=== PATIENT | male | born 1970 | race Caucasian/White ===

== ENCOUNTER 2020-06-12 05:55 | Inpatient (IN) ==
[2020-06-12] MEDS ORDERED: HYDROmorphone INJ 0.5 MG/0.5 ML SYR IV STA ×2 (06:38→11:03)
[2020-06-12] MEDS ORDERED: SODIUM CHLORIDE 0.9% 1000ML 1,000 ML IV ONE (06:39)
[2020-06-12] MEDS ORDERED: ONDANSETRON INJ 2 MG/ML 2 ML VIAL IV STA (06:45)
--- NOTE | 2020-06-12 06:49 | Emergency Department Note ---
ED Visit Note I contributed to the care of this patient under the supervision of Dr. Díaz. . Resident Activity Tracking Resident Involvement: Resident Care Provided Care Provided: Adult ED
[2020-06-12 06:53] LABS: Hematocrit (blood only) 52.2 % (42-52); Hemoglobin 18.2 g/dL (14.0-18.0); Mean Corpuscular Hemoglobin 32.9 pg (25-34); Mean Corpuscular Hgb Conc 34.9 g/dL (32-36); Mean Corpuscular Volume 94.4 fL (80-100); Mean Platelet Volume 9.9 fL (7.4-10.4); Platelet Count 432 K/uL (130-400); RDW Coefficient of Variation 13.2 % (11.5-14.5); RDW Standard Deviation 45.8 fL (36.4-46.3); Red Blood Count 5.53 M/uL (4.7-6.1); White Blood Count 27.76 K/uL (4.8-10.8)
--- NOTE | 2020-06-12 07:09 | Emergency Department Note ---
History of Present Illness General Chief Complaint: Abdominal Pain Stated Complaint: ABDOMINAL PAIN Time Seen by Provider: 06/12/20 06:19 Source: patient Mode of arrival: ambulatory Limitations: no limitations History of Present Illness Provider Complaint: abdominal pain Maximum Pain Intensity: 8 This is a 49-year-old male who presents to the ED with a chief complaint of lower abdominal pain. The patient has had the pain for a couple of days. Is associated with nausea and vomiting. He reports the pain is a constant pressure-like pain. Denies urinary symptoms. He states that he had this a few times before that seemed to resolve on its own after a day or 2. He never got checked for it. Nothing seems to make it better or worse. EMS provided IV fentanyl and IV Zofran. Little improvement with this. Home Medications Medication Instructions Recorded Confirmed Type cyclobenzaprine 5 mg tablet See Rx Instructions PO BID PRN #20 12/08/19 06/12/20 Rx tab esomeprazole magnesium 40 mg 40 mg PO BID cap 12/08/19 06/12/20 History capsule,delayed release multivitamin 1 tab PO DAILY 12/08/19 06/12/20 History buspirone 5 mg tablet 10 mg PO QAM tab 01/10/20 06/12/20 History lisinopril 10 mg tablet 10 mg PO DAILY #30 tab 03/01/20 06/12/20 Rx meloxicam 7.5 mg tablet 7.5 mg PO DAILY #30 tab 05/07/20 06/12/20 Rx Allergies Allergy/AdvReac Type Severity Reaction Status Date / Time Penicillins Allergy Unknown Unknown Verified 06/12/20 06:20 Past Med/Surg History Medical History (Updated 06/12/20 @ 10:07 by Jesus Díaz DO) Knowledge deficit on leg surgery Surgical History H/O hand surgery Previous back surgery S/P cholecystectomy S/P eye surgery S/P foot surgery Family History Father Heart disease Denies family history of Ovarian cancer Prostate cancer Breast cancer Colorectal cancer Social History Smoking Status: Former smoker Tobacco Type: Cigarettes and Smokeless Tobacco (Dip or Chew) Hx Alcohol Use: No Hx Substance Use: Yes Prescribed Medications: Marijuana Preferred Language: Danish Communication Ability: Effective Visual Impairment: No Limitations Hearing Ability: Normal marital status: Current Living Situation: Spouse and Family current occupational status: employed 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 Feels Safe at Home: Yes caffeine: Yes Dental Care, Regularly: No Physical Activity Frequency: Does not Exercise Seatbelt Use: always Sunscreen Use: No Review of Systems A total of 10 systems reviewed and were otherwise negative Physical Exam Vital Signs: Vital Signs - 24 hr 06/12/20 05:59 06/12/20 06:00 06/12/20 06:15 Temperature 36.5 C Temperature Source Oral Pulse Rate 128 H 129 H 130 H Pulse Rate from Sp O2 Sensor 129 H 137 H Pulse Rhythm [Apic al] Pulse Strength [Ap ical] Respiratory Rate 16 22 14 Respiratory Effort / Characteristics Non-Labored Respiratory Depth Normal Respiratory Patter n Blood Pressure 147/101 H 147/101 H 125/91 Blood Pressure Shelbi n 116 116 102 Pulse Oximetry 96 96 98 Oxygen Delivery Me thod Room Air Sepsis Recent Feve r Within 48 Hours No Sepsis New/Unexpla ined Change in Men silver Status N/A Sepsis Action Take n by Nursing No Action Required 06/12/20 06:18 06/12/20 06:23 06/12/20 06:30 Temperature Temperature Source Pulse Rate 135 H Pulse Rate from Sp O2 Sensor 136 H Pulse Rhythm [Apic al] Regular Pulse Strength [Ap ical] Normal Respiratory Rate 16 Respiratory Effort / Characteristics Non-Labored Sponta neous Respiratory Depth Normal Respiratory Patter n Regular Blood Pressure 135/87 Blood Pressure Shelbi n 103 Pulse Oximetry 97 Oxygen Delivery Me thod Sepsis Recent Feve r Within 48 Hours Sepsis New/Unexpla ined Change in Men silver Status Sepsis Action Take n by Nursing 06/12/20 06:41 06/12/20 07:33 06/12/20 08:03 Temperature Temperature Source Pulse Rate 132 H 130 H Pulse Rate from Sp O2 Sensor 132 H 127 H Pulse Rhythm [Apic al] Pulse Strength [Ap ical] Respiratory Rate 15 Respiratory Effort / Characteristics Respiratory Depth Respiratory Patter n Blood Pressure 111/66 104/67 Blood Pressure Shelbi n 81 79 Pulse Oximetry 96 96 94 Oxygen Delivery Me thod Room Air Sepsis Recent Feve r Within 48 Hours Sepsis New/Unexpla ined Change in Men silver Status Sepsis Action Take n by Nursing 06/12/20 08:30 06/12/20 09:00 Temperature Temperature Source Pulse Rate 128 H 119 H Pulse Rate from Sp O2 Sensor 129 H 121 H Pulse Rhythm [Apic al] Pulse Strength [Ap ical] Respiratory Rate 20 Respiratory Effort / Characteristics Respiratory Depth Respiratory Patter n Blood Pressure 101/57 L 112/72 Blood Pressure Shelbi n 71 85 Pulse Oximetry 96 97 Oxygen Delivery Me thod Sepsis Recent Feve r Within 48 Hours Sepsis New/Unexpla ined Change in Men silver Status Sepsis Action Take n by Nursing Physical Exam: CONSTITUTIONAL/VITAL SIGNS: Reviewed / noted above. GENERAL: Non-toxic in appearance. INTEGUMENTARY: Warm, dry, and [place]. HEAD: Normocephalic. EYES: without scleral icterus or trauma. ENT/OROPHARYNX: clear and moist. LYMPHADENOPATHY/NECK: Is supple without lymphadenopathy or meningismus. RESPIRATORY: Lungs clear and equal. CARDIOVASCULAR: Regular rate and rhythm. GI/ABDOMEN: Soft and tender in the lower abdominal quadrants below the umbilicus. No organomegaly or pulsatile mass. No rebound or guarding. Normal bowel sounds. EXTREMITIES: Warm and well perfused. BACK: No CVA tenderness. NEUROLOGICAL: Intact without focal deficits. PSYCHIATRIC: normal affect. MUSCULOSKELETAL: Normally developed with good muscle tone. TRIAGE NURSING DOCUMENTATION REVIEWED. Course Administered Medications Discontinued Medications Hydromorphone HCl (Hydromorphone Inj 0.5 Mg/0.5 Ml Syr) 0.5 mg IV NOW STA Stop: 06/12/20 06:39 Last Admin: 06/12/20 06:40 Dose: 0.5 mg Documented by: [id number] Hydromorphone HCl (Hydromorphone Inj 1 Mg/Ml Syringe) 1 mg IV NOW STA Stop: 06/12/20 07:16 Last Admin: 06/12/20 07:35 Dose: 1 mg Documented by: [id number] Sodium Chloride (Nss 1000ml) 1,000 mls @ 999 mls/hr IV .Q1H1M ONE Stop: 06/12/20 07:39 Last Admin: 06/12/20 07:36 Dose: 999 mls/hr Documented by: [id number] Sodium Chloride (Nss 1000ml) 500 mls @ 999 mls/hr IV .Q31M ONE Stop: 06/12/20 08:33 Last Admin: 06/12/20 09:48 Dose: 999 mls/hr Documented by: [id number] Sodium Chloride (Nss 1000ml) 500 mls @ 999 mls/hr IV .Q31M ONE Stop: 06/12/20 09:05 Last Admin: 06/12/20 09:48 Dose: 999 mls/hr Documented by: [id number] Medical Decision Making Differential Diagnosis Differential considered: pancreatitis, hepatitis, acute cholecystitis, AAA, UTI, pyelonephritis, kidney stones, appendicitis, diverticulitis, shingles, bowel obstruction, mesenteric ischemia, intussusception,hernia, testicular torsion Medical Records Attestation: I reviewed the patient's medical records. Home Medications Current Medication List: was personally reviewed by me Laboratory Data Attestation: I reviewed the patient's lab results. Result diagrams: 06/12/20 06:05 06/12/20 07:14 Lab Results 06/12/20 06/12/20 06/12/20 Range/Units 06:05 06:05 06:05 WBC 27.76 H (4.8-10.8) K/uL RBC 5.53 (4.7-6.1) M/uL Hgb 18.2 H (14.0-18.0) g/dL POC Hgb (14.0-18.0) g/dl Hct 52.2 H (42-52) % POC Hct (42-52) % MCV 94.4 (80-100) fL MCH 32.9 (25-34) pg MCHC 34.9 (32-36) g/dL RDW Std Deviation 45.8 (36.4-46.3) fL RDW Coeff of Yoselin 13.2 (11.5-14.5) % Plt Count 432 H (130-400) K/uL MPV 9.9 (7.4-10.4) fL Immature Gran % (Auto) 0.8 % Neut % (Auto) 89.7 % Lymph % (Auto) 5.0 % [place] % (Auto) 4.5 % Eos % (Auto) 0.0 % Baso % (Auto) 0.0 % Neut # (Auto) 24.89 H (1.4-6.5) K/uL Lymph # (Auto) 1.38 (1.2-3.4) K/uL [place] # (Auto) 1.25 H (0.11-0.59) K/uL Eos # (Auto) 0.01 (0-0.5) K/uL Baso # (Auto) 0.01 (0-0.2) K/uL Immature Gran # (Auto) 0.22 H (0.00-0.02) K/uL POC Sodium (135-144) mmol/L Sodium Cancelled POC Potassium (3.3-5.0) mmol/L Potassium Cancelled POC Chloride (101-112) mmol/L Chloride Cancelled Carbon Dioxide Cancelled POC Total CO2 (24-31) mmol/L Anion Gap Cancelled POC Anion Gap (16-25) mmol/L POC BUN (7-18) mg/dl BUN Cancelled Creatinine Cancelled POC Creatinine (0.6-1.3) mg/dl Est Cr Clr Drug Dosing Cancelled Est GFR ( Amer) Cancelled Est GFR (Non-Af Amer) Cancelled BUN/Creatinine Ratio Cancelled Glucose Cancelled POC Glucose (other) (70-99) mg/dl Estimat Average Glucose 120 mg/dl Hemoglobin A1c 5.8 H (4.5-5.6) % Lactate (0.4-2.0) mmol/L Calcium Cancelled POC Ioniz Calcium Scottie (1.12-1.32) mmol/l Total Bilirubin Cancelled Direct Bilirubin Cancelled AST Cancelled ALT Cancelled Alkaline Phosphatase Cancelled Total Protein Cancelled Albumin Cancelled Globulin Cancelled Albumin/Globulin Ratio Cancelled Lipase Cancelled Beta-Hydroxybutyric Acd (0.2-2.81) mg/dl COVID-19 Eval Order 06/12/20 06/12/20 06/12/20 Range/Units 06:05 07:14 07:24 WBC (4.8-10.8) K/uL RBC (4.7-6.1) M/uL Hgb (14.0-18.0) g/dL POC Hgb (14.0-18.0) g/dl Hct (42-52) % POC Hct (42-52) % MCV (80-100) fL MCH (25-34) pg MCHC (32-36) g/dL RDW Std Deviation (36.4-46.3) fL RDW Coeff of Yoselin (11.5-14.5) % Plt Count (130-400) K/uL MPV (7.4-10.4) fL Immature Gran % (Auto) % Neut % (Auto) % Lymph % (Auto) % [place] % (Auto) % Eos % (Auto) % Baso % (Auto) % Neut # (Auto) (1.4-6.5) K/uL Lymph # (Auto) (1.2-3.4) K/uL [place] # (Auto) (0.11-0.59) K/uL Eos # (Auto) (0-0.5) K/uL Baso # (Auto) (0-0.2) K/uL Immature Gran # (Auto) (0.00-0.02) K/uL POC Sodium (135-144) mmol/L Sodium 137 POC Potassium (3.3-5.0) mmol/L Potassium 3.6 POC Chloride (101-112) mmol/L Chloride 99 Carbon Dioxide 16 L POC Total CO2 (24-31) mmol/L Anion Gap 22.0 H POC Anion Gap (16-25) mmol/L POC BUN (7-18) mg/dl BUN 44 H Creatinine 3.83 H POC Creatinine (0.6-1.3) mg/dl Est Cr Clr Drug Dosing 21.2 Est GFR ( Amer) 20.0 Est GFR (Non-Af Amer) 17.2 BUN/Creatinine Ratio 11.5 Glucose 301 H* POC Glucose (other) (70-99) mg/dl Estimat Average Glucose mg/dl Hemoglobin A1c (4.5-5.6) % Lactate 12.7 H* (0.4-2.0) mmol/L Calcium 10.8 H POC Ioniz Calcium Scottie (1.12-1.32) mmol/l Total Bilirubin 0.5 Direct Bilirubin < 0.1 AST 40 H ALT 45 Alkaline Phosphatase 96 Total Protein 9.9 H Albumin 4.7 Globulin 5.1 H Albumin/Globulin Ratio 0.9 Lipase 281 Beta-Hydroxybutyric Acd 2.93 H (0.2-2.81) mg/dl COVID-19 Eval Order CovFluRsv at [facility] 06/12/20 Range/Units 08:31 WBC (4.8-10.8) K/uL RBC (4.7-6.1) M/uL Hgb (14.0-18.0) g/dL POC Hgb 18.4 H (14.0-18.0) g/dl Hct (42-52) % POC Hct 54 H (42-52) % MCV (80-100) fL MCH (25-34) pg MCHC (32-36) g/dL RDW Std Deviation (36.4-46.3) fL RDW Coeff of Yoselin (11.5-14.5) % Plt Count (130-400) K/uL MPV (7.4-10.4) fL Immature Gran % (Auto) % Neut % (Auto) % Lymph % (Auto) % [place] % (Auto) % Eos % (Auto) % Baso % (Auto) % Neut # (Auto) (1.4-6.5) K/uL Lymph # (Auto) (1.2-3.4) K/uL [place] # (Auto) (0.11-0.59) K/uL Eos # (Auto) (0-0.5) K/uL Baso # (Auto) (0-0.2) K/uL Immature Gran # (Auto) (0.00-0.02) K/uL POC Sodium 141 (135-144) mmol/L Sodium POC Potassium 3.6 (3.3-5.0) mmol/L Potassium POC Chloride 104 (101-112) mmol/L Chloride Carbon Dioxide POC Total CO2 19 L (24-31) mmol/L Anion Gap POC Anion Gap 22.0 (16-25) mmol/L POC BUN 45 H (7-18) mg/dl BUN Creatinine POC Creatinine 3.6 H (0.6-1.3) mg/dl Est Cr Clr Drug Dosing Est GFR ( Amer) Est GFR (Non-Af Amer) BUN/Creatinine Ratio Glucose POC Glucose (other) 289 H (70-99) mg/dl Estimat Average Glucose mg/dl Hemoglobin A1c (4.5-5.6) % Lactate (0.4-2.0) mmol/L Calcium POC Ioniz Calcium Scottie 1.14 (1.12-1.32) mmol/l Total Bilirubin Direct Bilirubin AST ALT Alkaline Phosphatase Total Protein Albumin Globulin Albumin/Globulin Ratio Lipase Beta-Hydroxybutyric Acd (0.2-2.81) mg/dl COVID-19 Eval Order Imaging Data Radiologist's Impression: CT OF THE ABDOMEN AND PELVIS WITH ORAL CONTRAST ONLY CLINICAL HISTORY: Abdominal pain, nausea and vomiting. COMPARISON STUDY: No previous studies for comparison. TECHNIQUE: Axial images of the abdomen and pelvis were obtained without IV contrast. Water soluble oral contrast was administered. Automated exposure control was utilized for the study. A dose lowering technique was utilized adhering to the principles of ALARA. FINDINGS: Visualized portions of the lower lungs demonstrate several low suspicion pulmonary nodules, including a 4 mm left lower lobe nodule on image 43 of 511 and a 4 mm right middle lobe nodule on image 24. There are minimal tree-in-bud nodules within the right lower and right middle lobes. No pneumatosis, free air or portal venous gas is present. Evaluation of the abdomen and pelvis is suboptimal on this unenhanced examination. Stomach is markedly distended and fluid-filled. The proximal small bowel is mildly dilated and fluid-filled. Numerous air-fluid levels are noted throughout the small bowel. No well-defined transition point is identified. No bowel wall thickening is identified although sensitivity is diminished on this unenhanced examination. The appendix is normal. There is probable hepatic steatosis. There is no biliary ductal dilatation status post cholecystectomy. Unenhanced images of the spleen, adrenal glands, kidneys and pancreas are unremarkable. There is a 2 mm left renal calculus. There is no hydronephrosis. There are no ureteral calculi. There is no ascites. No fluid collection to suggest an abscess is noted. A mildly enlarged left para-aortic lymph node on image 237 measures 1.3 cm in short axis diameter. No acute fracture or suspicious lesion within the visualized skeletal structures are noted. There are postoperative findings within the thoracolumbar spine. Old lumbar spine compression deformities are noted. IMPRESSION: 1. Mildly dilated fluid-filled proximal to mid small bowel with numerous air- fluid levels throughout the small bowel. No transition point. These findings favor an ileus or a nonspecific enteritis. A partial small bowel obstruction could appear similar. If persistent symptoms, a short-term follow-up CT of the abdomen and pelvis is recommended. Exam compromised given the lack of IV contrast. Findings discussed with Dr. Díaz at time of dictation. 2. Markedly distended fluid-filled stomach. Nasogastric tube placement might be considered. 3. 2 mm left renal calculus. No hydronephrosis. No ureteral calculi. 4. Mildly enlarged left paraaortic lymph node. This could be assessed with a follow-up CT of the abdomen and pelvis in 6 months. 5. Hepatic steatosis. ECG Data Attestation: I personally reviewed and interpreted this ECG as follows: Indication: abdominal pain Rate (beats per minute): 128 Rhythm: sinus tachycardia Findings: + ectopy; no PVC and no ST elevation MDM Narrative This is a 49-year-old male with lower abdominal pain as detailed above. Exam reveals tenderness diffusely in the lower abdomen. Vital signs show tachy cardia. His twelve-lead EKG shows a sinus tach at a rate of 128. The abdominal exam reveals some mild periumbilical lower abdominal tenderness. With blood cell count was 27,000. Lactic acid was over 12. BUN is 44 and creatinine is 3.8. Lipase was negative. Glucose was 300. The patient was treated with 30 cc/kg of normal saline IV. He was given Dilaudid IV for discomfort and IV Zofran. He was given some empiric IV antibiotics including IV Cipro and IV Flagyl. CT scan did not show any clear intra-abdominal pathology other than ileus as noted above. The patient will be seen by the hospitalist for further evaluation and care. Impression & Plan Acute renal failure, Acidosis, lactic, Acute hyperglycemia Critical Care Time Critical Care Time: Yes Total Critical Care Time: 30 I have personally spent 30 minutes of critical care time in the direct management of this patient. This includes bedside care, interpretation of diagnostic studies, and testing, discussion with consultants, patient, and family members, and other required patient management activities. This 30 minutes is in excess of all separately billable procedures. Discharge Plan Visit Data Chief Complaint: Abdominal Pain Stated Complaint: ABDOMINAL PAIN ED Provider: Jesus Díaz ED Midlevel Provider: Viktor Lira Discharge Problem: Acute renal failure, Acidosis, lactic, Acute hyperglycemia Patient Disposition: Being Evaluated by Surgeon Forms Stand Alone Forms: My [facility] [employer] Prescriptions Prescriptions: No Action lisinopril 10 mg tablet 10 mg PO DAILY Qty: 30 RF: 5 meloxicam [Mobic] 7.5 mg tablet 7.5 mg PO DAILY Qty: 30 RF: 2 esomeprazole magnesium [Nexium] 40 mg capsule,delayed release(DR/EC) 40 mg PO BID RF: 0 multivitamin Tablet 1 tab PO DAILY RF: 0 cyclobenzaprine 5 mg tablet See Rx Instructions PO BID PRN (Reason: muscle spasm) Qty: 20 RF: 0 buspirone 5 mg tablet 10 mg PO QAM RF: 0 Referrals Referrals: Emely Torres DO [Primary Care Provider] -
[2020-06-12 07:15] LABS: Basophils # (auto) 0.01 K/uL (0-0.2); Eosinophils # (auto) 0.01 K/uL (0-0.5); Immature Granulocytes # (auto) 0.22 K/uL (0.00-0.02); Immature Granulocytes % (auto) 0.8 %; Lymphocytes # (auto) 1.38 K/uL (1.2-3.4); Monocytes # (auto) 1.25 K/uL (0.11-0.59); Monocytes % (auto) 4.5 %; Neutrophils # (auto) 24.89 K/uL (1.4-6.5); Neutrophils % (auto) 89.7 %
[2020-06-12] MEDS ORDERED: HYDROmorphone INJ 1 MG/ML SYRINGE IV STA (07:15)
[2020-06-12] MEDS ORDERED: SODIUM CHLORIDE 0.9% 1000ML 500 ML IV ONE ×2 (08:03→08:35)
[2020-06-12] MEDS ORDERED: CIPROFLOXACIN / D5W 400 MG/200 ML BAG IV SCH (08:15)
[2020-06-12 08:27] LABS: Alanine Aminotransferase 45 U/L (12-78); Albumin Globulin Ratio 0.9 (0.9-2); Albumin Level 4.7 gm/dl (3.4-5.0); Alkaline Phosphatase 96 U/L (45-117); Aspartate Aminotransferase 40 U/L (15-37); BUN Creatinine Ratio 11.5 (10-20); Bilirubin Direct < 0.1 mg/dl (0-0.2); Bilirubin,Total 0.5 mg/dl (0.2-1); Blood Urea Nitrogen 44 mg/dl (7-18); Calcium 10.8 mg/dl (8.5-10.1); Carbon Dioxide 16 mmol/L (21-32); Chloride 99 mmol/L (98-107); Creatinine Clr Calc Pharmacy 21.2 ml/min; Est GFR (Non-African American) 17.2; Globulin 5.1 gm/dl (2.5-4.0); Glucose 301 mg/dl (70-99); Lipase 281 U/L (73-393); Potassium 3.6 mmol/L (3.5-5.1); Sodium 137 mmol/L (136-145); Total Protein 9.9 gm/dl (6.4-8.2)
[2020-06-12 08:43] LABS: iSTAT Creatinine 3.6 mg/dl (0.6-1.3); iSTAT Hemoglobin 18.4 g/dl (14.0-18.0); iSTAT Ionized Calcium 1.14 mmol/l (1.12-1.32); iSTAT Potassium 3.6 mmol/L (3.3-5.0)
[2020-06-12 09:02] LABS: Beta-Hydroxybutyrate 2.93 mg/dl (0.2-2.81)
[2020-06-12 09:23] LABS: Estimated Average Glucose 120 mg/dl; Hemoglobin A1C 5.8 % (4.5-5.6)
--- NOTE | 2020-06-12 09:53 | CT Scan Report ---
CT OF THE ABDOMEN AND PELVIS WITH ORAL CONTRAST ONLY CLINICAL HISTORY: Abdominal pain, nausea and vomiting. COMPARISON STUDY: No previous studies for comparison. TECHNIQUE: Axial images of the abdomen and pelvis were obtained without IV contrast. Water soluble or al contrast was administered. Automated exposure control was utilized for the study. A dose lowering technique was utilized adhering to the principles of ALARA. FINDINGS: Visualized portions of the lower lungs demonstrate several low suspicion pulmonary nodules, including a 4 mm left lower lobe nodule on image 43 of 511 and a 4 mm right middle lobe nodule on im age 23. There are minimal tree-in-bud nodules within the right lower and right middle lobes. No pneumatosis, free air or portal venous gas is present. Evaluation of the abdomen and pelvis is sub optimal on this unenhanced examination. Stomach is markedly distended and fluid-filled. The proximal small bowel is mildly dilated and fluid-filled. Numerous air-fluid levels are noted throughout the sm all bowel. No well-defined transition point is identified. No bowel wall thickening is identified alt sayra sensitivity is diminished on this unenhanced examination. The appendix is normal. There is prob able hepatic steatosis. There is no biliary ductal dilatation status post cholecystectomy. Unenhanced images of the spleen, adrenal glands, kidneys and pancreas are unremarkable. There is a 2 mm left re nal calculus. There is no hydronephrosis. There are no ureteral calculi. There is no ascites. No flui d collection to suggest an abscess is noted. A mildly enlarged left para-aortic lymph node on image 2 37 measures 1.3 cm in short axis diameter. No acute fracture or suspicious lesion within the visualiz ed skeletal structures are noted. There are postoperative findings within the thoracolumbar spine. Ol d lumbar spine compression deformities are noted. IMPRESSION: 1. Mildly dilated fluid-filled proximal to mid small bowel with numerous air-fluid levels throughout the small bowel. No transition point. These findings favor an ileus or a nonspecific enteritis. A par tial small bowel obstruction could appear similar. If persistent symptoms, a short-term follow-up CT of the abdomen and pelvis is recommended. Exam compromised given the lack of IV contrast. Findings di scussed with Dr. Díaz at time of dictation. 2. Markedly distended fluid-filled stomach. Nasogastric tube placement might be considered. 3. 2 mm left renal calculus. No hydronephrosis. No ureteral calculi. 4. Mildly enlarged left paraaortic lymph node. This could be assessed with a follow-up CT of the abdo men and pelvis in 6 months. 5. Hepatic steatosis. ACT 112: Negative or not required by law. Electronically signed by: Kingsley Concepcion M.D. 06/12/2020 9:51 AM
[2020-06-12] MEDS: metroNIDAZOLE 500 MG/100 ML BAG IV SCH ×3 (10:11→23:16)
[2020-06-12 10:35] LABS: Influenza A virus by PCR Negative (Neg); Influenza B virus by PCR Negative (Neg); RSV by PCR Negative (Neg); SARS CoV2 RNA(COVID-19) InHosp NEGATIVE (Negative)
--- NOTE | 2020-06-12 10:54 | Surgery Consultation ---
Date of Consultation June 12, 2020 Assessment & Plan (1) Partial small bowel obstruction: This is a 49y M with a PMH of tobacco use, spinal stenosis, GERD, and depression who presents to the [facility] ED on 06/12/20 with complaints of lower abdominal pain, associated with nausea/vomiting. CT a/p was performed that revealed mildly dilated fluid-filled proximal to mid small bowel with numerous air-fluid levels throughout the small bowel, without transition point, favoring an ileus, nonspecific enteritis, or a partial small bowel obstruction could appear similar. It also showed a markedly distended fluid-filled stomach. Patient's HR 110-130's. Labs notable for a WBC of 27, Hb.2, Cr: 3.8, and lactate of 12. On examination patient's abdomen is distended with tenderness to palpation in the lower abdomen. Legs have a mottled appearance. At this time recommend aggressive fluid resuscitation, broad spectrum abx, and NGT placement. We will continue to follow along closely for change in patient's status. pt seen. as above. I suspect gastroenteritis with severe dehydration. will repeat bolus and increase maintenance IVF. NGT put out over 2000 cc's at initial insertion. agree with empiric antibiotics. abd: soft. no peritoneal signs. no indication for urgent surgery. will continue to follow along closely. History of Present Illness History of Present Illness This is a 49y M with a PMH of tobacco use, spinal stenosis, GERD, and depression who presents to the [facility] ED on 06/12/20 with complaints of lower abdominal pain, associated with nausea/vomiting. Patient reports his lower abdominal discomfort started yesterday and he subsequently developed nausea and vomiting (4-5xtimes). He took a zofran at bedtime with some relief. His pain continued through this AM and his did not think he looked well, so they called an ambulance to bring him into the ER. In the ER patient underwent a CT a/p that revealed mildly dilated fluid-filled proximal to mid small bowel with numerous air-fluid levels throughout the small bowel, without transition point, favoring an ileus, nonspecific enteritis, or a partial small bowel obstruction could appear similar. It also showed a markedly distended fluid-filled stomach. Patient denies passing flatus and reports his last BM was 3 days ago. Past surgical history includes a cholecystectomy. He endorses some shortness of breath and chills. Denies fevers. Allergies Allergy/AdvReac Type Severity Reaction Status Date / Time Penicillins Allergy Unknown Unknown Verified 06/12/20 06:20 Home Medications Medication Instructions Recorded Confirmed Type cyclobenzaprine 5 mg tablet See Rx Instructions PO BID PRN #20 12/08/19 06/12/20 Rx tab esomeprazole magnesium 40 mg 40 mg PO BID cap 12/08/19 06/12/20 History capsule,delayed release multivitamin 1 tab PO DAILY 12/08/19 06/12/20 History buspirone 5 mg tablet 10 mg PO QAM tab 01/10/20 06/12/20 History lisinopril 10 mg tablet 10 mg PO DAILY #30 tab 03/01/20 06/12/20 Rx meloxicam 7.5 mg tablet 7.5 mg PO DAILY #30 tab 05/07/20 06/12/20 Rx Patient History Medical History (Updated 06/12/20 @ 12:45 by Nena Zabala MD) Acute kidney injury Knowledge deficit on leg surgery Surgical History H/O hand surgery Previous back surgery S/P cholecystectomy S/P eye surgery S/P foot surgery Family History Father Heart disease Denies family history of Ovarian cancer Prostate cancer Breast cancer Colorectal cancer Social History Smoking Status: Current some day smoker Tobacco Type: Cigarettes and Smokeless Tobacco (Dip or Chew) Second Hand Exposure: No; Do You Dip or Chew Tobacco: No; Tobacco Cessation Education Requested by Patient: No Hx Alcohol Use: Yes Alcohol type: beer Hx Substance Use: No Preferred Language: Divehi Communication Ability: Effective Visual Impairment: No Limitations Hearing Ability: Normal Centrifugal Operator Required: No Beliefs That Will Affect Care: None marital status: Current Living Situation: Spouse current occupational status: employed 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 Other Information That Helps Us Care for You: No Feels Safe at Home: Yes Safety Concerns: Feels Safe At This Time caffeine: Yes Dental Care, Regularly: No Physical Activity Frequency: Does not Exercise Seatbelt Use: always Sunscreen Use: No Assistive Devices: Glasses Review of Systems Constitutional: + chills; no fever Respiratory: + dyspnea Cardiovascular: no chest pain Gastrointestinal: + abdominal pain (lower abdomen), + bloating, + nausea, + vomiting and + constipation Physical Exam Physical Exam: awake Constitutional: well developed uncomfortable appearing Respiratory: normal respiratory effort Cardiovascular: Rate/Rhythm: + tachycardic Gastrointestinal (Abdomen): Inspection/Auscultation: + abdomen distended Percussion/Palpation: + abdomen tender (tender in lower abdomen ) and abdomen soft Skin: + mottling (of bilateral lower extremities) Results & Data ([facility]) Vital Signs (Past 12 Hours) Vital Signs Temp Pulse Resp BP Pulse Ox 06/12/20 09:00 119 H 20 112/72 97 06/12/20 08:30 128 H 101/57 L 96 06/12/20 08:03 130 H 104/67 94 06/12/20 07:33 132 H 15 111/66 96 06/12/20 06:41 96 06/12/20 06:30 135 H 16 135/87 97 06/12/20 06:15 130 H 14 125/91 98 06/12/20 06:00 129 H 22 147/101 H 96 06/12/20 05:59 36.5 C 128 H 16 147/[address] OF THE ABDOMEN AND PELVIS WITH ORAL CONTRAST ONLY CLINICAL HISTORY: Abdominal pain, nausea and vomiting. COMPARISON STUDY: No previous studies for comparison. TECHNIQUE: Axial images of the abdomen and pelvis were obtained without IV contrast. Water soluble oral contrast was administered. Automated exposure control was utilized for the study. A dose lowering technique was utilized adhering to the principles of ALARA. FINDINGS: Visualized portions of the lower lungs demonstrate several low suspicion pulmonary nodules, including a 4 mm left lower lobe nodule on image 43 of 511 and a 4 mm right middle lobe nodule on image 24. There are minimal tree-in-bud nodules within the right lower and right middle lobes. No pneumatosis, free air or portal venous gas is present. Evaluation of the abdomen and pelvis is suboptimal on this unenhanced examination. Stomach is markedly distended and fluid-filled. The proximal small bowel is mildly dilated and fluid-filled. Numerous air-fluid levels are noted throughout the small bowel. No well-defined transition point is identified. No bowel wall thickening is identified although sensitivity is diminished on this unenhanced examination. The appendix is normal. There is probable hepatic steatosis. There is no biliary ductal dilatation status post cholecystectomy. Unenhanced images of the spleen, adrenal glands, kidneys and pancreas are unremarkable. There is a 2 mm left renal calculus. There is no hydronephrosis. There are no ureteral calculi. There is no ascites. No fluid collection to suggest an abscess is noted. A mildly enlarged left para-aortic lymph node on image 237 measures 1.3 cm in short axis diameter. No acute fracture or suspicious lesion within the visualized skeletal structures are noted. There are postoperative findings within the thoracolumbar spine. Old lumbar spine compression deformities are noted. IMPRESSION: 1. Mildly dilated fluid-filled proximal to mid small bowel with numerous air- fluid levels throughout the small bowel. No transition point. These findings favor an ileus or a nonspecific enteritis. A partial small bowel obstruction could appear similar. If persistent symptoms, a short-term follow-up CT of the abdomen and pelvis is recommended. Exam compromised given the lack of IV contrast. Findings discussed with Dr. Díaz at time of dictation. 2. Markedly distended fluid-filled stomach. Nasogastric tube placement might be considered. 3. 2 mm left renal calculus. No hydronephrosis. No ureteral calculi. 4. Mildly enlarged left paraaortic lymph node. This could be assessed with a follow-up CT of the abdomen and pelvis in 6 months. 5. Hepatic steatosis. ACT 112: Negative or not required by law. Electronically signed by: Kingsley Concepcion M.D. 06/12/2020 9:51 AM PG Care Time/CCT Total # of Minutes Spent Total Time Spent with Patient: Total time spent is greater than 50% in coordination of care (as documented) at patient's floor/unit and/or counseling patient: Coding Level of Care Code 60913 Inpt Consult Level 4 Diagnoses Partial small bowel obstruction K56.600
[2020-06-12] MEDS ORDERED: LACTATED RINGER'S 1,000 ML IV ONE ×2 (11:12→17:55)
--- NOTE | 2020-06-12 11:20 | History & Physical Report ---
Date of Service June 12, 2020 Assessment & Plan (1) Sepsis: Unspecified source at this time but abdomen is likely the cause. Continue to evaluate pathology- CT of abdomen and pelvis not optimal in the EMD, as oral contrast not transcending and IV contrast not uesed. If pateint's lactate c otninues to increase and/or he worsens, would get CT of abdomen and Pelvis with contrast to evaluate for ischemic causes. 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 Currently patient is metabolic acidosis compensated. Glucose control antibiotics changed to Cefepime and Flagyl- blood cultures and urine cultures are pending Trend lactate Procalcitonin Maintain MAPS>65 Nephrology and Gen. Surgery consults placed. ICU consult placed and admit to the ICU appreciate all services assistance (2) Partial small bowel obstruction: As above not optimal study - Only surgical procedure on abdomen is his cholecystectomy - don't appreciate transition points, but with air fluid levels and largely distended abdomen - NGT being placed to LIWS - Bowel rest, NPO - Colon normal size - Appreciate GS recommendations - Repeat serial abdominal exams - Continue to identify cause ? spont adhesions (3) Acute renal failure: Oliguric acute renal failure- hypoperfusion, Patient on Meloxicam, Lisinopril held- continued use in the setting of decrease oral intake and hypoperfusion may explain some of his renal injury at this time. - Follow urine output following resuscitation- should start making urine if acute injury - follow urine for protein and blood - HCO3 decreasing, COIN [employer]SEMBLER to 3.38, BUN 44- unsure of baseline, but again oliguric - Renal ultrasound - No acute pathology seen on CT scan - Avoid nephrotoxic agents as able to however when needed minimize exposure - MAPS>65 - Resuscitate with isotonic fluids prefer LR, Normosol, isotonic HCO3 if bicarb drops - Nephrology consult, appreciate their assistance (4) Acidosis, lactic: High anion gap acidoses - BG only 393 and is out of proportion to his cause of acidosis - Serum and urine OSMO pending - GAP 22 - resuscitate as above - Currently compensated by respiratory drive (5) Acute hyperglycemia: As above - start on regular insulin drip at hyperglycemic protocol - monitor BG q1 (6) HTN (hypertension): Medications held- support BP--- MAPS >65 (7) Chronic low back pain: Home medications held - hydromorphone and lidocaine patches for pain - re-introduce pain medications if renal function stabilizes Was to go this week for injection for pain control. (8) GERD (gastroesophageal reflux disease): Famotidine 10mg BID - can adjust dose for symptoms - ICU prevention History of Present Illness Primary Care Provider: Emely Torres, DO 49 YOM with past medical history of budging disks, spinal stenosis, HTN, GERD, Tobacco (dip). He comes to the emergency department with complaints of 3 days of abdominal pain, distention, nausea and vomiting. The patient states that these episodes occur about 1-2 times per year, that normally goes away. This episode has not gone away and he continues to be nauseated, distended and vomiting. The patient tried some Pedialyte at home and Zofran with no relief. In the emergency room, it was noted that his WBC were elevated to 27 and lactate 12, GAP of 12, CO[employer]SEMBLER 3.6. Hospitalist team was notified for admission. Upon evaluation of the patient he was lying on his side, but voices his most comfortable position is lying on back with knees bent. He is distended, and generalized tender to all areas, he was not hypoxic, or hypotensive, but was tachycardic despite 2.5 liters of crystalloid. His last BM was 2 days ago and was soft, but consistent to how his stools have been since his gallbladder removal 5 years ago. He has not been able to take a regular diet, and oral intake as above. He denies that he has had any fevers but some chills, his urine has been dark and everything he attempts to take orally, he throws back up. He denies any ETOH, or other alcohol intake and reports his blood glucose levels are normally good. He will be admitted to the ICU for continued resuscitation and monitoring. I requested a NGT to be placed and Johnson catheter to be placed, follow up on labs, general surgery consult and nephrology consult were placed. Patient continues to show evidence of hypoperfusion with sepsis and high anion gap acidosis. Admit to ICU requested. Johnson placed in ER with minimal amount of dark neida urine. Allergies Allergy/AdvReac Type Severity Reaction Status Date / Time Penicillins Allergy Unknown Unknown Verified 06/12/20 06:20 Home Medications Medication Instructions Recorded Confirmed Type cyclobenzaprine 5 mg tablet See Rx Instructions PO BID PRN #20 12/08/19 06/12/20 Rx tab esomeprazole magnesium 40 mg 40 mg PO BID cap 12/08/19 06/12/20 History capsule,delayed release multivitamin 1 tab PO DAILY 12/08/19 06/12/20 History buspirone 5 mg tablet 10 mg PO QAM tab 01/10/20 06/12/20 History lisinopril 10 mg tablet 10 mg PO DAILY #30 tab 03/01/20 06/12/20 Rx meloxicam 7.5 mg tablet 7.5 mg PO DAILY #30 tab 05/07/20 06/12/20 Rx Past Med/Surg History Medical History (Updated 06/12/20 @ 12:45 by Nena Zabala MD) Acute kidney injury Knowledge deficit on leg surgery Surgical History H/O hand surgery Previous back surgery S/P cholecystectomy S/P eye surgery S/P foot surgery Family History Father Heart disease Denies family history of Ovarian cancer Prostate cancer Breast cancer Colorectal cancer Social History Smoking Status: Current some day smoker Tobacco Type: Cigarettes and Smokeless Tobacco (Dip or Chew) Second Hand Exposure: No; Hx Alcohol Use: Yes Alcohol type: beer Hx Substance Use: No Preferred Language: Italian Communication Ability: Effective Visual Impairment: No Limitations Hearing Ability: Normal Auto Air Conditioning Mechanic Required: No Beliefs That Will Affect Care: None marital status: Current Living Situation: Spouse current occupational status: employed 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 Feels Safe at Home: Yes caffeine: Yes Dental Care, Regularly: No Physical Activity Frequency: Does not Exercise Seatbelt Use: always Sunscreen Use: No Assistive Devices: Glasses Review of Systems Review of Systems: REVIEW OF SYSTEMS: Constitutional: No fever, sweats or chills Eyes: No diplopia, no worsening or blurred vision ENT: normal hearing, no trouble swallowing Respiratory: No cough, sputum, dyspnea at rest or on exertion Cardiovascular: No chest pain, tightness or palpitations Abdomen: (+) pain, nausea, vomiting, diarrhea or constipation Musculoskeletal: No joint pain, calf pain, swelling Neurologic: No weakness, numbness/tingling, or balance problems Psychiatric: No anxiety or depression Skin: modeling of legs. Physical Exam Physical Exam: PHYSICAL EXAM: General: awake, alert, unable to get comfortable in bed Head: Normocephalic, atraumatic ENT: PERRL, EOMI, no pharyngeal exudate, mucous membranes dry Neuro: AAO x 3, speech clear and appropriate, strength intact bilaterally 5/5, sensation intact and equal all extremities and dermatomes, no pronator drift Chest: equal rise and fall of the chest, no accessory muscle use, no heaves or thrills, Clear to auscultation, on room air, Cardiac: Regular rate and rhythm, telemetry reviewed, skin warm dry, cap refill <3 seconds, peripheral pulses +2 no JVD, no murmur, no edema GI: firm, distended, hypoactive bowel sounds in a 4 quadrants, tender to palpation, no rebound, guarding, and pain does not change with deep palpation. : has not voided this morning, johnson with dark neida urine Extremities: Normal inspection, no peripheral edema or erythema, calfs nontender to palpation Psych: Normal mood and affect Skin: pale lower extremities with moddleing, warm with good distal pulses to ankle, foot, and knee. Results & Data Results & Data ([facility]) Vital Signs (Past 12 Hours) Vital Signs Temp Pulse Resp BP Pulse Ox 06/12/20 09:00 119 H 20 112/72 97 06/12/20 08:30 128 H 101/57 L 96 06/12/20 08:03 130 H 104/67 94 06/12/20 07:33 132 H 15 111/66 96 06/12/20 06:41 96 06/12/20 06:30 135 H 16 135/87 97 06/12/20 06:15 130 H 14 125/91 98 06/12/20 06:00 129 H 22 147/101 H 96 06/12/20 05:59 36.5 C 128 H 16 147/101 H 96 Laboratory Results Abnormal lab results 06/12/20 06/12/20 06/12/20 Range/Units 06:05 06:05 07:14 WBC 27.76 H (4.8-10.8) K/uL Hgb 18.2 H (14.0-18.0) g/dL POC Hgb (14.0-18.0) g/dl Hct 52.2 H (42-52) % POC Hct (42-52) % Plt Count 432 H (130-400) K/uL Neut # (Auto) 24.89 H (1.4-6.5) K/uL [place] # (Auto) 1.25 H (0.11-0.59) K/uL Immature Gran # (Auto) 0.22 H (0.00-0.02) K/uL Carbon Dioxide 16 L (21-32) mmol/L POC Total CO2 (24-31) mmol/L Anion Gap 22.0 H (3-11) POC BUN (7-18) mg/dl BUN 44 H (7-18) mg/dl Creatinine 3.83 H (0.6-1.4) mg/dl POC Creatinine (0.6-1.3) mg/dl Glucose 301 H* (70-99) mg/dl POC Glucose (other) (70-99) mg/dl Hemoglobin A1c 5.8 H (4.5-5.6) % Lactate (0.4-2.0) mmol/L Calcium 10.8 H (8.5-10.1) mg/dl AST 40 H (15-37) U/L Total Protein 9.9 H (6.4-8.2) gm/dl Globulin 5.1 H (2.5-4.0) gm/dl Beta-Hydroxybutyric Acd 2.93 H (0.2-2.81) mg/dl 06/12/20 06/12/20 Range/Units 07:24 08:31 WBC (4.8-10.8) K/uL Hgb (14.0-18.0) g/dL POC Hgb 18.4 H (14.0-18.0) g/dl Hct (42-52) % POC Hct 54 H (42-52) % Plt Count (130-400) K/uL Neut # (Auto) (1.4-6.5) K/uL [place] # (Auto) (0.11-0.59) K/uL Immature Gran # (Auto) (0.00-0.02) K/uL Carbon Dioxide (21-32) mmol/L POC Total CO2 19 L (24-31) mmol/L Anion Gap (3-11) POC BUN 45 H (7-18) mg/dl BUN (7-18) mg/dl Creatinine (0.6-1.4) mg/dl POC Creatinine 3.6 H (0.6-1.3) mg/dl Glucose (70-99) mg/dl POC Glucose (other) 289 H (70-99) mg/dl Hemoglobin A1c (4.5-5.6) % Lactate 12.7 H* (0.4-2.0) mmol/L Calcium (8.5-10.1) mg/dl AST (15-37) U/L Total Protein (6.4-8.2) gm/dl Globulin (2.5-4.0) gm/dl Beta-Hydroxybutyric Acd (0.2-2.81) mg/dl Diagnostic Findings CT OF THE ABDOMEN AND PELVIS WITH ORAL CONTRAST ONLY CLINICAL HISTORY: Abdominal pain, nausea and vomiting. COMPARISON STUDY: No previous studies for comparison. TECHNIQUE: Axial images of the abdomen and pelvis were obtained without IV contrast. Water soluble oral contrast was administered. Automated exposure control was utilized for the study. A dose lowering technique was utilized adhering to the principles of ALARA. FINDINGS: Visualized portions of the lower lungs demonstrate several low suspicion pulmonary nodules, including a 4 mm left lower lobe nodule on image 43 of 511 and a 4 mm right middle lobe nodule on image 24. There are minimal tree-in-bud nodules within the right lower and right middle lobes. No pneumatosis, free air or portal venous gas is present. Evaluation of the abdomen and pelvis is suboptimal on this unenhanced examination. Stomach is markedly distended and fluid-filled. The proximal small bowel is mildly dilated and fluid-filled. Numerous air-fluid levels are noted throughout the small bowel. No well-defined transition point is identified. No bowel wall thickening is identified although sensitivity is diminished on this unenhanced examination. The appendix is normal. There is probable hepatic steatosis. There is no biliary ductal dilatation status post cholecystectomy. Unenhanced images of the spleen, adrenal glands, kidneys and pancreas are unremarkable. There is a 2 mm left renal calculus. There is no hydronephrosis. There are no ureteral calculi. There is no ascites. No fluid collection to suggest an abscess is noted. A mildly enlarged left para-aortic lymph node on image 237 measures 1.3 cm in short axis diameter. No acute fracture or suspicious lesion within the visualized skeletal structures are noted. There are postoperative findings within the thoracolumbar spine. Old lumbar spine compression deformities are noted. IMPRESSION: 1. Mildly dilated fluid-filled proximal to mid small bowel with numerous air- fluid levels throughout the small bowel. No transition point. These findings favor an ileus or a nonspecific enteritis. A partial small bowel obstruction could appear similar. If persistent symptoms, a short-term follow-up CT of the abdomen and pelvis is recommended. Exam compromised given the lack of IV contrast. Findings discussed with Dr. Díaz at time of dictation. 2. Markedly distended fluid-filled stomach. Nasogastric tube placement might be considered. 3. 2 mm left renal calculus. No hydronephrosis. No ureteral calculi. 4. Mildly enlarged left paraaortic lymph node. This could be assessed with a follow-up CT of the abdomen and pelvis in 6 months. 5. Hepatic steatosis. XR chest 1V portable CLINICAL HISTORY: Nasogastric tube placement. Leukocytosis. COMPARISON STUDY: No previous studies for comparison. FINDINGS: The nasogastric tube is malpositioned. The tip projects over the medial right lung base. This could be within the right lower lobe or right middle lobe. There is no pneumothorax. Gastric distention is partially imaged. Cardiac size is normal. There is no evidence for pulmonary edema. There is an equivocal 1.9 cm left mid to upper lung density. This could be associated with the anterior left third rib. Healed right clavicular fracture is incidentally noted. IMPRESSION: 1. Malpositioned nasogastric tube with tip projecting over the medial right lung base. This could be within the right lower lobe or right middle lobe. The tube should be withdrawn. Findings discussed with Dr. Lira at time of dictation. 2. No pneumothorax. 3. Gastric distention. 4. 1.9 cm left mid to upper lung density. This could be associated with the left third rib however a pulmonary lesion cannot be entirely excluded. Follow-up nonemergent chest CT is recommended. Medications Administered Ciprofloxacin (Cipro / D5w) 400 mg in 200 mls @ 100 mls/hr IV Q12H [facility]; Protocol Stop: 06/14/20 08:14 Last Admin: 06/12/20 11:15 Dose: 100 mls/hr Documented by: [id number] Metronidazole (Flagyl) 500 mg in 100 mls @ 100 mls/hr IV Q8H [facility] Stop: 06/14/20 08:14 Last Infusion: 06/12/20 11:20 Dose: 0 mls/hr Documented by: [id number] Admin: 06/12/20 10:11 Dose: 100 mls/hr Documented by: [id number] Lactated Ringer's (Lr) 1,000 mls @ 999 mls/hr IV .Q1H1M ONE Stop: 06/12/20 12:12 Last Admin: 06/12/20 11:13 Dose: 999 mls/hr Documented by: [id number] Discontinued Medications Hydromorphone HCl (Hydromorphone Inj 0.5 Mg/0.5 Ml Syr) 0.5 mg IV NOW STA Stop: 06/12/20 06:39 Last Admin: 06/12/20 06:40 Dose: 0.5 mg Documented by: [id number] Hydromorphone HCl (Hydromorphone Inj 1 Mg/Ml Syringe) 1 mg IV NOW STA Stop: 06/12/20 07:16 Last Admin: 06/12/20 07:35 Dose: 1 mg Documented by: [id number] Hydromorphone HCl (Hydromorphone Inj 0.5 Mg/0.5 Ml Syr) 0.5 mg IV NOW STA Stop: 06/12/20 11:04 Last Admin: 06/12/20 11:20 Dose: 0.5 mg Documented by: [id number] Sodium Chloride (Nss 1000ml) 1,000 mls @ 999 mls/hr IV .Q1H1M ONE Stop: 06/12/20 07:39 Last Admin: 06/12/20 07:36 Dose: 999 mls/hr Documented by: [id number] Sodium Chloride (Nss 1000ml) 500 mls @ 999 mls/hr IV .Q31M ONE Stop: 06/12/20 08:33 Last Admin: 06/12/20 09:48 Dose: 999 mls/hr Documented by: [id number] Sodium Chloride (Nss 1000ml) 500 mls @ 999 mls/hr IV .Q31M ONE Stop: 06/12/20 09:05 Last Admin: 06/12/20 09:48 Dose: 999 mls/hr Documented by: [id number] Home Medications cyclobenzaprine 5 mg tablet See Rx Instructions PO BID PRN #20 tab 12/08/19 [Rx Confirmed 06/12/20] esomeprazole magnesium 40 mg capsule,delayed release 40 mg PO BID cap 12/08/19 [History Confirmed 06/12/20] multivitamin 1 tab PO DAILY 12/08/19 [History Confirmed 06/12/20] buspirone 5 mg tablet 10 mg PO QAM tab 01/10/20 [History Confirmed 06/12/20] lisinopril 10 mg tablet 10 mg PO DAILY #30 tab 03/01/20 [Rx Confirmed 06/12/20] meloxicam 7.5 mg tablet 7.5 mg PO DAILY #30 tab 05/07/20 [Rx Confirmed 06/12/20] Active Medications Ciprofloxacin (Cipro / D5w) 400 mg in 200 mls @ 100 mls/hr IV Q12H [facility]; Protocol Stop: 06/14/20 08:14 Last Admin: 06/12/20 11:15 Dose: 100 mls/hr Documented by: Metronidazole (Flagyl) 500 mg in 100 mls @ 100 mls/hr IV Q8H [facility] Stop: 06/14/20 08:14 Last Infusion: 06/12/20 11:20 Dose: Infused Documented by: Cefepime HCl 2,000 mg/ Syringe 20 mls @ 5 mls/min IV Q12 [facility]; Protocol Stop: 06/22/20 20:59 Lactated Ringer's (Lr) 1,000 mls @ 999 mls/hr IV .Q1H1M ONE Stop: 06/12/20 12:12 Last Admin: 06/12/20 11:13 Dose: 999 mls/hr Documented by: Miscellaneous (Remove Lidoderm Patch) 1 ea N/A DAILY@2100 [facility] Stop: 07/12/20 20:59 ECG Additional Comments: Sinus tachycardia Possible Left atrial enlargement Borderline ECG When compared with ECG of 12-JUN-2020 06:01, (unconfirmed) Criteria for Septal infarct are no longer Present Code Status & VTE Plan VTE Prophylaxis Plan VTE Prophylaxis will be ordered: Yes Supervising Physician Co-Signing Physician Notes Patient was seen and examined independently I discussed the case with Kian SHAW I reviewed pertinent past medical social family history and also the plan of care and agree with the plan of care. Pt is moderately ill, high wbc, acute renal failure, ileus and increased gastric contents, not clear the origin of leukocytosis or lactic acidosis but does have elevated glucoses on presentation without a history of DM PT is seen and tachypneic without lung exam changes, hypoactive BS, distended tender abdomen, no rebound given lower blood pressures and mottling of LE will admit to ICU after discussion with icu team, NGT placed, volume reusuitated for sepsis concern , broad spectrum antibiotics, and surgical consultation Any exceptions will be noted below PG Care Time/CCT Total # of Minutes Spent Total Time Spent with Patient: Total time spent is greater than 50% in coordination of care (as documented) at patient's floor/unit and/or counseling patient: Coding Level of Care Code 61785 Initial Inpt Care Lvl 3 Diagnoses Sepsis A41.9 Sepsis acute organ dysfunction status: unspecified Sepsis type: sepsis due to unspecified organism Partial small bowel obstruction K56.600 Acute renal failure N17.9 Acute renal failure type: unspecified Acidosis, lactic E87.2 Acute hyperglycemia R73.9 HTN (hypertension) I10 Hypertension type: unspecified Chronic low back pain M54.5; G89.29 Back pain laterality: unspecified Sciatica presence: without sciatica GERD (gastroesophageal reflux disease) K21.9 Esophagitis presence: esophagitis presence not specified (1) Chronic low back pain Back pain laterality: unspecified Sciatica presence: without sciatica Qualified Code(s): M54.5 - Low back pain; G89.29 - Other chronic pain (2) Acute renal failure Acute renal failure type: unspecified Qualified Code(s): N17.9 - Acute kidney failure, unspecified (3) Sepsis Sepsis acute organ dysfunction status: unspecified Sepsis type: sepsis due to unspecified organism Qualified Code(s): A41.9 - Sepsis, unspecified organism (4) GERD (gastroesophageal reflux disease) Esophagitis presence: esophagitis presence not specified Qualified Code(s): K21.9 - Gastro-esophageal reflux disease without esophagitis (5) HTN (hypertension) Hypertension type: unspecified Qualified Code(s): I10 - Essential (primary) hypertension
--- NOTE | 2020-06-12 11:26 | XRay Report ---
XR chest 1V portable CLINICAL HISTORY: Nasogastric tube placement. Leukocytosis. COMPARISON STUDY: No previous studies for comparison. FINDINGS: The nasogastric tube is malpositioned. The tip projects over the medial right lung base. Th is could be within the right lower lobe or right middle lobe. There is no pneumothorax. Gastric diste ntion is partially imaged. Cardiac size is normal. There is no evidence for pulmonary edema. There is an equivocal 1.9 cm left mid to upper lung density. This could be associated with the anterior left third rib. Healed right clavicular fracture is incidentally noted. IMPRESSION: 1. Malpositioned nasogastric tube with tip projecting over the medial right lung base. This could be within the right lower lobe or right middle lobe. The tube should be withdrawn. Findings discussed wi Dr. Lira at time of dictation. 2. No pneumothorax. 3. Gastric distention. 4. 1.9 cm left mid to upper lung density. This could be associated with the left third rib however a pulmonary lesion cannot be entirely excluded. Follow-up nonemergent chest CT is recommended. ACT 112: Positive. There are findings on this exam that require communication between the performing entity and the patient following Patient Test Result Information Act ([place] Act 112) guidelines. Electronically signed by: Kingsley Concepcion M.D. 06/12/2020 11:25 AM
[2020-06-12 11:34] LABS: Base Excess ABG -6.2 mEq/L (-9-1.8); HCO3 ABG 18 mmol/L (19-24); Oxygen Saturation ABG 95.4 % (90-95); PCO2 ABG 32 mmHg (35-46); PO2 ABG 77 mmHg (80-95); pH ABG 7.36 (7.35-7.45)
[2020-06-12 11:40] LABS: Allen Test Pos (Pos)
--- NOTE | 2020-06-12 11:52 | Nephrology Consultation ---
Date of Consultation June 12, 2020 Assessment & Plan (1) Acute kidney injury: 49-year-old male with no known history of CKD, admitted with 1 week history of nausea, vomiting, diarrhea, CT abdomen/pelvis showing Ileus, partial small bowel obstruction. Found to have LISA with creatinine 3.8, lactic acidosis and oliguria. CT negative for postrenal obstruction. LISA most likely prerenal in the setting of partial small bowel obstruction, decreased p.o. intake. --urinalysis --continue IV fluid, monitor intake and output --monitor renal function and electrolyte, may need further workup if renal function does not improve as expected or any evidence of significant proteinuria hematuria from UA. --dose medications for GFR less than 30 Will follow Thank you for allowing me to participate in your patient's care. It was a pleasure to see Junior. (2) Acidosis, lactic: (3) Partial small bowel obstruction: (4) Hyperglycemia: History of Present Illness Reason for Consultation: Oliguric acute kidney injury, metabolic acidosis History of Present Illness Junior Cabrales is a 49-year-old gentleman with past medical history significant for hypertension, spinal stenosis admitted to the hospital with partial small bowel obstruction LISA. Nephrology consult was requested to manage AK and metabolic acidosis. EMR records reviewed in detail during patient visit. Junior presented with 1 week history of nausea, vomiting, diarrhea and abdominal pain. CT abdomen pelvis without contrast on admission showed possible ileus, colitis and partial small-bowel obstruction. 2 mm left renal stone but otherwise normal size kidney without postrenal obstruction. Lab showed LISA with creatinine 3.8 which slightly improved to repeat lab of to 3.6. No prior lab available. Has gap metabolic acidosis with elevated lactate. Had Pond catheter placed with minimum urine output. Patient denied any prior known history of CKD. He reports decreased urine output over last few days. Has been having significantly low p.o. intake at home. Denies taking NSAIDs at home. Blood pressure has been relatively stable. He was not on diuretics at home, was on lisinopril 10 mg which is on hold. Current smoker. Denies any known family history of chronic kidney disease or end-stage renal disease. 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 Has hypertension, seems to be well controlled on lisinopril 10 mg. He reports being fatigued and lethargy, continues to have abdominal pain but no shortness of breath or chest pain. Afebrile. Allergies Allergy/AdvReac Type Severity Reaction Status Date / Time Penicillins Allergy Unknown Unknown Verified 06/12/20 06:20 Home Medications Medication Instructions Recorded Confirmed Type cyclobenzaprine 5 mg tablet See Rx Instructions PO BID PRN #20 12/08/19 06/12/20 Rx tab esomeprazole magnesium 40 mg 40 mg PO BID cap 12/08/19 06/12/20 History capsule,delayed release multivitamin 1 tab PO DAILY 12/08/19 06/12/20 History buspirone 5 mg tablet 10 mg PO QAM tab 01/10/20 06/12/20 History lisinopril 10 mg tablet 10 mg PO DAILY #30 tab 03/01/20 06/12/20 Rx meloxicam 7.5 mg tablet 7.5 mg PO DAILY #30 tab 05/07/20 06/12/20 Rx Patient History Medical History (Updated 06/12/20 @ 12:45 by Nena Zabala MD) Acute kidney injury Knowledge deficit on leg surgery Surgical History H/O hand surgery Previous back surgery S/P cholecystectomy S/P eye surgery S/P foot surgery Family History Father Heart disease Denies family history of Ovarian cancer Prostate cancer Breast cancer Colorectal cancer Social History Smoking Status: Current some day smoker Tobacco Type: Cigarettes and Smokeless Tobacco (Dip or Chew) Second Hand Exposure: No; Do You Dip or Chew Tobacco: No; Tobacco Cessation Education Requested by Patient: No Hx Alcohol Use: Yes Alcohol type: beer Hx Substance Use: No Preferred Language: Hungarian Communication Ability: Effective Visual Impairment: No Limitations Hearing Ability: Normal Advanced Practice Professional Required: No Beliefs That Will Affect Care: None marital status: Current Living Situation: Spouse current occupational status: employed 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 Other Information That Helps Us Care for You: No Feels Safe at Home: Yes Safety Concerns: Feels Safe At This Time caffeine: Yes Dental Care, Regularly: No Physical Activity Frequency: Does not Exercise Seatbelt Use: always Sunscreen Use: No Assistive Devices: Glasses Review of Systems Review of Systems: All systems reviewed & are unremarkable except as noted in Subjective Physical Exam Constitutional: WD/WN, vitals as above + ill appearing and + lethargic; no acute distress Eyes: + anicteric sclerae; no conjunctival abnormality ENMT: external ear and nose normal, oropharynx normal Ears: no hearing impairment Nose: + dry nasal mucous membranes Neck: normal visual inspection Respiratory: normal respiratory effort, lungs clear to auscultation no cough Auscultation: no crackles, no rales and no wheezes Cardiovascular: RRR, no murmur, no edema Gastrointestinal (Abdomen): Inspection/Auscultation: + hypoactive bowel sounds Percussion/Palpation: + abdomen tender and abdomen soft; no guarding and abdomen not rigid Musculoskeletal: Head/Neck/Chest: head atraumatic Extremities: extremities normal to inspection Gait: normal gait Skin: no rashes, warm and dry Neurologic: no focal motor deficits and not confused Psychiatric: A+Ox3, euthymic affect Results & Data ([facility]) Vital Signs (Past 12 Hours) Vital Signs Temp Pulse Resp BP Pulse Ox 06/12/20 09:00 119 H 20 112/72 97 06/12/20 08:30 128 H 101/57 L 96 06/12/20 08:03 130 H 104/67 94 06/12/20 07:33 132 H 15 111/66 96 06/12/20 06:41 96 06/12/20 06:30 135 H 16 135/87 97 06/12/20 06:15 130 H 14 125/91 98 06/12/20 06:00 129 H 22 147/101 H 96 06/12/20 05:59 36.5 C 128 H 16 147/101 H 96 PG Care Time/CCT Total # of Minutes Spent Total Time Spent with Patient: Total time spent is greater than 50% in coordin ation of care (as documented) at patient's floor/unit and/or counseling patient: Coding Level of Care Code 57256 Initial Inpt Care Lvl 3 Diagnoses Acute kidney injury N17.9 Acidosis, lactic E87.2 Partial small bowel obstruction K56.600 Hyperglycemia R73.9
[2020-06-12 12:04] LABS: Fibrinogen 457 mg/dl (184-400); Prothrombin Time 10.1 Seconds (9.0-12.0)
[2020-06-12] MEDS ORDERED: ONDANSETRON INJ 2 MG/ML 2 ML VIAL IV PRN (12:04)
[2020-06-12] MEDS ORDERED: ICU PROTOCOL FOR HYPERGLYCEMIA PRN (12:04)
[2020-06-12] MEDS ORDERED: ACETAMINOPHEN 325 MG TAB PO PRN (12:04)
[2020-06-12] MEDS ORDERED: HYDROmorphone INJ 0.5 MG/0.5 ML SYR IV PRN (12:04)
--- NOTE | 2020-06-12 12:10 | XRay Report ---
XR chest 1V portable HISTORY: confirm NGT placement COMPARISON: Chest 06/12/2020. FINDINGS: Nasogastric tube now terminates below the diaphragm. The tip is not included on this study but likely resides within the stomach. No pneumothorax. No pleural effusions. The lungs are clear. Th e heart is normal in size. Lower thoracic/lumbar spinal rods are noted. IMPRESSION: Nasogastric tube terminates below the diaphragm. ACT 112: Negative or not required by law. Electronically signed by: Chaz Navarro M.D. 06/12/2020 12:09 PM
[2020-06-12] MEDS ORDERED: INFLUENZA VIRUS QUAD VACCINE 0.5 ML SYR IM ONE (12:31)
[2020-06-12] MEDS ORDERED: INFLUENZA ADMINISTRATION CHARGE ONE (12:31)
[2020-06-12 12:51] LABS: Appearance Urine Turbid (Clear); Blood Urine 3+ (Negative); Color Urine Dark Yellow; Epithelial Cell Urine Auto >30 /lpf (0-5); Glucose Urine UA Negative (Negative); Ketones Urine Trace (Negative); Leukocyte Esterase Urine Trace (Negative); Nitrite Urine Negative (Negative); Protein Urine 2+ (Negative); Specific Gravity Urine 1.025 (1.000-1.030); Urobilinogen Urine Negative (Negative)
[2020-06-12 12:58] LABS: Bilirubin Urine 1+ (Negative)
[2020-06-12] MEDS: LACTATED RINGER'S 1,000 ML IV SCH ×3 (12:59→22:30)
[2020-06-12] MEDS: FAMOTIDINE 20 MG in SYRINGE 3 ML IV SCH ×2 (12:59→22:34)
[2020-06-12 13:10] LABS: Calcium Oxalate Crystals Urine Present (None Prsent)
[2020-06-12 13:11] LABS: Bacteria Urine Automated 1+ (Negative)
--- NOTE | 2020-06-12 13:50 | Electrocardiogram Report ---
Test Reason : Blood Pressure : / mmHG Vent. Rate : 128 BPM Atrial Rate : 128 BPM P-R Int : 154 ms QRS Dur : 086 ms QT Int : 306 ms P-R-T Axes : 079 066 063 degrees QTc Int : 446 ms Sinus tachycardia Possible Left atrial enlargement Abnormal ECG No previous ECGs available Confirmed by Sung hWite ([id number]) on 06/12/2020 1:49:40 PM Referred By: REFERRED SELF Confirmed By:Alfa White
--- NOTE | 2020-06-12 13:53 | Electrocardiogram Report ---
Test Reason : Blood Pressure : / mmHG Vent. Rate : 126 BPM Atrial Rate : 126 BPM P-R Int : 152 ms QRS Dur : 084 ms QT Int : 316 ms P-R-T Axes : 082 063 073 degrees QTc Int : 457 ms Sinus tachycardia Possible Left atrial enlargement Borderline ECG When compared with ECG of 12-JUN-2020 06:01, (unconfirmed) Criteria for Septal infarct are no longer Present Confirmed by Sung White ([id number]) on 06/12/2020 1:53:00 PM Referred By: REFERRED SELF Confirmed By:Alfa White
[2020-06-12] MEDS: HEPARIN SOD 5,000 UNIT/0.5 ML VIAL SQ SCH ×2 (14:49→22:34)
--- NOTE | 2020-06-12 14:59 | Ultrasound Report ---
RENAL ULTRASOUND HISTORY: Acute renal failure. COMPARISON: Abdomen and pelvis CT 06/12/2020. FINDINGS: Right kidney: 11.7 cm. The lower pole is obscured by overlying bowel gas. No hydronephrosis. Normal c orticomedullary differentiation and cortical thickness. Left kidney: 12.0 cm. No hydronephrosis. Normal corticomedullary differentiation and cortical thickne ss. Bladder: The bladder is not identified and is decompressed by Pond catheter. IMPRESSION: No hydronephrosis. The bladder is decompressed by a Pond catheter. ACT 112: Negative or not required by law. Electronically signed by: Chaz Navarro M.D. 06/12/2020 2:58 PM
[2020-06-12] MEDS ORDERED: busPIRone 5 MG TAB PO SCH (15:00)
[2020-06-12] MEDS ORDERED: LORazepam 1 MG/2 ML VIAL IV PRN (16:21)
[2020-06-12] MEDS: HYDROmorphone INJ 1 MG/ML SYRINGE IV PRN (16:31)
--- NOTE | 2020-06-12 17:21 | Communication Note ---
Date of Service: June 12, 2020 Critical CARE addendum: After coming to the ICU patient was sleeping well. NG tube output was 2.5 L. Patient was doing better talking in full sentences with abdominal pain fairly controlled. The patient again started complaining of abdominal pain severe. Patient's lactic acid is also going up. His belly is again getting tense. He was given Dilaudid 1 mg along with Ativan because he was complaining of anxiety. But he still tachycardic and complaining of belly pain. Acute abdomen is in the differential especially with the way patient presented. Patient's creatinine is high but I will give him IV contrast bearing in mind that it might have effect on the kidneys. Patient's was in the room was explained about this finding Dr. Felton was called and updated regarding patient's condition. Liter bolus of IV fluid was also given to the patient. I am going to repeat BMP, mag, Phos I have personally spent additional 20 minutes of critical care time in the direct management of this patient. This is a life/limb threatening event. This includes time spent evaluating patient, direct bedside care, chart review, placing orders, interpretation of diagnostic studies, discussion with consultants, patient, and family members, as well as other required patient management activities. This time is exclusive of all separately billable procedures, and teaching time and separate from and in addition to any other critical care service time. Please note the above document was generated using voice recognition software. It may contain grammatical, syntax or spelling errors. Coding Level of Care Code Critical Care ea addt'l 30 min Time Spent (min) 20
--- NOTE | 2020-06-12 17:23 | Critical Care Consultation ---
Date of Consultation June 12, 2020 Assessment & Plan (1) Sepsis: (2) Acute renal failure: EKG 06/12/2020: Sinus tachycardia, no ST-T wave changes appreciated., QTC 457 -- HAGMA with abdominal pain Delta-delta: 1.2, MN anion gap Likely sec to lactic acidosis, elevated beta hydroxybutyric acid along with elevated BUN Urine osm 369, urine lytes Serum osmolality 322, calculated serum osmolality 306, osmolar gap 16 AB.36/32/77 on room air Monitor f/u UDS, etoh level Lipase within normal limit. No evidence of pancreatitis on CT abdomen. -- LISA Follow-up urine lites Monitor BUN/creatinine Avoid nephrotoxic medications Strict ins and outs Nephrology on board UA is dirty. Continue with antibiotics --Partial SBO NGT in place Continue with suction Surgery on board --History of giardiasis No history of diarrhea as per the patient With similar presentation as per Patient on Flagyl and cefepime Flagyl will cover for giardiasis --Chronic marijuana use Patient smokes marijuana regularly every single day multiple joints --History of hypertension Hold p.o. medication We will transition to IV if the blood pressure goes high --Chronic low back pain Uses chronic marijuana Meloxicam --History of anxiety Takes Buspirone at home Ativan as needed --Prophylaxis VTE: Heparin GI: Protonix Lines: Peripheral Diet: N.p.o. Plan: Give IV fluids. Follow-up urine lites and urine culture. Continue with cefepime and Flagyl. Pain medication. I have personally spent 60 minutes of critical care time in the direct management of this patient. This is a life/limb threatening event. This includes time spent evaluating patient, direct bedside care, chart review, placing orders, interpretation of diagnostic studies, discussion with consultants, patient, and family members, as well as other required patient management activities. This time is exclusive of all separately billable procedures, and teaching time and separate from and in addition to any other critical care service time. Please note the above document was generated using voice recognition software. It may contain grammatical, syntax or spelling errors. (3) High anion gap metabolic acidosis: (4) Marijuana abuse: (5) Partial small bowel obstruction: (6) Depression with anxiety: History of Present Illness Attending Physician: Edwar Brito MD History of Present Illness 49-year-old male with past medical history of chronic low back pain, chronic marijuana use, hypertension presented to the hospital with complaints of abdominal pain associate with nausea and vomiting going on since last couple of days so severe enough that he was not even able to take anything by mouth for approximately 2 days. Patient had elevated BUN/creatinine as well as lactic acidosis at 12 the time of presentation. In the ICU on seeing the patient he already had an NGT placed and 2.5 L was drained. It was nonbilious, nonbloody. At the time of examination patient stated that he is feeling better after decompression of the belly. He stated that he usually goes to have bowel movements every 3 days. Last bowel movement was more than 2 days ago. He is not passing any gas. Denies any diarrhea, no dysuria. Denies any subjective fever. Positive chills. No chest pain, no shortness of breath, no headache, no dizziness Social history: He states that he uses marijuana on a daily basis. He does not s moke tobacco. Denies any vaping. He drinks alcohol once a year. Patient denied any use of any other illicit drugs. Case was discussed with me by Dr. Brito Allergies Allergy/AdvReac Type Severity Reaction Status Date / Time Penicillins Allergy Unknown Unknown Verified 06/12/20 06:20 Home Medications Medication Instructions Recorded Confirmed Type cyclobenzaprine 5 mg tablet See Rx Instructions PO BID PRN #20 12/08/19 06/12/20 Rx tab esomeprazole magnesium 40 mg 40 mg PO BID cap 12/08/19 06/12/20 History capsule,delayed release multivitamin 1 tab PO DAILY 12/08/19 06/12/20 History buspirone 5 mg tablet 10 mg PO QAM tab 01/10/20 06/12/20 History lisinopril 10 mg tablet 10 mg PO DAILY #30 tab 03/01/20 06/12/20 Rx meloxicam 7.5 mg tablet 7.5 mg PO DAILY #30 tab 05/07/20 06/12/20 Rx Patient History Medical History (Updated 06/12/20 @ 17:22 by Ryan Doyle MD) Acute kidney injury Knowledge deficit on leg surgery Surgical History H/O hand surgery Previous back surgery S/P cholecystectomy S/P eye surgery S/P foot surgery Family History Father Heart disease Denies family history of Ovarian cancer Prostate cancer Breast cancer Colorectal cancer Social History Smoking Status: Current some day smoker Tobacco Type: Cigarettes and Smokeless Tobacco (Dip or Chew) Second Hand Exposure: No; Hx Alcohol Use: Yes Alcohol type: beer Hx Substance Use: No Preferred Language: Citizen Of [place] Communication Ability: Effective Visual Impairment: No Limitations Hearing Ability: Normal Raw Material Handler Required: No Beliefs That Will Affect Care: None marital status: Current Living Situation: Spouse current occupational status: employed 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 Feels Safe at Home: Yes caffeine: Yes Dental Care, Regularly: No Physical Activity Frequency: Does not Exercise Seatbelt Use: always Sunscreen Use: No Assistive Devices: Glasses Review of Systems Review of Systems: All systems reviewed & are unremarkable except as noted in HPI & below Physical Exam Physical Exam: Constitutional: No acute distress HEENT: EOMI, PERRLA positive NGT Respiratory system: Good air entry bilaterally, no wheeze, no rhonchi, no crackles CVS: S1-S2 positive, no murmurs or gallops Abdomen: Soft, epigastric tenderness, no rebound, decreased bowel sounds Extremities: +2 pulses bilaterally radialis/ dorsalis pedis, no cyanosis, no edema, mottled skin on the lower extremity Neuro: Awake alert oriented x3 Psych: Normal mood and affect G/U: Positive Pond Skin: no rashes, warm and dry Lymphatic: no cervical or axillary lymphadenopathy Results & Data Results & Data ([facility]) Vital Signs (Past 12 Hours) Vital Signs Temp Pulse Pulse Resp BP BP Pulse Ox 06/12/20 15:00 36.9 C 124 H 20 06/12/20 14:56 123 H 13 139/84 06/12/20 14:00 118 H 19 95 06/12/20 13:06 119 H 17 96 06/12/20 13:05 118 H 14 127/104 H 97 06/12/20 13:00 120 H 22 97 06/12/20 12:06 36.5 C 116 H 115 H 28 H 131/82 95 06/12/20 12:05 36.9 C 117 H 131/82 06/12/20 12:03 120 H 06/12/20 11:45 118 H 17 163/89 H 95 06/12/20 11:37 118 H 29 H 151/101 H 96 06/12/20 11:30 124 H 21 90/78 L 96 06/12/20 11:16 120 H 27 H 97 06/12/20 11:15 119 H 29 H 145/102 H 95 06/12/20 11:00 16 154/89 H 97 06/12/20 10:51 27 H 131/95 97 06/12/20 10:45 15 99 06/12/20 10:30 19 97 06/12/20 10:15 125 H 19 96 06/12/20 10:06 120 H 33 H 06/12/20 09:55 113/79 06/12/20 09:15 97 06/12/20 09:00 119 H 20 112/72 97 06/12/20 08:30 128 H 101/57 L 96 06/12/20 08:03 130 H 104/67 94 06/12/20 07:33 132 H 15 111/66 96 06/12/20 06:41 96 06/12/20 06:30 135 H 16 135/87 97 06/12/20 06:15 130 H 14 125/91 98 06/12/20 06:00 129 H 22 147/101 H 96 06/12/20 05:59 36.5 C 128 H 16 147/101 H 96 06/12/20 06:05 06/12/20 07:14 Coding Level of Care Code Critical Care 1st -74 mins Diagnoses Sepsis A41.9 Sepsis acute organ dysfunction status: unspecified Sepsis type: sepsis due to unspecified organism Acute renal failure N17.9 Acute renal failure type: unspecified High anion gap metabolic acidosis E87.2 Marijuana abuse F12.10 Partial small bowel obstruction K56.600 Depression with anxiety F41.8 Time Spent (min) 60 (1) Acute renal failure Acute renal failure type: unspecified Qualified Code(s): N17.9 - Acute kidney failure, unspecified (2) Sepsis Sepsis acute organ dysfunction status: unspecified Sepsis type: sepsis due to unspecified organism Qualified Code(s): A41.9 - Sepsis, unspecified organism
[2020-06-12] MEDS ORDERED: OPTIRAY 320 100ml IV ONE (17:28)
[2020-06-12 17:44] LABS: Amphetamines+Metham, Urine Pos (Neg); Barbiturates, Urine Neg (Neg); Benzodiazepine, Urine Neg (Neg); Cocaine, Urine Neg (Neg); MDMA (Ecstacy), Urine Pos (Neg); Methadone, Urine Neg (Neg); Opiate, Urine Pos (Neg); Phencyclidine, Urine Neg (Neg)
[2020-06-12] MEDS ORDERED: LACTATED RINGER'S 500 ML IV ONE (17:56)
--- NOTE | 2020-06-12 17:59 | CT Scan Report ---
CT abd pelvis IV con only CLINICAL HISTORY: Worsening abdominal pain. Acute abdomen. Evaluate for bowel perforation. COMPARISON STUDY: Earlier in the day TECHNIQUE: The patient was scanned in a dynamic helical fashion during intravenous administration of 94 cc of Optiray 320 A dose lowering technique was utilized adhering to the principles of ALARA. CT DOSE: 887.73 mGy.cm FINDINGS: Lower chest: There is respiratory motion artifact. There is no pneumothorax. No pleural effusions are visualized. Liver: No focal hepatic masses are visualized. There is no ductal dilatation. There is no portal veno us gas. Gallbladder: Surgically absent Spleen: Normal in size and attenuation. Pancreas: Unremarkable. Adrenal glands: Unremarkable. Kidneys: There is symmetric renal cortical enhancement. The kidneys are normal in size without hydron ephrosis. Bowel: There are multiple fluid-filled small bowel loops. There is also gas and fluid present within the colon. There is no evidence of acute diverticulitis. The appendix appears normal. There is an ent aguilar tube present within the stomach. A discrete transition zone is not visualized. There are few tro ponins of gas within the small bowel mesentery, likely representing mesenteric venous gas. Peritoneum: There is no free intraperitoneal air. There is trace pelvic fluid. There is trace interlo op fluid within the small bowel mesentery As stated above, a few droplets of extraluminal gas within the small bowel mesentery, likely represent mesenteric venous gas. Vasculature: The abdominal aorta is normal in course and caliber. Adenopathy: None. Pelvic viscera: There is an indwelling Pond catheter. Skeletal structures: No destructive osseous lesions are seen. IMPRESSION: 1. Persistent fluid-filled small bowel loops with multiple air-fluid levels. No discrete transition z one is visualized 2. Normal appendix. No evidence of acute diverticulitis 3. Trace fluid within the small bowel mesentery. Interval development of extraluminal gas bubbles wit hin the small bowel mesentery likely representing mesenteric venous gas. This finding will be called to the referring clinician. ACT 112: Negative or not required by law. Electronically signed by: Wilver Britt M.D. 06/12/2020 5:57 PM
[2020-06-12 18:07] LABS: Chloride Random Urine < 10 mmol/L; Potassium Random Urine 102.4 mmol/L; Sodium Random Urine 20 mmol/L; Uric Acid Urine Random 17.1 mg/dl
[2020-06-12] MEDS ORDERED: fentaNYL citrate 100 MCG/2 ML VIAL ONE (18:41)
[2020-06-12] MEDS ORDERED: ROCURONIUM BROMIDE 10 MG/ML 5 ML VIAL IV ONE ×2 (18:41→20:58)
[2020-06-12] MEDS ORDERED: MIDAZOLAM HCL 1 MG/ML 2ML VIAL ONE ×2 (18:42→20:59)
--- NOTE | 2020-06-12 18:44 | History & Physical Bridge Note ---
Date of Service June 12, 2020 History & Physical Bridge Note I have examined the patient, reviewed the History & Physical and in the interval since the performance of the History & Physical I have noted the following changes of clinical significance: I have been contacted late this afternoon by the intensive care unit attending as the patient had deteriorated some clinically. His labs had worsened and his abdomen became more distended. A repeat CAT scan shows persistent dilated small bowel loops however now there is some extraluminal gas as well as some mesenteric gas. On examination he is much less alert. He is diaphoretic and tachycardic. His abdomen is distended with guarding. His is at bedside. I recommended exploratory laparotomy, possible small bowel resection, surgery as needed. We discussed potential risks which include bleeding, infection, injury to another organ, DVT, PE, DE, CVA , sepsis, etc. I answered all of her questions. We will proceed emergently WENDY with exploratory laparotomy/surgery as needed.
--- NOTE | 2020-06-12 18:49 | Anesthesiology Consultation ---
Date of Service June 12, 2020 Covid 19 negative on 06/12/20. The patient has had abdominal pain for three days. He came to the hospital this morning and was found to be in metabolic acidosis from possible small bowel obstruction. He has progressively worsened during the day. The patient has a history of anxiety and marijuana abuse. He was agitated during the day and has been received hydromorphone and lorazepam. The patient is breathing on his own but not arousable. His signed the anesthesia consent. Assessment & Plan (1) Encounter for pre-operative examination: Chart Review Chart Review: Acceptable Risk for Surgery (necessary surgery) and Patient NOT seen in Pre Admission Testing Consults Requested none History Surgery Operation Date: 06/12/20 18:35 Proposed Procedures p Exploratory Laparotomy - Calin Felton, Height/Weight Height: 5 ft 9 in Weight: 83 kg Allergies Allergy/AdvReac Type Severity Reaction Status Date / Time Penicillins Allergy Unknown Unknown Verified 06/12/20 06:20 Medications Home Medications Medication Instructions Recorded Confirmed Last Taken cyclobenzaprine 5 mg tablet See Rx Instructions PO BID PRN #20 12/08/19 06/12/20 Unknown tab esomeprazole magnesium 40 mg 40 mg PO BID cap 12/08/19 06/12/20 Unknown capsule,delayed release multivitamin 1 tab PO DAILY 12/08/19 06/12/20 Unknown buspirone 5 mg tablet 10 mg PO QAM tab 01/10/20 06/12/20 Unknown lisinopril 10 mg tablet 10 mg PO DAILY #30 tab 03/01/20 06/12/20 Unknown meloxicam 7.5 mg tablet 7.5 mg PO DAILY #30 tab 05/07/20 06/12/20 Unknown Active Medications Generic Name Dose Route Start Last Admin Trade Name Freq PRN Reason Stop Dose Admin Buspirone HCl 10 mg 06/12/20 15:00 06/12/20 15:34 Buspirone 5 Mg Tab PO 07/12/20 14:59 10 mg DAILY RAMY Administration Heparin Sodium (Porcine) 5,000 units 06/12/20 14:00 06/12/20 14:49 Heparin Sod 5,000 Unit/0.5 Ml Vial SQ 07/12/20 13:59 5,000 units Q8 RAMY Administration Hydromorphone HCl 1 mg 06/12/20 16:19 06/12/20 16:31 Hydromorphone Inj 1 Mg/Ml Syringe IV 06/26/20 16:18 1 mg Q2HWA PRN Administration Pain Metronidazole 500 mg in 100 mls @ 100 mls/hr 06/12/20 08:15 06/12/20 17:56 Flagyl IV 06/14/20 08:14 Infused Q8H RAMY Infusion Lactated Ringer's 1,000 mls @ 200 mls/hr 06/12/20 12:04 06/12/20 16:48 Lr IV 07/12/20 12:03 200 mls/hr .Q5H RAMY Administration Famotidine 20 mg/ Syringe 5 mls @ 2.5 mls/min 06/12/20 12:04 06/12/20 12:59 IV 07/12/20 12:03 2.5 mls/min BID RAMY Administration Lorazepam 1 mg in 2 mls @ 0.5 mls/min 06/12/20 16:21 06/12/20 16:26 Ativan IV 07/12/20 16:20 0.5 mls/min Q2HWA PRN Administration Anxiety Past Medical History Medical History Acute kidney injury Chronic low back pain Depression with anxiety GERD (gastroesophageal reflux disease) HTN (hypertension) Marijuana abuse Septic shock Tobacco use Past Family History Family History Father Heart disease Denies family history of Ovarian cancer Prostate cancer Breast cancer Colorectal cancer Past Surgical History Surgical History H/O hand surgery Previous back surgery S/P cholecystectomy S/P eye surgery S/P foot surgery Social History Smoking Status: Current some day smoker tobacco type: cigarettes Do You Dip or Chew Tobacco: No Hx Alcohol Use: Yes Alcohol type: beer alcohol intake frequency: a few times a month Hx Substance Use: No substance use type: marijuana Last Used Substance: Days (ago) Physical Exam Vital Signs Last Vital Signs Temp 36.9 C 06/12/20 15:00 Pulse 124 H 06/12/20 15:00 Resp 20 06/12/20 15:00 BP 139/84 06/12/20 14:56 Pulse Ox 95 06/12/20 14:00 Testing Laboratory Results 06/12/20 06:05 06/12/20 07:14 PT 10.1 Seconds (9.0-12.0) 06/12/20 11:18 INR 1.0 (0.9-1.1) 06/12/20 11:18 Hemoglobin A1c 5.8 % (4.5-5.6) H 06/12/20 06:05 Urine Color Cancelled 06/12/20 12:30 Urine Color Dark Yellow 06/12/20 12:30 Urine Appearance Cancelled 06/12/20 12:30 Urine Appearance Turbid (Clear) A 06/12/20 12:30 Urine pH 5.0 (4.5-7.5) 06/12/20 12:30 Urine pH Cancelled 06/12/20 12:30 Ur Specific [place] 1.025 (1.000-1.030) 06/12/20 12:30 Ur Specific [place] Cancelled 06/12/20 12:30 Urine Protein 2+ (Negative) H 06/12/20 12:30 Urine Protein Cancelled 06/12/20 12:30 Urine Glucose (UA) Cancelled 06/12/20 12:30 Urine Glucose (UA) Negative (Negative) 06/12/20 12:30 Urine Ketones Cancelled 06/12/20 12:30 Urine Ketones Trace (Negative) H 06/12/20 12:30 Urine Nitrite Cancelled 06/12/20 12:30 Urine Nitrite Negative (Negative) 06/12/20 12:30 Ur Leukocyte Esterase Cancelled 06/12/20 12:30 Ur Leukocyte Esterase Trace (Negative) H 06/12/20 12:30 Urine WBC (Auto) 10-30 /hpf (0-5) H 06/12/20 12:30 Urine WBC (Auto) Cancelled 06/12/20 12:30 Urine RBC (Auto) 10-30 /hpf (0-4) H 06/12/20 12:30 Urine RBC (Auto) Cancelled 06/12/20 12:30 U Hyaline Cast (Auto) 1-5 /lpf (0-5) 06/12/20 12:30 U Hyaline Cast (Auto) Cancelled 06/12/20 12:30 U Epithel Cells (Auto) >30 /lpf (0-5) H 06/12/20 12:30 U Epithel Cells (Auto) Cancelled 06/12/20 12:30 Urine Bacteria (Auto) 1+ (Negative) H 06/12/20 12:30 Urine Bacteria (Auto) Cancelled 06/12/20 12:30 06/12/20 06/12/20 06/12/20 18:18 14:52 08:31 POC Glucose 97 128 H POC Glucose (other) 289 H Electrocardiogram Date: 06/12/20 Findings: + ST @ (126) Chest X-Ray Date: 06/12/20 XR chest 1V portable HISTORY: confirm NGT placement COMPARISON: Chest 06/12/2020. FINDINGS: Nasogastric tube now terminates below the diaphragm. The tip is not included on this study but likely resides within the stomach. No pneumothorax. No pleural effusions. The lungs are clear. The heart is normal in size. Lower thoracic/lumbar spinal rods are noted. IMPRESSION: Nasogastric tube terminates below the diaphragm. ACT 112: Negative or not required by law. Electronically signed by: Chaz Navarro M.D. 06/12/2020 12:09 PM Dictated: 06/12/20 1207Transcribed: 06/12/[address] abd pelvis IV con only CLINICAL HISTORY: Worsening abdominal pain. Acute abdomen. Evaluate for bowel perforation. COMPARISON STUDY: Earlier in the day TECHNIQUE: The patient was scanned in a dynamic helical fashion during intravenous administration of 94 cc of Optiray 320 A dose lowering technique was utilized adhering to the principles of ALARA. CT DOSE: 887.73 mGy.cm FINDINGS: Lower chest: There is respiratory motion artifact. There is no pneumothorax. No pleural effusions are visualized. Liver: No focal hepatic masses are visualized. There is no ductal dilatation. There is no portal venous gas. Gallbladder: Surgically absent Spleen: Normal in size and attenuation. Pancreas: Unremarkable. Adrenal glands: Unremarkable. Kidneys: There is symmetric renal cortical enhancement. The kidneys are normal in size without hydronephrosis. Bowel: There are multiple fluid-filled small bowel loops. There is also gas and fluid present within the colon. There is no evidence of acute diverticulitis. The appendix appears normal. There is an enteric tube present within the stomach. A discrete transition zone is not visualized. There are few troponins of gas within the small bowel mesentery, likely representing mesenteric venous gas. Peritoneum: There is no free intraperitoneal air. There is trace pelvic fluid. There is trace interloop fluid within the small bowel mesentery As stated above, a few droplets of extraluminal gas within the small bowel mesentery, likely represent mesenteric venous gas. Vasculature: The abdominal aorta is normal in course and caliber. Adenopathy: None. Pelvic viscera: There is an indwelling Pond catheter. Skeletal structures: No destructive osseous lesions are seen. IMPRESSION: 1. Persistent fluid-filled small bowel loops with multiple air-fluid levels. No discrete transition zone is visualized 2. Normal appendix. No evidence of acute diverticulitis 3. Trace fluid within the small bowel mesentery. Interval development of extraluminal gas bubbles within the small bowel mesentery likely representing mesenteric venous gas. This finding will be called to the referring clinician. ACT 112: Negative or not required by law. Electronically signed by: Wilver Britt M.D. 06/12/2020 5:57 PM Dictated: 06/12/201745Transcribed: 06/12/20 174
[2020-06-12 19:31] LABS: Albumin Globulin Ratio 0.9 (0.9-2); Albumin Level 3.6 gm/dl (3.4-5.0); BUN Creatinine Ratio 15.6 (10-20); Bilirubin,Total 0.6 mg/dl (0.2-1); Calcium 9.3 mg/dl (8.5-10.1); Creatinine Clr Calc Pharmacy 22.8 ml/min; Est GFR (African American) 19.7; Globulin 3.9 gm/dl (2.5-4.0); Magnesium 2.1 mg/dl (1.8-2.4); Phosphorus 4.8 mg/dl (2.5-4.9); Potassium 4.6 mmol/L (3.5-5.1); Total Protein 7.5 gm/dl (6.4-8.2)
[2020-06-12] MEDS ORDERED: ONDANSETRON INJ 2 MG/ML 2 ML VIAL ONE (20:28)
[2020-06-12] MEDS ORDERED: VASOPRESSIN 20 UNIT/ML VIAL ONE (20:29)
[2020-06-12] MEDS ORDERED: LIDOCAINE HCL 2% 2 ML VIAL/AMP(20MG/ML) INFIL ONE (20:29)
[2020-06-12] MEDS ORDERED: PHENYLEPHRINE HCL 10 MG/ML VIAL ONE (20:29)
[2020-06-12] MEDS ORDERED: PROPOFOL IV EMULSION 10 MG/ML 20 ML VIAL IV ONE (20:29)
[2020-06-12] MEDS ORDERED: CEFEPIME 2,000 MG in SYRINGE 0 ML IV SCH (21:00)
--- NOTE | 2020-06-12 21:24 | Operative Report ---
PG Post Operative Report Pre & Post Diagnosis Operation Date: 06/12/20 18:35 Pre-Op Diagnosis: acute abdomen Post-Op Diagnosis: ischemic bowel I identified the patient and participated in the time-out.: Yes Procedure Operation Date: 06/12/20 18:35 Actual Procedures p Exploratory Laparotomy; Small Bowel Resection; right hemicolectomy(Not Applicable) - Calin Felton DO Surgeon Calin Felton DO Obstetrics Specialist day [place] Estimated Blood Loss 50 Findings Consistent with Post-Op Diagnosis Specimens portion of ileum, cecum, right colon, portion of transverse colon Description of Procedure After informed consent was obtained the patient was taken to the operating room and placed in supine position. After successful intubation an arterial line was placed. A Pond catheter was already in place. The abdomen was sterilely prepped and draped in usual fashion. I began with a midline incision from above the umbilicus down around to the pubic symphysis. We carried this down through the soft tissue using cautery. The anterior rectus fascia was opened using cautery as well. Blunt finger penetration was used to enter the peritoneum and the incision was opened to both poles using cautery. There was foul-smelling murky fluid within the abdomen. The sample was taken and sent for Gram stain and culture. We suctioned all of this out. I began examining all 4 quadrants. Immediately what I found was some ischemic/infarcted distal small bowel. This continued over onto the cecum and part way up the right colon. The etiology was unclear. There were no palpable masses. There was no bowel obstruction or internal hernia. I ran the bowel the whole way back to the ligament of Treitz. The proximal small bowel was normal. Stomach liver transverse colon descending colon sigmoid colon were all normal. I began by mobilizing the right colon with cautery along the white line of Toldt. We carried this up around the hepatic flexure and over to the mid transverse colon. Once I had this freed up I located the middle colic vessels and salvaged them. We transected the transverse colon just proximal to the middle colic vessels using a EMMIE purple cartridge stapler. Next I used an on table Doppler to evaluate viable small bowel. There was a reasonable line of demarcation where just distal to this line the bowel was initially just a little dusky but distal to that was black and infarcted. The on table Doppler suggested that I would need to remove about the distal 5 to 6 feet of small bowel. At this line of Doppler demarcation I transected the small bowel using a EMMIE brown cartridge stapler. A LigaSure device was then used to take down the mesentery of the small bowel as well as right colon and portion of the transverse colon. The specimen was passed off to be sent to pathology. I should note that there was no perforation anywhere in the bowel. I will also note that the duodenum appeared normal. Because the proximal small bowel looked healthy as did the colon I decided to perform an anastomosis to help prevent needing to remove additional small bowel in the future by taking down an ileostomy. When I open the colon and small bowel there was minimal succus and we had no spillage. Therefore I created a [id number] small bowel to transverse colon anastomosis using a EMMIE brown cartridge linear stapler. A TA 60 stapling device was used to close the common enterotomy. 3-0 [address] was used to place a crotch stitch as well as to oversew all the staple lines in Lembert fashion. The mesenteric defect was closed using 2-0 Vicryl in a running fashion. The anastomosis was patent and viable. There was no other areas of ischemia noted. Thorough irrigation with multiple liters of warm irrigation was performed. There was adequate hemostasis. 2 #10 flat Francois- Vasquez drains were placed and brought through separate stab incisions. One along the right paracolic gutter into the pelvis and one along the left side of the abdomen into the pelvis. They were secured to skin using 2-0 nylon. The fascia was then closed using 0-looped PDS starting either pole and running them into the midline. Soft tissue was irrigated and skin was closed using skin khoi. Silver dressing was applied. The patient will remain intubated and transferred to the intensive care unit in critical condition. My physician assistant dean was present for the entire case. He was crucial in exposure for my surgical dissection and anastomosis/ wound closure. I attest to the content of the Intraoperative Record and any orders documented therein. Any exceptions are noted below.
[2020-06-12] MEDS ORDERED: STAT IV Infusion **Titration per Protocol STA (21:37)
[2020-06-12] MEDS ORDERED: PROPOFOL BOLUS FROM BAG IV PRN (21:37)
[2020-06-12] MEDS ORDERED: PROPOFOL IV EMULSION 10 MG/ML 100 ML VIAL IV ONE (21:40)
[2020-06-12] MEDS ORDERED: ACETAMINOPHEN 1,000 MG/100 ML VIAL IV PRN (21:47)
--- NOTE | 2020-06-12 21:49 | Communication Note ---
Date of Service: June 12, 20202119: Patient arrives intubated from the operating room. Bedside signout from anesthesia. Patient received an additional 4 L of LR intra procedurally. A dditionally, the patient was requiring Xu-Synephrine drip as well as as needed vasopressin pushes throughout the procedure. Per conversation with general surgery, the patient had approximately 5 feet of small bowel removed as well as portions of the cecum RIGHT colon and transverse colon. There was concern for ischemia/infarction of the bowel without distinguishable source. No intraprocedural complications with minimal blood loss. Given the patient's acuity of illness and state of extremitas, he remained intubated and brought to the ICU for ongoing management. Upon arrival, the patient is sedated. He was recently paralyzed prior to arrival. Patient's blood pressures were thankfully on the higher end upon arrival with systolics in the 180s. Orders were placed for propofol and fenta nyl for sedation. Repeat labs were obtained including CBC, PRP, and lactate. Thankfully, all of these showed improvement. Ventilator settings were discussed with respiratory therapy at bedside. Blood gas was obtained and found to be appropriate. We will adjust ventilator settings as needed. Continue with current IV fluids. We will keep the patient sedated overnight. Continue with aggressive IV fluids at this time. Patient did have a foul-smelling bloody stool upon arrival. I did have a phone conversation with the patient's , Sue. I did update her and discuss concerns which may arise throughout the night. The patient is unable to make medical decisions secondary to sedation. She does consent for central line placement if necessary. All questions were answered. She was pr ovided contact information for the ICU. I have personally spent 45 minutes of critical care time in the direct management of this patient. This is a life/limb threatening event. This includes time spent evaluating patient, direct bedside care, chart review, placing orders, interpretation of diagnostic studies, discussion with consultants, patient, and family members, as well as other required patient management activities. This time is exclusive of all separately billable procedures, and teaching time and separate from and in addition to any other critical care service time. Coding Level of Care Code Critical Care ea addt'l 30 min Time Spent (min) 45
[2020-06-12] MEDS: fentaNYL DRIP 1,250 MCG/250 ML BAG IV SCH (21:51)
[2020-06-12] MEDS: propofoL 1,000 MG/100 ML VIAL IV SCH (21:51)
--- NOTE | 2020-06-12 22:05 | Anesthesiology Progress Note ---
Date of Service June 12, 2020 Anesthesia Post Procedure Vital Signs Vital Signs: Temp Pulse Pulse Resp BP BP Pulse Ox 06/12/20 21:46 110 H 18 100 06/12/20 15:00 36.9 C 124 H 20 06/12/20 14:56 123 H 13 139/84 06/12/20 14:00 118 H 19 95 06/12/20 13:06 119 H 17 96 06/12/20 13:05 118 H 14 127/104 H 97 06/12/20 13:00 120 H 22 97 06/12/20 12:06 36.5 C 116 H 115 H 28 H 131/82 95 06/12/20 12:05 36.9 C 117 H 131/82 06/12/20 12:03 120 H 06/12/20 11:45 118 H 17 163/89 H 95 06/12/20 11:37 118 H 29 H 151/101 H 96 06/12/20 11:30 124 H 21 90/78 L 96 06/12/20 11:16 120 H 27 H 97 06/12/20 11:15 119 H 29 H 145/102 H 95 06/12/20 11:00 16 154/89 H 97 06/12/20 10:51 27 H 131/95 97 06/12/20 10:45 15 99 06/12/20 10:30 19 97 06/12/20 10:15 125 H 19 96 06/12/20 10:06 120 H 33 H 06/12/20 09:55 113/79 06/12/20 09:15 97 06/12/20 09:00 119 H 20 112/72 97 06/12/20 08:30 128 H 101/57 L 96 06/12/20 08:03 130 H 104/67 94 06/12/20 07:33 132 H 15 111/66 96 06/12/20 06:41 96 06/12/20 06:30 135 H 16 135/87 97 06/12/20 06:15 130 H 14 125/91 98 06/12/20 06:00 129 H 22 147/101 H 96 06/12/20 05:59 36.5 C 128 H 16 147/101 H 96 Pain Intensity Abdomen: Pain Intensity: 0 Transfer of Care Handoff Completed per policy Notes Mental Status: see notes below Patient Amnestic to Procedure: Yes Pain: adequately controlled Airway Patency, RR, SpO2: see Notes below BP & HR: see Notes below Hydration State: see Notes below Anesthetic Complications: no major complications apparent Notes: The patient is a 49 y/o male who underwent an exploratory laparotomy with bowel resection. The patient was noted to be in septic shock preoperatively. He was agitated upon entering the OR and was rapidly intubated once on the OR table. The patient required boluses of phenylephrine and vasopressin IV as well as a phenylephrine gtt to maintain his blood pressure intraoperatively. An arterial line was placed after intubation. The patient received four liters of LR in the operating room. His urine was initially dark neida but became a supervisor insecticide yellow color by the end of the procedure. Total urine output was 375 ml. EBL was 50 ml. The patient remained tachycardic throughout although his HR dropped from the 130s preoperatively to the 100s in the OR. SBP was maintained in the 100s intraoperatively with pressors, however his SBP yair to the 170s at the end of the procedure when anesthesia was discontinued. The phenylephrine gtt was stopped and he required no pressors upon exiting the OR. SpO2 was maintained in the high 90s throughout the perioperative period. The patient was transferred intubated with an Ambu bag and on monitors to the ICU where he was placed on a ventilator. Sign out was given to Kwasi in the ICU and he will follow up with a CXR for ETT placement.
[2020-06-12 22:41] LABS: iSTAT Arterial Blood Gas HCO3 24 meg/L (19-24); iSTAT Arterial Blood Gas pCO2 46 mmHg (35-46); iSTAT Arterial Blood Gas pH 7.33 (7.35-7.45); iSTAT Arterial Blood Gas pO2 188 mmHg (80-95); iSTAT Carbon Dioxide 25 mmol/L (24-31); iSTAT FiO2 50 %; iSTAT Site Art Line
[2020-06-12 22:51] LABS: Basophils # (auto) 0.02 K/uL (0-0.2); Basophils % (auto) 0.2 %; Hematocrit (blood only) 42.7 % (42-52); Hemoglobin 14.7 g/dL (14.0-18.0); Immature Granulocytes # (auto) 0.03 K/uL (0.00-0.02); Immature Granulocytes % (auto) 0.2 %; Lymphocytes # (auto) 1.15 K/uL (1.2-3.4); Lymphocytes % (auto) 9.6 %; Mean Corpuscular Hemoglobin 32.2 pg (25-34); Mean Corpuscular Hgb Conc 34.4 g/dL (32-36); Mean Corpuscular Volume 93.4 fL (80-100); Mean Platelet Volume 9.3 fL (7.4-10.4); Monocytes # (auto) 1.58 K/uL (0.11-0.59); Monocytes % (auto) 13.1 %; Neutrophils # (auto) 9.25 K/uL (1.4-6.5); Neutrophils % (auto) 76.9 %; Platelet Count 252 K/uL (130-400); RDW Coefficient of Variation 13.6 % (11.5-14.5); RDW Standard Deviation 46.6 fL (36.4-46.3); Red Blood Count 4.57 M/uL (4.7-6.1); White Blood Count 12.03 K/uL (4.8-10.8)
[2020-06-12 22:55] LABS: Albumin Level 2.7 gm/dl (3.4-5.0); Bilirubin Direct 0.1 mg/dl (0-0.2); Creatinine Clr Calc Pharmacy 33.9 ml/min; Est GFR (African American) 31.7; Est GFR (Non-African American) 27.4; Magnesium 1.8 mg/dl (1.8-2.4); Potassium 5.4 mmol/L (3.5-5.1)
[2020-06-12 23:01] LABS: Bilirubin,Total 0.6 mg/dl (0.2-1); Phosphorus 3.3 mg/dl (2.5-4.9); Total Protein 5.8 gm/dl (6.4-8.2)
[2020-06-12] MEDS ORDERED: DEXTROSE 50% 50 ML SYRINGE IV ONE (23:14)
[2020-06-12] MEDS: PANTOprazole 40 MG in SYRINGE 0 ML IV SCH (23:16)
[2020-06-12] MEDS ORDERED: DEXTROSE 50% 50 ML SYRINGE IV STA (23:17)
[2020-06-12] MEDS ORDERED: INSULIN HUMAN REGULAR PER UNIT 8 UNITS in SYRINGE 7.92 ML IV ONE (23:30)
[2020-06-12] MEDS ORDERED: CALCIUM GLUCONATE 10% 2,000 MG in SODIUM CHLORIDE 0.9% 50 ML IV ONE (23:30)
[2020-06-13] MEDS: propofoL 1,000 MG/100 ML VIAL IV SCH ×3 (00:33→14:10)
[2020-06-13] MEDS: LACTATED RINGER'S 1,000 ML IV SCH ×3 (03:54→14:58)
[2020-06-13 04:48] LABS: Basophils # (auto) 0.01 K/uL (0-0.2); Basophils % (auto) 0.1 %; Hematocrit (blood only) 40.9 % (42-52); Hemoglobin 14.3 g/dL (14.0-18.0); Immature Granulocytes # (auto) 0.02 K/uL (0.00-0.02); Immature Granulocytes % (auto) 0.2 %; Lymphocytes # (auto) 0.91 K/uL (1.2-3.4); Lymphocytes % (auto) 10.2 %; Mean Corpuscular Hemoglobin 32.4 pg (25-34); Mean Corpuscular Volume 92.5 fL (80-100); Mean Platelet Volume 9.1 fL (7.4-10.4); Monocytes # (auto) 1.12 K/uL (0.11-0.59); Monocytes % (auto) 12.5 %; Platelet Count 244 K/uL (130-400); RDW Coefficient of Variation 13.7 % (11.5-14.5); RDW Standard Deviation 46.7 fL (36.4-46.3); Red Blood Count 4.42 M/uL (4.7-6.1); White Blood Count 8.96 K/uL (4.8-10.8)
[2020-06-13 04:54] LABS: iSTAT Art Bld Gas pCO2 Correct 44 mmHg (35-46); iSTAT Art Bld Gas pH Corrected 7.374 (7.35-7.45); iSTAT Arterial Blood Gas HCO3 25 meg/L (19-24); iSTAT Arterial Blood Gas pCO2 41 mmHg (35-46); iSTAT Arterial Blood Gas pO2 92 mmHg (80-95); iSTAT Arterial Blood Gas pO2 C 101; iSTAT Carbon Dioxide 27 mmol/L (24-31); iSTAT FiO2 30 %; iSTAT Hematocrit 41 % (42-52); iSTAT Hemoglobin 13.9 g/dl (14.0-18.0); iSTAT Potassium 5.1 mmol/L (3.3-5.0); iSTAT Site Art Line; iSTAT Sodium 139 mmol/L (135-144)
[2020-06-13 05:32] LABS: Albumin Level 2.5 gm/dl (3.4-5.0); BUN Creatinine Ratio 20.3 (10-20); Bilirubin Direct 0.3 mg/dl (0-0.2); Bilirubin,Total 0.8 mg/dl (0.2-1); Calcium 8.1 mg/dl (8.5-10.1); Creatinine Clr Calc Pharmacy 47.3 ml/min; Est GFR (African American) 47.5; Magnesium 1.9 mg/dl (1.8-2.4); Phosphorus 3.2 mg/dl (2.5-4.9); Potassium 5.2 mmol/L (3.5-5.1); Total Protein 5.9 gm/dl (6.4-8.2)
[2020-06-13] MEDS: fentaNYL DRIP 1,250 MCG/250 ML BAG IV SCH (06:21)
--- NOTE | 2020-06-13 07:10 | XRay Report ---
XR chest 1V portable HISTORY: 49 years-old Male ET tube placement acute respiratory failure COMPARISON: Chest radiograph 06/12/2020 TECHNIQUE: Portable AP supine view of the chest FINDINGS: Endotracheal tube overlies the midline, 2.4 cm superior to the doyle. Enteric tube distal tip projec ts over the gastric fundus. Cardiomediastinal and hilar silhouettes are within normal limits. There i s mild pulmonary vascular congestion with minimal bibasilar densities suggestive of atelectasis. No p neumothorax, large pleural effusion or overt pulmonary edema. Bones of the chest appear grossly intac t. Thoracolumbar spinal fusion hardware is partially imaged. IMPRESSION: 1. Endotracheal tube terminates 2.4 cm superior to the doyle. 2. Pulmonary vascular congestion with mild bibasilar opacities. ACT 112: Negative or not required by law. The above report was generated using voice recognition software. It may contain grammatical, syntax o r spelling errors. Electronically signed by: Inderjit Valdivia M.D. 06/13/2020 7:08 AM
--- NOTE | 2020-06-13 07:24 | XRay Report ---
KUB HISTORY: Follow up study in a patient with recent small bowel obstruction and recent surgery. eval b owel/gas pattern COMPARISON: CT abdomen and pelvis 06/12/2020 FINDINGS: Midline skin khoi are noted along with right left mid abdominal surgical drainage cathet ers. Cholecystectomy. Gas-filled loops of large and small bowel are noted with decreased distention c ompared to the preoperative exam. Small bowel loops measure up to approximately 3 cm. Enteric tube di stal tip projects over the gastric fundus. Surgical suture material projects over the right midabdome n. Evaluation for pneumoperitoneum is limited without upright film. Degenerative changes of the spine . IMPRESSION: 1. Postoperative changes of the abdomen with air-filled loops of large and small bowel suggestive of postoperative ileus. Follow-up recommended. 2. Distal tip of enteric tube projects over the gastric fundus. ACT 112: Negative or not required by law. The above report was generated using voice recognition software. It may contain grammatical, syntax o r spelling errors. Electronically signed by: Inderjit Valdivia M.D. 06/13/2020 7:23 AM
[2020-06-13] MEDS: PANTOprazole 40 MG in SYRINGE 0 ML IV SCH ×2 (07:27→19:26)
[2020-06-13] MEDS: metroNIDAZOLE 500 MG/100 ML BAG IV SCH ×2 (07:27→15:16)
[2020-06-13] MEDS ORDERED: PATIROMER CALCIUM SORBITEX 8.4 GM PACK PO ONE (07:37)
--- NOTE | 2020-06-13 07:49 | XRay Report ---
XR chest 1V portable HISTORY: Respiratory distress. f/u COMPARISON: Chest 06/12/2020. FINDINGS: The endotracheal tube terminates 2.4 cm from the doyle. Nasogastric tube terminates in the fundus of the stomach. This remains unchanged. There are low lung volumes. The heart remains mildly enlarged. No pneumothorax. There is an old, healed right-sided clavicle fracture. There is mild centr al pulmonary vascular congestion, unchanged. Hazy right base airspace opacity. This may represent ate lectasis or pneumonia. IMPRESSION: 1. Satisfactory support line placement. 2. Mild pulmonary vascular congestion without overt edema. 3. Hazy right base airspace opacity. This may represent atelectasis or pneumonia. ACT 112: Negative or not required by law. Electronically signed by: Chaz Navarro M.D. 06/13/2020 7:47 AM
--- NOTE | 2020-06-13 08:05 | Hospitalist Progress Note ---
Date of Service June 13, 2020 Assessment & Plan Admission and Anticipated Discharge Date Admission Date: June 12, 2020 49-year-old male with PMHx significant for tobacco abuse who was admitted for acute bowel infarction (unclear etiology)- s/p bowel resection and anastomosis on 06/11 and transferred to the ICU for hemodynamic monitoring/support. Acute bowel infarction s/p resection and anastomosis on 06/11 Overall improved post operative, not on pressure support, hemodynamically stable, normalized lactate, continues to be febrile would consider TTE given embolic is potential etiology extubated this morning successfully - continue Cefepime/Metronidazole - surgery consulted: NPO, NG tube Drug use, admits to MJ use occasionally, denies other substance abuse or IVDU - UDS positive for amphetamines, MDMA, THC - currently A+Ox3, continue to monitor closely for changes in mental status - monitor for symptoms of withdrawal LISA, improved; with likely secondary hyperkalemia - initially elevated to 3.83 w/ BUN:cr. > 20; likely prerenal - monitor - Nephrology consulted Code: full DVT: SCD's Diet: NPO Supervising Physician Co-Signing Physician Notes Attending Attestation I also saw the patient with the resident physician and confirmed almonte portions of the history and physical examination. I agree with the impression and plan as noted in the resident documentation. Upon our morning rounds, the patient had recently been extubated. He was awake and generally oriented, although still seemed groggy. Impression Postoperative day #1, status post exploratory laparotomy, small bowel resection, right hemicolectomy Acute bowel infarction, uncertain etiology Acute kidney injury with mild hyperkalemia History of drug abuse with positive toxicology Primary care per ICU team. We will continue to follow for continuity of care upon eventual transfer out of the unit. Subjective Intubated and sedated initially. Upon reevaluation after extubation this morning Mr. Junior Cabrales was confused and unclear on what had brought him into the hospital. We clarified this for him but he was otherwise not very interactive. He was pain free at that time. Coming back in the afternoon Mr. Cabrales was more interactive and able to answer some questions. He admitted to smoking marijuana but nothing prior to admission, he brought up that he had severe abdominal pain and 911 was called. He denies using any other elicit drugs, and specifically denies amphetamines and IVDU. Review of Systems Review of Systems: Unobtainable due to cognitive status Physical Exam Constitutional: average body habitus and cooperative; no acute distress and not in distress Eyes: PERRL, conjunctivae normal, anicteric sclerae ENMT: external ear and nose normal, oropharynx normal Neck: normal visual inspection Respiratory: normal respiratory effort, lungs clear to auscultation Cardiovascular: RRR, no murmur, no edema Extremities: no pedal edema Chest (Breasts): normal inspection/palpation of breasts Gastrointestinal (Abdomen): large midline bandage with small drain with bloody fluid tender to palpation, no bowel sounds appreciated Musculoskeletal: no cyanosis or clubbing, extremities motor strength 5/5 Skin: no rashes, warm and dry fingernails without lesions, no track burgess appreciated Neurologic: no focal motor deficits Psychiatric: Orientation: alert Results & Data Results & Data ([facility]) Vital Signs (Past 12 Hours) Vital Signs Temp Pulse Pulse Resp BP BP BP 06/13/20 07:46 37.8 C H 06/13/20 07:05 111 H 115/81 06/13/20 05:35 118 H 20 116/67 06/13/20 04:35 120 H 20 116/70 06/13/20 04:23 120 H 21 06/13/20 03:57 38.3 C H 06/13/20 03:34 124 H 115/74 06/13/20 02:34 116 H 123/83 06/13/20 01:34 110 H 20 118/75 06/13/20 00:34 111 H 20 104/67 06/13/20 00:00 37.3 C 06/12/20 23:45 111 H 20 06/12/20 23:34 111 H 20 131/74 06/12/20 23:14 111 H 20 117/75 06/12/20 23:04 112 H 20 119/77 06/12/20 22:54 111 H 20 120/75 06/12/20 22:44 112 H 20 127/75 06/12/20 22:34 112 H 20 121/76 06/12/20 22:24 112 H 23 143/86 H 06/12/20 22:14 113 H 23 155/100 H 06/12/20 22:04 113 H 18 159/101 H 06/12/20 21:54 37.2 C 112 H 18 155/100 H 177/75 H 06/12/20 21:46 110 H 18 06/12/20 21:44 110 H 24 186/114 H 200/91 H 06/12/20 21:34 36.6 C 109 H 18 207/107 H Pulse Ox 06/13/20 07:46 06/13/20 07:05 98 06/13/20 05:35 98 06/13/20 04:35 98 06/13/20 04:23 98 06/13/20 03:57 06/13/20 03:34 99 06/13/20 02:34 100 06/13/20 01:34 100 06/13/20 00:34 99 06/13/20 00:00 06/12/20 23:45 100 06/12/20 23:34 100 06/12/20 23:14 100 06/12/20 23:04 100 06/12/20 22:54 100 06/12/20 22:44 100 06/12/20 22:34 100 06/12/20 22:24 100 06/12/20 22:14 100 06/12/20 22:04 100 06/12/20 21:54 100 06/12/20 21:46 100 06/12/20 21:44 100 06/12/20 21:34 100 CBC Results Results Complete Blood Count Results: RBC 4.42 M/uL (4.7-6.1) L 06/13/20 WBC 8.96 K/uL (4.8-10.8) 06/13/20 Hgb 14.3 g/dL (14.0-18.0) 06/13/20 Hct 40.9 % (42-52) L 06/13/20 Plt Count 244 K/uL (130-400) 06/13/20 Chemistry (BMP) Results BMP Results: Sodium 139 mmol/L (136-145) 06/13/20 Potassium 4.7 mmol/L (3.5-5.1) 06/13/20 Chloride 110 mmol/L (98-107) H 06/13/20 BUN 38 mg/dl (7-18) H 06/13/20 Creatinine 1.28 mg/dl (0.6-1.4) 06/13/20 Glucose 108 mg/dl (70-99) H 06/13/20 Resident Activity Tracking Resident Involvement: Resident Care Provided Care Provided: Adult [facility]
[2020-06-13] MEDS ORDERED: STAT IV Infusion **Titration per Protocol STA (08:28)
--- NOTE | 2020-06-13 08:41 | Anesthesiology Progress Note ---
Date of Service June 13, 2020 Anesthesia Post Procedure Vital Signs Vital Signs: Temp Pulse Pulse Resp BP BP BP 06/13/20 07:46 37.8 C H 06/13/20 07:05 111 H 115/81 06/13/20 05:35 118 H 20 116/67 06/13/20 04:35 120 H 20 116/70 06/13/20 04:23 120 H 21 06/13/20 03:57 38.3 C H 06/13/20 03:34 124 H 115/74 06/13/20 02:34 116 H 123/83 06/13/20 01:34 110 H 20 118/75 06/13/20 00:34 111 H 20 104/67 06/13/20 00:00 37.3 C 06/12/20 23:45 111 H 20 06/12/20 23:34 111 H 20 131/74 06/12/20 23:14 111 H 20 117/75 06/12/20 23:04 112 H 20 119/77 06/12/20 22:54 111 H 20 120/75 06/12/20 22:44 112 H 20 127/75 06/12/20 22:34 112 H 20 121/76 06/12/20 22:24 112 H 23 143/86 H 06/12/20 22:14 113 H 23 155/100 H 06/12/20 22:04 113 H 18 159/101 H 06/12/20 21:54 37.2 C 112 H 18 155/100 H 06/12/20 21:46 110 H 18 06/12/20 21:44 110 H 24 186/114 H 06/12/20 21:34 36.6 C 109 H 18 207/107 H 06/12/20 15:00 36.9 C 124 H 20 06/12/20 14:56 123 H 13 139/84 06/12/20 14:00 118 H 19 06/12/20 13:06 119 H 17 06/12/20 13:05 118 H 14 127/104 H 06/12/20 13:00 120 H 22 06/12/20 12:06 36.5 C 116 H 115 H 28 H 131/82 06/12/20 12:05 36.9 C 117 H 131/82 06/12/20 12:03 120 H 06/12/20 11:45 118 H 17 163/89 H 06/12/20 11:37 118 H 29 H 151/101 H 06/12/20 11:30 124 H 21 90/78 L 06/12/20 11:16 120 H 27 H 06/12/20 11:15 119 H 29 H 145/102 H 06/12/20 11:00 16 154/89 H 06/12/20 10:51 27 H 131/95 06/12/20 10:45 15 06/12/20 10:30 19 06/12/20 10:15 125 H 19 06/12/20 10:06 120 H 33 H 06/12/20 09:55 113/79 06/12/20 09:15 06/12/20 09:00 119 H 20 112/72 BP Pulse Ox 06/13/20 07:46 06/13/20 07:05 98 06/13/20 05:35 98 06/13/20 04:35 98 06/13/20 04:23 98 06/13/20 03:57 06/13/20 03:34 99 06/13/20 02:34 100 06/13/20 01:34 100 06/13/20 00:34 99 06/13/20 00:00 06/12/20 23:45 100 06/12/20 23:34 100 06/12/20 23:14 100 06/12/20 23:04 100 06/12/20 22:54 100 06/12/20 22:44 100 06/12/20 22:34 100 06/12/20 22:24 100 06/12/20 22:14 100 06/12/20 22:04 100 06/12/20 21:54 177/75 H 100 06/12/20 21:46 100 06/12/20 21:44 200/91 H 100 06/12/20 21:34 100 06/12/20 15:00 06/12/20 14:56 06/12/20 14:00 95 06/12/20 13:06 96 06/12/20 13:05 97 06/12/20 13:00 97 06/12/20 12:06 95 06/12/20 12:05 06/12/20 12:03 06/12/20 11:45 95 06/12/20 11:37 96 06/12/20 11:30 96 06/12/20 11:16 97 06/12/20 11:15 95 06/12/20 11:00 97 06/12/20 10:51 97 06/12/20 10:45 99 06/12/20 10:30 97 06/12/20 10:15 96 06/12/20 10:06 06/12/20 09:55 06/12/20 09:15 97 06/12/20 09:00 97 Pain Intensity Abdomen: Pain Intensity: 0 Notes Mental Status: see notes below (patient sedated and on ventilator. JANIE.) Nausea / Vomiting: adequately controlled Pain: adequately controlled Airway Patency, RR, SpO2: stable & adequate (On ventilator, to be weaned off today per RN.) BP & HR: stable & adequate (No pressors.) Hydration State: stable & adequate Anesthetic Complications: no major complications apparent Notes: Per RN, patient stable overnight and is currently sedated and on ventilator. Plan is to wean patient off ventilator today.
--- NOTE | 2020-06-13 09:08 | Critical Care Progress Note ---
Date of Service June 13, 2020 Assessment & Plan (1) Acute bowel infarction: Reason Critically Ill: 49-year-old male with PMHx significant for tobacco abuse who was admitted for acute bowel infarction - s/p bowel resection and anastomosis on 06/11 and transferred to the ICU for hemodynamic m onitoring/support. ICU Day 2. Neuro - - [facility] ICU: POSITIVE - UDS positive for amphetamines, MDMA, THC - currently A+Ox3, continue to monitor closely for changes in mental status - monitor for symptoms of withdrawal Cardiac - - sepsis 2/2 acute bowel infarction - significant IVF resuscitation in the ED as well as intra-operatively - maintaining MAP >65 without pressors - decreased LR to 100cc/hr given stable hemodynamic status, improved kidney function, and decreased lactate - would consider TTE to evaluate for possible cardio-embolic source for acute bowel infarction given distribution of vascular supply of infarcted bowel - HTN - hold home PO medications in setting of sepsis - strict I/Os Respiratory - - this morning ABG was acceptable (7.4/41//) and vent settings minimal - ex tubated successfully this morning - currently satting well on room air - supplemental O2 via NC as needed GI - - acute bowel infarction, s/p partial small bowel resection and right hemicolectomy (ileum, cecum, ascending colon, part of transverse colon), with anastomosis - continue Cefepime/Metronidazole - NPO, NG tube to suction - surgery following - appreciate recs - continue close monitoring in acute post-operative phase RENAL/LYTES - - LISA - Cr 3.83, BUN:Cr ratio >20, no h/o kidney disease - suspect pre-renal injury 2/2 dehydration/decreased PO intake in setting of acute bowel infarction - Cr improved to 1.87 today - decreased LR to 100cc/hr as mentioned above - continue to monitor renal function closely - Hyperkalemia 5.2 - suspect 2/2 LISA - follow closely for improvement as LISA resolves - consider Lasix if does not improve - No other significant electrolyte derangement - Nephrology on board - appreciate recs - Replace lytes as needed - - continue johnson - strict I/Os ENDO - - no h/o diabetes or thyroid disease HEME - - Stable H&H - continue to trend CBC ID - - sepsis 2/2 acute bowel infarction - CBC WNL and Lactate <2 today, s/p bowel resection - however Procalcitonin 7.9 --> 17.66 today - continue Cefepime/Flagyl to cover for GI pathogens - surgery on board - appreciate recs - post-op fever to 38.3C this AM - continue to trend LINES/IV ACCESS - PIVs intact. DVT PROPHYLAXIS - - SCDs GI ppx: Protonix 40mg IV BID Thank you for allowing us to be part of this patient's care. Please refer to Dr. Doyle's documentation for any further recommendations. (2) Sepsis: (3) Acute kidney injury: (4) Acidosis, lactic: (5) Partial small bowel obstruction: (6) GERD (gastroesophageal reflux disease): (7) HTN (hypertension): (8) Chronic low back pain: Admission and Anticipated Discharge Date Admission Date: June 12, 2020 Supervising Physician Co-Signing Physician Notes Dr Damon was the resident-physician during care of patient. I separately evaluated patient for almonte portions of the history and the exam. I was present during the critical portion of medical decision making, and I discussed the case with the resident. I generally agree with the findings and plan except for any additions/exceptions noted. Patient seen and examined at bedside. Intubated, sedated. Patient was taken to the OR late yesterday evening. He had partial resection of the right side of the colon along with 5 m of the small bowel. Continue with antibiotics to cover gram-negative and anaerobes. Patient's UDS was positive for amphetamines as well as ecstasy. Patient is on cyclobenzaprine which might give false positives. It was also positive for marijuana. Patient's creatinine is significantly improved. He is making good amount of urine. Continue with IV fluids while the patient is n.p.o. Trial of extubation today. Pain controlled. I will start the patient on blood pressure medications as well as the patient's blood pressure and heart rate have been on the higher side. Decrease LR to 100 mL/h. I have personally spent 35 minutes of critical care time in the direct management of this patient. This is a life/limb threatening event. This includes time spent evaluating patient, direct bedside care, chart review, placing orders, interpretation of diagnostic studies, discussion with con sultants, patient, and/or family members regarding treatment decisions, as well as other required patient management activities. This time is exclusive of all separately billable procedures, and teaching time and separate from and in addition to any other critical care service time. Subjective No acute events since ex lap yesterday evening. Patient was extubated this morning and is satting well on room air. He currently denies chest pain, SOB, nausea/vomiting. Review of Systems Review of Systems: Pertinent positives and negatives mentioned in HPI. Physical Exam Physical Exam: General: appears somnolent/fatigued, A&Ox3. no acute distress. HEENT: Atraumatic, normocephalic. NG tube in place. Pulm: CTAB A&P. -wheezes, -rales, -rhonchi. Symmetrical chest rise. No increase work of breathing. No respiratory distress. Cardiac: RRR, -mrg. Radial pulses intact and symmetrical. Abdominal: soft, non-distended, laparotomy incision with overlying dressing c/d /i. ALEKSEY drains with serosanguinous drainage Skin: warm, dry Results & Data Results & Data ([facility]) Vital Signs (Past 12 Hours) Vital Signs Temp Pulse Pulse Resp BP BP BP 06/13/20 07:46 37.8 C H 06/13/20 07:29 116 H 20 06/13/20 07:05 111 H 115/81 06/13/20 05:35 118 H 20 116/67 06/13/20 04:35 120 H 20 116/70 06/13/20 04:23 120 H 21 06/13/20 03:57 38.3 C H 06/13/20 03:34 124 H 115/74 06/13/20 02:34 116 H 123/83 06/13/20 01:34 110 H 20 118/75 06/13/20 00:34 111 H 20 104/67 06/13/20 00:00 37.3 C 06/12/20 23:45 111 H 20 06/12/20 23:34 111 H 20 131/74 06/12/20 23:14 111 H 20 117/75 06/12/20 23:04 112 H 20 119/77 06/12/20 22:54 111 H 20 120/75 06/12/20 22:44 112 H 20 127/75 06/12/20 22:34 112 H 20 121/76 06/12/20 22:24 112 H 23 143/86 H 06/12/20 22:14 113 H 23 155/100 H 06/12/20 22:04 113 H 18 159/101 H 06/12/20 21:54 37.2 C 112 H 18 155/100 H 177/75 H 06/12/20 21:46 110 H 18 06/12/20 21:44 110 H 24 186/114 H 200/91 H 06/12/20 21:34 36.6 C 109 H 18 207/107 H Pulse Ox 06/13/20 07:46 06/13/20 07:29 99 06/13/20 07:05 98 06/13/20 05:35 98 06/13/20 04:35 98 06/13/20 04:23 98 06/13/20 03:57 06/13/20 03:34 99 06/13/20 02:34 100 06/13/20 01:34 100 06/13/20 00:34 99 06/13/20 00:00 06/12/20 23:45 100 06/12/20 23:34 100 06/12/20 23:14 100 06/12/20 23:04 100 06/12/20 22:54 100 06/12/20 22:44 100 06/12/20 22:34 100 06/12/20 22:24 100 06/12/20 22:14 100 06/12/20 22:04 100 06/12/20 21:54 100 06/12/20 21:46 100 06/12/20 21:44 100 06/12/20 21:34 100 06/13/20 04:35 06/13/20 13:40 Resident Activity Tracking Resident Involvement: Resident Care Provided Care Provided: Adult Hospital Medicine (1) Chronic low back pain Back pain laterality: unspecified Sciatica presence: without sciatica Qualified Code(s): M54.5 - Low back pain; G89.29 - Other chronic pain (2) Sepsis Sepsis acute organ dysfunction status: unspecified Sepsis type: sepsis due to unspecified organism Qualified Code(s): A41.9 - Sepsis, unspecified organism (3) HTN (hypertension) Hypertension type: unspecified Qualified Code(s): I10 - Essential (primary) hypertension
--- NOTE | 2020-06-13 10:23 | Surgery Progress Note ---
Date of Service June 13, 2020 Assessment & Plan (1) Acute bowel infarction: pod 1 improving clinically per firearms specialist may try extubation today labs improved will follow closely. would have low threshold for second look operation if he deteriorates. (2) Septic shock: Admission and Anticipated Discharge Date Admission Date: June 12, 2020 Subjective sedated on vent Physical Exam Physical Exam: sedated on vent abd: soft. minimal distension ALEKSEY's serosanguinous. diaphoresis has resolved. Results & Data ([facility]) Vital Signs (Past 12 Hours) Vital Signs Temp Pulse Resp BP Pulse Ox 06/13/20 09:25 118 H 103/73 98 06/13/20 09:15 121 H 134/85 98 06/13/20 09:05 118 H 136/89 99 06/13/20 09:00 117 H 99 06/13/20 08:55 119 H 140/86 97 06/13/20 08:45 116 H 135/83 98 06/13/20 08:35 115 H 108/72 97 06/13/20 08:25 117 H 114/74 97 06/13/20 08:15 115 H 120/70 97 06/13/20 08:05 116 H 117/69 98 06/13/20 07:46 37.8 C H 06/13/20 07:40 115 H 06/13/20 07:29 116 H 20 99 06/13/20 07:05 111 H 115/81 98 06/13/20 05:35 118 H 20 116/67 98 06/13/20 04:35 120 H 20 116/70 98 06/13/20 04:23 120 H 21 98 06/13/20 03:57 38.3 C H 06/13/20 03:34 124 H 115/74 99 06/13/20 02:34 116 H 123/83 100 06/13/20 01:34 110 H 20 118/75 100 06/13/20 00:34 111 H 20 104/67 99 06/13/20 00:00 37.3 C 06/12/20 23:45 111 H 20 100 06/12/20 23:34 111 H 20 131/74 100 06/12/20 23:14 111 H 20 117/75 100 06/12/20 23:04 112 H 20 119/77 100 06/12/20 22:54 111 H 20 120/75 100 06/12/20 22:44 112 H 20 127/75 100 06/12/20 22:34 112 H 20 121/76 100 06/12/20 22:24 112 H 23 143/86 H 100 PG Care Time/CCT Total # of Minutes Spent Total Time Spent with Patient: Total time spent is greater than 50% in coordination of care (as documented) at patient's floor/unit and/or counseling patient: Coding Level of Care Code None Diagnoses Acute bowel infarction K55.069 Septic shock A41.9; R65.21
--- NOTE | 2020-06-13 10:30 | Nephrology Progress Note ---
Date of Service June 13, 2020 Assessment & Plan (1) Acute kidney injury: 49-year-old male with no known history of CKD, admitted with 1 week history of nausea, vomiting, diarrhea, CT abdomen/pelvis showing Ileus, partial small bowel obstruction. Found to have DINA with creatinine 3.8, lactic acidosis and oliguria. CT negative for postrenal obstruction. DINA most likely prerenal in the setting of partial small bowel obstruction, decreased p.o. intake. Clinically worsened later yesterday and had laparotomy, small bowel resection and rt hemicolectomy on 06/12/20. Clinically improved since surgery. Renal function continues to improve. Electrolyte acceptable except mild hyperkalemia --continue IV fluid, monitor intake and output --repeat potassium in afternoon, consider switching IV fluid to NS, If K remained elevated >5.6 consider IV lasix, Insulin, Albuterol, avoid Kayexalate/Veltassa with recent bowel surgery. However, expect K to improve as recovering from Dina, improvement in UO. --expect renal function to continue to improve with complete recovery from DINA Will sign off,will be available if further assistance needed. (2) Acidosis, lactic: (3) Partial small bowel obstruction: (4) Hyperglycemia: Admission and Anticipated Discharge Date Admission Date: June 12, 2020 Subjective Junior feels sleepy and lethargic after laparotomy yesterday but otherwise feeling better, denies abdominal pain, SOB, fever, chills. UO decent, renal function continues to improve, mild hyperkalemia. Review of Systems Review of Systems: All systems reviewed & are unremarkable except as noted in Subjective Physical Exam Constitutional: WD/WN, vitals as above + ill appearing and + lethargic; no acute distress Eyes: + anicteric sclerae; no conjunctival abnormality ENMT: Ears: no hearing impairment Nose: + dry nasal mucous membranes Respiratory: normal respiratory effort, lungs clear to auscultation no cough Auscultation: no crackles, no rales and no wheezes Cardiovascular: RRR, no murmur, no edema Gastrointestinal (Abdomen): Inspection/Auscultation: + abdominal surgical drain present and + hypoactive bowel sounds Percussion/Palpation: + abdomen tender Skin: no rashes, warm and dry Neurologic: no focal motor deficits and not confused Psychiatric: A+Ox3, euthymic affect Results & Data ([facility]) Vital Signs (Past 12 Hours) Vital Signs Temp Pulse Resp BP Pulse Ox 06/13/20 09:25 118 H 103/73 98 06/13/20 09:15 121 H 134/85 98 06/13/20 09:05 118 H 136/89 99 06/13/20 09:00 117 H 99 06/13/20 08:55 119 H 140/86 97 06/13/20 08:45 116 H 135/83 98 06/13/20 08:35 115 H 108/72 97 06/13/20 08:25 117 H 114/74 97 06/13/20 08:15 115 H 120/70 97 06/13/20 08:05 116 H 117/69 98 06/13/20 07:46 37.8 C H 06/13/20 07:40 115 H 06/13/20 07:29 116 H 20 99 06/13/20 07:05 111 H 115/81 98 06/13/20 05:35 118 H 20 116/67 98 06/13/20 04:35 120 H 20 116/70 98 06/13/20 04:23 120 H 21 98 06/13/20 03:57 38.3 C H 06/13/20 03:34 124 H 115/74 99 06/13/20 02:34 116 H 123/83 100 06/13/20 01:34 110 H 20 118/75 100 06/13/20 00:34 111 H 20 104/67 99 06/13/20 00:00 37.3 C 06/12/20 23:45 111 H 20 100 06/12/20 23:34 111 H 20 131/74 100 06/12/20 23:14 111 H 20 117/75 100 06/12/20 23:04 112 H 20 119/77 100 06/12/20 22:54 111 H 20 120/75 100 06/12/20 22:44 112 H 20 127/75 100 06/12/20 22:34 112 H 20 121/76 100 PG Care Time/CCT Total # of Minutes Spent Total Time Spent with Patient: Total time spent is greater than 50% in coordination of care (as documented) at patient's floor/unit and/or counseling patient: Coding Level of Care Code 69516 Subseq Hosp Care Lvl 3 Diagnoses Acute kidney injury N17.9 Acidosis, lactic E87.2 Partial small bowel obstruction K56.600 Hyperglycemia R73.9
[2020-06-13] MEDS: CEFEPIME 2,000 MG in SYRINGE 0 ML IV SCH ×2 (10:39→21:08)
[2020-06-13] MEDS ORDERED: PANTOprazole 40 MG in SYRINGE 0 ML IV SCH (11:00)
[2020-06-13] MEDS: DEXMEDETOMIDINE HCL 200 MCG in SODIUM CHLORIDE 0.9% 48 ML IV SCH (14:12)
[2020-06-13 14:19] LABS: BUN Creatinine Ratio 29.4 (10-20); Calcium 8.7 mg/dl (8.5-10.1); Est GFR (African American) 75.1; Est GFR (Non-African American) 64.8; Magnesium 2.2 mg/dl (1.8-2.4); Phosphorus 2.9 mg/dl (2.5-4.9); Potassium 4.7 mmol/L (3.5-5.1)
[2020-06-13] MEDS: HYDROmorphone INJ 1 MG/ML SYRINGE IV PRN ×2 (14:58→19:18)
[2020-06-13] MEDS: METOPROLOL TARTRATE 1 MG/ML VIAL IV SCH ×2 (16:14→22:00)
--- NOTE | 2020-06-13 18:38 | Billing Data ---
Date of Service June 13, 2020 Coding Level of Care Code Critical Care 1st 30-74 mins Time Spent (min) 35
[2020-06-14] MEDS: LACTATED RINGER'S 1,000 ML IV SCH ×2 (01:08→12:31)
[2020-06-14] MEDS: metroNIDAZOLE 500 MG/100 ML BAG IV SCH (01:08)
[2020-06-14] MEDS: HYDROmorphone INJ 1 MG/ML SYRINGE IV PRN ×5 (01:23→23:43)
[2020-06-14] MEDS: DEXMEDETOMIDINE HCL 200 MCG in SODIUM CHLORIDE 0.9% 48 ML IV SCH ×2 (02:23→10:23)
[2020-06-14] MEDS: fentaNYL DRIP 1,250 MCG/250 ML BAG IV SCH (04:19)
[2020-06-14] MEDS: METOPROLOL TARTRATE 1 MG/ML VIAL IV SCH ×2 (04:43→10:43)
[2020-06-14 04:49] LABS: Hemoglobin 13.2 g/dL (14.0-18.0); Mean Corpuscular Hemoglobin 32.3 pg (25-34); Mean Corpuscular Hgb Conc 33.8 g/dL (32-36); Mean Corpuscular Volume 95.4 fL (80-100); Mean Platelet Volume 9.6 fL (7.4-10.4); Platelet Count 207 K/uL (130-400); RDW Coefficient of Variation 13.7 % (11.5-14.5); Red Blood Count 4.09 M/uL (4.7-6.1); White Blood Count 9.86 K/uL (4.8-10.8)
[2020-06-14 05:15] LABS: BUN Creatinine Ratio 32.9 (10-20); Calcium 8.7 mg/dl (8.5-10.1); Creatinine Clr Calc Pharmacy 97.1 ml/min; Est GFR (African American) 113.5; Est GFR (Non-African American) 97.9; Magnesium 2.1 mg/dl (1.8-2.4); Potassium 4.3 mmol/L (3.5-5.1)
[2020-06-14 05:17] LABS: Albumin Globulin Ratio 0.5 (0.9-2); Bilirubin,Total 0.6 mg/dl (0.2-1); Phosphorus 2.2 mg/dl (2.5-4.9)
[2020-06-14 05:19] LABS: Basophils # (auto) 0.02 K/uL (0-0.2); Basophils % (auto) 0.2 %; Lymphocytes # (auto) 0.92 K/uL (1.2-3.4); Lymphocytes % (auto) 9.3 %; Monocytes # (auto) 1.28 K/uL (0.11-0.59); Neutrophils # (auto) 7.54 K/uL (1.4-6.5); Neutrophils % (auto) 76.5 %
[2020-06-14] MEDS ORDERED: SODIUM PHOSPHATE 3 MMOL/1 ML INFUSION IV STA (07:39)
[2020-06-14] MEDS ORDERED: SODIUM PHOSPHATE 15 MMOL in SODIUM CHLORIDE 0.9% 250 ML IV ONE (08:00)
[2020-06-14] MEDS: PANTOprazole 40 MG in SYRINGE 0 ML IV SCH ×2 (08:23→21:12)
[2020-06-14] MEDS: CEFEPIME 2,000 MG in SYRINGE 0 ML IV SCH ×3 (08:24→23:43)
--- NOTE | 2020-06-14 09:04 | Surgery Progress Note ---
Date of Service June 14, 2020 Assessment & Plan (1) Acute bowel infarction: Postoperative day #2 Doing quite well 1 keep his NG tube in for at least another 24 hours. He may have chips and sips. Keep ALEKSEY drain for several more days Dr. Jarquin covering for the weekend. Admission and Anticipated Discharge Date Admission Date: June 12, 2020 Subjective Patient extubated. Awake and alert. Doing much better. Incisional pain controlled. Physical Exam Physical Exam: Alert. No acute distress Abdomen is soft with expected incisional tenderness. ALEKSEY drains are pink serosanguineous. Results & Data ([facility]) Vital Signs (Past 12 Hours) Vital Signs Temp Pulse Resp BP Pulse Ox 06/14/20 08:01 112 H 19 145/89 H 96 06/14/20 07:44 37.9 C H 112 H 06/14/20 07:01 112 H 19 121/68 98 06/14/20 06:01 106 H 17 144/83 H 96 06/14/20 05:01 114 H 13 128/84 96 06/14/20 04:43 113 H 175/71 H 06/14/20 04:01 115 H 15 156/89 H 95 06/14/20 03:01 116 H 18 143/88 H 95 06/14/20 02:01 116 H 16 135/85 97 06/14/20 01:01 116 H 17 163/87 H 95 06/14/20 00:04 37.2 C 06/14/20 00:01 114 H 20 146/83 H 97 06/13/20 23:01 110 H 16 146/86 H 98 06/13/20 22:01 122 H 17 142/92 H 97 06/13/20 22:00 37.4 C 116 H 165/73 H PG Care Time/CCT Total # of Minutes Spent Total Time Spent with Patient: Total time spent is greater than 50% in coordination of care (as documented) at patient's floor/unit and/or counseling patient: Coding Level of Care Code None Diagnoses Acute bowel infarction K55.069
--- NOTE | 2020-06-14 09:28 | Critical Care Progress Note ---
Date of Service June 14, 2020 Assessment & Plan (1) Acute bowel infarction: --Acute bowel infarction s/p resection and anastomosis S/p ORIF 06/11 Postoperative day 2 Continue with NGT Surgery following We will follow recommendations --S/p LISA Improved Patient making good amount of urine Monitor BUN/creatinine Avoid nephrotoxic medications Strict ins and outs Nephrology on board UA is dirty. Continue with antibiotics --S/p HAGMA Delta-delta: 1.2, Pure anion gap Likely sec to lactic acidosis, elevated beta hydroxybutyric acid along with elevated BUN Urine osm 369, urine lytes Serum osmolality 322, calculated serum osmolality 306, osmolar gap 16 AB.36/32/77 on room air Monitor Urine testing was positive for amphetamines and MDMA. Patient is on cyclobenzaprine which can give false positive. He was also positive for marijuana which he agrees to doing it. Lipase within normal limit. No evidence of pancreatitis on CT abdomen. --History of giardiasis No history of diarrhea as per the patient With similar presentation as per Patient on Flagyl and cefepime Flagyl will cover for giardiasis --Chronic marijuana use Patient smokes marijuana regularly every single day multiple joints --History of hypertension On metoprolol IV We will resume p.o. medications once cleared by surgery --Chronic low back pain Uses chronic marijuana Meloxicam --History of anxiety Takes Buspirone at home Ativan as needed --Prophylaxis VTE: Heparin GI: Protonix Lines: Peripheral, right radial, positive Pond Diet: N.p.o. Plan: In/out: -1239, urine output 3765 Hypophosphatemia being replaced. Patient is doing significantly well. He is asking for sips of water. I will start him on sips of water. We will wait for surgery evaluation to see if he can have clear liquids. Continue with pain medications as needed DC A-line and Pond Patient is hemodynamically stable to be downgraded to a medical floor Please note the above document was generated using voice recognition software. It may contain grammatical, syntax or spelling errors.Any formal questions or concerns about the content, text or information contained within the body of this dictation should be directly addressed to the provider for clarification. (2) Sepsis: (3) Acute kidney injury: (4) Acidosis, lactic: (5) Partial small bowel obstruction: (6) GERD (gastroesophageal reflux disease): (7) HTN (hypertension): (8) Chronic low back pain: Admission and Anticipated Discharge Date Admission Date: June 12, 2020 Subjective Patient seen and examined at bedside. No acute distress, no adverse events overnight. Patient states that he wants to have something to drink. Denies any belly pain. Does hear some growling in the belly but no flatulence. Denies any nausea or vomiting. No headache, no dizziness, no chest pain, no shortness of breath. Review of Systems Review of Systems: All systems reviewed & are unremarkable except as noted in Subjective Physical Exam Physical Exam: Constitutional: No acute distress HEENT: EOMI, PERRLA positive NGT Respiratory system: Good air entry bilaterally, no wheeze, no rhonchi, no crackles CVS: S1-S2 positive, no murmurs or gallops Abdomen: Soft, Nontender, nondistended, midline dressing in place, pigtail drainage seen with serous fluid. Extremities: +2 pulses bilaterally radialis/ dorsalis pedis, no cyanosis, no edema Neuro: Awake alert oriented x3 Psych: Normal mood and affect G/U: Positive Pond Skin: no rashes, warm and dry Lymphatic: no cervical or axillary lymphadenopathy Results & Data Results & Data ([facility]) Vital Signs (Past 12 Hours) Vital Signs Temp Pulse Resp BP Pulse Ox 06/14/20 08:01 112 H 19 145/89 H 96 06/14/20 07:44 37.9 C H 112 H 06/14/20 07:01 112 H 19 121/68 98 06/14/20 06:01 106 H 17 144/83 H 96 06/14/20 05:01 114 H 13 128/84 96 06/14/20 04:43 113 H 175/71 H 06/14/20 04:01 115 H 15 156/89 H 95 06/14/20 03:01 116 H 18 143/88 H 95 06/14/20 02:01 116 H 16 135/85 97 06/14/20 01:01 116 H 17 163/87 H 95 06/14/20 00:04 37.2 C 06/14/20 00:01 114 H 20 146/83 H 97 06/13/20 23:01 110 H 16 146/86 H 98 06/13/20 22:01 122 H 17 142/92 H 97 06/13/20 22:00 37.4 C 116 H 165/73 H 06/14/20 04:35 06/14/20 04:35 Coding Level of Care Code 58281 Subseq Hosp Care Lvl 3 Diagnoses Acute bowel infarction K55.069 Sepsis A41.9 Sepsis type: sepsis due to unspecified organism Sepsis acute organ dysfunction status: unspecified Acute kidney injury N17.9 Acidosis, lactic E87.2 Partial small bowel obstruction K56.600 GERD (gastroesophageal reflux disease) K21.9 HTN (hypertension) I10 Hypertension type: unspecified Chronic low back pain M54.5; G89.29 Back pain laterality: unspecified Sciatica presence: without sciatica (1) Sepsis Sepsis type: sepsis due to unspecified organism Sepsis acute organ dysfunction status: unspecified Qualified Code(s): A41.9 - Sepsis, unspecified organism (2) HTN (hypertension) Hypertension type: unspecified Qualified Code(s): I10 - Essential (primary) hypertension (3) Chronic low back pain Back pain laterality: unspecified Sciatica presence: without sciatica Qualified Code(s): M54.5 - Low back pain; G89.29 - Other chronic pain
[2020-06-14] MEDS: amLODIPine BESYLATE 5 MG TAB PO SCH (10:27)
[2020-06-14] MEDS ORDERED: METOPROLOL TARTRATE 1 MG/ML VIAL IV PRN (11:46)
[2020-06-14] MEDS: METOPROLOL TARTRATE 25 MG TAB PO SCH (12:31)
[2020-06-14] MEDS: HEPARIN SOD 5,000 UNIT/0.5 ML VIAL SQ SCH ×2 (12:32→21:13)
--- NOTE | 2020-06-14 12:42 | Hospitalist Progress Note ---
Date of Service June 14, 2020 Assessment & Plan (1) Acute bowel infarction: 49-year-old male with PMHx significant for tobacco abuse who was admitted for acute bowel infarction (unclear etiology)- s/p bowel resection and anastomosis on 06/11 and transferred to the ICU for hemodynamic monitor ing/support initially, improved overall transferred to Med/Surg. with telemetry today. Acute bowel infarction s/p resection and anastomosis of small bowel and right side of colon on 06/11; appears to be consistent with distribution of the SMA; etiologies include embolic vs. thrombotic with risk factors including smoking history although not advanced in age Overall improved post operative condition, hemodynamically stable, normalized lactate, fever curve improving - ordered TTE given embolic as potential etiology with no vegetation seen extubated one day prior with oxygen requirement improved over the last day - continue Cefepime/Metronidazole - surgery consulted: NPO, NG tube - lipids ordered with AM labs to risk stratify cardiac risk - blood with no growth to date at 48H Tachycardia, unclear etiology; potentially due to withdrawal - started PO Metoprolol 25 mg QAM - PRN Metoprolol available Q6H Drug use, admits to MJ use occasionally, denies other substance abuse or IVDU - UDS positive for amphetamines, MDMA, THC - currently A+Ox3, continue to monitor closely for changes in mental status - monitor for symptoms of withdrawal LISA, improved; resolved - initially elevated to 3.83 w/ BUN:cr. > 20; likely prerenal - monitor - Nephrology consulted - continue to hold Lisinopril for now HTN - continue Amlodipine 5 Q AM Anxiety/Depression - restarted Buspirone - Lorazepam 1 mg Q2H PRN GERD, on PPI at home - continue with Pantoprazole IV BID, consider switching to oral agent tomorrow Code: full DVT: SCD's Diet: NPO (2) Sepsis: (3) Acute kidney injury: (4) Acidosis, lactic: (5) Partial small bowel obstruction: (6) GERD (gastroesophageal reflux disease): (7) HTN (hypertension): (8) Chronic low back pain: Admission and Anticipated Discharge Date Admission Date: June 12, 2020 Supervising Physician Co-Signing Physician Notes Patient seen and examined with PGY-2 Dr. Mixon. Agree with history, exam findings, assessment and plan of care. In brief, Mr. Cabrales is a 49 year old male with history of spinal stenosis, HTN, GERD, tobacco use (dipping) and cannabis use admitted with sepsis and abdominal pain, nausea and vomiting found to have small bowel and large bowel ischemia. Not much in the way of post-op pain. Has not yet passed gas or had a bowel movement. Vital signs and nursing notes reviewed. Nontoxic appearing. Abdomen is quiet. Abdominal binder in place. 1. Acute bowel infarction s/p ex lap, small bowel resection and R hemicolectomy on 06/11. Continue cefepime and metronidazole. NGT. Sips and chips. Unclear reasons for ischemia. TTE without embolic source. ?whether atherosclerotic etiology. A1C normal. Check lipid profile in AM. Appreciate general surgery recommendations 2. Acute kidney injury. Prerenal. Resolved. Cr 3.83 on admission?0.91. 3. Hypertension, tachycardia. Started metoprolol. 4. Cannabis use. UDS on admission positive for MDMA, THC, and amphetamines. Denies MDMA and amphetamine use. Dispo: Downgrade from ICU to med-surg toay. Subjective Mr. Junior Cabrales is doing okay this morning. He was not currently having any pain but does discomfort if he coughs in his abdomen. He has not passed gas or had a bowel movement yet. He was not feeling any fevers or chills overnight. He stated that he trusted the source of his marijuana. Review of Systems Review of Systems: Constitutional: denies fevers, chills Cardiac: denies chest pain, palpitations Pulm.: denies cough, shortness of breath Physical Exam Constitutional: average body habitus and cooperative; no acute distress and not in distress Eyes: PERRL, conjunctivae normal, anicteric sclerae ENMT: external ear and nose normal, oropharynx normal Neck: normal visual inspection Respiratory: normal respiratory effort, lungs clear to auscultation Cardiovascular: RRR, no murmur, no edema Extremities: no pedal edema Chest (Breasts): normal inspection/palpation of breasts Gastrointestinal (Abdomen): - large midline bandage with small drain with bloody fluid - tender to palpation, no bowel sounds appreciated - no bowel sounds appreciated Musculoskeletal: no cyanosis or clubbing, extremities motor strength 5/5 Skin: no rashes, warm and dry fingernails without lesions, no track burgess appreciated Neurologic: no focal motor deficits Psychiatric: Orientation: alert Results & Data Results & Data ([facility]) Vital Signs (Past 12 Hours) Vital Signs Temp Pulse Pulse Resp BP BP Pulse Ox 06/14/20 12:00 112 H 06/14/20 11:51 36.7 C 108 H 18 123/80 93 06/14/20 10:48 103 H 18 126/88 92 06/14/20 10:43 118 H 138/89 06/14/20 10:01 116 H 13 138/89 91 06/14/20 09:01 111 H 16 145/87 H 95 06/14/20 08:01 112 H 19 145/89 H 96 06/14/20 07:44 37.9 C H 112 H 06/14/20 07:01 112 H 19 121/68 98 06/14/20 06:01 106 H 17 144/83 H 96 06/14/20 05:01 114 H 13 128/84 96 06/14/20 04:43 113 H 175/71 H 06/14/20 04:01 115 H 15 156/89 H 95 06/14/20 03:01 116 H 18 143/88 H 95 06/14/20 02:01 116 H 16 135/85 97 06/14/20 01:01 116 H 17 163/87 H 95 CBC Results Results Complete Blood Count Results: RBC 4.09 M/uL (4.7-6.1) L 06/14/20 WBC 9.86 K/uL (4.8-10.8) 06/14/20 Hgb 13.2 g/dL (14.0-18.0) L 06/14/20 Hct 39.0 % (42-52) L 06/14/20 Plt Count 207 K/uL (130-400) 06/14/20 Chemistry (BMP) Results BMP Results: Sodium 139 mmol/L (136-145) 06/14/20 Potassium 3.9 mmol/L (3.5-5.1) 06/14/20 Chloride 106 mmol/L (98-107) 06/14/20 BUN 27 mg/dl (7-18) H 06/14/20 Creatinine 0.89 mg/dl (0.6-1.4) 06/14/20 Glucose 123 mg/dl (70-99) H 06/14/20 Resident Activity Tracking Resident Involvement: Resident Care Provided Care Provided: Adult Hospital Medicine (1) Chronic low back pain Back pain laterality: unspecified Sciatica presence: without sciatica Qualified Code(s): M54.5 - Low back pain; G89.29 - Other chronic pain (2) Sepsis Sepsis acute organ dysfunction status: unspecified Sepsis type: sepsis due to unspecified organism Qualified Code(s): A41.9 - Sepsis, unspecified organism (3) HTN (hypertension) Hypertension type: unspecified Qualified Code(s): I10 - Essential (primary) hypertension
--- NOTE | 2020-06-14 15:24 | XCELERA ---
[id number]
[2020-06-14 16:35] LABS: BUN Creatinine Ratio 30.8 (10-20); Calcium 9.5 mg/dl (8.5-10.1); Creatinine Clr Calc Pharmacy 99.3 ml/min; Est GFR (African American) 115.6; Est GFR (Non-African American) 99.7; Potassium 3.9 mmol/L (3.5-5.1)
[2020-06-15] MEDS: LACTATED RINGER'S 1,000 ML IV SCH ×2 (03:36→14:11)
[2020-06-15] MEDS: HYDROmorphone INJ 1 MG/ML SYRINGE IV PRN ×5 (03:40→20:41)
--- NOTE | 2020-06-15 06:36 | Surgery Progress Note ---
Date of Service June 15, 2020 Assessment & Plan (1) H/O right hemicolectomy: jordan NG clamping had bm minimal distention will d/c NG ice/ popsicles ambulate in hallway check labs Admission and Anticipated Discharge Date Admission Date: June 12, 2020 Results & Data ([facility]) Vital Signs (Past 12 Hours) Vital Signs Temp Pulse Pulse Resp BP BP BP 06/15/20 03:49 36.9 C 103 H 18 141/86 H 06/14/20 23:00 36.9 C 103 H 18 125/80 06/14/20 18:53 36.7 C 107 H 18 142/80 H Pulse Ox 06/15/20 03:49 98 06/14/20 23:00 92 06/14/20 18:53 90 PG Care Time/CCT Total # of Minutes Spent Total Time Spent with Patient: Total time spent is greater than 50% in coordination of care (as documented) at patient's floor/unit and/or counseling patient: Coding Level of Care Code None Diagnoses H/O right hemicolectomy Z90.49
[2020-06-15] MEDS: HEPARIN SOD 5,000 UNIT/0.5 ML VIAL SQ SCH ×3 (06:43→20:41)
[2020-06-15 08:12] LABS: Basophils # (auto) 0.02 K/uL (0-0.2); Basophils % (auto) 0.2 %; Eosinophils # (auto) 0.02 K/uL (0-0.5); Eosinophils % (auto) 0.2 %; Hematocrit (blood only) 36.3 % (42-52); Hemoglobin 12.3 g/dL (14.0-18.0); Immature Granulocytes # (auto) 0.08 K/uL (0.00-0.02); Immature Granulocytes % (auto) 0.7 %; Lymphocytes # (auto) 1.23 K/uL (1.2-3.4); Lymphocytes % (auto) 10.4 %; Mean Corpuscular Hgb Conc 33.9 g/dL (32-36); Mean Corpuscular Volume 94.5 fL (80-100); Monocytes # (auto) 1.35 K/uL (0.11-0.59); Monocytes % (auto) 11.4 %; Neutrophils # (auto) 9.17 K/uL (1.4-6.5); Neutrophils % (auto) 77.1 %; Platelet Count 225 K/uL (130-400); RDW Coefficient of Variation 13.3 % (11.5-14.5); RDW Standard Deviation 46.3 fL (36.4-46.3); Red Blood Count 3.84 M/uL (4.7-6.1); White Blood Count 11.87 K/uL (4.8-10.8)
[2020-06-15 08:41] LABS: Phosphorus 2.1 mg/dl (2.5-4.9)
[2020-06-15 08:42] LABS: BUN Creatinine Ratio 27.5 (10-20); Calcium 8.9 mg/dl (8.5-10.1); Creatinine Clr Calc Pharmacy 107.8 ml/min; Est GFR (African American) 119.5; Est GFR (Non-African American) 103.1; Potassium 3.4 mmol/L (3.5-5.1)
[2020-06-15] MEDS: amLODIPine BESYLATE 5 MG TAB PO SCH (10:01)
[2020-06-15] MEDS: PANTOprazole 40 MG in SYRINGE 0 ML IV SCH (10:01)
[2020-06-15] MEDS: CEFEPIME 2,000 MG in SYRINGE 0 ML IV SCH ×3 (10:01→23:40)
[2020-06-15] MEDS: busPIRone 5 MG TAB PO SCH (10:02)
[2020-06-15] MEDS: METOPROLOL TARTRATE 25 MG TAB PO SCH (10:02)
--- NOTE | 2020-06-15 12:20 | Hospitalist Progress Note ---
Date of Service June 15, 2020 Assessment & Plan (1) Acute bowel infarction: 49 yo M PMHx tobacco abuse admitted for acute bowel infarction s/p bowel resection and anastomosis on 06/11. Acute bowel infarction s/p resection: -Presented with significant abdominal pain and found to have acute abdomen. -Emergent exploratory laparoscopy performed 06/12 with approximately 5 feet of small bowel removed as well as portions of the cecum, right colon, and transverse colon. There was concern for ischemia/infarction of the bowel without distinguishable source. -Risk factors include chronic tobacco use, snuff as well as some cigarettes. -Was briefly intubated following surgery, tolerated extubation well. -TTE performed to rule out embolic etiology, no vegetations seen. -Did have NG tube placed which has since been removed, and patient is tolerating water/popsicles well. Will advance to clear liquid diet and discontinue IV fluids. -Continue Cefepime/Metronidazole. -Lipid panel performed which shows total cholesterol 113, LDL 43, HDL 11, triglycerides 295. -Blood cultures performed, no growth. Sinus tachycardia: -Was briefly on metoprolol 25 mg every morning, patient has not been tacky today. -Metoprolol discontinued. -Suspect this is due to pain versus anxiety, patient is otherwise h emodynamically stable, no signs of worsening infections. Hypertension: -Patient is on lisinopril 10 mg daily at home. -Lisinopril was held due to LISA on admission. -LISA has since resolved and patient is hypertensive to 150s/90s, will resume lisinopril. -BMP tomorrow AM. Drug abuse: -UDS positive for amphetamines, MDMA, THC. -Patient denies use of drugs other than marijuana, but does admit that he does not know if the marijuana was laced with anything else. -No signs of withdrawal. LISA: -Initial creatinine of 3.83 with BUN to creatinine ratio greater than 20. -Quickly resolved with IV fluids. -Patient is typically on lisinopril, this was held in the setting of LISA. We will resume this tomorrow given return to normal renal function. Anxiety/Depression -Continue buspirone. GERD, on PPI at home: -Transition to pantoprazole 40 mg PO daily. CODE STATUS: Full code DVT prophylaxis: SCDs and ad felicia. on demand Diet: Clear liquid diet, fluids discontinued Dispo: Med/surge for IV antibiotics, advance diet as tolerated, continued follow-up with general surgery while admitted Admission and Anticipated Discharge Date Admission Date: June 12, 2020 Supervising Physician Co-Signing Physician Notes Patient seen and examined independently of PGY-2 Dr. Pollard. Agree with history, exam findings, assessment and plan of care. In brief, Mr. Cabrales is a 49 year old male with history of spinal stenosis, HTN, GERD, tobacco use (dipping) and cannabis use admitted with sepsis and abdominal pain, nausea and vomiting found to have small bowel and large bowel ischemia. Not much in the way of post-op pain. Had a small bowel movement. Has not passed gas. Has been using the abdominal binder, but feel that it might be a bit too small. NGT has been removed. Tolerating clear liquids. Vital signs and nursing notes reviewed. Nontoxic appearing. Abdomen with hypoactive bowel sounds. Surgical dressing is in tact. ALEKSEY drains with serosanginous drainage. 1. Acute bowel infarction s/p ex lap, small bowel resection and R hemicolectomy on 06/11. Continue cefepime and metronidazole. NGT removed. Clear liquids. Unclear reasons for ischemia. TTE without embolic source. A1C normal. Lipid profile unremarkable. Appreciate general surgery recommendations 2. Acute kidney injury. Prerenal. Resolved. 3. Hypertension, tachycardia. Started metoprolol. 4. Cannabis use. UDS on admission positive for MDMA, THC, and amphetamines. Denies MDMA and amphetamine use. Dispo: Pending clinical improvement. Subjective Patient without acute events overnight. Had NGT removed by General Surgery this AM and allowed to drink Gatorade and have popsicles. Tolerating those things well. Reports no abdominal discomfort or nausea with liquid intake. Also denies SOB, chest pain, fevers or chills. Does endorse some cigarette smoking, as well as daily chewing tobacco use. Does not endorse use of any other drugs. Review of Systems Review of Systems: All systems reviewed & are unremarkable except as noted in HPI & below Constitutional: no fever, no chills and no malaise Respiratory: no cough and no dyspnea Cardiovascular: no chest pain, no palpitations and no edema Gastrointestinal: no abdominal pain, no constipation and no diarrhea/loose stools Physical Exam Constitutional: WD/WN, vitals as above Respiratory: normal respiratory effort, lungs clear to auscultation Cardiovascular: RRR, no murmur, no edema Gastrointestinal (Abdomen): Inspection/Auscultation: normal bowel sounds Percussion/Palpation: abdomen soft; no guarding Skin: no rashes, warm and dry large midline abdominal bandage; no erythema around bandage site Psychiatric: Orientation: alert and oriented x 3 Affect: + anxious affect Results & Data Results & Data ([facility]) Vital Signs (Past 12 Hours) Vital Signs Temp Pulse Pulse Resp BP Pulse Ox 06/15/20 11:16 36.7 C 96 H 20 149/88 H 93 06/15/20 08:00 111 H 06/15/20 07:36 36.8 C 108 H 20 150/89 H 91 06/15/20 03:49 36.9 C 103 H 18 141/86 H 98 Resident Activity Tracking Resident Involvement: Resident Care Provided Care Provided: Adult Hospital Medicine
[2020-06-15] MEDS ORDERED: POTASSIUM PHOSPHATE 15 MMOL in SODIUM CHLORIDE 0.9% 250 ML IV ONE (15:30)
[2020-06-16] MEDS: HYDROmorphone INJ 1 MG/ML SYRINGE IV PRN ×8 (00:02→22:23)
[2020-06-16] MEDS: HEPARIN SOD 5,000 UNIT/0.5 ML VIAL SQ SCH ×3 (05:23→22:24)
[2020-06-16 07:03] LABS: Basophils # (auto) 0.02 K/uL (0-0.2); Basophils % (auto) 0.2 %; Eosinophils # (auto) 0.06 K/uL (0-0.5); Eosinophils % (auto) 0.6 %; Hemoglobin 12.2 g/dL (14.0-18.0); Immature Granulocytes # (auto) 0.41 K/uL (0.00-0.02); Immature Granulocytes % (auto) 3.9 %; Lymphocytes # (auto) 1.32 K/uL (1.2-3.4); Lymphocytes % (auto) 12.6 %; Mean Corpuscular Hemoglobin 31.9 pg (25-34); Mean Corpuscular Hgb Conc 33.9 g/dL (32-36); Mean Corpuscular Volume 94.2 fL (80-100); Monocytes # (auto) 1.63 K/uL (0.11-0.59); Monocytes % (auto) 15.6 %; Neutrophils # (auto) 7.02 K/uL (1.4-6.5); Neutrophils % (auto) 67.1 %; Platelet Count 234 K/uL (130-400); RDW Coefficient of Variation 13.4 % (11.5-14.5); RDW Standard Deviation 46.4 fL (36.4-46.3); Red Blood Count 3.82 M/uL (4.7-6.1); White Blood Count 10.46 K/uL (4.8-10.8)
[2020-06-16 07:32] LABS: BUN Creatinine Ratio 27.3 (10-20); Calcium 8.8 mg/dl (8.5-10.1); Est GFR (African American) 131.5; Est GFR (Non-African American) 113.4; Potassium 3.2 mmol/L (3.5-5.1)
--- NOTE | 2020-06-16 07:37 | Surgery Progress Note ---
Date of Service June 16, 2020 Assessment & Plan (1) H/O right hemicolectomy: afeb, alert having loose bms abd - mod distention, has some bowel sounds ice/ popsicles only D5ns+KCL- IV for now check labs- Phos, mg Admission and Anticipated Discharge Date Admission Date: June 12, 2020 Results & Data ([facility]) Vital Signs (Past 12 Hours) Vital Signs Temp Pulse Pulse Resp BP BP Pulse Ox 06/16/20 04:11 36.9 C 98 H 18 151/88 H 90 06/15/20 23:05 98 H 06/15/20 22:15 37.1 C 102 H 18 150/90 H 93 PG Care Time/CCT Total # of Minutes Spent Total Time Spent with Patient: Total time spent is greater than 50% in coordination of care (as documented) at patient's floor/unit and/or counseling patient: Coding Level of Care Code None Diagnoses H/O right hemicolectomy Z90.49
[2020-06-16 07:46] LABS: Phosphorus 3.3 mg/dl (2.5-4.9)
[2020-06-16] MEDS: D5NSS + 20MEQ KCL 20 MEQ/1,000 ML BAG IV SCH ×2 (08:13→16:07)
[2020-06-16] MEDS: CEFEPIME 2,000 MG in SYRINGE 0 ML IV SCH ×2 (08:13→16:07)
[2020-06-16] MEDS: lisinopril 10 MG TAB PO SCH (08:14)
[2020-06-16] MEDS: busPIRone 5 MG TAB PO SCH (08:14)
[2020-06-16] MEDS ORDERED: PANTOprazole 40 MG TAB PO SCH ×2 (09:00→14:15)
--- NOTE | 2020-06-16 10:33 | Hospitalist Progress Note ---
Date of Service June 16, 2020 Assessment & Plan (1) Acute bowel infarction: 49 yo M PMHx tobacco abuse admitted for acute bowel infarction s/p bowel resection and anastomosis on 06/11. Acute bowel infarction s/p resection: -Presented with significant abdominal pain and found to have acute abdomen. -Emergent exploratory laparoscopy performed 06/12 with approximately 5 feet of small bowel removed as well as portions of the cecum, right colon, and transverse colon. There was concern for ischemia/infarction of the bowel without distinguishable source. -Risk factors include chronic tobacco use, snuff as well as some cigarettes. -Was briefly intubated following surgery, tolerated extubation well. -TTE performed to rule out embolic etiology, no vegetations seen. -Lipid panel performed this admission which shows total cholesterol 113, LDL 43, HDL 11, triglycerides 295. -Blood cultures performed, no growth. -Did have NG tube placed which has since been removed, and patient is tolerating water/popsicles well. Continue this diet and re-evalute tomorrow. - D5 NSS with KCl 20meq @ 125cc/hr while on restricted diet. -Continue Cefepime/Metronidazole for enteric causes of infection. -General Surgery continuing to follow, appreciate recommendations. Sinus tachycardia: -On admission was tachycardic to 120-130s, sinus. Was briefly on metoprolol 25mg daily, however tachycardia has improved. -Overnight intermittent tachycardia to HR low 100s, however mostly 90s. -Metoprolol discontinued. -Suspect this is due to pain versus anxiety, patient is otherwise hemodynamically stable, no signs of worsening infections or substance withdrawal. Possible that patient is mildly tachycardic at baseline. Hypertension: -Patient is on lisinopril 10 mg daily at home. -Lisinopril was held due to LISA on admission. -LISA has since resolved and lisinopril was reintroduced. -BMP stable without worsening renal function, see LISA. Drug abuse: -UDS positive for amphetamines, MDMA, THC. -Patient denies use of drugs other than marijuana, but does admit that he does not know if the marijuana was laced with anything else. -No signs of withdrawal save for mild tachycardia. Has not required any PRN medications ordered for anxiety. LISA: -Initial creatinine of 3.83 with BUN to creatinine ratio greater than 20. -Quickly resolved with IV fluids with creatinine today of 0.65. -Lisinopril briefly held due to LISA, was reinstituted yesterday with stable creatinine today. Hypokalemia: -K 3.4 yesterday, with normal Mg low Phos, and given KPhos 15mmol x1. -K 3.2 yesterday despite repletion, ordered KCl 20meq in IV fluids, as well as KCl 40meq PO x1. -Repeat BMP AM. Anxiety/Depression: -Continue buspirone. GERD, on PPI at home: -Continue pantoprazole 40 mg PO daily. CODE STATUS: Full code DVT prophylaxis: SCDs, ad felicia. on demand Diet: ice chips, popsicles; D5 NSS with KCl 20meq @ 125cc/hr; KCl 40meq PO x1 Dispo: Med/Surg for IV antibiotics, advance diet as tolerated, continue following General Surgery recommendations Admission and Anticipated Discharge Date Admission Date: June 12, 2020 Supervising Physician Co-Signing Physician Notes Patient seen and examined independently of PGY-2 Dr. Pollard. Agree with history, exam findings, assessment and plan of care. In brief, Mr. Cabrales is a 49 year old male with history of spinal stenosis, HTN, GERD, tobacco use (dipping) and cannabis use admitted with sepsis and abdominal pain, nausea and vomiting found to have small bowel and large bowel ischemia. Not much in the way of post-op pain. Not passing gas, but having bowel movements. Reports that he has bloating at baseline even prior to his abdominal surgery and the only thing that helps this is Nexium, which he takes two tabs of daily. He is insistent that the bloating he is experiencing now is because he is not receiving Nexium. He has seen GI in the past, but not recently. He does not have a diagnosis of IBS. He also takes celexa 40mg at bedtime. He has not been on this since admission. He upset because he was placed back on ice chips/popsicles due to the increased bloating. Vital signs and nursing notes reviewed. Nontoxic appearing. Abdomen with hypoactive bowel sounds. Surgical dressing is in tact. ALEKSEY drains with serosanginous drainage. 1. Acute bowel infarction s/p ex lap, small bowel resection and R hemicolectomy on 06/11. Continue cefepime and metronidazole. NGT removed. Reverted back to ice chips/popsicles due to concern for ileus. Unclear reasons for ischemia. TTE without embolic source. A1C normal. Lipid profile unremarkable. Appreciate general surgery recommendations 2. Bloating. ?chronic even prior to surgery. 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 He is already on protonix daily. Offered that he can try it twice daily, although this is not the indication for this medication. Or he can have his bring the nexium from home for him. 3. HTN. Restarted home lisinopril. 4. Cannabis use. Denies other substance use. Suspect that his cannabis product was contaminated with other substances. 5. mood disorder/anxiety. Restarted home celexa. Continue buspar 10mg daily. 6. LISA is resolved. Dispo: Pending clinical improvement. Subjective Patient without acute events overnight. Tolerated clear liquid diet well overnight without nausea or vomiting, or abdominal pain. Was able to ambulate well around the hospital floor without pain. Was transitioned back to ice chips and popsicles this AM due to some increase in abdominal distention. Review of Systems Review of Systems: All systems reviewed & are unremarkable except as noted in HPI & below Constitutional: no fever, no chills and no malaise Respiratory: no cough and no dyspnea Cardiovascular: no chest pain, no palpitations and no edema Gastrointestinal: no abdominal pain, no constipation and no diarrhea/loose stools Physical Exam Constitutional: WD/WN, vitals as above Respiratory: normal respiratory effort, lungs clear to auscultation Cardiovascular: RRR, no murmur, no edema Gastrointestinal (Abdomen): Inspection/Auscultation: normal bowel sounds Percussion/Palpation: abdomen nontender and no guarding some increase in abdominal distention this morning Skin: no rashes, warm and dry Psychiatric: Orientation: alert and oriented x 3 Affect: + anxious affect Results & Data Results & Data ([facility]) Vital Signs (Past 12 Hours) Vital Signs Temp Pulse Pulse Resp BP Pulse Ox 06/16/20 08:22 37.1 C 106 H 16 143/99 H 94 06/16/20 04:11 36.9 C 98 H 18 151/88 H 90 06/15/20 23:05 98 H Resident Activity Tracking Resident Involvement: Resident Care Provided Care Provided: Adult [facility]
[2020-06-16] MEDS ORDERED: POTASSIUM CHLORIDE / WTR 10 MEQ/100 ML PLCT IV STA (11:38)
[2020-06-16] MEDS ORDERED: POTASSIUM CHLORIDE CRTAB 20 MEQ TABCR PO ONE (12:00)
[2020-06-16] MEDS: PANTOprazole 40 MG TAB PO SCH (19:48)
[2020-06-16] MEDS: CITALOPRAM 40 MG TAB PO SCH (22:24)
[2020-06-17] MEDS: CEFEPIME 2,000 MG in SYRINGE 0 ML IV SCH ×4 (00:55→23:32)
[2020-06-17] MEDS: D5NSS + 20MEQ KCL 20 MEQ/1,000 ML BAG IV SCH ×2 (00:55→08:53)
[2020-06-17] MEDS: HYDROmorphone INJ 1 MG/ML SYRINGE IV PRN ×7 (01:07→23:26)
[2020-06-17] MEDS: HEPARIN SOD 5,000 UNIT/0.5 ML VIAL SQ SCH ×3 (05:13→20:07)
[2020-06-17 07:37] LABS: Hemoglobin 11.7 g/dL (14.0-18.0); Mean Corpuscular Hemoglobin 32.5 pg (25-34); Mean Corpuscular Hgb Conc 34.4 g/dL (32-36); Mean Corpuscular Volume 94.4 fL (80-100); Nucleated RBC # (auto) 0.03 K/uL (0-0); Nucleated RBC % (auto) 0.3 %; Platelet Count 303 K/uL (130-400); RDW Coefficient of Variation 13.4 % (11.5-14.5); RDW Standard Deviation 46.9 fL (36.4-46.3); White Blood Count 9.86 K/uL (4.8-10.8)
[2020-06-17] MEDS: busPIRone 5 MG TAB PO SCH (08:18)
[2020-06-17] MEDS: PANTOprazole 40 MG TAB PO SCH (08:19)
[2020-06-17] MEDS: lisinopril 10 MG TAB PO SCH (08:19)
[2020-06-17 08:21] LABS: BUN Creatinine Ratio 18.2 (10-20); Est GFR (African American) 131.5; Est GFR (Non-African American) 113.4; Potassium 3.5 mmol/L (3.5-5.1)
--- NOTE | 2020-06-17 10:57 | Surgery Progress Note ---
Date of Service June 17, 2020 Assessment & Plan (1) H/O right hemicolectomy: POD 5 bowels fx will try light diet. d/c IVF ok to remove ALEKSEY drains. increase activity Admission and Anticipated Discharge Date Admission Date: June 12, 2020 Subjective pt seen. doing well. hungry. +multiple bm's. no nausea. pain controlled Physical Exam Physical Exam: alert. nad abd: mild distension. +bs's. wound looks good. ALEKSEY's serous. Results & Data ([facility]) Vital Signs (Past 12 Hours) Vital Signs Temp Pulse Resp BP BP Pulse Ox 06/17/20 07:11 36.6 C 77 16 148/87 H 96 06/17/20 04:00 36.8 C 94 H 18 169/96 H 95 06/16/20 23:00 37.6 C H 100 H 18 160/93 H 93 PG Care Time/CCT Total # of Minutes Spent Total Time Spent with Patient: Total time spent is greater than 50% in coordination of care (as documented) at patient's floor/unit and/or counseling patient: Coding Level of Care Code None Diagnoses H/O right hemicolectomy Z90.49
[2020-06-17 12:53] LABS: Amphetamine Urine, Confirm 1370 ng/mL (<250); Codeine Urine NEGATIVE ng/mL (<50); Hydrocodone Urine NEGATIVE ng/mL (<50); Hydromor Urine 1190 ng/mL (<50); MDA negative; MDEA negative; MDMA (Ecstasy) Urine, Confirm negative; Marijuana Quant, GCMS Urine 63 ng/mL (<5); Methamphetamine, Ur Confirm 6710 ng/mL (<250); Morphine Urine NEGATIVE ng/mL (<50); Norhydrocodone Conf Ur NEGATIVE ng/mL (<50); Noroxycodone Urine NEGATIVE ng/mL (<50); Oxycodone Urine NEGATIVE ng/mL (<50); Oxymorph Urine NEGATIVE ng/mL (<50)
[2020-06-17] MEDS: CITALOPRAM 40 MG TAB PO SCH (20:07)
--- NOTE | 2020-06-17 21:20 | Hospitalist Progress Note ---
Date of Service June 17, 2020 Assessment & Plan (1) H/O right hemicolectomy: POD #5 s/p exploratory laparotomy -- right hemicolectomy including portions of ileum, cecum, right colon, and transverse colon. ischemia with infarction & necrosis. appreciate gen surgery assistance. etiology??? mesenteric ischemia? embolic? low-flow state from other disease process? echo without embolus. strongly consider CTA abd/pelvis to look at vasculature. LDL 43 on lipid profile this admission. quit smoking if possible. BPs high most of this stay - is on lisinopril - will titrate. (2) Acute bowel infarction: see above. remains on cefepime. will d/w surgery if ok to finish course w/ PO abx. intraop cultures negative. blood cultures negative. (3) Partial small bowel obstruction: in the setting of acute bowel ischemia and infarction resolved POD #5 from ex lap & right hemicolectomy (4) HTN (hypertension): uncontrolled. increase lisinopril to 20mg daily. (5) Chronic low back pain: needs lumbar back surgery. (6) Tobacco use: chemical dependency counselor to quit (7) Marijuana abuse: chemical dependency counselor to quit (8) GERD (gastroesophageal reflux disease): change protonix BID to nexium at his request (9) Acute renal failure: peak Cr 3.8 now 0.6 ARF 2nd to acute bowel ischemia and peritonitis (10) Depression with anxiety: cont buspar cont celexa (11) DVT prophylaxis: heparin SC home tomorrow?? updated at bedside Admission and Anticipated Discharge Date Admission Date: June 12, 2020 Subjective pt's brought his nexium 40mg in from home; requests protonix be switched to this. takes 80mg in total every am for ease of administration. states he cannot go without it. he blames his chronic bloating on GERD and feels the bloating improves with ne xium. does report diarrhea/loose stools ever since he had his cholecystectomy in the past. having liquid stools here. up to regular diet and tolerating this without nausea/vomiting. denies dyspnea. patient's mentions his mother, in her 60s, had "Blood clot" but they are not certain if that was a PE. Review of Systems Constitutional: + fatigue; no fever and no chills Respiratory: no cough and no dyspnea Cardiovascular: no chest pain Gastrointestinal: + abdominal pain; no nausea and no vomiting Physical Exam Constitutional: no acute distress and no altered mental status ENMT: external ear and nose normal, oropharynx normal Respiratory: Auscultation: + diminished lung sounds (bases) and + wheezes (bases); no crackles Cardiovascular: Rate/Rhythm: regular rate and regular rhythm Heart Sounds: normal S1 and normal S2; no murmur Vessels: posterior tibial pulses present and dorsalis pedis pulses present; no JVD Extremities: no edema Gastrointestinal (Abdomen): Inspection/Auscultation: + abdomen distended and normal bowel sounds Percussion/Palpation: abdomen nontender, no guarding and no hepatosplenomegaly Skin: abdominal wall dressings intact Psychiatric: A+Ox3, euthymic affect Results & Data Results & Data ([facility]) Vital Signs (Past 12 Hours) Vital Signs Temp Pulse Resp BP BP Pulse Ox 06/17/20 20:07 37.1 C 93 H 18 153/80 H 96 06/17/20 16:04 36.7 C 89 20 135/81 96 06/17/20 11:00 36.7 C 91 H 18 155/99 H 96 Laboratory Results Laboratory Results - last 24 hr 06/12/20 06/17/20 06/17/20 Unknown 06:25 06:25 WBC 9.86 RBC 3.60 L Hgb 11.7 L Hct 34.0 L MCV 94.4 MCH 32.5 MCHC 34.4 RDW Std Deviation 46.9 H RDW Coeff of Yoselin 13.4 Plt Count 303 MPV 10.0 Absolute Nucleated RBC 0.03 H Nucleated RBC % (auto) 0.3 Sodium 141 Potassium 3.5 Chloride 109 H Carbon Dioxide 24 Anion Gap 8.0 BUN 12 Creatinine 0.65 Est Cr Clr Drug Dosing 136.0 Est GFR ( Amer) 131.5 Est GFR (Non-Af Amer) 113.4 BUN/Creatinine Ratio 18.2 Glucose 132 H Calcium 9.0 U Codeine Confrm GC/MS NEGATIVE Ur Morphine (GC/MS) NEGATIVE Ur Hydrocodone (GC/MS) NEGATIVE Ur Norhydrocodone NEGATIVE Ur Noroxycodone NEGATIVE Urine Oxycodone (GC/MS) NEGATIVE U Oxymorphone GC/MS NEGATIVE Ur Hydromorphone (GC/MS) 1190 H U Amphetamines Confirm 1370 H U Methamphetamin Confrm 6710 H Urine MDEA negative MDMA negative Urine MDMA negative U Marijuana THC Carboxy 63 H Drug Screen Comment SEE NOTE PG Care Time/CCT Total # of Minutes Spent Total Time Spent with Patient: Total time spent is greater than 50% in coordination of care (as documented) at patient's floor/unit and/or counseling patient: Coding Level of Care Code 88981 Subseq Hosp Care Lvl 2 Diagnoses H/O right hemicolectomy Z90.49 Acute bowel infarction K55.069 Partial small bowel obstruction K56.600 HTN (hypertension) I10 Hypertension type: unspecified Chronic low back pain M54.5; G89.29 Back pain laterality: unspecified Sciatica presence: without sciatica Tobacco use Z72.0 Marijuana abuse F12.10 GERD (gastroesophageal reflux disease) K21.9 Acute renal failure N17.9 Acute renal failure type: unspecified Depression with anxiety F41.8 DVT prophylaxis Z29.9 (1) Chronic low back pain Back pain laterality: unspecified Sciatica presence: without sciatica Qualified Code(s): M54.5 - Low back pain; G89.29 - Other chronic pain (2) HTN (hypertension) Hypertension type: unspecified Qualified Code(s): I10 - Essential (primary) hypertension (3) Acute renal failure Acute renal failure type: unspecified Qualified Code(s): N17.9 - Acute kidney failure, unspecified
[2020-06-18] MEDS: HYDROmorphone INJ 1 MG/ML SYRINGE IV PRN (04:49)
[2020-06-18] MEDS: HEPARIN SOD 5,000 UNIT/0.5 ML VIAL SQ SCH ×2 (04:59→15:25)
[2020-06-18] MEDS ORDERED: oxyCODONE HCL IR 5 MG TAB (IMMEDIATE RELEASE) PO PRN ×2 (06:18→07:56)
[2020-06-18 07:55] LABS: BUN Creatinine Ratio 19.5 (10-20); Calcium 8.8 mg/dl (8.5-10.1); Creatinine Clr Calc Pharmacy 147.3 ml/min; Est GFR (African American) 135.9; Est GFR (Non-African American) 117.2; Potassium 3.5 mmol/L (3.5-5.1)
[2020-06-18] MEDS ORDERED: ACETAMINOPHEN 325 MG TAB PO PRN (07:56)
[2020-06-18] MEDS: CEFEPIME 2,000 MG in SYRINGE 0 ML IV SCH (08:01)
--- NOTE | 2020-06-18 08:01 | Surgery Progress Note ---
Date of Service June 18, 2020 Assessment & Plan (1) H/O right hemicolectomy: POD#6 Patient clinically doing well Tolerating a low fiber diet and having + bowel function ALEKSEY drain x2 removed yesterday. Surgical incisions appear c/d/i, no signs of infection Will have patient try oral pain medications today; ordered for po APAP and Oxy Dispo planning per medicine Will ask patient to follow up in clinic within 1 week for follow up and staple removal with Dr. Felton as above. jordan diet. bowels moving. ALEKSEY's removed. wound looks good. ok for d/c from surgery standpoint when ok with primary service. Admission and Anticipated Discharge Date Admission Date: June 12, 2020 Subjective Patient states he is doing well. Was still requiring IV pain medication for inte rmittent pain. spoke with patient about trying oral pain killers if needed. He is tolerating a low fiber diet without nausea/vomiting. He is having + gas and bowel movements. Physical Exam Physical Exam: awake/alert Constitutional: well developed and well nourished; no acute distress Respiratory: normal respiratory effort Gastrointestinal (Abdomen): Inspection/Auscultation: + abdominal surgical incision (c/d/i with midline khoi, no signs of infection) Percussion/Palpation: + abdomen tender (mild ttp cynthia-incisionally) and abdomen soft Results & Data ([facility]) Vital Signs (Past 12 Hours) Vital Signs Temp Pulse Pulse Resp BP BP BP 06/18/20 07:11 89 06/18/20 07:08 36.7 C 88 18 153/92 H 06/18/20 04:00 37.1 C 92 H 18 159/94 H 06/18/20 03:13 93 H 06/17/20 23:18 37.1 C 92 H 20 160/86 H 06/17/20 20:07 37.1 C 93 H 18 153/80 H Pulse Ox 06/18/20 07:11 06/18/20 07:08 96 06/18/20 04:00 96 06/18/20 03:13 06/17/20 23:18 95 06/17/20 20:07 96 PG Care Time/CCT Total # of Minutes Spent Total Time Spent with Patient: Total time spent is greater than 50% in coordination of care (as documented) at patient's floor/unit and/or counseling patient: Coding Level of Care Code None Diagnoses H/O right hemicolectomy Z90.49
[2020-06-18] MEDS: busPIRone 5 MG TAB PO SCH (08:02)
[2020-06-18] MEDS ORDERED: NEXIUM 20 MG PO SCH (09:00)
[2020-06-18] MEDS ORDERED: lisinopril 20 MG TAB PO SCH (09:00)
--- NOTE | 2020-06-18 13:55 | Discharge Summary ---
Date of Service date of admission - June 12, 2020 date of discharge - June 18, 2020 Admission HPI Per Admitting Provider 49 YOM with past medical history of budging disks, spinal stenosis, HTN, GERD, Tobacco (dip), and THC use. He comes to the emergency department with complaints of 3 days of abdominal pain, distention, nausea and vomiting. The patient states that these episodes occur about 1-2 times per year, that normally goes away. This episode has not gone away and he continues to be nauseated, distended and vomiting. The patient tried some Pedialyte at home and Zofran with no relief. In the emergency room, it was noted that his WBC were elevated to 27 and lactate 12, GAP of 12, FURNITURE UPHOLSTERER 3.6. Hospitalist team was notified for admission. Upon evaluation of the patient he was lying on his side, but voices his most comfortable position is lying on back with knees bent. He is distended, and generalized tender to all areas, he was not hypoxic, or hypotensive, but was tachycardic despite 2.5 liters of crystalloid. His last BM was 2 days ago and was soft, but consistent to how his stools have been since his gallbladder removal 5 years ago. He has not been able to take a regular diet, and oral intake as above. He denies that he has had any fevers but some chills, his urine has been dark and everything he attempts to take orally, he throws back up. He denies any ETOH, or other alcohol intake and reports his blood glucose levels are normally good. He will be admitted to the ICU for continued resuscitation and monitoring. I requested a NGT to be placed and Johnson catheter to be placed, follow up on labs, general surgery consult and nephrology consult were placed. Patient continues to show evidence of hypoperfusion with sepsis and high anion gap acidosis. Admit to ICU requested. Johnson placed in ER with minimal amount of dark neida urine. Principal Diagnosis severe sepsis 2nd to ischemic bowel Discharge Exam Constitutional no acute distress and no altered mental status ENMT external ear and nose normal, oropharynx normal Respiratory Auscultation: + diminished lung sounds (bases) and + wheezes (bases); no crackles Cardiovascular Rate/Rhythm: regular rate and regular rhythm Heart Sounds: normal S1 and normal S2; no murmur Vessels: posterior tibial pulses present and dorsalis pedis pulses present; no JVD Extremities: no edema Gastrointestinal (Abdomen) Inspection/Auscultation: normal bowel sounds; abdomen not distended Percussion/Palpation: abdomen nontender, no guarding and no hepatosplenomegaly Skin abdominal dressings clean & intact Psychiatric A+Ox3, euthymic affect Discharge Data Allergies Allergy/AdvReac Type Severity Reaction Status Date / Time Penicillins Allergy Unknown Unknown Verified 06/12/20 06:20 Consultations Nephrology Gastroenterology [facility] General Surgery PT, OT Procedures Performed Operation Date: 06/12/20 Actual Procedures Exploratory Laparotomy; Small Bowel Resection; Right Hemicolectomy - Calin Felton DO Pathology Report from Bowel Resection: FINAL DIAGNOSIS Small bowel, cecum, right colon, portion of transverse colon, resection: - Diffuse acute enteritis and colitis with ischemic-type necrosis. - Acute serositis. - Scattered serosal adhesions noted. Ordered Studies 06/12/20 06:38 CT abd pelvis oral con only Stat IMPRESSION: 1. Mildly dilated fluid-filled proximal to mid small bowel with numerous air- fluid levels throughout the small bowel. No transition point. These findings favor an ileus or a nonspecific enteritis. A partial small bowel obstruction could appear similar. If persistent symptoms, a short-term follow-up CT of the abdomen and pelvis is recommended. Exam compromised given the lack of IV contrast. Findings discussed with Dr. Díaz at time of dictation. 2. Markedly distended fluid-filled stomach. Nasogastric tube placement might be considered. 3. 2 mm left renal calculus. No hydronephrosis. No ureteral calculi. 4. Mildly enlarged left paraaortic lymph node. This could be assessed with a follow-up CT of the abdomen and pelvis in 6 months. 5. Hepatic steatosis. 06/12/20 12:00 US renal/blad retro comp Stat - no hydronephrosis; bladder decompressed by johnson. 06/12/20 17:12 CT abd pelvis IV con only Stat IMPRESSION: 1. Persistent fluid-filled small bowel loops with multiple air-fluid levels. No discrete transition zone is visualized 2. Normal appendix. No evidence of acute diverticulitis 3. Trace fluid within the small bowel mesentery. Interval development of extraluminal gas bubbles within the small bowel mesentery likely representing mesenteric venous gas. This finding will be called to the referring clinician. Echocardiogram: * EF 55-60% * GRADE 1 diastolic dysfunction * no valvular disease * no cardiac source of emboli Hospital Course (1) Severe sepsis: 2nd to ischemic bowel. Had concomitant acute renal failure, severe lactic acidosis with peak lactate of 12.7, and acute respiratory failure in the context of his surgery. Required mechanical ventilation for a short period of time following his exploratory surgery. Blood cultures surprisingly remained negative. Intra-op cultures were negative. Lactic acidosis resolved following his surgery and following his short time on the ventilator. (2) Acute intestinal ischemia: This was the cause of his presenting abdominal symptoms and findings as seen on CT abd/pelvis. Intra-operatively the distal small bowel and proximal colon were grossly ischemic appearing. There was evidence of intra-abdominal infection / peritonitis. About 5 feet of distal small bowel was resected along with the terminal ileum, cecum and portion of the ascending colon. [id number]-we-[id number] anastomosis was accomplished between the small & large bowel; no ostomy was created. Exact cause of the intestinal ischemia was uncertain. Echo failed to show an embolus. Strongly consider a CTA of the abdomen/pelvis post-discharge to rule out mesenteric ischemia. Of note - the patient received IV antibiotics his entire stay. (3) Peritonitis: 2nd intestinal ischemia as above. (4) H/O right hemicolectomy: s/p exploratory laparotomy -- right hemicolectomy including portions of ileum, cecum, right colon, and transverse colon. Patient had obvious gross ischemia of the bowel at time of surgery. Ischemia with infarction & necrosis were seen on pathology. Etiology - mesenteric ischemia? embolic? low-flow state from other disease process? Echo without embolus. Strongly consider CTA abd/pelvis to look at vasculature. LDL 43 on lipid profile this admission. Patient encouraged to quit smoking if possible. At discharge the patient was tolerating a diet, moving his bowels, abdominal pain was controlled, and his abdominal incisions were intact. He will follow-up with general surgery, Dr Felton, shortly after discharge. (5) Acute bowel infarction: see above. intra-op cultures negative. blood cultures negative. (6) Partial small bowel obstruction: in the setting of acute bowel ischemia and infarction. s/p ex lap & right hemicolectomy - see above. (7) Acute renal failure: peak Cr 3.8 Cr 0.6 at discharge ARF 2nd to acute bowel ischemia and peritonitis / severe sepsis (8) HTN (hypertension): Uncontrolled during the stay. Thus, lisinopril was increased to 20mg daily. (9) Chronic low back pain: needs lumbar back surgery. f/u with orthopedics for this chronic issue. (10) Tobacco use: counseled to quit (11) Marijuana abuse: counseled to quit (12) GERD (gastroesophageal reflux disease): continue home nexium. (13) Depression with anxiety: cont buspar cont celexa Total Time Total Time Spent Total Time Spent (In Minutes): 45 Total Time Includes: Examination of the Patient, Discharge Planning, Medication Reconciliation and Communication With Other Providers Discharge Plan Discharge Items Patient Disposition: Home - Self-Care Reason For Visit: ABDOMINAL PAIN Discharge Diagnosis: Ischemic bowel with need for exploratory surgery and removal of small intestine and portion of the colon Activity: Per Instructions section Lifting: No more than 10 pounds Bathing Comment: may shower; no soaking in tubs/pools Exercise/Sports: Wait until after follow-up appointment Driving/Machine Use: do not resume driving while taking narcotics for pain Non-emergency contact: Primary Care Provider and Surgeon Call non-emergency contact if: you have any medication questions, your symptoms worsen, your pain is not controlled, your pain is worsening, your pain is unusual for you, your pain is concerning for you, you have a fever, your wound has increased redness, your wound has increased drainage and your wound pain has increased Follow-up/Referrals: Emely Torres DO [Primary Care Provider] - 06/21/20 3:40 pm (Dr Torres, 1-2 weeks, for blood pressure check and consideration of CTA of the abdomen & pelvis.) Calin Felton DO [Surgeon] - (Please call to schedule follow up in clinic within 1 week for staple removal and check up) Diet: Low Fiber Addtl Attending Provider Instructions: Mr Cabrales, Joseph were admitted to the hospital because of severe abdominal pain. A CAT scan of the abdomen showed that the last portion of the small intestine and first portion of the colon were ill and inflamed. You ultimately required exploratory surgery. The small and large bowel that were ill on the CAT scan showed something called "ischemia." This is when the bowels get poor blood flow and therefore poor oxygen. The bowels then get quick sick. You had a portion of the small intestine and colon/large bowel removed by Dr Felton. Following your surgery your bowels ultimately woke up and you had bowel movements. You were restarted on a diet and this was advanced without difficulty. You are having liquid bowel movements and if this persists over the next few weeks you may need to take a medication called colestipol to help firm up the stools. This pill also helps when people have had their gall bladder removed. We do not know what caused the bowel issue. We ruled out a blood clot in your heart that could have traveled to the bowels (normal heart ultrasound/echocardiogram). Please speak to your surgeon and to Dr Torres about getting a CAT scan of the abdomen/pelvis called a "CTA" which looks specifically at the blood vessels in the abdomen. You may change your abdominal dressings (where your drains where previously located) daily and as needed with dry 4x4 gauze and medical tape until healed. Your surgical khoi will be removed when you follow up in clinic. Additional information - 1. take an increased dose of lisinopril (20mg) once daily starting tomorrow for your high blood pressure. I called this to your pharmacy for you. 2. hydrocodone-acetaminophen, 1-2 tabs every 4-6 hours as needed for pain. * this is a narcotic pain killer * do NOT drink alcohol while taking this medication * do NOT drive a car while taking this medication * do NOT take extra [id number]-ocn-trsdexm tylenol while taking hydrocodone as the narcotic pain killer has tylenol in it already The narcotic was called into your pharmacy for you. 3. Low fiber diet. 4. you have evidence of "pre-diabetes" which is a precursor to type [address]outs[address] Torres can follow this. You are an early prediabetic. 5. please stop your meloxicam for now. Return to [facility] if - * you have fevers over 100 degrees * you have worsening abdominal pain * you have vomiting * you have severe diarrhea * you have shortness of breath or chest pain * you have redness or drainage from your khoi/incision * any other concerns Speedy recovery! -Dr Han Pending Studies at Discharge: Yes Studies:: surgical pathology Stand-Alone Forms: My [facility], Smoking Cessation Medications and DC Order Prescriptions: New hydrocodone-acetaminophen 5-325 mg tablet 1 - 2 tab PO .q4h- q6h PRN (Reason: pain, for initial therapy, max 6 tabs per day ) Qty: 15 RF: 0 lisinopril 20 mg tablet 20 mg PO DAILY Qty: 30 RF: 2 Continued esomeprazole magnesium [Nexium] 40 mg capsule,delayed release(DR/EC) 40 mg PO BID RF: 0 multivitamin Tablet 1 tab PO DAILY RF: 0 buspirone 5 mg tablet 10 mg PO QAM RF: 0 Changed cyclobenzaprine 5 mg tablet 5 mg PO BID PRN (Reason: muscle spasm) Qty: 20 RF: 0 Discontinued meloxicam [Mobic] 7.5 mg tablet 7.5 mg PO DAILY Qty: 30 RF: 2 Discharge Orders: Discharge Order (Routine); Ordered 06/18/20 Ordered By: Sandro Stroud/Other Patient Handouts: Prediabetes, 5 Steps for Eating Healthier, A1C Admission Data Admit Date/Time: 06/12/20 11:33 Attending Provider: Sandro Han Admit Provider: Edwar Brito Primary Care Provider: Emely Torres Other Providers: Edwar Brito ; Nena Zabala ; Calin Felton ; Ryan Doyle Other Interventions: Discharge Summary Assessment (RN) Last Done: 06/18/20 13:49 Coding Level of Care Code D/C Day Management >30 mins Diagnoses Severe sepsis A41.9; R65.20 Acute intestinal ischemia K55.059 Peritonitis K65.9 H/O right hemicolectomy Z90.49 Acute bowel infarction K55.069 Partial small bowel obstruction K56.600 Acute renal failure N17.9 Acute renal failure type: unspecified HTN (hypertension) I10 Hypertension type: unspecified Chronic low back pain M54.5; G89.29 Back pain laterality: unspecified Sciatica presence: without sciatica Tobacco use Z72.0 Marijuana abuse F12.10 GERD (gastroesophageal reflux disease) K21.9 Depression with anxiety F41.8
--- NOTE | 2020-06-20 15:20 | Coding Query ---
SEPSIS To promote full compliance with coding requirements relating to patient care, physician participation is requested in all cases of fingernail former uncertainty. Please assist us with the question(s) below: In responding to this query, please exercise your independent professional judgement. The fact that a question is asked does not imply that any particular answer is desired or expected. We appreciate your clarification on this issue. Throughout the medical record, you have clearly documented a localized infection and your patient has clinical evidence of a generalized sepsis or severe sepsis. The term urosepsis is a nonspecific entity and is coded as an UTI. If the patient has sepsis, severe sepsis, from an urinary source or some other source, please clarify in your response below. The medical record reflects the following clinical findings: Patient admitted with ARF,acute abdomen. To OR for right colectomy . Dx'd with infarction of intestine, ischemic intestine and peritonitis. Progress notes documented Sepsis . Discharge summary did not document Sepsis . Please check below the phrase that describes the diagnosis that was treated during this IP stay. Thanks for your help! [facility] ____ ( )Bacteremia (Nonspecific laboratory finding of bacteria in the blood) Specify Organism ( ) Present on Admission ( ) Not present on admission ( ) Unable to clinically determine ( ) Septicemia (Systemic disease associated with the presence of pathogenic microorganisms in the blood): Specify Organism ( ) Present on Admission ( ) Not present on admission ( ) Unable to clinically determine ( ) Sepsis Specify Organism Specify Associated Condition/Diagnosis ( ) Present on Admission ( ) Not present on admission ( ) Unable to clinically determine (x ) Severe Sepsis (Sepsis associated with acute organ dysfunction) Specify Organism Specify Associated Condition/Diagnosis (x ) Present on Admission ( ) Not present on admission ( ) Unable to clinically determine ( ) Septic Shock (Severe sepsis with acute circulatory failure, unexplained by other causes) ( ) Present on Admission ( ) Not present on admission ( ) Unable to clinically determine ( ) Other, patient has: MTDD
== END 2020-06-18 15:28 | disposition home or self-care (01) | DRG 853 ==
LOC: ED 05:55 → 1E 11:33 → SUATTDRO 11:33 → 1E 12:04 → 2N 06-14 10:53

== ENCOUNTER 2020-06-22 00:37 | Observation (INO) ==
[2020-06-22] MEDS ORDERED: SODIUM CHLORIDE 0.9% 1000ML 1,000 ML IV ONE ×2 (00:54→02:17)
--- NOTE | 2020-06-22 00:57 | Emergency Department Note ---
Impression & Plan Gastrointestinal anastomotic leak, Elevated d-dimer, Acute dehydration, Syncope and collapse, Colitis ED Provider Note Name: STEPHANIE PIMENTEL Age: 49 Sex: M Arrives Via: Walk-In Informant: Patient, ED Provider: Sean Allen MD Chief Complaint: Syncope Impression: Gastrointestinal Anastomotic Leak Elevated D-Dimer Acute Dehydration Syncope and Collapse Colitis Medical Decision Makin yr old male with recent ischemic bowel requiring right hemicolectomy & distal small bowel resection arrival several days post discharge with syncope at home. Was going to bathroom with diarrhea when this happened. On exam he is tired, dehydrated and mild diffuse abdominal TTP though no overt peritonitis. Labs with elevated dimer, though with recent surgery difficulty to interpret this, thus felt go ahead with CT PE study, get abdomen post, and due to syn cope/collapse a ct head was done. CT head and chest negative. Abdominal ct reveals diffuse colitis as well as concern for anastomotic leak/abscess. Cultures were obtained, patient hydrated, and cipro/flagyl begun (pnc allergy). Dr Helen Lovett Surg consulted who advised abx, and hospitalist bring hospitalize patient. Reviewed with Dr Jean Baptiste who will bring patient in for further management. Patient comfortable with this as is . Patient stable, feeling much better after hydration. Prior Medical Record and Triage/Nursing Notes reviewed by Me Additional history obtained from chart Differentials:Vasovagal event, dehydration, infection, hypoglycemia, electrolyte abnormalities, cardiac sources, intracerebral event, pulmonary embolism, seizure, toxicologic, neurologic, as well as other pathologies. Vital Signs: reviewed and remarkable for no significant abnormalities Interventions: saline lock, nss bolus, cirpo iv, flagyl iv Labs:Reviewed and remarkable for elevated dimer Imaging:See Below EKG:Per My Interpretation: Indication Syncope: NSR 90 bpm, qtc 474. No Ectopy. No Ischemia. Compared to EKG 06/12/20, no significant changes. Cardiac/Tele Monitoring: Cardiac Monitoring: An Order was placed for continuous cardiac monitoring. The monitor shows a rate of 9 with a normal sinus rhythm. Consults:Dr Cervantes Gen Surg advises hospitalist admit with IV abx Dr Jean Baptiste Hospitalist in to evaluate further Plan: Disposition:Hospitalization. Condition: Good History of Present Illness:49 yr old male arrives for evaluation following syncope. Patient with surgery of abdomen last week for ischemic bowel arrives following sycope at home. Having diarrhea constantly at home and still using pain meds for abdominal pain. He passed out after going to the bathroom. Collapsed backwards but did not strike head that is aware. Diaphoretic and a bit confused post syncope but came too quickly. Denies leg pain, calf pain, sob, cp, vomiting, headache, neck pain, blood in stool, rashes nor other symptoms. Using narcotics for pain. No medications taken after syncope. No history of syncope and denies dvt/pe history ROS: See above HPI for pertinent positives & negatives. A total of 10 systems reviewed and were otherwise negative. Past Medical History:See Below Past Surgical History:See Below Family History:See Below Social History:See Below Home Medications:See Below Allergies:PNC Vitals:Blood Pressure: 94/64, Pulse 98, RR 16, T 36.9C, O2 96% on RA Physical Exam: GENERAL: Patient is uncomfortable appearing and in moderate distress. Dehydrated appearing EYES: No scleral icterus, unremarkable pupils. ENT: Mucous membranes dry, no nasal congestion. NECK: No masses appreciated, nomeningismus, trachea is midline. RESPIRATORY: No dyspnea. Clear to auscultation and equal bilaterally. No wheeze, no rhonchi. CARDIOVASCULAR: Regular rate and rhythm.No murmurs, rubs, gallops appreciated. GASTROINTESTINAL: Mild diffuse tenderness without peritonitis, surgical site dressing intact without drainage/erythema, positive bowel sounds BACK: No midline tenderness, no CVA tenderness EXTREMITIES: Normal motion all extremities, no cyanosis, no edema. NEUROLOGIC: Alert and oriented, no acute motor or sensory deficits, no focal weakness, cranial nerves grossly intact. SKIN: No rash, no jaundice, no diaphoresis. PSYCH: Appropriate GCS: 15 ED Course: Times/Reassessments: many rechecks, feeling better, comfortable, agreeable to hospitalization Sean Allen MD Past Med/Surg History Medical History (Updated 06/23/20 @ 06:59 by Sean Allen MD) Acute intestinal ischemia Acute renal failure Peritonitis Severe sepsis Surgical History (Updated 06/22/20 @ 05:21 by Rolando Jeter MD) H/O hand surgery History of surgical removal of intestinal structure 06/19/20 Previous back surgery S/P cholecystectomy S/P eye surgery S/P foot surgery S/P right hemicolectomy Family History Father Heart disease Denies family history of Ovarian cancer Prostate cancer Breast cancer Colorectal cancer Social History (Updated 06/21/20 @ 15:43 by RYAN Alicea) Smoking Status: Current some day smoker Tobacco Type: Cigarettes Second Hand Exposure: No; Hx Alcohol Use: Yes Alcohol type: beer Hx Substance Use: Yes (medical) Prescribed Medications: Marijuana Last Used Substance: Days (ago) Preferred Language: Bengali Communication Ability: Effective Visual Impairment: No Limitations Hearing Ability: Normal Paving Foreman Required: No Beliefs That Will Affect Care: None marital status: Current Living Situation: Spouse current occupational status: employed 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 Feels Safe at Home: Yes caffeine: Yes Dental Care, Regularly: No Physical Activity Frequency: Does not Exercise Seatbelt Use: always Sunscreen Use: No Assistive Devices: None Allergies Allergies Allergy/AdvReac Type Severity Reaction Status Date / Time Penicillins Allergy Unknown Unknown Verified 06/21/20 15:40 Home Meds Home Medications Medication Instructions Recorded Confirmed esomeprazole magnesium 40 mg 40 mg PO BID cap 12/08/19 06/21/20 capsule,delayed release multivitamin 1 tab PO DAILY 12/08/19 06/21/20 buspirone 5 mg tablet 10 mg PO QAM tab 01/10/20 06/21/20 ascorbic acid (vitamin C) PO BID 06/21/20 06/21/20 lactobacillus combination no.8 PO BID 06/21/20 06/21/20 Previous Rx's Medication Instructions Recorded lisinopril 20 mg PO DAILY #30 tab 06/18/20 hydrocodone 5 mg-acetaminophen 325 1 tab PO Q6H PRN #18 tab 06/21/20 mg tablet Results & Data (ED) Vital Signs Vital Signs - 24 hr 06/22/20 00:41 Temperature 36.9 C Temperature Source Temporal Artery Scan Pulse Rate 98 H Respiratory Rate 16 Blood Pressure 94/64 L Blood Pressure Mean 74 Pulse Oximetry 96 Oxygen Delivery Method Room Air Sepsis Recent Fever Within 48 Hours No Sepsis New/Unexplained Change in Mental Status No Sepsis Action Taken by Nursing No Action Required Laboratory Data Result diagrams: 06/23/20 05:46 06/23/20 05:46 Lab Results 06/22/20 06/22/20 06/22/20 Range/Units 01:18 01:18 01:18 WBC 19.47 H (4.8-10.8) K/uL RBC 3.95 L (4.7-6.1) M/uL Hgb 12.8 L (14.0-18.0) g/dL Hct 36.7 L (42-52) % MCV 92.9 (80-100) fL MCH 32.4 (25-34) pg MCHC 34.9 (32-36) g/dL RDW Std Deviation 45.0 (36.4-46.3) fL RDW Coeff of Yoselin 13.1 (11.5-14.5) % Plt Count 742 H (130-400) K/uL MPV 8.9 (7.4-10.4) fL Immature Gran % (Auto) 5.4 % Neut % (Auto) 74.8 % Lymph % (Auto) 10.9 % [place] % (Auto) 8.4 % Eos % (Auto) 0.3 % Baso % (Auto) 0.2 % Neut # (Auto) 14.55 H (1.4-6.5) K/uL Lymph # (Auto) 2.13 (1.2-3.4) K/uL [place] # (Auto) 1.64 H (0.11-0.59) K/uL Eos # (Auto) 0.06 (0-0.5) K/uL Baso # (Auto) 0.03 (0-0.2) K/uL Immature Gran # (Auto) 1.06 H (0.00-0.02) K/uL D-Dimer 3400 H* (0-500) ug/L FEU Sodium 138 (136-145) mmol/L Potassium 3.4 L (3.5-5.1) mmol/L Chloride 103 (98-107) mmol/L Carbon Dioxide 29 (21-32) mmol/L Anion Gap 6.0 (3-11) BUN 31 H (7-18) mg/dl Creatinine 1.04 (0.6-1.4) mg/dl Est Cr Clr Drug Dosing 85.0 ml/min Est GFR ( Amer) 96.6 Est GFR (Non-Af Amer) 83.3 BUN/Creatinine Ratio 30.0 H (10-20) Glucose 129 H (70-99) mg/dl Lactate (0.4-2.0) mmol/L Calcium 8.9 (8.5-10.1) mg/dl Magnesium 2.0 (1.8-2.4) mg/dl Total Bilirubin 0.3 (0.2-1) mg/dl Direct Bilirubin < 0.1 (0-0.2) mg/dl AST 21 (15-37) U/L ALT 36 (12-78) U/L Alkaline Phosphatase 94 (45-117) U/L Troponin I < 0.015 (0-0.045) ng/ml Total Protein 7.3 (6.4-8.2) gm/dl Albumin 2.3 L (3.4-5.0) gm/dl Urine Color Urine Appearance (Clear) Urine pH (4.5-7.5) Ur Specific [place] (1.000-1.030) Urine Protein (Negative) Urine Glucose (UA) (Negative) Urine Ketones (Negative) Urine Blood (Negative) Urine Nitrite (Negative) Urine Bilirubin (Negative) Urine Urobilinogen (Negative) Ur Leukocyte Esterase (Negative) Urine WBC (Auto) (0-5) /hpf Urine RBC (Auto) (0-4) /hpf U Hyaline Cast (Auto) (0-5) /lpf U Epithel Cells (Auto) (0-5) /lpf Urine Bacteria (Auto) (Negative) Urine Opiates Screen (Neg) Ur Methadone, Qual (Neg) Urine Barbiturates (Neg) Ur Phencyclidine (PCP) (Neg) U Amphetamin/Meth Scrn (Neg) MDMA (Ecstasy) Screen (Neg) U Benzodiazepines Scrn (Neg) Ur Cocaine Metabolite (Neg) U Marijuana (THC) Screen (Neg) COVID-19 Eval Order SARS-CoV-2 (PCR) (Negative) Influenza Type A (PCR) (Neg) Influenza Type B (PCR) (Neg) RSV (RT-PCR) (Neg) 06/22/20 06/22/20 06/22/20 Range/Units 01:33 01:33 04:11 WBC (4.8-10.8) K/uL RBC (4.7-6.1) M/uL Hgb (14.0-18.0) g/dL Hct (42-52) % MCV (80-100) fL MCH (25-34) pg MCHC (32-36) g/dL RDW Std Deviation (36.4-46.3) fL RDW Coeff of Yoselin (11.5-14.5) % Plt Count (130-400) K/uL MPV (7.4-10.4) fL Immature Gran % (Auto) % Neut % (Auto) % Lymph % (Auto) % [place] % (Auto) % Eos % (Auto) % Baso % (Auto) % Neut # (Auto) (1.4-6.5) K/uL Lymph # (Auto) (1.2-3.4) K/uL [place] # (Auto) (0.11-0.59) K/uL Eos # (Auto) (0-0.5) K/uL Baso # (Auto) (0-0.2) K/uL Immature Gran # (Auto) (0.00-0.02) K/uL D-Dimer (0-500) ug/L FEU Sodium (136-145) mmol/L Potassium (3.5-5.1) mmol/L Chloride (98-107) mmol/L Carbon Dioxide (21-32) mmol/L Anion Gap (3-11) BUN (7-18) mg/dl Creatinine (0.6-1.4) mg/dl Est Cr Clr Drug Dosing ml/min Est GFR ( Amer) Est GFR (Non-Af Amer) BUN/Creatinine Ratio (10-20) Glucose (70-99) mg/dl Lactate (0.4-2.0) mmol/L Calcium (8.5-10.1) mg/dl Magnesium (1.8-2.4) mg/dl Total Bilirubin (0.2-1) mg/dl Direct Bilirubin (0-0.2) mg/dl AST (15-37) U/L ALT (12-78) U/L Alkaline Phosphatase (45-117) U/L Troponin I (0-0.045) ng/ml Total Protein (6.4-8.2) gm/dl Albumin (3.4-5.0) gm/dl Urine Color Dark Yellow Urine Appearance Clear (Clear) Urine pH 5.0 (4.5-7.5) Ur Specific [place] 1.034 H (1.000-1.030) Urine Protein 1+ H (Negative) Urine Glucose (UA) Negative (Negative) Urine Ketones Negative (Negative) Urine Blood Negative (Negative) Urine Nitrite Negative (Negative) Urine Bilirubin 1+ H (Negative) Urine Urobilinogen Negative (Negative) Ur Leukocyte Esterase Negative (Negative) Urine WBC (Auto) 5-10 H (0-5) /hpf Urine RBC (Auto) 5-10 H (0-4) /hpf U Hyaline Cast (Auto) >30 H (0-5) /lpf U Epithel Cells (Auto) >30 H (0-5) /lpf Urine Bacteria (Auto) Negative (Negative) Urine Opiates Screen Pos H (Neg) Ur Methadone, Qual Neg (Neg) Urine Barbiturates Neg (Neg) Ur Phencyclidine (PCP) Neg (Neg) U Amphetamin/Meth Scrn Neg (Neg) MDMA (Ecstasy) Screen Neg (Neg) U Benzodiazepines Scrn Neg (Neg) Ur Cocaine Metabolite Neg (Neg) U Marijuana (THC) Screen Pos H (Neg) COVID-19 Eval Order [facility]Rsv at [facility] SARS-CoV-2 (PCR) (Negative) Influenza Type A (PCR) (Neg) Influenza Type B (PCR) (Neg) RSV (RT-PCR) (Neg) 06/22/20 06/22/20 Range/Units 04:11 05:00 WBC (4.8-10.8) K/uL RBC (4.7-6.1) M/uL Hgb (14.0-18.0) g/dL Hct (42-52) % MCV (80-100) fL MCH (25-34) pg MCHC (32-36) g/dL RDW Std Deviation (36.4-46.3) fL RDW Coeff of Yoselin (11.5-14.5) % Plt Count (130-400) K/uL MPV (7.4-10.4) fL Immature Gran % (Auto) % Neut % (Auto) % Lymph % (Auto) % [place] % (Auto) % Eos % (Auto) % Baso % (Auto) % Neut # (Auto) (1.4-6.5) K/uL Lymph # (Auto) (1.2-3.4) K/uL [place] # (Auto) (0.11-0.59) K/uL Eos # (Auto) (0-0.5) K/uL Baso # (Auto) (0-0.2) K/uL Immature Gran # (Auto) (0.00-0.02) K/uL D-Dimer (0-500) ug/L FEU Sodium (136-145) mmol/L Potassium (3.5-5.1) mmol/L Chloride (98-107) mmol/L Carbon Dioxide (21-32) mmol/L Anion Gap (3-11) BUN (7-18) mg/dl Creatinine (0.6-1.4) mg/dl Est Cr Clr Drug Dosing ml/min Est GFR ( Amer) Est GFR (Non-Af Amer) BUN/Creatinine Ratio (10-20) Glucose (70-99) mg/dl Lactate 1.1 (0.4-2.0) mmol/L Calcium (8.5-10.1) mg/dl Magnesium (1.8-2.4) mg/dl Total Bilirubin (0.2-1) mg/dl Direct Bilirubin (0-0.2) mg/dl AST (15-37) U/L ALT (12-78) U/L Alkaline Phosphatase (45-117) U/L Troponin I (0-0.045) ng/ml Total Protein (6.4-8.2) gm/dl Albumin (3.4-5.0) gm/dl Urine Color Urine Appearance (Clear) Urine pH (4.5-7.5) Ur Specific [place] (1.000-1.030) Urine Protein (Negative) Urine Glucose (UA) (Negative) Urine Ketones (Negative) Urine Blood (Negative) Urine Nitrite (Negative) Urine Bilirubin (Negative) Urine Urobilinogen (Negative) Ur Leukocyte Esterase (Negative) Urine WBC (Auto) (0-5) /hpf Urine RBC (Auto) (0-4) /hpf U Hyaline Cast (Auto) (0-5) /lpf U Epithel Cells (Auto) (0-5) /lpf Urine Bacteria (Auto) (Negative) Urine Opiates Screen (Neg) Ur Methadone, Qual (Neg) Urine Barbiturates (Neg) Ur Phencyclidine (PCP) (Neg) U Amphetamin/Meth Scrn (Neg) MDMA (Ecstasy) Screen (Neg) U Benzodiazepines Scrn (Neg) Ur Cocaine Metabolite (Neg) U Marijuana (THC) Screen (Neg) COVID-19 Eval Order SARS-CoV-2 (PCR) NEGATIVE (Negative) Influenza Type A (PCR) Negative (Neg) Influenza Type B (PCR) Negative (Neg) RSV (RT-PCR) Negative (Neg) Administered Medications Hydrocodone Bitart/Acetaminophen (Hydrocodone/Acetamophen 5/325mg Tab) 1 tab PO Q6H PRN PRN Reason: pain (scale score 7-10) Stop: 07/06/20 06:18 Last Admin: 06/22/20 21:44 Dose: 1 tab Documented by: [id number] Admin: 06/22/20 15:37 Dose: 1 tab Documented by: [id number] Admin: 06/22/20 09:04 Dose: 1 tab Documented by: [id number] Colestipol HCl (Colestipol Hcl 1 Gm Tab) 1 gm PO BID@1100,2000 [facility] Stop: 07/22/20 10:59 Last Admin: 06/22/20 20:44 Dose: 1 gm Documented by: [id number] Admin: 06/22/20 12:01 Dose: 1 gm Documented by: [id number] Heparin Sodium (Porcine) (Heparin Sod 5,000 Unit/0.5 Ml Vial) 5,000 units SQ Q8 RAMY Stop: 07/22/20 21:59 Last Admin: 06/23/20 06:00 Dose: 5,000 units Documented by: [id number] Admin: 06/22/20 21:48 Dose: 5,000 units Documented by: [id number] Sodium Chloride (Nss 1000ml) 1,000 mls @ 125 mls/hr IV .Q8H [facility] Stop: 07/22/20 03:59 Last Admin: 06/23/20 03:41 Dose: 125 mls/hr Documented by: [id number] Infusion: 06/23/20 03:41 Dose: 125 mls/hr Documented by: [id number] Admin: 06/22/20 20:43 Dose: 125 mls/hr Documented by: [id number] Infusion: 06/22/20 20:43 Dose: 125 mls/hr Documented by: [id number] Admin: 06/22/20 14:47 Dose: 125 mls/hr Documented by: [id number] Infusion: 06/22/20 14:47 Dose: 125 mls/hr Documented by: [id number] Infusion: 06/22/20 11:14 Dose: 125 mls/hr Documented by: [id number] Admin: 06/22/20 05:17 Dose: 125 mls/hr Documented by: [id number] Cefepime HCl 2,000 mg/ Syringe 20 mls @ 5 mls/min IV Q8H RAMY; Protocol Stop: 07/02/20 07:59 Last Admin: 06/23/20 00:47 Dose: 5 mls/min Documented by: [id number] Admin: 06/22/20 15:37 Dose: 5 mls/min Documented by: [id number] Admin: 06/22/20 08:56 Dose: 5 mls/min Documented by: [id number] Lactobacillus Acidoph/Casei/Rhamnos (Advanced Probiotic 1250 Mg Capsule) 2 cap PO DAILY RAMY Stop: 07/22/20 08:59 Last Admin: 06/22/20 09:59 Dose: 2 cap Documented by: [id number] Lisinopril (Lisinopril 20 Mg Tab) 20 mg PO DAILY RAMY Stop: 07/22/20 08:59 Last Admin: 06/22/20 08:55 Dose: 20 mg Documented by: [id number] Pantoprazole Sodium (Pantoprazole 40 Mg Tab) 40 mg PO BID RAMY Stop: 07/22/20 08:59 Last Admin: 06/22/20 21:44 Dose: 40 mg Documented by: [id number] Admin: 06/22/20 08:55 Dose: 40 mg Documented by: [id number] Potassium Chloride (Potassium Chloride Crtab 20 Meq Tabcr) 20 meq PO BID RAMY Stop: 07/22/20 08:59 Last Admin: 06/22/20 21:44 Dose: 20 meq Documented by: [id number] Admin: 06/22/20 09:59 Dose: 20 meq Documented by: [id number] Raspberry (Raspberry Syrup 5 Ml Udp) 5 ml PO Q6 [facility] Stop: 07/06/20 06:18 Last Admin: 06/23/20 05:57 Dose: 5 ml Documented by: [id number] Admin: 06/23/20 00:45 Dose: 5 ml Documented by: [id number] Admin: 06/22/20 18:39 Dose: 5 ml Documented by: [id number] Admin: 06/22/20 14:47 Dose: 5 ml Documented by: [id number] Admin: 06/22/20 06:39 Dose: 5 ml Documented by: [id number] Vancomycin HCl (Vancomycin Hcl 125 Mg/2.5ml Soln) 125 mg PO Q6 RAMY Stop: 07/02/20 06:18 Last Admin: 06/23/20 05:58 Dose: 125 mg Documented by: [id number] Admin: 06/23/20 00:45 Dose: 125 mg Documented by: [id number] Admin: 06/22/20 18:39 Dose: 125 mg Documented by: [id number] Admin: 06/22/20 14:47 Dose: 125 mg Documented by: [id number] Admin: 06/22/20 06:39 Dose: 125 mg Documented by: [id number] Discontinued Medications Sodium Chloride (Nss 1000ml) 1,000 mls @ 999 mls/hr IV .Q1H1M ONE Stop: 06/22/20 01:54 Last Infusion: 06/22/20 06:21 Dose: 0 mls/hr Documented by: [id number] Admin: 06/22/20 01:29 Dose: 999 mls/hr Documented by: [id number] Sodium Chloride (Nss 1000ml) 1,000 mls @ 999 mls/hr IV .Q1H1M ONE Stop: 06/22/20 03:17 Last Infusion: 06/22/20 06:22 Dose: 0 mls/hr Documented by: [id number] Admin: 06/22/20 02:22 Dose: 999 mls/hr Documented by: [id number] Ciprofloxacin (Cipro / D5w) 400 mg in 200 mls @ 100 mls/hr IV NOW STA Stop: 06/22/20 06:00 Last Admin: 06/22/20 06:22 Dose: Not Given Documented by: [id number] Metronidazole (Flagyl) 500 mg in 100 mls @ 100 mls/hr IV NOW STA Stop: 06/22/20 05:00 Last Infusion: 06/22/20 06:44 Dose: 0 mls/hr Documented by: [id number] Admin: 06/22/20 05:35 Dose: 100 mls/hr Documented by: [id number] Ioversol (Optiray 320 125ml) 119 ml IV ONCE ONE Stop: 06/22/20 03:07 Last Admin: 06/22/20 03:06 Dose: 119 ml Documented by: [id number] Vancomycin HCl (Vancomycin Hcl 125 Mg/2.5ml Soln) 125 mg PO Q6 RAMY Stop: 07/02/20 07:49 Last Admin: 06/22/20 09:36 Dose: Not Given Documented by: [id number] Imaging Data Radiologist's Impression: Chest X-Ray 06/22/20 00:54 XR chest 1V portable CLINICAL HISTORY: syncope DIZZINESS COMPARISON STUDY: 06/13/2020 FINDINGS: The endotracheal tube and enteric tubes have been removed. There is no failure. There are subsegmental atelectatic changes present the right lung base. There is an ill-defined 15 mm opacity within the left upper lung zone.[This was described previously. This likely relates to the left third rib anteriorly. CT scanning or short-term radiographic could be obtained. There is an old right clavicular fracture. There is evidence for thoracolumbar spinal rodding. IMPRESSION: 1. Subsegmental right basilar atelectasis 2. Redemonstration of a 15 mm opacity within the left upper lung zone. This may relate to the left third rib anteriorly. CT scanning could be obtained in follow-up as was previously recommended however short-term radiographic follow-u p with oblique films would also suffice. ACT 112: Positive. There are findings on this exam that require communication between the performing entity and the patient following Patient Test Result Information Act ([place] Act 112) guidelines. Electronically signed by: Wilver Britt M.D. 06/22/2020 7:08 AM Abdomen/Pelvis CT 06/22/20 02:17 CT abd pelvis IV con only CLINICAL HISTORY: syncope, elevated wbc s/p surgery HISTORY OF COLONIC RESECTION. COMPARISON STUDY: 06/12/2020 TECHNIQUE: Patient was scanned in a dynamic helical fashion during intravenous administration of 1 19 cc of Optiray 320. A dose lowering technique was utilized adhering to the principles of ALARA. CT DOSE: 1727.80 mGy.cm FINDINGS: Lower chest: There are bibasilar atelectatic changes. There is a partially visualized 4 mm right lower lobe pulmonary nodule Liver: The contrast-enhanced liver is normal in size, contour, and attenuation. There is no intrahepatic biliary ductal dilatation. The hepatic veins and portal veins are patent. Gallbladder: Surgically absent Spleen: Normal in size and attenuation. Pancreas: Unremarkable. Adrenal glands: Unremarkable. Kidneys: There is symmetric renal cortical enhancement. The kidneys are normal in size without hydronephrosis. Bowel: There is diffuse colonic bowel wall thickening consistent with a pancolitis. There are postsurgical changes of a right hemicolectomy and ileocolonic anastomosis. There are extraluminal gas bubbles at the level of the anastomosis. There is adjacent 27 mm fluid collection containing gas suspicious for an abscess. The findings are suspicious for anastomotic breakdown. There is an additional small 1 cm fluid collection medial to the liver possibly representing a second abscess. Peritoneum: There are extraluminal gas bubbles adjacent to the bowel anastomosis as described above. There is trace free pelvic fluid Vasculature: The abdominal aorta is normal in course and caliber. Adenopathy: None. Pelvic viscera: The bladder, and pelvic viscera are unremarkable. Skeletal structures: No destructive osseous lesions are seen. There are postsurgical changes of spinal rodding. IMPRESSION: 1. Interval right hemicolectomy with ileocolonic anastomosis 2. Extraluminal gas within the mesentery adjacent to the anastomosis with a focal 27 mm fluid collections suspicious for an abscess. The findings are worrisome for an anastomotic breakdown. 3. Diffuse colonic wall thickening consistent with a pancolitis. ACT 112: Negative or not required by law. Electronically signed by: Wilver Britt M.D. 06/22/2020 7:56 AM Chest CTA 06/22/20 02:17 CT ANGIOGRAM OF THE CHEST CLINICAL HISTORY: Syncope s/p surgery ELEVATED WHITE COUNT. POSSIBLE ACUTE PULMONARY EMBOLISM COMPARISON STUDY: Chest x-ray dated 06/22/2020 TECHNIQUE: Following the IV administration of 119 mL of Optiray-320, CT clarke ogram of the thorax was performed from the thoracic inlet to the lung bases utilizing the pulmonary embolus protocol. Images are reviewed in the axial, sagittal, and coronal planes. IV contrast was administered without complication. MIP imaging was performed. A dose lowering technique was utilized adhering to the principles of ALARA. CT DOSE: FINDINGS: Mediastinal and hilar lymph nodes are the upper limits of normal in size The ascending thoracic aorta measures 36 mm in diameter There is suboptimal pulmonary arterial opacification. There are no filling defects suspicious for acute pulmonary emboli. No pleural effusions are visualized. There are bibasilar atelectatic changes. The opacity described left upper lung zone, relates to a healing fracture the left third anterior rib. No further follow-up of this abnormality is indicated. There are multiple small scattered pulmonary nodules the 2 largest of which are a 5 mm right middle lobe pulmonary nodule as visualized image #[id number], and a 5 mm right upper lobe pulmonary nodule as visualized image #[id number] IMPRESSION: 1. No evidence of acute pulmonary embolism 2. The previously queried left upper lung zone opacity corresponds to a healing left third rib fracture 3. Multiple bilateral pulmonary nodules the largest of which measure 5 mm. In an average risk patient, no follow-up is indicated Please refer to below summary of Fleischner criteria recommendations for follow- up of incidental CT nodules (Dianne Charles, Guidelines for management of small p ulmonary nodules detected on CT scans: A statement from the Fleischner Society, Radiology 237: [phone].) SOLID NODULES Solitary nodule size: <6 mm * low risk patients: no follow-up needed * high risk patients: optional CT at 12 months Solitary nodule size: 6-8 mm * low risk patients: follow-up at 6-12 months, then consider further follow-up at 18-24 months * high risk patients: initial follow-up CT at 6-12 months and then at 18-24 months if no change Solitary nodule size: >8 mm * either low or high risk patients - consider follow-up CT at 3 months, and/or CT-PET, and/or biopsy Multiple nodules size: <6 mm * low risk patients: no routine follow-up * high risk patients: optional CT at 12 months Multiple nodules size: 6-8 mm * low risk patients: follow-up at 3-6 months, then consider further follow-up at 18-24 months * high risk patients: follow-up at 3-6 months, then at 18-24 months if no change Multiple nodules size: >8 mm * low risk patients: follow-up at 3-6 months, then consider further follow-up at 18-24 months * high risk patients: follow-up at 3-6 months, then at 18-24 months if no change Note: newly detected indeterminate nodule in persons 35 years of age or older. * low risk patients: minimal or absent history of smoking and/or other known risk factors * high risk patients: history of smoking or of other known risk factors (e.g. first degree relative with lung cancer, or exposure to asbestos, radon, uranium) * if a nodule up to 8 mm is partly solid or is ground glass further follow-up is required after 24 months to exclude possible slow growing adenocarcinoma (LAURA) SUBSOLID NODULES Solitary pure ground-glass nodule * nodule size <6 mm - no CT follow-up required * nodule size >=6 mm - follow-up CT at 6-12 months, then every 2 years until 5 years Solitary part-solid nodule * nodule size <6 mm - no CT follow-up required * nodule size >=6 mm - follow-up CT at 3-6 months. If unchanged, and solid component remains <6 mm, then annual follow-up for 5 years Multiple subsolid nodules * nodule size <6 mm - follow-up CT at 3-6 months, consider further follow-up at 2 and 4 years if stable * nodule size >=6 mm - follow-up CT at 3-6 months, subsequent management based on the most suspicious nodule(s) ACT 112: Negative or not required by law. Electronically signed by: Wilver Britt M.D. 06/22/2020 8:[address] 06/22/20 02:17 CT head/brain wo con CLINICAL HISTORY: syncope COMPARISON STUDY: No previous studies for comparison. TECHNIQUE: Axial CT of the brain is performed from the vertex to the skull base. IV contrast was not administered for this examination. A dose lowering technique was utilized adhering to the principles of ALARA. CT DOSE: FINDINGS: No intra or extra-axial mass lesions are visualized. There is no CT evidence of acute cortical infarction. There is no evidence of midline shift. No calvarial fractures are visualized. There is very slight increased density of the anterior falx. This likely represents calcification although a trace subdural could appear similar. There is no evidence of pathologic ventricular dilatation. There is no evidence of acute sinusitis IMPRESSION: 1. Slight increased density of the anterior falx. While this likely represents calcification, a trace subdural could appear similar. 2. If the patient were to develop neurologic symptoms or have a persistent headache, then a follow-up CT scan could be obtained. In the absence of neuro logic symptoms, no follow-up imaging is probably indicated ACT 112: Negative or not required by law. Electronically signed by: Wilver Britt M.D. 06/22/2020 7:25 AM Discharge Plan Visit Data Chief Complaint: Syncope Stated Complaint: PASSED OUT ED Provider: Sean Allen Discharge Problem: Gastrointestinal anastomotic leak, Elevated d-dimer, Acute dehydration, Syncope and collapse, Colitis Patient Disposition: Admitted As Inpatient Discharge Instructions Interventions: ED Discharge Assessment Last Done: 06/22/20 06:01
[2020-06-22 01:31] LABS: Hematocrit (blood only) 36.7 % (42-52); Hemoglobin 12.8 g/dL (14.0-18.0); Mean Corpuscular Hemoglobin 32.4 pg (25-34); Mean Corpuscular Hgb Conc 34.9 g/dL (32-36); Mean Corpuscular Volume 92.9 fL (80-100); Mean Platelet Volume 8.9 fL (7.4-10.4); Platelet Count 742 K/uL (130-400); RDW Coefficient of Variation 13.1 % (11.5-14.5); Red Blood Count 3.95 M/uL (4.7-6.1); White Blood Count 19.47 K/uL (4.8-10.8)
[2020-06-22 01:45] LABS: Appearance Urine Clear (Clear); Bacteria Urine Automated Negative (Negative); Blood Urine Negative (Negative); Color Urine Dark Yellow; Epithelial Cell Urine Auto >30 /lpf (0-5); Glucose Urine UA Negative (Negative); Ketones Urine Negative (Negative); Leukocyte Esterase Urine Negative (Negative); Nitrite Urine Negative (Negative); Protein Urine 1+ (Negative); Specific Gravity Urine 1.034 (1.000-1.030); Urobilinogen Urine Negative (Negative)
[2020-06-22 01:46] LABS: Bilirubin Urine 1+ (Negative)
[2020-06-22 01:46] LABS: D Dimer 3400 ug/L FEU (0-500)
[2020-06-22 01:50] LABS: Basophils # (auto) 0.03 K/uL (0-0.2); Basophils % (auto) 0.2 %; Eosinophils # (auto) 0.06 K/uL (0-0.5); Eosinophils % (auto) 0.3 %; Immature Granulocytes # (auto) 1.06 K/uL (0.00-0.02); Immature Granulocytes % (auto) 5.4 %; Lymphocytes # (auto) 2.13 K/uL (1.2-3.4); Lymphocytes % (auto) 10.9 %; Monocytes # (auto) 1.64 K/uL (0.11-0.59); Monocytes % (auto) 8.4 %; Neutrophils # (auto) 14.55 K/uL (1.4-6.5); Neutrophils % (auto) 74.8 %
[2020-06-22 01:59] LABS: Alanine Aminotransferase 36 U/L (12-78); Albumin Level 2.3 gm/dl (3.4-5.0); Aspartate Aminotransferase 21 U/L (15-37); Bilirubin Direct < 0.1 mg/dl (0-0.2); Blood Urea Nitrogen 31 mg/dl (7-18); Calcium 8.9 mg/dl (8.5-10.1); Carbon Dioxide 29 mmol/L (21-32); Chloride 103 mmol/L (98-107); Est GFR (African American) 96.6; Est GFR (Non-African American) 83.3; Glucose 129 mg/dl (70-99); Potassium 3.4 mmol/L (3.5-5.1); Sodium 138 mmol/L (136-145)
[2020-06-22 02:01] LABS: Cast Urine Automated >30 /lpf (0-5)
[2020-06-22 02:04] LABS: Alkaline Phosphatase 94 U/L (45-117); Bilirubin,Total 0.3 mg/dl (0.2-1); Total Protein 7.3 gm/dl (6.4-8.2); Troponin I < 0.015 ng/ml (0-0.045)
[2020-06-22] MEDS ORDERED: OPTIRAY 320 125ml IV ONE (03:06)
[2020-06-22] MEDS ORDERED: metroNIDAZOLE 500 MG/100 ML BAG IV STA (04:01)
[2020-06-22] MEDS ORDERED: CIPROFLOXACIN / D5W 400 MG/200 ML BAG IV STA (04:01)
--- NOTE | 2020-06-22 05:13 | History & Physical Report ---
Date of Service June 22, 2020 Assessment & Plan (1) Syncope: Junior Cabrales is a 49y/o M with PMH significant for right hemicolectomy (06/12/2020), hypertension, GERD; who presented to the ER for concerns of syncopal event while at home overnight. Syncopal event: -Characteristics of syncopal event most in line with either arrhythmia, or orthostatic hypotension, or vasovagal event -In the absence of postictal symptoms seizure less likely -Given patient's persistent diarrhea and recent GI surgery orthostasis versus vasovagal seems most likely -EKG without signs of preexcitation -CT head demonstrating no acute intracranial findings -No significant electrolyte abnormalities -Platelets 742 on admission -leading to potential for clot formation in the setting of thrombocytosis -Less likely because of syncopal event in the absence of bihemispheric involvement Anastomotic leak: -Patient is status post right hemicolectomy from 06/12 -CT abdomen pelvis demonstrating foci of gas adjacent to the suture margin within the right midabdomen; fluid collection along the posterior aspect of the suture measuring 2.7 x 1.5 cm; concerning for abscess versus anastomotic breakdown; marked mucosal thickening throughout the colon -WBC 19.47 on admission -C. difficile pending -Started on IV cefepime, IV Flagyl, and PO vancomycin -Surgery consulted Elevated D-dimer: -D-dimer on admission of 3400 -Platelets 742 on admission -leading to potential for clot formation in the setting of thrombocytosis -Patient having no chest pain, no increased O2 requirements, no signs of DVT -CTA chest demonstrating no pulmonary embolus Hypertension: -Continue home lisinopril GERD: -Pantoprazole 40 BID Diet: NPO with sips and medications CODE STATUS: Full code DVT Ppx: Heparin (2) S/P right hemicolectomy: (3) Anastomotic leak of intestine: (4) Elevated d-dimer: History of Present Illness Primary Care Provider: Emely Torres DO Junior Cabrales is a 49y/o M with PMH significant for right hemicolectomy (06/12/2020), hypertension, GERD; who presented to the ER for concerns of syncopal event while at home overnight. Patient was going to the bathroom last night when he suddenly collapsed. Partner was quickly there and she noticed he was almost immediately back to his normal self, did not hit his head as far she can tell, had no seizure-like activity, no incontinence, no drowsiness after fall. Patient states that he had gone to the bathroom, and then on standing up collapsed to the ground feeling lightheaded. Had no preceding symptoms prior to standing up. Since recently discharge from the hospital, patient has been doing relatively well, feels like he is tolerating eating and drinking more more each day, feeling more comfortable more more each day. However, since just prior to discharge patient has continued to have frequent loose stools almost watery in nature throughout the day. Over the last 2 nights patient has had 5-6 watery loose stools overnight, with additional 4-5 loose stools during the day; with last night being no exception, prior to collapsing that would have been patient's third or fourth bowel movement of the night. Allergies Allergy/AdvReac Type Severity Reaction Status Date / Time Penicillins Allergy Unknown Unknown Verified 06/21/20 15:40 Home Medications Medication Instructions Recorded Confirmed Type esomeprazole magnesium 40 mg 40 mg PO BID cap 12/08/19 06/21/20 History capsule,delayed release multivitamin 1 tab PO DAILY 12/08/19 06/21/20 History buspirone 5 mg tablet 10 mg PO QAM tab 01/10/20 06/21/20 History lisinopril 20 mg PO DAILY #30 tab 06/18/20 06/21/20 Rx ascorbic acid (vitamin C) PO BID 06/21/20 06/21/20 History hydrocodone 5 mg-acetaminophen 325 1 tab PO Q6H PRN #18 tab 06/21/20 06/21/20 Rx mg tablet lactobacillus combination no.8 PO BID 06/21/20 06/21/20 History Past Med/Surg History Medical History (Updated 06/22/20 @ 05:21 by Rolando Jeter MD) Acute intestinal ischemia Acute renal failure Peritonitis Severe sepsis Surgical History (Updated 06/22/20 @ 05:21 by Rolando Jeter MD) H/O hand surgery History of surgical removal of intestinal structure 06/19/20 Previous back surgery S/P cholecystectomy S/P eye surgery S/P foot surgery S/P right hemicolectomy Family History Father Heart disease Denies family history of Ovarian cancer Prostate cancer Breast cancer Colorectal cancer Social History (Updated 06/21/20 @ 15:43 by YRAN Alicea) Smoking Status: Current some day smoker Tobacco Type: Cigarettes Second Hand Exposure: No; Hx Alcohol Use: Yes Alcohol type: beer Hx Substance Use: Yes (medical) Prescribed Medications: Marijuana Last Used Substance: Days (ago) Preferred Language: Sami Communication Ability: Effective Visual Impairment: No Limitations Hearing Ability: Normal Farm [employer]cher Required: No Beliefs That Will Affect Care: None marital status: Current Living Situation: Spouse current occupational status: employed 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 Feels Safe at Home: Yes caffeine: Yes Dental Care, Regularly: No Physical Activity Frequency: Does not Exercise Seatbelt Use: always Sunscreen Use: No Assistive Devices: Glasses Review of Systems Review of Systems: All systems reviewed & are unremarkable except as noted in HPI & below Physical Exam Constitutional: WD/WN, vitals as above Eyes: PERRL, conjunctivae normal, anicteric sclerae Respiratory: normal respiratory effort, lungs clear to auscultation Auscultation: no crackles, no rales, no rhonchi and no wheezes Cardiovascular: Rate/Rhythm: regular rate and regular rhythm Heart Sounds: no gallop, no murmur and no cardiac rub Vessels: normal peripheral pulses; no JVD Extremities: no edema Gastrointestinal (Abdomen): Inspection/Auscultation: abdomen not distended Percussion/Palpation: + abdomen tender, + guarding, abdomen soft and normal to percussion; abdomen not rigid and no hepatosplenomegaly Musculoskeletal: no cyanosis or clubbing, extremities motor strength 5/5 Skin: no rashes, warm and dry Neurologic: PERRL, EOMI, accommodation nl, no face palsy, no dysarthria CN's II-XI intact bilaterally and moves all extremities Psychiatric: Orientation: alert and oriented x 3 Results & Data Results & Data ([facility]) Vital Signs (Past 12 Hours) Vital Signs Temp Pulse Pulse Resp BP BP Pulse Ox 06/22/20 04:30 86 18 139/76 96 06/22/20 04:20 85 18 99 06/22/20 04:10 85 16 92 06/22/20 04:05 86 15 138/83 91 06/22/20 04:02 85 18 138/83 94 06/22/20 04:00 136/77 90 06/22/20 03:50 89 L 06/22/20 03:40 91 06/22/20 03:30 135/79 100 06/22/20 03:20 97 06/22/20 03:10 97 06/22/20 03:04 98 06/22/20 02:30 90 15 129/66 95 06/22/20 02:20 91 H 17 98 06/22/20 02:10 89 16 99 06/22/20 02:00 92 H 18 137/67 06/22/20 01:50 91 H 18 95 06/22/20 01:40 90 18 94 06/22/20 01:33 87 11 L 06/22/20 01:20 91 H 20 94 06/22/20 01:10 92 H 19 94 06/22/20 01:05 91 H 20 118/66 95 06/22/20 01:02 94 H 17 95 06/22/20 01:00 92 H 21 118/66 95 06/22/20 00:41 36.9 C 98 H 16 94/64 L 96 Laboratory Results 06/22/20 06/22/20 06/22/20 Range/Units 05:00 04:11 04:11 WBC (4.8-10.8) K/uL RBC (4.7-6.1) M/uL Hgb (14.0-18.0) g/dL Hct (42-52) % MCV (80-100) fL MCH (25-34) pg MCHC (32-36) g/dL RDW Std Deviation (36.4-46.3) fL RDW Coeff of Yoselin (11.5-14.5) % Plt Count (130-400) K/uL MPV (7.4-10.4) fL Immature Gran % (Auto) % Neut % (Auto) % Lymph % (Auto) % Crawford % (Auto) % Eos % (Auto) % Baso % (Auto) % Neut # (Auto) (1.4-6.5) K/uL Lymph # (Auto) (1.2-3.4) K/uL Crawford # (Auto) (0.11-0.59) K/uL Eos # (Auto) (0-0.5) K/uL Baso # (Auto) (0-0.2) K/uL Immature Gran # (Auto) (0.00-0.02) K/uL D-Dimer (0-500) ug/L FEU Sodium (136-145) mmol/L Potassium (3.5-5.1) mmol/L Chloride (98-107) mmol/L Carbon Dioxide (21-32) mmol/L Anion Gap (3-11) BUN (7-18) mg/dl Creatinine (0.6-1.4) mg/dl Est Cr Clr Drug Dosing ml/min Est GFR ( Amer) Est GFR (Non-Af Amer) BUN/Creatinine Ratio (10-20) Glucose (70-99) mg/dl Lactate Pending Calcium (8.5-10.1) mg/dl Magnesium (1.8-2.4) mg/dl Total Bilirubin (0.2-1) mg/dl Direct Bilirubin (0-0.2) mg/dl AST (15-37) U/L ALT (12-78) U/L Alkaline Phosphatase (45-117) U/L Troponin I (0-0.045) ng/ml Total Protein (6.4-8.2) gm/dl Albumin (3.4-5.0) gm/dl Urine Color Urine Appearance (Clear) Urine pH (4.5-7.5) Ur Specific [place] (1.000-1.030) Urine Protein (Negative) Urine Glucose (UA) (Negative) Urine Ketones (Negative) Urine Blood (Negative) Urine Nitrite (Negative) Urine Bilirubin (Negative) Urine Urobilinogen (Negative) Ur Leukocyte Esterase (Negative) Urine WBC (Auto) (0-5) /hpf Urine RBC (Auto) (0-4) /hpf U Hyaline Cast (Auto) (0-5) /lpf U Epithel Cells (Auto) (0-5) /lpf Urine Bacteria (Auto) (Negative) COVID-19 Eval Order CovFluRsv at [facility] SARS-CoV-2 (PCR) NEGATIVE (Negative) Influenza Type A (PCR) Negative (Neg) Influenza Type B (PCR) Negative (Neg) RSV (RT-PCR) Negative (Neg) 06/22/20 06/22/20 06/22/20 Range/Units 01:33 01:18 01:18 WBC (4.8-10.8) K/uL RBC (4.7-6.1) M/uL Hgb (14.0-18.0) g/dL Hct (42-52) % MCV (80-100) fL MCH (25-34) pg MCHC (32-36) g/dL RDW Std Deviation (36.4-46.3) fL RDW Coeff of Yoselin (11.5-14.5) % Plt Count (130-400) K/uL MPV (7.4-10.4) fL Immature Gran % (Auto) % Neut % (Auto) % Lymph % (Auto) % Crawford % (Auto) % Eos % (Auto) % Baso % (Auto) % Neut # (Auto) (1.4-6.5) K/uL Lymph # (Auto) (1.2-3.4) K/uL Crawford # (Auto) (0.11-0.59) K/uL Eos # (Auto) (0-0.5) K/uL Baso # (Auto) (0-0.2) K/uL Immature Gran # (Auto) (0.00-0.02) K/uL D-Dimer 3400 H* (0-500) ug/L FEU Sodium 138 (136-145) mmol/L Potassium 3.4 L (3.5-5.1) mmol/L Chloride 103 (98-107) mmol/L Carbon Dioxide 29 (21-32) mmol/L Anion Gap 6.0 (3-11) BUN 31 H (7-18) mg/dl Creatinine 1.04 (0.6-1.4) mg/dl Est Cr Clr Drug Dosing 85.0 ml/min Est GFR ( Amer) 96.6 Est GFR (Non-Af Amer) 83.3 BUN/Creatinine Ratio 30.0 H (10-20) Glucose 129 H (70-99) mg/dl Lactate Calcium 8.9 (8.5-10.1) mg/dl Magnesium 2.0 (1.8-2.4) mg/dl Total Bilirubin 0.3 (0.2-1) mg/dl Direct Bilirubin < 0.1 (0-0.2) mg/dl AST 21 (15-37) U/L ALT 36 (12-78) U/L Alkaline Phosphatase 94 (45-117) U/L Troponin I < 0.015 (0-0.045) ng/ml Total Protein 7.3 (6.4-8.2) gm/dl Albumin 2.3 L (3.4-5.0) gm/dl Urine Color Dark Yellow Urine Appearance Clear (Clear) Urine pH 5.0 (4.5-7.5) Ur Specific [place] 1.034 H (1.000-1.030) Urine Protein 1+ H (Negative) Urine Glucose (UA) Negative (Negative) Urine Ketones Negative (Negative) Urine Blood Negative (Negative) Urine Nitrite Negative (Negative) Urine Bilirubin 1+ H (Negative) Urine Urobilinogen Negative (Negative) Ur Leukocyte Esterase Negative (Negative) Urine WBC (Auto) 5-10 H (0-5) /hpf Urine RBC (Auto) 5-10 H (0-4) /hpf U Hyaline Cast (Auto) >30 H (0-5) /lpf U Epithel Cells (Auto) >30 H (0-5) /lpf Urine Bacteria (Auto) Negative (Negative) COVID-19 Eval Order SARS-CoV-2 (PCR) (Negative) Influenza Type A (PCR) (Neg) Influenza Type B (PCR) (Neg) RSV (RT-PCR) (Neg) 06/22/20 Range/Units 01:18 WBC 19.47 H (4.8-10.8) K/uL RBC 3.95 L (4.7-6.1) M/uL Hgb 12.8 L (14.0-18.0) g/dL Hct 36.7 L (42-52) % MCV 92.9 (80-100) fL MCH 32.4 (25-34) pg MCHC 34.9 (32-36) g/dL RDW Std Deviation 45.0 (36.4-46.3) fL RDW Coeff of Yoselin 13.1 (11.5-14.5) % Plt Count 742 H (130-400) K/uL MPV 8.9 (7.4-10.4) fL Immature Gran % (Auto) 5.4 % Neut % (Auto) 74.8 % Lymph % (Auto) 10.9 % Crawford % (Auto) 8.4 % Eos % (Auto) 0.3 % Baso % (Auto) 0.2 % Neut # (Auto) 14.55 H (1.4-6.5) K/uL Lymph # (Auto) 2.13 (1.2-3.4) K/uL Crawford # (Auto) 1.64 H (0.11-0.59) K/uL Eos # (Auto) 0.06 (0-0.5) K/uL Baso # (Auto) 0.03 (0-0.2) K/uL Immature Gran # (Auto) 1.06 H (0.00-0.02) K/uL D-Dimer (0-500) ug/L FEU Sodium (136-145) mmol/L Potassium (3.5-5.1) mmol/L Chloride (98-107) mmol/L Carbon Dioxide (21-32) mmol/L Anion Gap (3-11) BUN (7-18) mg/dl Creatinine (0.6-1.4) mg/dl Est Cr Clr Drug Dosing ml/min Est GFR ( Amer) Est GFR (Non-Af Amer) BUN/Creatinine Ratio (10-20) Glucose (70-99) mg/dl Lactate Calcium (8.5-10.1) mg/dl Magnesium (1.8-2.4) mg/dl Total Bilirubin (0.2-1) mg/dl Direct Bilirubin (0-0.2) mg/dl AST (15-37) U/L ALT (12-78) U/L Alkaline Phosphatase (45-117) U/L Troponin I (0-0.045) ng/ml Total Protein (6.4-8.2) gm/dl Albumin (3.4-5.0) gm/dl Urine Color Urine Appearance (Clear) Urine pH (4.5-7.5) Ur Specific [place] (1.000-1.030) Urine Protein (Negative) Urine Glucose (UA) (Negative) Urine Ketones (Negative) Urine Blood (Negative) Urine Nitrite (Negative) Urine Bilirubin (Negative) Urine Urobilinogen (Negative) Ur Leukocyte Esterase (Negative) Urine WBC (Auto) (0-5) /hpf Urine RBC (Auto) (0-4) /hpf U Hyaline Cast (Auto) (0-5) /lpf U Epithel Cells (Auto) (0-5) /lpf Urine Bacteria (Auto) (Negative) COVID-19 Eval Order SARS-CoV-2 (PCR) (Negative) Influenza Type A (PCR) (Neg) Influenza Type B (PCR) (Neg) RSV (RT-PCR) (Neg) Diagnostic Findings CTA CHEST: No acute pulmonary embolus. Normal caliber of the aorta without dissection. Unremarkable appearance of the heart. No consolidation, interstitial edema, pneumothorax, or pleural effusion. Radiologist: Oswaldo Young MD CT HEAD: No acute intracranial hemorrhage, hydrocephalus, edema, mass effect, or acute cortical infarct. Paranasal sinuses and mastoid air cells are clear. No fracture. Radiologist: Oswaldo Young MD CT ABDOMEN & PELVIS With Contrast: Right hemicolectomy. Foci of gas adjacent to the suture margin within the right mid abdomen. There is a fluid collection along the posterior aspect of the suture margin measuring 2.7 x 1.5 cm (image [id number]). Concerning for an abscess. Together these findings are suspicious for anastomotic breakdown. Marked mucosal thickening throughout the colon. Correlate for C. difficile or other nonspecific colitis. Also mild diffuse small bowel mucosal thickening favored reactive versus a component of enteritis. Radiologist: Oswaldo Young MD Supervising Physician Co-Signing Physician Notes Attending addendum: I have physically seen this patient, have supervised the medical residents activities, and agree with the H&P unless as otherwise noted. Assessment and Plan: Syncope- Likely defecation/vasovagal with hypovolemia component due to underlying GI issues CT of head negative for acute event No further neurologic work-up necessary Question of anastomotic leak- Status post right hemicolectomy on 06/12 Question abscess 2.7 x 1.5 cm adjacent to anastomosis Marked mucosal thickening throughout the colon suggestive of colitis Neutrophilic leukocytosis C. difficile studies and stool cultures pending Empiric treatment with p.o. vancomycin, IV cefepime and IV Flagyl IV fluids, LR 100 mils per hour General surgery aware and will follow Hypertension- Hold lisinopril due to n.p.o. status GERD- pantoprazole should be changed IV Remaining orders and notations as noted Resident Activity Tracking Resident Involvement: Resident Care Provided Care Provided: Adult Hospital Medicine
[2020-06-22 05:14] LABS: Influenza A virus by PCR Negative (Neg); Influenza B virus by PCR Negative (Neg); RSV by PCR Negative (Neg); SARS CoV2 RNA(COVID-19) InHosp NEGATIVE (Negative)
[2020-06-22] MEDS: SODIUM CHLORIDE 0.9% 1000ML 1,000 ML IV SCH ×3 (05:17→20:43)
[2020-06-22 06:17] LABS: Amphetamines+Metham, Urine Neg (Neg); Barbiturates, Urine Neg (Neg); Benzodiazepine, Urine Neg (Neg); Cocaine, Urine Neg (Neg); MDMA (Ecstacy), Urine Neg (Neg); Methadone, Urine Neg (Neg); Opiate, Urine Pos (Neg); Phencyclidine, Urine Neg (Neg)
[2020-06-22] MEDS ORDERED: ALUMINUM/MAGNESIUM SUSP 30 ML UDC PO PRN (06:19)
[2020-06-22] MEDS ORDERED: POLYETHYLENE (MIRALAX) 17 GM PACK PO PRN (06:19)
[2020-06-22] MEDS ORDERED: MAGNESIUM HYDROXIDE SUSP 30 ML UDC PO PRN (06:19)
[2020-06-22] MEDS ORDERED: ACETAMINOPHEN 325 MG TAB PO PRN (06:19)
[2020-06-22] MEDS ORDERED: ONDANSETRON INJ 2 MG/ML 2 ML VIAL IV PRN (06:19)
[2020-06-22] MEDS: RASPBERRY SYRUP 5 ML UDP PO SCH ×3 (06:39→18:39)
[2020-06-22] MEDS: VANCOMYCIN HCL 125 MG/2.5ML SOLN PO SCH ×3 (06:39→18:39)
--- NOTE | 2020-06-22 07:09 | XRay Report ---
XR chest 1V portable CLINICAL HISTORY: syncope DIZZINESS COMPARISON STUDY: 06/13/2020 FINDINGS: The endotracheal tube and enteric tubes have been removed. There is no failure. There are s ubsegmental atelectatic changes present the right lung base. There is an ill-defined 15 mm opacity wi thin the left upper lung zone.[This was described previously. This likely relates to the left third r ib anteriorly. CT scanning or short-term radiographic could be obtained. There is an old right clavic ular fracture. There is evidence for thoracolumbar spinal rodding. IMPRESSION: 1. Subsegmental right basilar atelectasis 2. Redemonstration of a 15 mm opacity within the left upper lung zone. This may relate to the left th ird rib anteriorly. CT scanning could be obtained in follow-up as was previously recommended however short-term radiographic follow-up with oblique films would also suffice. ACT 112: Positive. There are findings on this exam that require communication between the performing entity and the patient following Patient Test Result Information Act ([place] Act 112) guidelines. Electronically signed by: Wilver Britt M.D. 06/22/2020 7:08 AM
--- NOTE | 2020-06-22 07:26 | CT Scan Report ---
CT head/brain wo con CLINICAL HISTORY: syncope COMPARISON STUDY: No previous studies for comparison. TECHNIQUE: Axial CT of the brain is performed from the vertex to the skull base. IV contrast was not administered for this examination. A dose lowering technique was utilized adhering to the principles of ALARA. CT DOSE: FINDINGS: No intra or extra-axial mass lesions are visualized. There is no CT evidence of acute cortical infarc tion. There is no evidence of midline shift. No calvarial fractures are visualized. There is very slight increased density of the anterior falx. This likely represents calcification alt sayra a trace subdural could appear similar. There is no evidence of pathologic ventricular dilatation. There is no evidence of acute sinusitis IMPRESSION: 1. Slight increased density of the anterior falx. While this likely represents calcification, a trace subdural could appear similar. 2. If the patient were to develop neurologic symptoms or have a persistent headache, then a follow-up CT scan could be obtained. In the absence of neurologic symptoms, no follow-up imaging is probably i ndicated ACT 112: Negative or not required by law. Electronically signed by: Wilver Britt M.D. 06/22/2020 7:25 AM
[2020-06-22 07:46] LABS: Cdiff Antigen Positive; Cdiff Toxin A+B Negative Cdiff Toxin (Negative)
[2020-06-22] MEDS ORDERED: VANCOMYCIN HCL 125 MG/2.5ML SOLN PO SCH (07:50)
--- NOTE | 2020-06-22 07:58 | CT Scan Report ---
CT abd pelvis IV con only CLINICAL HISTORY: syncope, elevated wbc s/p surgery HISTORY OF COLONIC RESECTION. COMPARISON STUDY: 06/12/2020 TECHNIQUE: Patient was scanned in a dynamic helical fashion during intravenous administration of 1 19 cc of Optiray 320. A dose lowering technique was utilized adhering to the principles of ALARA. CT DOSE: 1727.80 mGy.cm FINDINGS: Lower chest: There are bibasilar atelectatic changes. There is a partially visualized 4 mm right lowe r lobe pulmonary nodule Liver: The contrast-enhanced liver is normal in size, contour, and attenuation. There is no intrahepa tic biliary ductal dilatation. The hepatic veins and portal veins are patent. Gallbladder: Surgically absent Spleen: Normal in size and attenuation. Pancreas: Unremarkable. Adrenal glands: Unremarkable. Kidneys: There is symmetric renal cortical enhancement. The kidneys are normal in size without hydron ephrosis. Bowel: There is diffuse colonic bowel wall thickening consistent with a pancolitis. There are postsur gical changes of a right hemicolectomy and ileocolonic anastomosis. There are extraluminal gas bubble s at the level of the anastomosis. There is adjacent 27 mm fluid collection containing gas suspicious for an abscess. The findings are suspicious for anastomotic breakdown. There is an additional small 1 cm fluid collection medial to the liver possibly representing a second abscess. Peritoneum: There are extraluminal gas bubbles adjacent to the bowel anastomosis as described above. There is trace free pelvic fluid Vasculature: The abdominal aorta is normal in course and caliber. Adenopathy: None. Pelvic viscera: The bladder, and pelvic viscera are unremarkable. Skeletal structures: No destructive osseous lesions are seen. There are postsurgical changes of spina l rodding. IMPRESSION: 1. Interval right hemicolectomy with ileocolonic anastomosis 2. Extraluminal gas within the mesentery adjacent to the anastomosis with a focal 27 mm fluid collect ions suspicious for an abscess. The findings are worrisome for an anastomotic breakdown. 3. Diffuse colonic wall thickening consistent with a pancolitis. ACT 112: Negative or not required by law. Electronically signed by: Wilver Britt M.D. 06/22/2020 7:56 AM
--- NOTE | 2020-06-22 08:18 | CT Scan Report ---
CT ANGIOGRAM OF THE CHEST CLINICAL HISTORY: Syncope s/p surgery ELEVATED WHITE COUNT. POSSIBLE ACUTE PULMONARY EMBOLISM COMPARISON STUDY: Chest x-ray dated 06/22/2020 TECHNIQUE: Following the IV administration of 119 mL of Optiray-320, CT angiogram of the thorax was p erformed from the thoracic inlet to the lung bases utilizing the pulmonary embolus protocol. Images a re reviewed in the axial, sagittal, and coronal planes. IV contrast was administered without complica tion. MIP imaging was performed. A dose lowering technique was utilized adhering to the principles o f ALARA. CT DOSE: FINDINGS: Mediastinal and hilar lymph nodes are the upper limits of normal in size The ascending thoracic aorta measures 36 mm in diameter There is suboptimal pulmonary arterial opacification. There are no filling defects suspicious for acu te pulmonary emboli. No pleural effusions are visualized. There are bibasilar atelectatic changes. The opacity described left upper lung zone, relates to a hea ling fracture the left third anterior rib. No further follow-up of this abnormality is indicated. The re are multiple small scattered pulmonary nodules the 2 largest of which are a 5 mm right middle lobe pulmonary nodule as visualized image #[id number], and a 5 mm right upper lobe pulmonary nodule as visua lized image #[id number] IMPRESSION: 1. No evidence of acute pulmonary embolism 2. The previously queried left upper lung zone opacity corresponds to a healing left third rib fractu re 3. Multiple bilateral pulmonary nodules the largest of which measure 5 mm. In an average risk patient , no follow-up is indicated Please refer to below summary of Fleischner criteria recommendations for follow-up of incidental CT n odules (Dianne Charles, Guidelines for management of small pulmonary nodules detected on CT scans: A sta tement from the Fleischner Society, Radiology 237: [phone].) SOLID NODULES Solitary nodule size: <6 mm * low risk patients: no follow-up needed * high risk patients: optional CT at 12 months Solitary nodule size: 6-8 mm * low risk patients: follow-up at 6-12 months, then consider further follow-up at 18-24 months * high risk patients: initial follow-up CT at 6-12 months and then at 18-24 months if no change Solitary nodule size: >8 mm * either low or high risk patients - consider follow-up CT at 3 months, and/or CT-PET, and/or biopsy Multiple nodules size: <6 mm * low risk patients: no routine follow-up * high risk patients: optional CT at 12 months Multiple nodules size: 6-8 mm * low risk patients: follow-up at 3-6 months, then consider further follow-up at 18-24 months * high risk patients: follow-up at 3-6 months, then at 18-24 months if no change Multiple nodules size: >8 mm * low risk patients: follow-up at 3-6 months, then consider further follow-up at 18-24 months * high risk patients: follow-up at 3-6 months, then at 18-24 months if no change Note: newly detected indeterminate nodule in persons 35 years of age or older. * low risk patients: minimal or absent history of smoking and/or other known risk factors * high risk patients: history of smoking or of other known risk factors (e.g. first degree relative with lung cancer, or exposure to asbestos, radon, uranium) * if a nodule up to 8 mm is partly solid or is ground glass further follow-up is required after 24 m onths to exclude possible slow growing adenocarcinoma ([facility]A) SUBSOLID NODULES Solitary pure ground-glass nodule * nodule size <6 mm - no CT follow-up required * nodule size >=6 mm - follow-up CT at 6-12 months, then every 2 years until 5 years Solitary part-solid nodule * nodule size <6 mm - no CT follow-up required * nodule size >=6 mm - follow-up CT at 3-6 months. If unchanged, and solid component remains <6 mm, then annual follow-up for 5 years Multiple subsolid nodules * nodule size <6 mm - follow-up CT at 3-6 months, consider further follow-up at 2 and 4 years if sta ble * nodule size >=6 mm - follow-up CT at 3-6 months, subsequent management based on the most suspiciou s nodule(s) ACT 112: Negative or not required by law. Electronically signed by: Wilver Britt M.D. 06/22/2020 8:17 AM
[2020-06-22] MEDS: lisinopril 20 MG TAB PO SCH (08:55)
[2020-06-22] MEDS: PANTOprazole 40 MG TAB PO SCH ×2 (08:55→21:44)
[2020-06-22] MEDS: CEFEPIME 2,000 MG in SYRINGE 0 ML IV SCH ×2 (08:56→15:37)
[2020-06-22] MEDS ORDERED: HEPARIN SOD 5,000 UNIT/0.5 ML VIAL SQ SCH (09:00)
[2020-06-22] MEDS: HYDROCODONE/ACETAMOPHEN 5/325MG TAB PO PRN ×3 (09:04→21:44)
--- NOTE | 2020-06-22 09:12 | Electrocardiogram Report ---
Test Reason : Blood Pressure : / mmHG Vent. Rate : 090 BPM Atrial Rate : 090 BPM P-R Int : 172 ms QRS Dur : 098 ms QT Int : 388 ms P-R-T Axes : 076 046 056 degrees QTc Int : 474 ms Normal sinus rhythm Left atrial enlargement Old Septal infarct Abnormal ECG When compared with ECG of 12-JUN-2020 10:22, HR has decreased by 36 bpm Criteria for Septal infarct now present Confirmed by Kolton Lizama ([id number]) on 06/22/2020 9:11:49 AM Referred By: REFERRED SELF Confirmed By:Kolton Lizama
[2020-06-22] MEDS: POTASSIUM CHLORIDE CRTAB 20 MEQ TABCR PO SCH ×2 (09:59→21:44)
[2020-06-22] MEDS: ADVANCED PROBIOTIC 1250 MG CAPSULE PO SCH (09:59)
--- NOTE | 2020-06-22 10:49 | CT Scan Report ---
CT head/brain wo con CLINICAL HISTORY: Abnormal head CT. Equivocal trace subdural hematoma COMPARISON STUDY: Earlier in the day TECHNIQUE: Axial CT of the brain is performed from the vertex to the skull base. IV contrast was not administered for this examination. A dose lowering technique was utilized adhering to the principles of ALARA. CT DOSE: 537.48 mGy.cm FINDINGS: No intra or extra-axial mass lesions are visualized. There is no CT evidence of acute cortical infarc tion. There is no evidence of midline shift. There is no acute hemorrhage. No calvarial fractures ar e visualized. The increased density anterior falx remain stable. Given the lack of change in appearance, this almos t certainly represents falcine calcification. There is no evidence of pathologic ventricular dilatation. There is no evidence of acute sinusitis IMPRESSION: 1. No acute intracranial findings 2. The increased density of the anterior falx in all likelihood represents falcine calcification ACT 112: Negative or not required by law. Electronically signed by: Wilver Britt M.D. 06/22/2020 10:47 AM
--- NOTE | 2020-06-22 11:46 | Surgery Consultation ---
Date of Consultation June 22, 2020 Assessment & Plan (1) S/P right hemicolectomy: This patient is now 10 days status post exploratory laparotomy with excision of small bowel as well as right colon and primary anastomosis. He had a syncopal episode. His white blood cell count is elevated at 19,000. CT scan findings are again noted. The fluid collection around the anastomosis may be related to a leak of the anastomosis however the patient's abdominal exam does not fit with that picture and that it is quite benign. The fluid collections may be residual. I agree with IV antibiotics although it appears that he also has a colitis that may be related to C. difficile. I do not feel that there is any need for immediate surgical or interventional radiologic intervention at the present time. If his white blood cell count does not normalize which may be related to the colitis I would then repeat a CAT scan in a few days for progression/regression of the fluid collections. History of Present Illness Reason for Consultation: Status post resection of 5 feet of small bowel and right colon for ischemia, now with syncopal episode and findings on CT scan Requesting Physician: Sandro Han Attending Physician: Sandro Han History of Present Illness This is a 49-year-old male who underwent exploratory laparotomy with excision of approximately 5 feet of small bowel as well as the right colon with primary anastomosis for ischemia that was confirmed by pathology. The etiology was not easily determined. That procedure was performed on 324. He went home on 330. He was doing very well until yesterday when he had a syncopal episode after stepping into the bathroom for a bowel movement. The patient states that he is having very little abdominal discomfort. He has not had any nausea or vomiting and in fact was eating a regular diet with a good appetite prior to the syncopal episode. Since then he has had watery diarrhea with multiple episodes including approximately 12 yesterday. There is been no melena or hematochezia. He underwent a CT scan of the abdomen and pelvis that showed the anastomosis. There was a small amount of air around the anastomosis. There was a 2.7 cm collection there and another 2.0 cm collection in the vicinity. He denies fever and chills. He has not had increasing abdominal pain. Allergies Allergy/AdvReac Type Severity Reaction Status Date / Time Penicillins Allergy Unknown Unknown Verified 06/21/20 15:40 Home Medications Medication Instructions Recorded Confirmed Type esomeprazole magnesium 40 mg 40 mg PO BID cap 12/08/19 06/21/20 History capsule,delayed release multivitamin 1 tab PO DAILY 12/08/19 06/21/20 History buspirone 5 mg tablet 10 mg PO QAM tab 01/10/20 06/21/20 History lisinopril 20 mg PO DAILY #30 tab 06/18/20 06/21/20 Rx ascorbic acid (vitamin C) PO BID 06/21/20 06/21/20 History hydrocodone 5 mg-acetaminophen 325 1 tab PO Q6H PRN #18 tab 06/21/20 06/21/20 Rx mg tablet lactobacillus combination no.8 PO BID 06/21/20 06/21/20 History Patient History Medical History (Updated 06/22/20 @ 05:21 by Rolando Jeter MD) Acute intestinal ischemia Acute renal failure Peritonitis Severe sepsis Surgical History (Updated 06/22/20 @ 05:21 by Rolando Jeter MD) H/O hand surgery History of surgical removal of intestinal structure 06/19/20 Previous back surgery S/P cholecystectomy S/P eye surgery S/P foot surgery S/P right hemicolectomy Family History Father Heart disease Denies family history of Ovarian cancer Prostate cancer Breast cancer Colorectal cancer Social History (Updated 06/21/20 @ 15:43 by RYAN Alicea) Smoking Status: Current some day smoker Tobacco Type: Cigarettes Second Hand Exposure: No; Hx Alcohol Use: Yes Alcohol type: beer Hx Substance Use: Yes (medical) Prescribed Medications: Marijuana Last Used Substance: Days (ago) Preferred Language: Persian Communication Ability: Effective Visual Impairment: No Limitations Hearing Ability: Normal Beam 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 Operator Required: No Beliefs That Will Affect Care: None marital status: Current Living Situation: Spouse current occupational status: employed 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 Feels Safe at Home: Yes caffeine: Yes Dental Care, Regularly: No Physical Activity Frequency: Does not Exercise Seatbelt Use: always Sunscreen Use: No Assistive Devices: Glasses Review of Systems Review of Systems: All systems reviewed & are unremarkable except as noted in HPI & below Physical Exam Constitutional: no acute distress Neck: trachea midline Respiratory: normal respiratory effort Auscultation: + wheezes (Scattered in both lung townsend) Cardiovascular: Rate/Rhythm: regular rate and regular rhythm Gastrointestinal (Abdomen): Inspection/Auscultation: normal bowel sounds and + abdominal surgical incision (Clean, dry and intact); abdomen not distended Percussion/Palpation: + abdomen tender (Minimal tenderness to deep palpation throughout) and abdomen soft; no guarding Skin: no rashes, warm and dry Lymphatic: no cervical lymphadenopathy Results & Data ([facility]) Vital Signs (Past 12 Hours) Vital Signs Temp Pulse Pulse Resp BP BP Pulse Ox 06/22/20 11:43 36.6 C 81 16 142/82 H 97 06/22/20 09:42 90 06/22/20 07:57 36.5 C 89 16 153/88 H 93 06/22/20 06:20 37 C 90 20 121/79 97 06/22/20 05:50 91 H 15 98 06/22/20 05:40 87 19 96 06/22/20 05:34 85 17 97 06/22/20 05:32 87 20 150/93 H 100 06/22/20 05:20 86 17 96 06/22/20 05:10 88 20 98 06/22/20 05:00 86 17 97 06/22/20 04:50 83 17 97 06/22/20 04:40 90 18 96 06/22/20 04:30 86 18 139/76 96 06/22/20 04:20 85 18 99 06/22/20 04:10 85 16 92 06/22/20 04:05 86 15 138/83 91 06/22/20 04:02 85 18 138/83 94 06/22/20 04:00 136/77 90 06/22/20 03:50 89 L 06/22/20 03:40 91 06/22/20 03:30 135/79 100 06/22/20 03:20 97 06/22/20 03:10 97 06/22/20 03:04 98 06/22/20 02:30 90 15 129/66 95 06/22/20 02:20 91 H 17 98 06/22/20 02:10 89 16 99 06/22/20 02:00 92 H 18 137/67 06/22/20 01:50 91 H 18 95 06/22/20 01:40 90 18 94 06/22/20 01:33 87 11 L 06/22/20 01:20 91 H 20 94 06/22/20 01:10 92 H 19 94 06/22/20 01:05 91 H 20 118/66 95 06/22/20 01:02 94 H 17 95 06/22/20 01:00 92 H 21 118/66 95 06/22/20 00:41 36.9 C 98 H 16 94/64 L 96 Laboratory Results 06/22/20 06/22/20 06/22/20 Range/Units 05:48 05:00 04:11 WBC (4.8-10.8) K/uL RBC (4.7-6.1) M/uL Hgb (14.0-18.0) g/dL Hct (42-52) % MCV (80-100) fL MCH (25-34) pg MCHC (32-36) g/dL RDW Std Deviation (36.4-46.3) fL RDW Coeff of Yoselin (11.5-14.5) % Plt Count (130-400) K/uL MPV (7.4-10.4) fL Immature Gran % (Auto) % Neut % (Auto) % Lymph % (Auto) % [place] % (Auto) % Eos % (Auto) % Baso % (Auto) % Neut # (Auto) (1.4-6.5) K/uL Lymph # (Auto) (1.2-3.4) K/uL [place] # (Auto) (0.11-0.59) K/uL Eos # (Auto) (0-0.5) K/uL Baso # (Auto) (0-0.2) K/uL Immature Gran # (Auto) (0.00-0.02) K/uL D-Dimer (0-500) ug/L FEU Sodium (136-145) mmol/L Potassium (3.5-5.1) mmol/L Chloride (98-107) mmol/L Carbon Dioxide (21-32) mmol/L Anion Gap (3-11) BUN (7-18) mg/dl Creatinine (0.6-1.4) mg/dl Est Cr Clr Drug Dosing ml/min Est GFR ( Amer) Est GFR (Non-Af Amer) BUN/Creatinine Ratio (10-20) Glucose (70-99) mg/dl Lactate 1.1 (0.4-2.0) mmol/L Calcium (8.5-10.1) mg/dl Magnesium (1.8-2.4) mg/dl Total Bilirubin (0.2-1) mg/dl Direct Bilirubin (0-0.2) mg/dl AST (15-37) U/L ALT (12-78) U/L Alkaline Phosphatase (45-117) U/L Troponin I (0-0.045) ng/ml Total Protein (6.4-8.2) gm/dl Albumin (3.4-5.0) gm/dl Urine Color Urine Appearance (Clear) Urine pH (4.5-7.5) Ur Specific [place] (1.000-1.030) Urine Protein (Negative) Urine Glucose (UA) (Negative) Urine Ketones (Negative) Urine Blood (Negative) Urine Nitrite (Negative) Urine Bilirubin (Negative) Urine Urobilinogen (Negative) Ur Leukocyte Esterase (Negative) Urine WBC (Auto) (0-5) /hpf Urine RBC (Auto) (0-4) /hpf U Hyaline Cast (Auto) (0-5) /lpf U Epithel Cells (Auto) (0-5) /lpf Urine Bacteria (Auto) (Negative) Stl C. diff Tox B Gene Positive Cdiff Gene H (Neg) Stl C.difficile Tox A&B Negative Cdiff Toxin (Negative) Urine Opiates Screen (Neg) U Codeine Confrm GC/MS Ur Morphine (GC/MS) Ur Hydrocodone (GC/MS) Ur Norhydrocodone Ur Noroxycodone Urine Oxycodone (GC/MS) U Oxymorphone GC/MS Ur Methadone, Qual (Neg) Ur Hydromorphone (GC/MS) Urine Barbiturates (Neg) Ur Phencyclidine (PCP) (Neg) U Amphetamin/Meth Scrn (Neg) MDMA (Ecstasy) Screen (Neg) U Benzodiazepines Scrn (Neg) Ur Cocaine Metabolite (Neg) U Marijuana (THC) Screen (Neg) U Marijuana THC Carboxy Drug Screen Comment COVID-19 Eval Order SARS-CoV-2 (PCR) NEGATIVE (Negative) Influenza Type A (PCR) Negative (Neg) Influenza Type B (PCR) Negative (Neg) RSV (RT-PCR) Negative (Neg) 0406/22/20 06/22/20 Range/Units 04:11 01:33 01:33 WBC (4.8-10.8) K/uL RBC (4.7-6.1) M/uL Hgb (14.0-18.0) g/dL Hct (42-52) % MCV (80-100) fL MCH (25-34) pg MCHC (32-36) g/dL RDW Std Deviation (36.4-46.3) fL RDW Coeff of Yoselin (11.5-14.5) % Plt Count (130-400) K/uL MPV (7.4-10.4) fL Immature Gran % (Auto) % Neut % (Auto) % Lymph % (Auto) % [place] % (Auto) % Eos % (Auto) % Baso % (Auto) % Neut # (Auto) (1.4-6.5) K/uL Lymph # (Auto) (1.2-3.4) K/uL [place] # (Auto) (0.11-0.59) K/uL Eos # (Auto) (0-0.5) K/uL Baso # (Auto) (0-0.2) K/uL Immature Gran # (Auto) (0.00-0.02) K/uL D-Dimer (0-500) ug/L FEU Sodium (136-145) mmol/L Potassium (3.5-5.1) mmol/L Chloride (98-107) mmol/L Carbon Dioxide (21-32) mmol/L Anion Gap (3-11) BUN (7-18) mg/dl Creatinine (0.6-1.4) mg/dl Est Cr Clr Drug Dosing ml/min Est GFR ( Amer) Est GFR (Non-Af Amer) BUN/Creatinine Ratio (10-20) Glucose (70-99) mg/dl Lactate (0.4-2.0) mmol/L Calcium (8.5-10.1) mg/dl Magnesium (1.8-2.4) mg/dl Total Bilirubin (0.2-1) mg/dl Direct Bilirubin (0-0.2) mg/dl AST (15-37) U/L ALT (12-78) U/L Alkaline Phosphatase (45-117) U/L Troponin I (0-0.045) ng/ml Total Protein (6.4-8.2) gm/dl Albumin (3.4-5.0) gm/dl Urine Color Urine Appearance (Clear) Urine pH (4.5-7.5) Ur Specific [place] (1.000-1.030) Urine Protein (Negative) Urine Glucose (UA) (Negative) Urine Ketones (Negative) Urine Blood (Negative) Urine Nitrite (Negative) Urine Bilirubin (Negative) Urine Urobilinogen (Negative) Ur Leukocyte Esterase (Negative) Urine WBC (Auto) (0-5) /hpf Urine RBC (Auto) (0-4) /hpf U Hyaline Cast (Auto) (0-5) /lpf U Epithel Cells (Auto) (0-5) /lpf Urine Bacteria (Auto) (Negative) Stl C. diff Tox B Gene (Neg) Stl C.difficile Tox A&B (Negative) Urine Opiates Screen Pos H (Neg) U Codeine Confrm GC/MS Pending Ur Morphine (GC/MS) Pending Ur Hydrocodone (GC/MS) Pending Ur Norhydrocodone Pending Ur Noroxycodone Pending Urine Oxycodone (GC/MS) Pending U Oxymorphone GC/MS Pending Ur Methadone, Qual Neg (Neg) Ur Hydromorphone (GC/MS) Pending Urine Barbiturates Neg (Neg) Ur Phencyclidine (PCP) Neg (Neg) U Amphetamin/Meth Scrn Neg (Neg) MDMA (Ecstasy) Screen Neg (Neg) U Benzodiazepines Scrn Neg (Neg) Ur Cocaine Metabolite Neg (Neg) U Marijuana (THC) Screen Pos H (Neg) U Marijuana THC Carboxy Pending Drug Screen Comment Pending COVID-19 Eval Order [facility] at [facility] SARS-CoV-2 (PCR) (Negative) Influenza Type A (PCR) (Neg) Influenza Type B (PCR) (Neg) RSV (RT-PCR) (Neg) 06/22/20 06/22/20 06/22/20 Range/Units 01:33 01:18 01:18 WBC (4.8-10.8) K/uL RBC (4.7-6.1) M/uL Hgb (14.0-18.0) g/dL Hct (42-52) % MCV (80-100) fL MCH (25-34) pg MCHC (32-36) g/dL RDW Std Deviation (36.4-46.3) fL RDW Coeff of Yoselin (11.5-14.5) % Plt Count (130-400) K/uL MPV (7.4-10.4) fL Immature Gran % (Auto) % Neut % (Auto) % Lymph % (Auto) % [place] % (Auto) % Eos % (Auto) % Baso % (Auto) % Neut # (Auto) (1.4-6.5) K/uL Lymph # (Auto) (1.2-3.4) K/uL [place] # (Auto) (0.11-0.59) K/uL Eos # (Auto) (0-0.5) K/uL Baso # (Auto) (0-0.2) K/uL Immature Gran # (Auto) (0.00-0.02) K/uL D-Dimer 3400 H* (0-500) ug/L FEU Sodium 138 (136-145) mmol/L Potassium 3.4 L (3.5-5.1) mmol/L Chloride 103 (98-107) mmol/L Carbon Dioxide 29 (21-32) mmol/L Anion Gap 6.0 (3-11) BUN 31 H (7-18) mg/dl Creatinine 1.04 (0.6-1.4) mg/dl Est Cr Clr Drug Dosing 85.0 ml/min Est GFR ( Amer) 96.6 Est GFR (Non-Af Amer) 83.3 BUN/Creatinine Ratio 30.0 H (10-20) Glucose 129 H (70-99) mg/dl Lactate (0.4-2.0) mmol/L Calcium 8.9 (8.5-10.1) mg/dl Magnesium 2.0 (1.8-2.4) mg/dl Total Bilirubin 0.3 (0.2-1) mg/dl Direct Bilirubin < 0.1 (0-0.2) mg/dl AST 21 (15-37) U/L ALT 36 (12-78) U/L Alkaline Phosphatase 94 (45-117) U/L Troponin I < 0.015 (0-0.045) ng/ml Total Protein 7.3 (6.4-8.2) gm/dl Albumin 2.3 L (3.4-5.0) gm/dl Urine Color Dark Yellow Urine Appearance Clear (Clear) Urine pH 5.0 (4.5-7.5) Ur Specific [place] 1.034 H (1.000-1.030) Urine Protein 1+ H (Negative) Urine Glucose (UA) Negative (Negative) Urine Ketones Negative (Negative) Urine Blood Negative (Negative) Urine Nitrite Negative (Negative) Urine Bilirubin 1+ H (Negative) Urine Urobilinogen Negative (Negative) Ur Leukocyte Esterase Negative (Negative) Urine WBC (Auto) 5-10 H (0-5) /hpf Urine RBC (Auto) 5-10 H (0-4) /hpf U Hyaline Cast (Auto) >30 H (0-5) /lpf U Epithel Cells (Auto) >30 H (0-5) /lpf Urine Bacteria (Auto) Negative (Negative) Stl C. diff Tox B Gene (Neg) Stl C.difficile Tox A&B (Negative) Urine Opiates Screen (Neg) U Codeine Confrm GC/MS Ur Morphine (GC/MS) Ur Hydrocodone (GC/MS) Ur Norhydrocodone Ur Noroxycodone Urine Oxycodone (GC/MS) U Oxymorphone GC/MS Ur Methadone, Qual (Neg) Ur Hydromorphone (GC/MS) Urine Barbiturates (Neg) Ur Phencyclidine (PCP) (Neg) U Amphetamin/Meth Scrn (Neg) MDMA (Ecstasy) Screen (Neg) U Benzodiazepines Scrn (Neg) Ur Cocaine Metabolite (Neg) U Marijuana (THC) Screen (Neg) U Marijuana THC Carboxy Drug Screen Comment COVID-19 Eval Order SARS-CoV-2 (PCR) (Negative) Influenza Type A (PCR) (Neg) Influenza Type B (PCR) (Neg) RSV (RT-PCR) (Neg) 06/22/20 Range/Units 01:18 WBC 19.47 H (4.8-10.8) K/uL RBC 3.95 L (4.7-6.1) M/uL Hgb 12.8 L (14.0-18.0) g/dL Hct 36.7 L (42-52) % MCV 92.9 (80-100) fL MCH 32.4 (25-34) pg MCHC 34.9 (32-36) g/dL RDW Std Deviation 45.0 (36.4-46.3) fL RDW Coeff of Yoselin 13.1 (11.5-14.5) % Plt Count 742 H (130-400) K/uL MPV 8.9 (7.4-10.4) fL Immature Gran % (Auto) 5.4 % Neut % (Auto) 74.8 % Lymph % (Auto) 10.9 % [place] % (Auto) 8.4 % Eos % (Auto) 0.3 % Baso % (Auto) 0.2 % Neut # (Auto) 14.55 H (1.4-6.5) K/uL Lymph # (Auto) 2.13 (1.2-3.4) K/uL [place] # (Auto) 1.64 H (0.11-0.59) K/uL Eos # (Auto) 0.06 (0-0.5) K/uL Baso # (Auto) 0.03 (0-0.2) K/uL Immature Gran # (Auto) 1.06 H (0.00-0.02) K/uL D-Dimer (0-500) ug/L FEU Sodium (136-145) mmol/L Potassium (3.5-5.1) mmol/L Chloride (98-107) mmol/L Carbon Dioxide (21-32) mmol/L Anion Gap (3-11) BUN (7-18) mg/dl Creatinine (0.6-1.4) mg/dl Est Cr Clr Drug Dosing ml/min Est GFR ( Amer) Est GFR (Non-Af Amer) BUN/Creatinine Ratio (10-20) Glucose (70-99) mg/dl Lactate (0.4-2.0) mmol/L Calcium (8.5-10.1) mg/dl Magnesium (1.8-2.4) mg/dl Total Bilirubin (0.2-1) mg/dl Direct Bilirubin (0-0.2) mg/dl AST (15-37) U/L ALT (12-78) U/L Alkaline Phosphatase (45-117) U/L Troponin I (0-0.045) ng/ml Total Protein (6.4-8.2) gm/dl Albumin (3.4-5.0) gm/dl Urine Color Urine Appearance (Clear) Urine pH (4.5-7.5) Ur Specific [place] (1.000-1.030) Urine Protein (Negative) Urine Glucose (UA) (Negative) Urine Ketones (Negative) Urine Blood (Negative) Urine Nitrite (Negative) Urine Bilirubin (Negative) Urine Urobilinogen (Negative) Ur Leukocyte Esterase (Negative) Urine WBC (Auto) (0-5) /hpf Urine RBC (Auto) (0-4) /hpf U Hyaline Cast (Auto) (0-5) /lpf U Epithel Cells (Auto) (0-5) /lpf Urine Bacteria (Auto) (Negative) Stl C. diff Tox B Gene (Neg) Stl C.difficile Tox A&B (Negative) Urine Opiates Screen (Neg) U Codeine Confrm GC/MS Ur Morphine (GC/MS) Ur Hydrocodone (GC/MS) Ur Norhydrocodone Ur Noroxycodone Urine Oxycodone (GC/MS) U Oxymorphone GC/MS Ur Methadone, Qual (Neg) Ur Hydromorphone (GC/MS) Urine Barbiturates (Neg) Ur Phencyclidine (PCP) (Neg) U Amphetamin/Meth Scrn (Neg) MDMA (Ecstasy) Screen (Neg) U Benzodiazepines Scrn (Neg) Ur Cocaine Metabolite (Neg) U Marijuana (THC) Screen (Neg) U Marijuana THC Carboxy Drug Screen Comment COVID-19 Eval Order SARS-CoV-2 (PCR) (Negative) Influenza Type A (PCR) (Neg) Influenza Type B (PCR) (Neg) RSV (RT-PCR) (Neg) Diagnostic Findings CT abd pelvis IV con only(I reviewed the images as well as the report) CLINICAL HISTORY: syncope, elevated wbc s/p surgery HISTORY OF COLONIC RESECTION. COMPARISON STUDY: 06/12/2020 TECHNIQUE: Patient was scanned in a dynamic helical fashion during intravenous administration of 1 19 cc of Optiray 320. A dose lowering technique was utilized adhering to the principles of ALARA. CT DOSE: 1727.80 mGy.cm FINDINGS: Lower chest: There are bibasilar atelectatic changes. There is a partially visualized 4 mm right lower lobe pulmonary nodule Liver: The contrast-enhanced liver is normal in size, contour, and attenuation. There is no intrahepatic biliary ductal dilatation. The hepatic veins and portal veins are patent. Gallbladder: Surgically absent Spleen: Normal in size and attenuation. Pancreas: Unremarkable. Adrenal glands: Unremarkable. Kidneys: There is symmetric renal cortical enhancement. The kidneys are normal in size without hydronephrosis. Bowel: There is diffuse colonic bowel wall thickening consistent with a pancolitis. There are postsurgical changes of a right hemicolectomy and ileocolonic anastomosis. There are extraluminal gas bubbles at the level of the anastomosis. There is adjacent 27 mm fluid collection containing gas suspicious for an abscess. The findings are suspicious for anastomotic breakdown. There is an additional small 1 cm fluid collection medial to the liver possibly representing a second abscess. Peritoneum: There are extraluminal gas bubbles adjacent to the bowel anastomosis as described above. There is trace free pelvic fluid Vasculature: The abdominal aorta is normal in course and caliber. Adenopathy: None. Pelvic viscera: The bladder, and pelvic viscera are unremarkable. Skeletal structures: No destructive osseous lesions are seen. There are postsurgical changes of spinal rodding. IMPRESSION: 1. Interval right hemicolectomy with ileocolonic anastomosis 2. Extraluminal gas within the mesentery adjacent to the anastomosis with a focal 27 mm fluid collections suspicious for an abscess. The findings are worrisome for an anastomotic breakdown. 3. Diffuse colonic wall thickening consistent with a pancolitis.
[2020-06-22] MEDS ORDERED: RASPBERRY SYRUP 5 ML UDP PO SCH (12:00)
[2020-06-22] MEDS: COLESTIPOL HCL 1 GM TAB PO SCH ×2 (12:01→20:44)
--- NOTE | 2020-06-22 19:53 | Billing Data ---
Date of Service June 22, 2020 Coding Level of Care Code 26656 Initial Inpt Care Lvl 3
--- NOTE | 2020-06-22 20:08 | Hospitalist Progress Note ---
Date of Service June 22, 2020 Assessment & Plan (1) Syncope: likely 2nd to volume depletion in setting of severe diarrhea cont tele no evidence of PE (2) S/P right hemicolectomy: 06/12/20 - s/p 5 feet of small bowel resected; ileum, cecum, and portion of colon also removed CT abd/pelvis reviewed CT results discussed with Dr Cervantes from gen surg there is a small fluid collection at the anastomotic site but leak is not suspected abscess also not suspected Dr Cervantes to follow if any worsening - repeat CT (3) Elevated d-dimer: noted no PE on CTA (4) C. difficile diarrhea: although toxin is negative the c diff gene is +, he has radiographic evidence of pancolitis, and he is having SEVERE diarrhea thus, will Rx with vanco 125mg QID x 10 days start colestipol 1gm BID bmp am (5) Abnormal head CT: ?concern of small SDH on admission CT repeat CT - NO SDH seen; calcification noted along frontal region no Rx or f/u imaging needed no neuro symptoms no headache etc (6) DVT prophylaxis: ok to resume heparin 5000 TID Admission and Anticipated Discharge Date Admission Date: June 22, 2020 Subjective tele normal since admission he continues with severe diarrhea - numerous in quantity (10-12 episodes/24 hours) along with fecal urgency no rectal bleeding mild stomach upset and mild abdominal discomfort no fever Review of Systems Constitutional: no fever and no chills Respiratory: no dyspnea Cardiovascular: no chest pain Physical Exam Constitutional: + altered mental status; no acute distress ENMT: external ear and nose normal, oropharynx normal Respiratory: normal respiratory effort, lungs clear to auscultation Cardiovascular: Rate/Rhythm: regular rate and regular rhythm Heart Sounds: normal S1 and normal S2; no murmur Vessels: posterior tibial pulses present and dorsalis pedis pulses present; no JVD Extremities: no edema Gastrointestinal (Abdomen): Inspection/Auscultation: normal bowel sounds; abdomen not distended Percussion/Palpation: + abdomen tender (central) and abdomen soft; no guarding and no hepatosplenomegaly Skin: midline abd incision w/ khoi - clean/dry/intact Psychiatric: Orientation: alert and oriented x 3 Results & Data Results & Data ([facility]) Vital Signs (Past 12 Hours) Vital Signs Temp Pulse Pulse Pulse Resp BP Pulse Ox 06/22/20 16:00 37.1 C 93 H 18 135/76 98 06/22/20 15:04 83 06/22/20 11:43 36.6 C 81 16 142/82 H 97 06/22/20 09:42 90 labs from admission reviewed c diff gene + c diff toxin -- PG Care Time/CCT Total # of Minutes Spent Total Time Spent with Patient: Total time spent is greater than 50% in coordination of care (as documented) at patient's floor/unit and/or counseling patient: Coding Level of Care Code None Diagnoses Syncope R55 S/P right hemicolectomy Z90.49 Elevated d-dimer R79.89 C. difficile diarrhea A04.[address] R93.0 DVT prophylaxis Z29.9
[2020-06-22] MEDS: HEPARIN SOD 5,000 UNIT/0.5 ML VIAL SQ SCH (21:48)
[2020-06-23] MEDS: VANCOMYCIN HCL 125 MG/2.5ML SOLN PO SCH ×4 (00:45→16:41)
[2020-06-23] MEDS: RASPBERRY SYRUP 5 ML UDP PO SCH ×4 (00:45→16:41)
[2020-06-23] MEDS: CEFEPIME 2,000 MG in SYRINGE 0 ML IV SCH ×3 (00:47→15:34)
[2020-06-23] MEDS: SODIUM CHLORIDE 0.9% 1000ML 1,000 ML IV SCH ×3 (03:41→23:02)
[2020-06-23] MEDS: HEPARIN SOD 5,000 UNIT/0.5 ML VIAL SQ SCH ×3 (06:00→21:49)
[2020-06-23 06:20] LABS: Hematocrit (blood only) 35.5 % (42-52); Hemoglobin 12.1 g/dL (14.0-18.0); Mean Corpuscular Hemoglobin 32.2 pg (25-34); Mean Corpuscular Hgb Conc 34.1 g/dL (32-36); Mean Corpuscular Volume 94.4 fL (80-100); Mean Platelet Volume 8.7 fL (7.4-10.4); Platelet Count 752 K/uL (130-400); RDW Standard Deviation 45.1 fL (36.4-46.3); Red Blood Count 3.76 M/uL (4.7-6.1); White Blood Count 11.21 K/uL (4.8-10.8)
[2020-06-23 06:40] LABS: Basophils # (auto) 0.03 K/uL (0-0.2); Basophils % (auto) 0.3 %; Eosinophils # (auto) 0.08 K/uL (0-0.5); Eosinophils % (auto) 0.7 %; Immature Granulocytes # (auto) 0.57 K/uL (0.00-0.02); Immature Granulocytes % (auto) 5.1 %; Lymphocytes # (auto) 2.29 K/uL (1.2-3.4); Lymphocytes % (auto) 20.4 %; Neutrophils # (auto) 7.34 K/uL (1.4-6.5); Neutrophils % (auto) 65.5 %
[2020-06-23 06:49] LABS: Albumin Globulin Ratio 0.4 (0.9-2); BUN Creatinine Ratio 16.8 (10-20); Bilirubin,Total 0.4 mg/dl (0.2-1); Calcium 8.3 mg/dl (8.5-10.1); Creatinine Clr Calc Pharmacy 138.1 ml/min; Est GFR (African American) 132.3; Est GFR (Non-African American) 114.2; Globulin 4.6 gm/dl (2.5-4.0); Magnesium 1.7 mg/dl (1.8-2.4); Phosphorus 2.1 mg/dl (2.5-4.9); Potassium 3.6 mmol/L (3.5-5.1); Total Protein 6.6 gm/dl (6.4-8.2)
[2020-06-23] MEDS: MAGNESIUM SULFATE / D5W 1 GM/100 ML BAG IV SCH ×2 (08:35→10:36)
[2020-06-23] MEDS: POT PHOSPHATE MONOBASIC W/ SOD TAB PO SCH ×4 (08:40→21:47)
[2020-06-23] MEDS: PANTOprazole 40 MG TAB PO SCH ×2 (08:41→21:48)
[2020-06-23] MEDS: busPIRone 5 MG TAB PO PRN ×2 (08:41→21:48)
[2020-06-23] MEDS: ADVANCED PROBIOTIC 1250 MG CAPSULE PO SCH (08:41)
[2020-06-23] MEDS: POTASSIUM CHLORIDE CRTAB 20 MEQ TABCR PO SCH ×2 (08:42→21:49)
[2020-06-23] MEDS: lisinopril 20 MG TAB PO SCH (08:43)
[2020-06-23] MEDS: HYDROCODONE/ACETAMOPHEN 5/325MG TAB PO PRN ×3 (08:49→23:02)
[2020-06-23] MEDS: COLESTIPOL HCL 1 GM TAB PO SCH ×2 (11:13→19:57)
--- NOTE | 2020-06-23 11:15 | Surgery Progress Note ---
Date of Service June 23, 2020 Assessment & Plan (1) Gastrointestinal anastomotic leak: Doubt active leak at this time Would continue IV antibiotics Being treated for C. difficile Think that he would be able to have full liquids today No evidence of peritonitis or need for surgical intervention. Admission and Anticipated Discharge Date Admission Date: June 22, 2020 Subjective Very little abdominal pain today Continues to have multiple bowel movements and has had 3 this morning. His bowel movements are all liquid C. difficile antigen was positive but toxin was negative but is being treated for C. difficile Denies nausea and vomiting Would like solid food to eat and is hungry Physical Exam Gastrointestinal (Abdomen): Inspection/Auscultation: normal bowel sounds; abdomen not distended Percussion/Palpation: + abdomen tender (Minimal) and abdomen soft Results & Data ([facility]) Vital Signs (Past 12 Hours) Vital Signs Temp Pulse Pulse Resp BP Pulse Ox 06/23/20 07:13 91 H 06/23/20 06:48 36.9 C 88 16 145/89 H 97 06/23/20 03:05 36.9 C 85 16 144/95 H 97 Laboratory Results 06/23/20 06/23/20 Range/Units 05:46 05:46 WBC 11.21 H (4.8-10.8) K/uL RBC 3.76 L (4.7-6.1) M/uL Hgb 12.1 L (14.0-18.0) g/dL Hct 35.5 L (42-52) % MCV 94.4 (80-100) fL MCH 32.2 (25-34) pg MCHC 34.1 (32-36) g/dL RDW Std Deviation 45.1 (36.4-46.3) fL RDW Coeff of Yoselin 13.0 (11.5-14.5) % Plt Count 752 H (130-400) K/uL MPV 8.7 (7.4-10.4) fL Immature Gran % (Auto) 5.1 % Neut % (Auto) 65.5 % Lymph % (Auto) 20.4 % [place] % (Auto) 8.0 % Eos % (Auto) 0.7 % Baso % (Auto) 0.3 % Neut # (Auto) 7.34 H (1.4-6.5) K/uL Lymph # (Auto) 2.29 (1.2-3.4) K/uL [place] # (Auto) 0.90 H (0.11-0.59) K/uL Eos # (Auto) 0.08 (0-0.5) K/uL Baso # (Auto) 0.03 (0-0.2) K/uL Immature Gran # (Auto) 0.57 H (0.00-0.02) K/uL Sodium 139 (136-145) mmol/L Potassium 3.6 (3.5-5.1) mmol/L Chloride 109 H (98-107) mmol/L Carbon Dioxide 27 (21-32) mmol/L Anion Gap 3.0 (3-11) BUN 11 D (7-18) mg/dl Creatinine 0.64 D (0.6-1.4) mg/dl Est Cr Clr Drug Dosing 138.1 ml/min Est GFR ( Amer) 132.3 Est GFR (Non-Af Amer) 114.2 BUN/Creatinine Ratio 16.8 (10-20) Glucose 98 (70-99) mg/dl Calcium 8.3 L (8.5-10.1) mg/dl Phosphorus 2.1 L (2.5-4.9) mg/dl Magnesium 1.7 L (1.8-2.4) mg/dl Total Bilirubin 0.4 (0.2-1) mg/dl AST 13 L (15-37) U/L ALT 24 (12-78) U/L Alkaline Phosphatase 75 (45-117) U/L Total Protein 6.6 (6.4-8.2) gm/dl Albumin 2.0 L (3.4-5.0) gm/dl Globulin 4.6 H (2.5-4.0) gm/dl Albumin/Globulin Ratio 0.4 L (0.9-2)
[2020-06-23] MEDS ORDERED: ALPRAZolam 0.25 MG TABLET PO STA (16:12)
[2020-06-23] MEDS ORDERED: CITALOPRAM 40 MG TAB PO SCH (21:00)
--- NOTE | 2020-06-23 21:58 | Hospitalist Progress Note ---
Date of Service June 23, 2020 Assessment & Plan (1) Colitis: pancolitis on admission CT. copious, frequent, liquid stools at admission (10-12+ per day). although c. diff toxin was negative his gene was positive. clinical picture most c/w c. diff colitis. continue vancomycin orally for c.diff. treat 10 days -- 125mg qid. will need to check cost of drug on Wednesday before discharge. overall his symptoms are improving, and leukocytosis is just about resolved. (2) C. difficile diarrhea: although toxin is negative the c diff gene is +, he has radiographic evidence of pancolitis, and he is having SEVERE diarrhea thus, will Rx with vanco 125mg QID x 10 days cont colestipol 1gm BID bmp am overall he is improved today advance diet to full liquids today, then likely low fiber on Wednesday (3) Syncope: likely 2nd to volume depletion in setting of severe diarrhea cont tele no evidence of PE dehydration improved (4) S/P right hemicolectomy: 06/12/20 - s/p 5 feet of small bowel resected; ileum, cecum, and portion of colon also removed etiology - ischemia. cause of ischemia, however, uncertain. CT abd/pelvis reviewed CT results discussed with Dr Cervantes from gen surg there is a small fluid collection at the anastomotic site but leak is not suspected abscess also not suspected Dr Cervantes following - he is pleased w/ Samra's progress if any worsening - repeat CT (5) Elevated d-dimer: noted no PE on CTA at admission COVID negative (6) Abnormal head CT: ?concern of small SDH on admission CT repeat CT - NO SDH seen; calcification noted along frontal region no Rx or f/u imaging needed no neuro symptoms no headache etc (7) Anxiety: resume celexa 40mg HS buspar 10mg tid prn xanax 0.25mg po x 1 now anxiety is severe (8) HTN (hypertension): cont lisinopril (9) Hypokalemia: replaced and improved remains on supplementation repeat BMP am (10) DVT prophylaxis: heparin 5000 TID lower fluid rate to 75cc/hr updated by phone again today possible d/c on Wednesday if stable from surgery standpoint and c diff is improved Admission and Anticipated Discharge Date Admission Date: June 22, 2020 Subjective patient admits to significant anxiety he says "I gotta get out of here, I have a job and can't miss work - I can do what I am doing here at home" he misses his family and recounts how the lack of visitors - especially his - is making him depressed he has minimal abd pain today stools are less in number, and stool is trying to form a bit no blood per rectum tolerating full liquids no vomiting tele wnl overnight Review of Systems Constitutional: no fever, no chills and no fatigue Respiratory: no dyspnea Cardiovascular: no chest pain Gastrointestinal: no nausea and no vomiting Physical Exam Constitutional: no acute distress and no altered mental status ENMT: external ear and nose normal, oropharynx normal Respiratory: normal respiratory effort, lungs clear to auscultation Cardiovascular: Rate/Rhythm: regular rate and regular rhythm Heart Sounds: normal S1 and normal S2; no murmur Vessels: posterior tibial pulses present and dorsalis pedis pulses present; no JVD Extremities: no edema Gastrointestinal (Abdomen): Inspection/Auscultation: normal bowel sounds; abdomen not distended Percussion/Palpation: abdomen soft and + tympanic to percussion; abdomen nontender, no guarding and no hepatosplenomegaly Skin: midline incision - abdomen - khoi intact; clean/dry; no drainage Psychiatric: Orientation: alert and oriented x 3 Results & Data Results & Data ([facility]) Vital Signs (Past 12 Hours) Vital Signs Temp Pulse Resp BP Pulse Ox 06/23/20 14:57 36.8 C 82 16 161/86 H 97 06/23/20 11:50 36.6 C 80 16 147/85 H 96 Laboratory Results Laboratory Results - last 24 hr 06/23/20 06/23/20 05:46 05:46 WBC 11.21 H RBC 3.76 L Hgb 12.1 L Hct 35.5 L MCV 94.4 MCH 32.2 MCHC 34.1 RDW Std Deviation 45.1 RDW Coeff of Yoselin 13.0 Plt Count 752 H MPV 8.7 Immature Gran % (Auto) 5.1 Neut % (Auto) 65.5 Lymph % (Auto) 20.4 [place] % (Auto) 8.0 Eos % (Auto) 0.7 Baso % (Auto) 0.3 Neut # (Auto) 7.34 H Lymph # (Auto) 2.29 [place] # (Auto) 0.90 H Eos # (Auto) 0.08 Baso # (Auto) 0.03 Immature Gran # (Auto) 0.57 H Sodium 139 Potassium 3.6 Chloride 109 H Carbon Dioxide 27 Anion Gap 3.0 BUN 11 D Creatinine 0.64 D Est Cr Clr Drug Dosing 138.1 Est GFR ( Amer) 132.3 Est GFR (Non-Af Amer) 114.2 BUN/Creatinine Ratio 16.8 Glucose 98 Calcium 8.3 L Phosphorus 2.1 L Magnesium 1.7 L Total Bilirubin 0.4 AST 13 L ALT 24 Alkaline Phosphatase 75 Total Protein 6.6 Albumin 2.0 L Globulin 4.6 H Albumin/Globulin Ratio 0.4 L PG Care Time/CCT Total # of Minutes Spent Total Time Spent with Patient: Total time spent is greater than 50% in coordination of care (as documented) at patient's floor/unit and/or counseling patient: Coding Level of Care Code 20478 Subseq Hosp Care Lvl 2 Diagnoses Colitis K52.9 C. difficile diarrhea A04.72 Syncope R55 S/P right hemicolectomy Z90.49 Elevated d-dimer R79.[address] R93.0 Anxiety F41.9 HTN (hypertension) I10 Hypokalemia E87.6 DVT prophylaxis Z29.9
[2020-06-24] MEDS: CEFEPIME 2,000 MG in SYRINGE 0 ML IV SCH ×2 (00:03→09:43)
[2020-06-24] MEDS: VANCOMYCIN HCL 125 MG/2.5ML SOLN PO SCH ×3 (00:03→11:27)
[2020-06-24] MEDS: RASPBERRY SYRUP 5 ML UDP PO SCH ×3 (00:03→11:27)
[2020-06-24 01:52] LABS: Codeine Urine NEGATIVE ng/mL (<50); Hydrocodone Urine 2380 ng/mL (<50); Hydromor Urine 187 ng/mL (<50); Marijuana Quant, GCMS Urine 1290 ng/mL (<5); Morphine Urine NEGATIVE ng/mL (<50); Norhydrocodone Conf Ur 3860 ng/mL (<50); Noroxycodone Urine NEGATIVE ng/mL (<50); Oxycodone Urine NEGATIVE ng/mL (<50); Oxymorph Urine NEGATIVE ng/mL (<50)
[2020-06-24] MEDS: HEPARIN SOD 5,000 UNIT/0.5 ML VIAL SQ SCH ×2 (05:59→15:04)
[2020-06-24 06:36] LABS: Basophils # (auto) 0.02 K/uL (0-0.2); Basophils % (auto) 0.2 %; Eosinophils # (auto) 0.07 K/uL (0-0.5); Eosinophils % (auto) 0.7 %; Hematocrit (blood only) 32.7 % (42-52); Hemoglobin 11.2 g/dL (14.0-18.0); Immature Granulocytes # (auto) 0.35 K/uL (0.00-0.02); Immature Granulocytes % (auto) 3.3 %; Lymphocytes # (auto) 2.11 K/uL (1.2-3.4); Lymphocytes % (auto) 19.9 %; Mean Corpuscular Hemoglobin 31.7 pg (25-34); Mean Corpuscular Hgb Conc 34.3 g/dL (32-36); Mean Corpuscular Volume 92.6 fL (80-100); Mean Platelet Volume 8.2 fL (7.4-10.4); Monocytes # (auto) 0.94 K/uL (0.11-0.59); Monocytes % (auto) 8.9 %; Neutrophils # (auto) 7.13 K/uL (1.4-6.5); Platelet Count 654 K/uL (130-400); RDW Coefficient of Variation 12.6 % (11.5-14.5); RDW Standard Deviation 42.9 fL (36.4-46.3); Red Blood Count 3.53 M/uL (4.7-6.1); White Blood Count 10.62 K/uL (4.8-10.8)
[2020-06-24 07:05] LABS: BUN Creatinine Ratio 9.8 (10-20); Calcium 8.4 mg/dl (8.5-10.1); Creatinine Clr Calc Pharmacy 133.9 ml/min; Est GFR (African American) 130.7; Est GFR (Non-African American) 112.7; Potassium 3.3 mmol/L (3.5-5.1)
[2020-06-24] MEDS: lisinopril 20 MG TAB PO SCH (09:43)
[2020-06-24] MEDS: PANTOprazole 40 MG TAB PO SCH (09:44)
[2020-06-24] MEDS: POTASSIUM CHLORIDE CRTAB 20 MEQ TABCR PO SCH ×2 (09:44→15:04)
[2020-06-24] MEDS: ADVANCED PROBIOTIC 1250 MG CAPSULE PO SCH (09:44)
[2020-06-24] MEDS: SODIUM CHLORIDE 0.9% 1000ML 1,000 ML IV SCH (09:45)
[2020-06-24] MEDS: busPIRone 5 MG TAB PO PRN (09:45)
[2020-06-24] MEDS: HYDROCODONE/ACETAMOPHEN 5/325MG TAB PO PRN (09:45)
--- NOTE | 2020-06-24 11:14 | Surgery Progress Note ---
Date of Service June 24, 2020 Assessment & Plan (1) C. difficile diarrhea: POD 12 right colectomy improved on abx skin khoi removed he is anxious to go home and ok for d/c from our standpoint can reschedule surgery appt for 2 weeks Admission and Anticipated Discharge Date Admission Date: June 22, 2020 Subjective less frequent BMs and forming, tolerating low fiber diet Physical Exam Gastrointestinal (Abdomen): Inspection/Auscultation: + abdominal surgical i ncision (healing well); abdomen not distended Percussion/Palpation: abdomen soft; abdomen nontender Results & Data ([facility]) Vital Signs (Past 12 Hours) Vital Signs Temp Pulse Resp BP Pulse Ox 06/24/20 07:53 37.2 C 93 H 18 157/97 H 98 PG Care Time/CCT Total # of Minutes Spent Total Time Spent with Patient: Total time spent is greater than 50% in coordination of care (as documented) at patient's floor/unit and/or counseling patient: Coding Level of Care Code None Diagnoses C. difficile diarrhea A04.72
[2020-06-24] MEDS: COLESTIPOL HCL 1 GM TAB PO SCH (11:28)
--- NOTE | 2020-06-24 19:16 | Discharge Summary ---
Date of Service June 24, 2020 Admission HPI Per Admitting Provider Junior Cabrales is a 49y/o M with PMH significant for right hemicolectomy (06/12/2020), hypertension, GERD; who presented to the ER for concerns of syncopal event while at home overnight. Patient was going to the bathroom last night when he suddenly collapsed. Partner was quickly there and she noticed he was almost immediately back to his normal self, did not hit his head as far she can tell, had no seizure-like activity, no incontinence, no drowsiness after fall. Patient states that he had gone to the bathroom, and then on standing up collapsed to the ground feeling lightheaded. Had no preceding symptoms prior to standing up. Since recently discharge from the hospital, patient has been doing relatively well, feels like he is tolerating eating and drinking more more each day, feeling more comfortable more more each day. However, since just prior to discharge patient has continued to have frequent loose stools almost watery in nature throughout the day. Over the last 2 nights patient has had 5-6 watery loose stools overnight, with additional 4-5 loose stools during the day; with last night being no exception, prior to collapsing that would have been patient's third or fourth bowel movement of the night. Principal Diagnosis colitis, d/c on po vancomycin and cholestyramine Discharge Exam The patient appeared well Vital signs as documented. Lungs are clear to auscultation and appear unlabored Cardiac exam, Rhythm is regular.. No murmurs, rubs or gallops. Abdominal exam reveals normal bowel sounds, soft non tender, no masses wound is well-healed clean dry and intact khoi removed Extremities are nonedematous and both pedal pulses are normal. Neurologic exam is alert and oriented, no focal loss of strength or sensation Skin is without bruises or rashes Psychologically is without concerns for anxiety or depression. Discharge Data Allergies Allergy/AdvReac Type Severity Reaction Status Date / Time Penicillins Allergy Unknown Unknown Verified 06/21/20 15:40 Consultations 06/22/20 04:01 Consult General Surgery Routine 06/22/20 04:04 ED Decision to Admit Stat Ordered Studies 06/22/20 02:17 CT abd pelvis IV con only Urgent CT angio chest PE protocol Urgent CT head/brain wo con Urgent 06/22/20 10:12 CT head/brain wo con Stat Hospital Course (1) Colitis: pancolitis on admission CT. copious, frequent, liquid stools at admission (10-12+ per day). Patient fairly closely also had diarrhea post cholecystectomy although c. diff toxin was negative his gene was positive. clinical picture most c/w c. diff colitis. continue vancomycin orally for c.diff. -- 125mg qid. We will also begin cholestyramine to help with diarrhea overall his symptoms are improving, and leukocytosis is just about resolved. (2) C. difficile diarrhea: although toxin is negative the c diff gene is +, he has radiographic evidence of pancolitis, and he is having SEVERE diarrhea thus, will Rx with vanco 125mg QID cont colestipol 1gm BID Able to tolerate regular diet before discharge was updated prior to discharge (3) Syncope: likely 2nd to volume depletion in setting of severe diarrhea No arrhythmia no evidence of PE dehydration from volume loss from diarrhea (4) S/P right hemicolectomy: 06/12/20 - s/p 5 feet of small bowel resected; ileum, cecum, and portion of colon also removed etiology - ischemia. cause of ischemia, however, uncertain. CT abd/pelvis reviewed CT results discussed with Dr Cervantes from gen surg there is a small fluid collection at the anastomotic site but leak is not suspected abscess also not suspected Dr Cervantes following - he is pleased w/ Mr Samra's progress if any worsening - repeat CT (5) Elevated d-dimer: noted no PE on CTA at admission COVID negative (6) Abnormal head CT: ?concern of small SDH on admission CT repeat CT - NO SDH seen; calcification noted along frontal region no Rx or f/u imaging needed no neuro symptoms no headache etc (7) Anxiety: resume celexa 40mg HS buspar 10mg tid prn anxiety is severe (8) HTN (hypertension): cont lisinopril (9) Hypokalemia: replaced and improved remains on supplementation Total Time Total Time Spent Total Time Spent (In Minutes): It required greater than 30 minutes to prepare this patient for discharge Discharge Plan Discharge Items Patient Disposition: Home - Self-Care Reason For Visit: SYNCOPAL EVENT, ANASTOMATIC LEAK Discharge Diagnosis: diarrhea, low potassium and low magnesium recent bowel surgery with staple removal Activity: As commented below Lifting: No more than 10 pounds Bathing: No limitations Non-emergency contact: Primary Care Provider Call non-emergency contact if: you have any medication questions and your symptoms worsen Follow-up/Referrals: Emely Torres DO [Primary Care Provider] - 06/28/20 9:00 am (Follow up in 1 week with Riri Mcmillan, physician maximissrenny.) Calin Felton, [Surgeon] - (You can cancel Wednesday appt and reschedule in two weeks) Diet: Regular Diet Comment: please eat easy to digest foods and advance your diet over the next few day Addtl Attending Provider Instructions: Please eat easy to digest foods at first, like breads pretzels and pasta without too much sauce avoid excessive soda or soft drinks, be sure to have a good amount of water daily take a probiotic or eat yogurt/cottage cheese 3-5 times a week finish all of your antibiotics no lifting more than 10 pounds until you see surgery in follow up for wound re check to avoid hernia formation Pending Studies at Discharge: Yes Stand-Alone Forms: My [facility], Smoking Cessation Medications and DC Order Prescriptions: New vancomycin 125 mg capsule 125 mg PO Q6H 10 Days Qty: 40 RF: 0 citalopram 40 mg Tablet 40 mg PO HS Qty: 30 RF: 3 colestipol [Colestid] 1 gram Tablet 1 g PO BID@1100,2000 Qty: 60 RF: 5 Continued ascorbic acid (vitamin C) PO BID RF: 0 lactobacillus combination no.8 PO BID RF: 0 hydrocodone-acetaminophen 5-325 mg tablet 1 tab PO Q6H PRN (Reason: pain (scale score 7-10)) Qty: 18 RF: 0 esomeprazole magnesium [Nexium] 40 mg capsule,delayed release(DR/EC) 40 mg PO BID RF: 0 multivitamin Tablet 1 tab PO DAILY RF: 0 buspirone 5 mg tablet 10 mg PO QAM RF: 0 lisinopril 20 mg tablet 20 mg PO DAILY Qty: 30 RF: 2 Discharge Orders: Discharge Order (Routine); Ordered 06/24/20 Ordered By: Edwar Brito Admission Data Admit Date/Time: 06/22/20 05:15 Attending Provider: Edwar Brito Admit Provider: Corona,Rolando Primary Care Provider: Emely Torres Other Providers: Mode Cervantes ; Saul Jean Baptiste Other Interventions: Discharge Summary Assessment (RN) Last Done: 06/24/20 15:10 Coding Level of Care Code D/C Day Management >30 mins Diagnoses Colitis K52.9 C. difficile diarrhea A04.72 Syncope R55 S/P right hemicolectomy Z90.49 Elevated d-dimer R79.[address] R93.0 Anxiety F41.9 HTN (hypertension) I10 Hypokalemia E87.6
== END 2020-06-24 16:04 | disposition home or self-care (01) ==
LOC: ED 00:37 → SUATTDRO 05:15 → INTOOBSV 05:15 → 2W 05:15

== ENCOUNTER 2020-07-18 21:58 | Inpatient (IN) ==
[2020-07-18] MEDS ORDERED: SODIUM CHLORIDE 0.9% 1000ML 1,000 ML IV ONE (22:17)
[2020-07-18] MEDS ORDERED: MoRPHine SULFATE 10 MG/ML CARP/VIAL IV STA (22:17)
[2020-07-18] MEDS ORDERED: ONDANSETRON INJ 2 MG/ML 2 ML VIAL IV STA (22:17)
[2020-07-18 22:53] LABS: Basophils # (auto) 0.02 K/uL (0-0.2); Basophils % (auto) 0.1 %; Eosinophils # (auto) 0.01 K/uL (0-0.5); Eosinophils % (auto) 0.1 %; Hematocrit (blood only) 44.1 % (42-52); Hemoglobin 15.8 g/dL (14.0-18.0); Immature Granulocytes # (auto) 0.05 K/uL (0.00-0.02); Immature Granulocytes % (auto) 0.3 %; Lymphocytes # (auto) 2.64 K/uL (1.2-3.4); Lymphocytes % (auto) 16.1 %; Mean Corpuscular Hemoglobin 32.2 pg (25-34); Mean Corpuscular Hgb Conc 35.8 g/dL (32-36); Mean Corpuscular Volume 89.8 fL (80-100); Mean Platelet Volume 8.4 fL (7.4-10.4); Monocytes # (auto) 1.13 K/uL (0.11-0.59); Monocytes % (auto) 6.9 %; Neutrophils # (auto) 12.53 K/uL (1.4-6.5); Neutrophils % (auto) 76.5 %; Platelet Count 578 K/uL (130-400); RDW Coefficient of Variation 13.7 % (11.5-14.5); RDW Standard Deviation 45.3 fL (36.4-46.3); Red Blood Count 4.91 M/uL (4.7-6.1); White Blood Count 16.38 K/uL (4.8-10.8)
[2020-07-18 23:08] LABS: Albumin Level 3.3 gm/dl (3.4-5.0); BUN Creatinine Ratio 18.2 (10-20); Calcium 10.6 mg/dl (8.5-10.1); Creatinine Clr Calc Pharmacy 110.5 ml/min; Est GFR (African American) 120.7; Est GFR (Non-African American) 104.2; Potassium 3.3 mmol/L (3.5-5.1)
[2020-07-18 23:11] LABS: Albumin Globulin Ratio 0.6 (0.9-2); Bilirubin,Total 0.5 mg/dl (0.2-1); Globulin 5.2 gm/dl (2.5-4.0); Total Protein 8.5 gm/dl (6.4-8.2)
[2020-07-18] MEDS ORDERED: OPTIRAY 300 100mL IV ONE (23:47)
[2020-07-19] MEDS ORDERED: LIDOCAINE 4% INH SOLN 4 ML BTL NAE ONE (01:00)
[2020-07-19 01:15] LABS: Influenza A virus by PCR Negative (Neg); Influenza B virus by PCR Negative (Neg); RSV by PCR Negative (Neg); SARS CoV2 RNA(COVID-19) InHosp NEGATIVE (Negative)
[2020-07-19] MEDS ORDERED: RASPBERRY SYRUP 5 ML UDP PO SCH (02:48)
[2020-07-19] MEDS ORDERED: HYOSCYAMINE SULFATE 0.125 MG TAB SL PRN (02:48)
[2020-07-19] MEDS: NSS + 20MEQ KCL 20 MEQ/1,000 ML BAG IV SCH ×3 (03:14→19:01)
[2020-07-19] MEDS: VANCOMYCIN HCL 250 MG/5 ML SOLN PO SCH ×4 (03:15→17:56)
[2020-07-19] MEDS ORDERED: NICOTINE POLACRILEX 2 MG GUM MT PRN (05:29)
--- NOTE | 2020-07-19 05:32 | History & Physical Report ---
Date of Service July 19, 2020 Assessment & Plan (1) C. difficile diarrhea: Last admission was for presumptive C. difficile colitis, as patient was gene positive but toxin negative at that time. Repeat C. difficile studies pending Placed on vancomycin to 50 mg p.o. 4 times daily. Start Levsin sublingual 0.125 mg every 4 hours as needed abdominal cramping Continue Colestid 1 g p.o. twice daily Present on Admission?: Yes (2) Colitis: Colitis/enterocolitis- Primary differential this point including: Recurrent C. difficile colitis, inflammatory bowel disease, bacterial overgrowth Consult gastroenterology Present on Admission?: Yes (3) Enterocolitis: See above Present on Admission?: Yes (4) Anxiety: Continue buspirone and citalopram if able to take p.o. Present on Admission?: Yes (5) S/P right hemicolectomy: Status post surgery May 2020 Present on Admission?: Yes (6) Tobacco use disorder: Nicotine patch available if desired Present on Admission?: Yes (7) HTN (hypertension): Hold lisinopril due to relative low blood pressure Present on Admission?: Yes (8) Hypokalemia: Potassium 3.3 upon admission. Placed on NSS + KCl 20 mEq at 125 mils per hour. Repeat laboratories in a.m. Present on Admission?: Yes Admission and Anticipated Discharge Date Admission Date: July 19, 2020 History of Present Illness Chief Complaint: The patient presents to the emergency department with 24 hours of severe abdominal cramping and intermittent loose stools Primary Care Provider: Emely Torres DO The patient is a 50-year-old male with past medical history including tobacco use disorder, pulmonary nodules, hypokalemia, hypertension, anxiety, CHF diarrhea, status post right hemicolectomy, hypertriglyceridemia, prediabetes, lumbar degenerative disc disease and spinal stenosis. He was most recently admitted to [facility] from 06/22-06/24/2020 and was treated conservatively. He denies any dietary indiscretions. He has not had a recent travels or sick exposures. Work-up in the emergency department included a CT scan of abdomen pelvis suggestive of diffuse colitis enterocolitis, with inability to rule out inflammatory bowel disease. Laboratories in the ED: WBC 16.38 with left shift, platelets 05/24/1977, potassium 3.3, glucose 124, albumin 3.3. C. difficile studies were ordered but not collected Allergies Allergy/AdvReac Type Severity Reaction Status Date / Time Penicillins Allergy Unknown Unknown Verified 07/19/20 01:16 Home Medications Medication Instructions Recorded Confirmed Type esomeprazole magnesium 40 mg 80 mg PO DAILY cap 12/08/19 07/19/20 History capsule,delayed release multivitamin 1 tab PO DAILY 12/08/19 07/19/20 History buspirone 5 mg tablet 10 mg PO QAM tab 01/10/20 07/19/20 History lisinopril 20 mg PO DAILY #30 tab 06/18/20 07/19/20 Rx citalopram 40 mg PO HS #30 tab 06/24/20 07/19/20 Rx colestipol [Colestid] 1 g PO BID@1100,2000 #60 tab 06/24/20 07/19/20 Rx nicotine (polacrilex) 2 mg gum 2 mg BUCCAL Q2H PRN #120 ea 06/28/20 07/19/20 Rx ascorbic acid (vitamin C) [Vitamin 1,000 mg PO DAILY 07/19/20 07/19/20 History C] lactobacillus combination no.8 3,000 mmu cells PO BID 07/19/20 07/19/20 History Past Med/Surg History Medical History Acute dehydration Acute intestinal ischemia Acute renal failure Peritonitis Severe sepsis Syncope Syncope and collapse Surgical History H/O hand surgery History of surgical removal of intestinal structure Previous back surgery S/P cholecystectomy S/P eye surgery S/P foot surgery S/P right hemicolectomy Family History Father Heart disease Denies family history of Ovarian cancer Prostate cancer Breast cancer Colorectal cancer Social History Smoking Status: Current some day smoker Tobacco Type: Cigarettes Second Hand Exposure: No; Do You Dip or Chew Tobacco: No; Tobacco Cessation Education Requested by Patient: No Hx Alcohol Use: No Hx Substance Use: Yes Prescribed Medications: Marijuana Last Used Substance: Days (ago) Substance Use Type Other:: medicinal marijuana Preferred Language: Uzbek Communication Ability: Effective Visual Impairment: No Limitations Hearing Ability: Normal Rn Ambulatory Required: No Beliefs That Will Affect Care: None marital status: Current Living Situation: Spouse current occupational status: employed 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 Other Information That Helps Us Care for You: No Feels Safe at Home: Yes Safety Concerns: Feels Safe At This Time caffeine: Yes Dental Care, Regularly: No Physical Activity Frequency: Does not Exercise Seatbelt Use: always Sunscreen Use: No Assistive Devices: Glasses Review of Systems Review of Systems: The patient denies chest pain, palpitations, shortness of breath, dyspnea on exertion, cough, lower extremity swelling, sore throat, fevers, chills, sweats, vomiting, blood in urine or stool, dysuria, urinary frequency or urgency, lightheadedness, dizziness, headache, memory loss, loss of consciousness, rash, abnormal bruising or bleeding, imbalance, focal or generalized weakness, numbness or tingling in arms or legs, generalized arthralgias or myalgias, back or neck pain, or night sweats. The review of systems is otherwise negative other than for that already noted above, and at least 10 systems have been reviewed. Physical Exam Physical Exam: The patient is awake, alert and oriented 3, well developed and well nourished, normocephalic and atraumatic, lying in bed and in no acute distress. HEENT--PERRL, EOMI, mucous membranes and oropharynx dry. Neck--supple. No JVD. No bruits. Thyroid normal, trachea midline, no adenopathy. Heart--normal S1 and S2. No murmurs, rubs or gallops. Lungs--clear bilaterally, no respiratory distress, no accessory muscle use. Abdomen--normal bowel sounds and soft. Nontender. Nondistended. Mildly tympanitic Extremities--no cyanosis or clubbing. No edema. Dermatologic--normal skin turgor, normal color, no abnormal lymph nodes, no rash. Neurologic--cranial nerves II through XII grossly intact. Rheumatologic--normal range of motion. Psychiatric--normal affect. Results & Data Results & Data ([facility]) Vital Signs (Past 12 Hours) Vital Signs Temp Pulse Pulse Resp BP BP BP 07/19/20 02:49 98.2 F 105 H 20 121/84 07/19/20 01:00 17 136/93 07/19/20 00:30 104 H 20 126/85 07/19/20 00:28 98 H 18 124/76 07/18/20 23:55 96 H 95 H 20 140/93 140/93 07/18/20 22:00 98.1 F 121 H 16 141/92 H Pulse Ox 07/19/20 02:49 95 07/19/20 01:00 07/19/20 00:30 93 07/19/20 00:28 96 07/18/20 23:55 95 07/18/20 22:00 96 Laboratory Results Laboratory Results WBC 16.38 K/uL (4.8-10.8) H 07/18/20 22:36 RBC 4.91 M/uL (4.7-6.1) 07/18/20 22:36 Hgb 15.8 g/dL (14.0-18.0) 07/18/20 22:36 Hct 44.1 % (42-52) 07/18/20 22:36 MCV 89.8 fL (80-100) 07/18/20 22:36 MCH 32.2 pg (25-34) 07/18/20 22:36 MCHC 35.8 g/dL (32-36) 07/18/20 22:36 RDW Std Deviation 45.3 fL (36.4-46.3) 07/18/20 22:36 RDW Coeff of Yoselin 13.7 % (11.5-14.5) 07/18/20 22:36 Plt Count 578 K/uL (130-400) H 07/18/20 22:36 MPV 8.4 fL (7.4-10.4) 07/18/20 22:36 Immature Gran % (Auto) 0.3 % 07/18/20 22:36 Neut % (Auto) 76.5 % 07/18/20 22:36 Lymph % (Auto) 16.1 % 07/18/20 22:36 Luna % (Auto) 6.9 % 07/18/20 22:36 Eos % (Auto) 0.1 % 07/18/20 22:36 Baso % (Auto) 0.1 % 07/18/20 22:36 Neut # (Auto) 12.53 K/uL (1.4-6.5) H 07/18/20 22:36 Lymph # (Auto) 2.64 K/uL (1.2-3.4) 07/18/20 22:36 Luna # (Auto) 1.13 K/uL (0.11-0.59) H 07/18/20 22:36 Eos # (Auto) 0.01 K/uL (0-0.5) 07/18/20 22:36 Baso # (Auto) 0.02 K/uL (0-0.2) 07/18/20 22:36 Immature Gran # (Auto) 0.05 K/uL (0.00-0.02) H 07/18/20 22:36 Sodium 138 mmol/L (136-145) 07/18/20 22:36 Potassium 3.3 mmol/L (3.5-5.1) L 07/18/20 22:36 Chloride 105 mmol/L (98-107) 07/18/20 22:36 Carbon Dioxide 25 mmol/L (21-32) 07/18/20 22:36 Anion Gap 8.0 (3-11) 07/18/20 22:36 BUN 15 mg/dl (7-18) 07/18/20 22:36 Creatinine 0.80 mg/dl (0.6-1.4) 07/18/20 22:36 Est Cr Clr Drug Dosing 110.5 ml/min 07/18/20 22:36 Est GFR ( Amer) 120.7 07/18/20 22:36 Est GFR (Non-Af Amer) 104.2 07/18/20 22:36 BUN/Creatinine Ratio 18.2 (10-20) 07/18/20 22:36 Glucose 124 mg/dl (70-99) H 07/18/20 22:36 Lactate 1.2 mmol/L (0.4-2.0) 07/18/20 22:36 Calcium 10.6 mg/dl (8.5-10.1) H 07/18/20 22:36 Total Bilirubin 0.5 mg/dl (0.2-1) 07/18/20 22:36 AST 15 U/L (15-37) 07/18/20 22:36 ALT 21 U/L (12-78) 07/18/20 22:36 Alkaline Phosphatase 99 U/L (45-117) 07/18/20 22:36 Total Protein 8.5 gm/dl (6.4-8.2) H 07/18/20 22:36 Albumin 3.3 gm/dl (3.4-5.0) L 07/18/20 22:36 Globulin 5.2 gm/dl (2.5-4.0) H 07/18/20 22:36 Albumin/Globulin Ratio 0.6 (0.9-2) L 07/18/20 22:36 Lipase 58 U/L (73-393) L 07/18/20 22:36 COVID-19 Eval Order CovFluRsv at [facility] 07/19/20 00:29 SARS-CoV-2 (PCR) NEGATIVE (Negative) 07/19/20 00:29 Influenza Type A (PCR) Negative (Neg) 07/19/20 00:29 Influenza Type B (PCR) Negative (Neg) 07/19/20 00:29 RSV (RT-PCR) Negative (Neg) 07/19/20 00:29 Diagnostic Findings [facility] Patient: STEPHANIE PIMENTEL (Male) : 68 Status: ER Date: 07/18/20 23:49 Room #: History: DIFFUSE PAIN IN ABD, BOWEL SURGERY ABOUT ONE MONTH AGO Slices: [id number] Priors: Tech: RealZach @ [phone] Exams: CT ABDOMEN & PELVIS With Contrast Contrast: IV Amt: 84 ML OPTIRAY 300 Accession Numbers: [id number] Preliminary Findings Only See Final Report For Complete Findings CT ABDOMEN & PELVIS With Contrast: Comparison: 06/22/2020. Clear lung bases. Normal cardiac size. Status post cholecystectomy with mild central biliary distention, nonspecific in the context of long-standing cholecystectomy. Otherwise normal abdominal viscera including adrenal glands and kidneys. Distended stomach otherwise unremarkable. Distention of the colon diffusely as well as distal small bowel with fluid within the lumen. Thickening of the wall more severe through the descending colon, sigmoid and some of the left-sided small bowel loops combination of findings suggestive of colitis/enterocolitis. Cannot exclude inflammatory bowel disease. Clinical correlation with history of Crohn's disease recommended. Questionable right-sided colectomy with anastomotic sutures at the hepatic flexure. Focal area with area of thickening of the wall and narrowing of the lumen at the level of the sigmoid on image 67, series 2 may represent inflammatory process with nonspecific peristalsis versus stricture. Mild amount of free fluid in the pelvis. Extensive postoperative changes through the lumbar spine with posterior fusion. Radiologist: Claudia Robert MD Study ready at 23:58 and initial results transmitted at 00:12 *This report constitutes a preliminary interpretation only. Non-acute findings felt to be unrelated to the clinical presentation may not be discussed in this report. The study will be interpreted and a final report will be generated by the local Radiologist the following shift. To reach the hospital radiology department call [phone]. If a discrepancy is found between the preliminary and final interpretations of this study, please notify us via our Client Portal at [email or web address] under [employer].You can also fax this report with a description of the discrepancy, or include the final report, to our daytime fax number [phone].If faxing, please indicate the severity of discrepancy using one of the following categories: [ ] 1 - Agree/Informational [ ] 2 - Unlikely to Affect Management [ ] 3 - Possible Eventual Change of Management [ ] 4 - Probable Immediate Change of Management For all other patient related information, please fax us at [phone]. [id number] Code Status & VTE Plan Code Status Full code VTE Prophylaxis Plan VTE Prophylaxis will be ordered: Yes PG Care Time/CCT Total # of Minutes Spent Total Time Spent with Patient: Total time spent is greater than 50% in coordination of care (as documented) at patient's floor/unit and/or counseling patient: Coding Level of Care Code 40304 Initial Inpt Care Lvl 3 Diagnoses C. difficile diarrhea A04.72 Colitis K52.9 Enterocolitis K52.9 Anxiety F41.9 S/P right hemicolectomy Z90.49 Tobacco use disorder F17.200 HTN (hypertension) I10 Hypokalemia E87.6
[2020-07-19] MEDS: RASPBERRY SYRUP 5 ML UDP PO SCH ×3 (06:20→17:56)
[2020-07-19] MEDS ORDERED: MoRPHine SULFATE 2 MG/ML CARP IV STA (06:27)
--- NOTE | 2020-07-19 06:43 | Emergency Department Note ---
History of Present Illness General Chief complaint: Abdominal Pain Stated complaint: SOMACH PAINS Time Seen by Provider: 07/18/20 22:09 Source: patient Mode of arrival: ambulatory Limitations: no limitations History of Present Illness Maximum Pain Intensity: 6 This patient is a 50-year-old male who presents to the emergency department for evaluation of abdominal pain and vomiting. Patient states his pain started this morning when he woke up. Pain is all throughout the abdomen but primarily in the lower abdomen. He has not been able to have a bowel movement since yesterday. Prior to that, he was having diarrhea several times per day. Patient has had a few episodes of vomiting today. He is nauseous. He rates his pain a 10/10. 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 He was then diagnosed with C. difficile and finished antibiotics for this. He denies any fevers or urinary symptoms. Home Medications Medication Instructions Recorded Confirmed Type esomeprazole magnesium 40 mg 80 mg PO DAILY cap 12/08/19 07/19/20 History capsule,delayed release multivitamin 1 tab PO DAILY 12/08/19 07/19/20 History buspirone 5 mg tablet 10 mg PO QAM tab 01/10/20 07/19/20 History lisinopril 20 mg PO DAILY #30 tab 06/18/20 07/19/20 Rx citalopram 40 mg PO HS #30 tab 06/24/20 07/19/20 Rx colestipol [Colestid] 1 g PO BID@1100,2000 #60 tab 06/24/20 07/19/20 Rx nicotine (polacrilex) 2 mg gum 2 mg BUCCAL Q2H PRN #120 ea 06/28/20 07/19/20 Rx ascorbic acid (vitamin C) [Vitamin 1,000 mg PO DAILY 07/19/20 07/19/20 History C] lactobacillus combination no.8 3,000 mmu cells PO BID 07/19/20 07/19/20 History Allergies Allergy/AdvReac Type Severity Reaction Status Date / Time Penicillins Allergy Unknown Unknown Verified 07/19/20 01:16 Past Med/Surg History Medical History Acute dehydration Acute intestinal ischemia Acute renal failure Peritonitis Severe sepsis Syncope Syncope and collapse Surgical History H/O hand surgery History of surgical removal of intestinal structure 06/19/20 Previous back surgery S/P cholecystectomy S/P eye surgery S/P foot surgery S/P right hemicolectomy Family History Father Heart disease Denies family history of Ovarian cancer Prostate cancer Breast cancer Colorectal cancer Social History Smoking Status: Current some day smoker Tobacco Type: Cigarettes Second Hand Exposure: No; Do You Dip or Chew Tobacco: No; Tobacco Cessation Education Requested by Patient: No Hx Alcohol Use: No Hx Substance Use: Yes Prescribed Medications: Marijuana Last Used Substance: Days (ago) Substance Use Type Other:: medicinal marijuana Preferred Language: Cameroonian Communication Ability: Effective Visual Impairment: No Limitations Hearing Ability: Normal Instrument Man Required: No Beliefs That Will Affect Care: None marital status: Current Living Situation: Spouse current occupational status: employed 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 Other Information That Helps Us Care for You: No Feels Safe at Home: Yes Safety Concerns: Feels Safe At This Time caffeine: Yes Dental Care, Regularly: No Physical Activity Frequency: Does not Exercise Seatbelt Use: always Sunscreen Use: No Assistive Devices: Glasses Review of Systems A total of 10 systems reviewed and were otherwise negative Physical Exam Vital Signs Vital Signs - 24 hr 07/18/20 22:00 07/18/20 23:55 07/19/20 00:28 Temperature 36.7 C Temperature Source Temporal Artery Scan Pulse Rate 121 H 96 H 98 H Pulse Rate [Right] 95 H Pulse Rhythm Regular Pulse Strength Normal Respiratory Rate 16 20 18 Respiratory Effort / Characteristics Non-Labored Non-Labored Spontaneous Respiratory Depth Normal Normal Respiratory Pattern Regular Blood Pressure 141/92 H 140/93 124/76 Blood Pressure [Right Arm] 140/93 Blood Pressure Mean 108 108 92 Blood Pressure Mean [Right Arm] 108 Blood Pressure Position Sitting Blood Pressure Position [Right Arm] Lying Pulse Oximetry 96 95 96 Oxygen Delivery Method Room Air Room Air Sepsis Recent Fever Within 48 Hours No Sepsis New/Unexplained Change in Mental Status N/A Sepsis Action Taken by Nursing No Action Required 07/19/20 00:30 07/19/20 01:00 Temperature Temperature Source Pulse Rate 104 H Pulse Rate [Right] Pulse Rhythm Pulse Strength Respiratory Rate 20 17 Respiratory Effort / Characteristics Respiratory Depth Respiratory Pattern Blood Pressure 126/85 136/93 Blood Pressure [Right Arm] Blood Pressure Mean 98 107 Blood Pressure Mean [Right Arm] Blood Pressure Position Blood Pressure Position [Right Arm] Pulse Oximetry 93 Oxygen Delivery Method Sepsis Recent Fever Within 48 Hours Sepsis New/Unexplained Change in Mental Status Sepsis Action Taken by Nursing VITALS: Vitals are noted on the nurse's note and reviewed by myself. GENERAL: This is a 50-year-old male, uncomfortable appearing, in moderate distress. SKIN: The skin was without rashes. Skin is warm and dry. EARS: External auditory canals clear, tympanic membranes pearly henry without erythema or effusion bilaterally. EYES: Pupils equal round and reactive to light and accommodation. MOUTH: Mucous membranes moist. Tonsils are not enlarged. Pharynx without erythema or exudate. NECK: Supple without nuchal rigidity. HEART: Regular rate and rhythm without murmurs gallops or rubs. LUNGS: Clear to auscultation bilaterally without wheezes, rales or rhonchi. ABDOMEN: Hypoactive bowel sounds throughout. Tenderness to palpation throughout the abdomen. No guarding or rebound tenderness. NEURO: Patient was alert and oriented to person place and time. Course Administered Medications Buspirone HCl (Buspirone 5 Mg Tab) 10 mg PO QAM [facility] Stop: 08/18/20 08:59 Last Admin: 07/19/20 07:41 Dose: 10 mg Documented by: [id number] Hyoscyamine (Hyoscyamine Sulfate 0.125 Mg Tab) 0.125 mg SL Q4H PRN PRN Reason: Cramping Stop: 08/18/20 02:47 Last Admin: 07/19/20 03:15 Dose: 0.125 mg Documented by: [id number] Potassium Chloride/Sodium Chloride (Normal Saline W/20 Meq Kcl) 20 meq in 1,000 mls @ 125 mls/hr IV .Q8H [facility] Stop: 08/18/20 02:47 Last Infusion: 07/19/20 06:50 Dose: 125 mls/hr Documented by: [id number] Admin: 07/19/20 03:14 Dose: 125 mls/hr Documented by: [id number] Lactobacillus Acidoph/Casei/Rhamnos (Advanced Probiotic 1250 Mg Capsule) 2 cap PO DAILY [facility] Stop: 08/18/20 08:59 Last Admin: 07/19/20 07:41 Dose: 2 cap Documented by: [id number] Raspberry (Raspberry Syrup 5 Ml Udp) 5 ml PO Q6 [facility] Stop: 08/02/20 05:59 Last Admin: 07/19/20 06:20 Dose: 5 ml Documented by: [id number] Vancomycin HCl (Vancomycin Hcl 250 Mg/5 Ml Soln) 250 mg PO Q6 [facility] Stop: 07/29/20 02:47 Last Admin: 07/19/20 06:20 Dose: 250 mg Documented by: [id number] Admin: 07/19/20 03:15 Dose: 250 mg Documented by: [id number] Discontinued Medications Sodium Chloride (Nss 1000ml) 1,000 mls @ 999 mls/hr IV .Q1H1M ONE Stop: 07/18/20 23:17 Last Infusion: 07/19/20 00:27 Dose: 0 mls/hr Documented by: [id number] Admin: 07/18/20 22:56 Dose: 999 mls/hr Documented by: [id number] Ioversol (Optiray 300 100ml) 100 ml IV ONCE ONE Stop: 07/18/20 23:48 Last Admin: 07/18/20 23:47 Dose: 84 ml Documented by: [id number] Lidocaine HCl (Lidocaine 4% Inh Soln 4 Ml Btl) 1 ml MARLENE NOW ONE Stop: 07/19/20 01:01 Last Admin: 07/19/20 01:06 Dose: 1 ml Documented by: [id number] Morphine Sulfate (Morphine Sulfate 10 Mg/Ml Carp/Vial) 6 mg IV NOW STA Stop: 07/18/20 22:18 Last Admin: 07/18/20 22:56 Dose: 6 mg Documented by: [id number] Morphine Sulfate (Morphine Sulfate 2 Mg/Ml Carp) 2 mg IV NOW STA Stop: 07/19/20 06:28 Last Admin: 07/19/20 06:44 Dose: 2 mg Documented by: [id number] Ondansetron HCl (Ondansetron Inj 2 Mg/Ml 2 Ml Vial) 4 mg IV NOW STA Stop: 07/18/20 22:18 Last Admin: 07/18/20 22:56 Dose: 4 mg Documented by: [id number] Raspberry (Raspberry Syrup 5 Ml Udp) 5 ml PO TODAY@0248 RAMY Stop: 07/19/20 03:00 Last Admin: 07/19/20 03:15 Dose: 5 ml Documented by: [id number] Medical Decision Making Differential Diagnosis Differential diagnosis includes appendicitis, diverticulitis, bowel obstruction, inflammatory bowel disease, renal colic, PUD, biliary pathology, pancreatitis, mesenteric ischemia, aortic pathology, infection, genitourinary, UTI, perforated viscus, among others. Medical Records Attestation: I reviewed the patient's medical records. Home Medications Current Medication List: was personally reviewed by me Laboratory Data Attestation: I reviewed the patient's lab results. Result diagrams: 07/18/20 22:36 07/18/20 22:36 Lab Results 07/18/20 07/18/20 07/18/20 Range/Units 22:36 22:36 22:36 WBC 16.38 H (4.8-10.8) K/uL RBC 4.91 (4.7-6.1) M/uL Hgb 15.8 (14.0-18.0) g/dL Hct 44.1 (42-52) % MCV 89.8 (80-100) fL MCH 32.2 (25-34) pg MCHC 35.8 (32-36) g/dL RDW Std Deviation 45.3 (36.4-46.3) fL RDW Coeff of Yoselin 13.7 (11.5-14.5) % Plt Count 578 H (130-400) K/uL MPV 8.4 (7.4-10.4) fL Immature Gran % (Auto) 0.3 % Neut % (Auto) 76.5 % Lymph % (Auto) 16.1 % [place] % (Auto) 6.9 % Eos % (Auto) 0.1 % Baso % (Auto) 0.1 % Neut # (Auto) 12.53 H (1.4-6.5) K/uL Lymph # (Auto) 2.64 (1.2-3.4) K/uL [place] # (Auto) 1.13 H (0.11-0.59) K/uL Eos # (Auto) 0.01 (0-0.5) K/uL Baso # (Auto) 0.02 (0-0.2) K/uL Immature Gran # (Auto) 0.05 H (0.00-0.02) K/uL Sodium 138 (136-145) mmol/L Potassium 3.3 L (3.5-5.1) mmol/L Chloride 105 (98-107) mmol/L Carbon Dioxide 25 (21-32) mmol/L Anion Gap 8.0 (3-11) BUN 15 (7-18) mg/dl Creatinine 0.80 (0.6-1.4) mg/dl Est Cr Clr Drug Dosing 110.5 ml/min Est GFR ( Amer) 120.7 Est GFR (Non-Af Amer) 104.2 BUN/Creatinine Ratio 18.2 (10-20) Glucose 124 H (70-99) mg/dl Lactate 1.2 (0.4-2.0) mmol/L Calcium 10.6 H (8.5-10.1) mg/dl Total Bilirubin 0.5 (0.2-1) mg/dl AST 15 (15-37) U/L ALT 21 (12-78) U/L Alkaline Phosphatase 99 (45-117) U/L Total Protein 8.5 H (6.4-8.2) gm/dl Albumin 3.3 L (3.4-5.0) gm/dl Globulin 5.2 H (2.5-4.0) gm/dl Albumin/Globulin Ratio 0.6 L (0.9-2) Lipase 58 L (73-393) U/L COVID-19 Eval Order SARS-CoV-2 (PCR) (Negative) Influenza Type A (PCR) (Neg) Influenza Type B (PCR) (Neg) RSV (RT-PCR) (Neg) 07/19/20 07/19/20 Range/Units 00:29 00:29 WBC (4.8-10.8) K/uL RBC (4.7-6.1) M/uL Hgb (14.0-18.0) g/dL Hct (42-52) % MCV (80-100) fL MCH (25-34) pg MCHC (32-36) g/dL RDW Std Deviation (36.4-46.3) fL RDW Coeff of Yoselin (11.5-14.5) % Plt Count (130-400) K/uL MPV (7.4-10.4) fL Immature Gran % (Auto) % Neut % (Auto) % Lymph % (Auto) % [place] % (Auto) % Eos % (Auto) % Baso % (Auto) % Neut # (Auto) (1.4-6.5) K/uL Lymph # (Auto) (1.2-3.4) K/uL [place] # (Auto) (0.11-0.59) K/uL Eos # (Auto) (0-0.5) K/uL Baso # (Auto) (0-0.2) K/uL Immature Gran # (Auto) (0.00-0.02) K/uL Sodium (136-145) mmol/L Potassium (3.5-5.1) mmol/L Chloride (98-107) mmol/L Carbon Dioxide (21-32) mmol/L Anion Gap (3-11) BUN (7-18) mg/dl Creatinine (0.6-1.4) mg/dl Est Cr Clr Drug Dosing ml/min Est GFR ( Amer) Est GFR (Non-Af Amer) BUN/Creatinine Ratio (10-20) Glucose (70-99) mg/dl Lactate (0.4-2.0) mmol/L Calcium (8.5-10.1) mg/dl Total Bilirubin (0.2-1) mg/dl AST (15-37) U/L ALT (12-78) U/L Alkaline Phosphatase (45-117) U/L Total Protein (6.4-8.2) gm/dl Albumin (3.4-5.0) gm/dl Globulin (2.5-4.0) gm/dl Albumin/Globulin Ratio (0.9-2) Lipase (73-393) U/L COVID-19 Eval Order CovFluRsv at [facility] SARS-CoV-2 (PCR) NEGATIVE (Negative) Influenza Type A (PCR) Negative (Neg) Influenza Type B (PCR) Negative (Neg) RSV (RT-PCR) Negative (Neg) Imaging Data Attestation: I personally reviewed and interpreted this imaging study as follows: Radiologist's Impression: Abdomen/Pelvis CT 07/18/20 22:[address] WITH IV CONTRAST CT DOSE: 411.17 mGy.cm HISTORY: lower abdominal pain, vomiting, recent surgery TECHNIQUE: Multiaxial CT images of the abdomen and pelvis were performed following the use of intravenous contrast. A dose lowering technique was utilized adhering to the principles of ALARA. COMPARISON STUDY: Abdomen and pelvis CTA 07/12/2020. FINDINGS: The lung bases are clear. No pneumoperitoneum. No pneumatosis. No fractures within the visualized osseous structures. Thoracolumbar spinal rods are again noted. Mild central intrahepatic bile duct dilatation remains unchanged. No hepatic or splenic masses. The gallbladder is surgically absent. The pancreas and kidneys are unremarkable. Normal adrenal glands. No retroperitoneal lymphadenopathy. Normal caliber abdominal aorta. Mildly distended and fluid-filled stomach. The small bowel loops within the right side of the abdomen are also fluid-filled and distended up to 5 cm in diameter to the level of the ileocolonic anastomosis. The residual colon is also mildly distended and fluid-filled with focal areas of narrowing at the thickened portions within the distal descending colon and mid sigmoid colon. There is fluid seen within the thickened descending colon, sigmoid colon, and rectum. The degree of colonic wall thickening is similar to the prior study and likely results in the partial large bowel obstruction. There are a few thickened loops of small bowel seen within the left lower quadrant. Minimal inflammatory change adjacent to the ileocolonic anastomosis has improved. No extraluminal gas identified at this time. The bladder is unremarkable. Prior right hemicolectomy with ileocolonic anastomosis. IMPRESSION: 1. Multiple thickened loops of large and small bowel as described above. This could be due to a nonspecific enterocolitis. This favors an inflammatory process such as Crohn's disease or an infectious process. 2. Fluid-filled and distended stomach, distal small bowel, and colon to the level of the thickened descending colon and sigmoid colon. Therefore, this favors a partial large bowel obstruction due to the thickened loops of distal large bowel. 3. Postoperative changes as described above. ACT 112: Negative or not required by law. Electronically signed by: Chaz Navarro M.D. 07/19/2020 7:[address] ABDOMEN & PELVIS With Contrast: Comparison: 06/22/2020. Clear lung bases. Normal cardiac size. Status post cholecystectomy with mild central biliary distention, nonspecific in the context of long-standing cholecystectomy. Otherwise normal abdominal viscera including adrenal glands and kidneys. Distended stomach otherwise unremarkable. Distention of the colon diffusely as well as distal small bowel with fluid within the lumen. Thickening of the wall more severe through the descending colon, sigmoid and some of the left-sided small bowel loops combination of findings suggestive of colitis/enterocolitis. Cannot exclude inflammatory bowel disease. Clinical correlation with history of Crohn's disease recommended. Questionable right-sided colectomy with anastomotic sutures at the hepatic flexure. Focal area with area of thickening of the wall and narrowing of the lumen at the level of the sigmoid on image 67, series 2 may represent inflammatory process with nonspecific peristalsis versus stricture. Mild amount of free fluid in the pelvis. Extensive postoperative changes through the lumbar spine with posterior fusion. Radiologist: Claudia Robert MD MDM Narrative Continuous nurse monitoring: Order was placed for continuous nurse monitoring. Patient was placed on the nurse monitoring. Patient was noted to be in sinus tachycardia at an initial rate of 120 bpm. The patient is a 50-year-old male who presents today complaining of abdominal pain and vomiting. Patient has recently had a bowel resection secondary to ischemic bowel. He was then diagnosed with C. difficile and took antibiotics for this but finished these. Today, he has a leukocytosis of 16,000. Platelet count is elevated. Kidney function is within normal limits. Lactate was not elevated. CT scan shows findings consistent with a generalized colitis/enteritis as well as distention throughout the bowel. I am concerned about a developing bowel obstruction. NG tube was ordered given the stomach dis tention but was canceled by the hospitalist. Patient was treated with IV morphine, Zofran and IV fluids in the ER with improvement of symptoms. The case was discussed with the [facility] service, agreed to evaluate the patient for further care. Impression & Plan Enterocolitis, Vomiting Discharge Plan Visit Data Chief Complaint: Abdominal Pain Stated Complaint: SOMACH PAINS ED Provider: Jaswant Bronson ED Midlevel Provider: Diana Becerril Discharge Problem: Enterocolitis, Vomiting Patient Disposition: Admitted As Inpatient Discharge Instructions Interventions: ED Discharge Assessment Last Done: 07/19/20 02:32
[2020-07-19 06:49] LABS: Appearance Urine Clear (Clear); Bacteria Urine Automated Negative (Negative); Blood Urine Trace (Negative); Color Urine Dark Yellow; Glucose Urine UA Negative (Negative); Ketones Urine 2+ (Negative); Leukocyte Esterase Urine Negative (Negative); Nitrite Urine Negative (Negative); Protein Urine Trace (Negative); Specific Gravity Urine > 1.045 (1.000-1.030); Urobilinogen Urine Negative (Negative); pH Urine 5.5 (4.5-7.5)
[2020-07-19 06:53] LABS: Bilirubin Urine 2+ (Negative)
[2020-07-19] MEDS: ADVANCED PROBIOTIC 1250 MG CAPSULE PO SCH (07:41)
[2020-07-19] MEDS: busPIRone 5 MG TAB PO SCH (07:41)
--- NOTE | 2020-07-19 07:45 | CT Scan Report ---
ABDOMEN AND PELVIS CT WITH IV CONTRAST CT DOSE: 411.17 mGy.cm HISTORY: lower abdominal pain, vomiting, recent surgery TECHNIQUE: Multiaxial CT images of the abdomen and pelvis were performed following the use of intrave nous contrast. A dose lowering technique was utilized adhering to the principles of ALARA. COMPARISON STUDY: Abdomen and pelvis CTA 07/12/2020. FINDINGS: The lung bases are clear. No pneumoperitoneum. No pneumatosis. No fractures within the visu alized osseous structures. Thoracolumbar spinal rods are again noted. Mild central intrahepatic bile duct dilatation remains unchanged. No hepatic or splenic masses. The gallbladder is surgically absent . The pancreas and kidneys are unremarkable. Normal adrenal glands. No retroperitoneal lymphadenopath y. Normal caliber abdominal aorta. Mildly distended and fluid-filled stomach. The small bowel loops w ithin the right side of the abdomen are also fluid-filled and distended up to 5 cm in diameter to the level of the ileocolonic anastomosis. The residual colon is also mildly distended and fluid-filled w ith focal areas of narrowing at the thickened portions within the distal descending colon and mid sig moid colon. There is fluid seen within the thickened descending colon, sigmoid colon, and rectum. The degree of colonic wall thickening is similar to the prior study and likely results in the partial la rge bowel obstruction. There are a few thickened loops of small bowel seen within the left lower quad rant. Minimal inflammatory change adjacent to the ileocolonic anastomosis has improved. No extralumin al gas identified at this time. The bladder is unremarkable. Prior right hemicolectomy with ileocolon ic anastomosis. IMPRESSION: 1. Multiple thickened loops of large and small bowel as described above. This could be due to a nonsp ecific enterocolitis. This favors an inflammatory process such as Crohn's disease or an infectious pr ocess. 2. Fluid-filled and distended stomach, distal small bowel, and colon to the level of the thickened de scending colon and sigmoid colon. Therefore, this favors a partial large bowel obstruction due to the thickened loops of distal large bowel. 3. Postoperative changes as described above. ACT 112: Negative or not required by law. Electronically signed by: Chaz Navarro M.D. 07/19/2020 7:43 AM
--- NOTE | 2020-07-19 09:30 | Gastrointestinal Consultation ---
Date of Consultation July 19, 2020 Assessment & Plan (1) Enterocolitis: CT concerning for inflammatory or infectious process. 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 -Obtain stool culture, gram stain stool, stool calprotectin, & C diff study. -Pending general surgery evaluation and input and results of stool studies, could consider endoscopic evaluation early next week. (2) Large bowel obstruction: CT indicates a fluid-filled and distended stomach, distal small bowel, and colon to the level of the thickened descending colon and sigmoid colon favoring a partial large bowel obstruction due to the thickened loops of distal large bowel. -Recommend general surgery evaluation, repeat abdominal imaging, NPO/NG if needed. Supervising Physician Co-Signing Physician Notes I personally evaluated the patient and agree with the findings as documented by Amina Mariano, PAC Exam: abd: soft, nt, nd stool studies pending conservative management at this time NPO, IVFs replete electrolytes prn daily KUBs History of Present Illness Reason for Consultation: Colitis, enterocolitis Attending Physician: Tim Fajardo MD History of Present Illness Patient is a 50 yo male with a PMH of tobacco use, pulmonary nodules, HTN, anxiety, chronic back issues, hypertriglyceridemia & prediabetes. He was recently hospitalized and subsequently readmitted after an emergency exploratory laparotomy with partial small bowel resection due to ischemia/infarction. The patient's post-operative course was reportedly complicated with C diff, though per records it appears that on 06/22 he was gene positive & toxin negative. He presents to the hospital again with ongoing abdominal cramping & loose stools. Upon presentation to the ED, his WBC count is 16,380. H/H 15.8/44.1. Platelet 578. K 3.3. CT scan indicated thickened loops of large and small bowel practice representative of an enterocolitis concerning for infectious vs inflammatory process. CT scan also indicated a fluid filled and distended stomach, distal small bowel, & colon concerning for a partial large bowel obstruction. This is a notable change from his previous CT on 07/12/20. Patient reports he is no longer having diarrhea. He notes he is not moving his bowels at all. He denies vomiting, but endorses significant belching. He is on a liquid diet at the time of my evaluation. He is unsure where his last colonoscopy was and when it occurred. He reports some abdominal bloating & discomfort, but overall feels better than yesterday. Allergies Allergy/AdvReac Type Severity Reaction Status Date / Time Penicillins Allergy Unknown Unknown Verified 07/19/20 01:16 Home Medications Medication Instructions Recorded Confirmed Type esomeprazole magnesium 40 mg 80 mg PO DAILY cap 12/08/19 07/19/20 History capsule,delayed release multivitamin 1 tab PO DAILY 12/08/19 07/19/20 History buspirone 5 mg tablet 10 mg PO QAM tab 01/10/20 07/19/20 History lisinopril 20 mg PO DAILY #30 tab 06/18/20 07/19/20 Rx citalopram 40 mg PO HS #30 tab 06/24/20 07/19/20 Rx colestipol [Colestid] 1 g PO BID@1100,2000 #60 tab 06/24/20 07/19/20 Rx nicotine (polacrilex) 2 mg gum 2 mg BUCCAL Q2H PRN #120 ea 06/28/20 07/19/20 Rx ascorbic acid (vitamin C) [Vitamin 1,000 mg PO DAILY 07/19/20 07/19/20 History C] lactobacillus combination no.8 3,000 mmu cells PO BID 07/19/20 07/19/20 History Patient History Medical History Acute dehydration Acute intestinal ischemia Acute renal failure Peritonitis Severe sepsis Syncope Syncope and collapse Surgical History H/O hand surgery History of surgical removal of intestinal structure 06/19/20 Previous back surgery S/P cholecystectomy S/P eye surgery S/P foot surgery S/P right hemicolectomy Family History Father Heart disease Denies family history of Ovarian cancer Prostate cancer Breast cancer Colorectal cancer Social History Smoking Status: Current some day smoker Tobacco Type: Cigarettes Second Hand Exposure: No; Do You Dip or Chew Tobacco: No; Tobacco Cessation Education Requested by Patient: No Hx Alcohol Use: No Hx Substance Use: Yes Prescribed Medications: Marijuana Last Used Substance: Days (ago) Substance Use Type Other:: medicinal marijuana Preferred Language: Khmer Communication Ability: Effective Visual Impairment: No Limitations Hearing Ability: Normal Input Output Clerk Required: No Beliefs That Will Affect Care: None marital status: Current Living Situation: Spouse current occupational status: employed 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 Other Information That Helps Us Care for You: No Feels Safe at Home: Yes Safety Concerns: Feels Safe At This Time caffeine: Yes Dental Care, Regularly: No Physical Activity Frequency: Does not Exercise Seatbelt Use: always Sunscreen Use: No Assistive Devices: None Review of Systems Constitutional: no fever and no chills Respiratory: no cough and no dyspnea Cardiovascular: no chest pain Gastrointestinal: + abdominal pain and + diarrhea/loose stools; no blood in stools Musculoskeletal: chronic back issues Psychiatric: no problem reported Hematologic / Lymphatic: no easy bleeding Physical Exam Constitutional: + ill appearing Neck: normal visual inspection Respiratory: normal respiratory effort Cardiovascular: Extremities: no edema Gastrointestinal (Abdomen): Inspection/Auscultation: + abdomen distended Percussion/Palpation: + abdomen tender Scarring on abdomen Musculoskeletal: Head/Neck/Chest: normocephalic Psychiatric: A+Ox3, euthymic affect Results & Data ([facility]) Vital Signs (Past 12 Hours) Vital Signs Temp Pulse Pulse Resp BP BP BP 07/19/20 07:16 36.8 C 103 H 16 142/92 H 07/19/20 02:49 36.8 C 105 H 20 121/84 07/19/20 01:00 17 136/93 07/19/20 00:30 104 H 20 126/85 07/19/20 00:28 98 H 18 124/76 07/18/20 23:55 96 H 95 H 20 140/93 140/93 07/18/20 22:00 36.7 C 121 H 16 141/92 H Pulse Ox 07/19/20 07:16 94 07/19/20 02:49 95 07/19/20 01:00 07/19/20 00:30 93 07/19/20 00:28 96 07/18/20 23:55 95 07/18/20 22:00 96 PG Care Time/CCT Total # of Minutes Spent Total Time Spent with Patient: Total time spent is greater than 50% in coordination of care (as documented) at patient's floor/unit and/or counseling patient: Coding Level of Care Code 36795 Inpt Consult Level 4 Diagnoses Enterocolitis K52.9 Large bowel obstruction K56.609
[2020-07-19] MEDS: COLESTIPOL HCL 1 GM TAB PO SCH ×2 (10:54→20:19)
[2020-07-19] MEDS: MoRPHine SULFATE 2 MG/ML CARP IV PRN ×4 (11:50→21:39)
--- NOTE | 2020-07-19 12:15 | Hospitalist Progress Note ---
Date of Service July 19, 2020 Assessment & Plan (1) C. difficile diarrhea: Last admission was for presumptive C. difficile colitis, as patient was gene positive but toxin negative at that time. Repeat C. difficile studies pending Placed on vancomycin to 250 mg p.o. 4 times daily. Continue Colestid 1 g p.o. twice daily (2) Enterocolitis: Suspected C. difficile enteritis. Continue vancomycin. Await stool studies (3) Large bowel obstruction: Suggested by CT scan. Consult general surgery. N.p.o. status. Continue IV fluids Present on Admission?: Yes (4) Anxiety: Continue buspirone and citalopram when able to take p.o. (5) S/P right hemicolectomy: Status post surgery May 2020. The patient underwent partial small bowel resection and right hemicolectomy due to underlying ischemia. (6) Tobacco use disorder: Nicotine patch available if desired (7) HTN (hypertension): Hold lisinopril due to relative low blood pressure (8) Hypokalemia: Potassium 3.3 upon admission. Continue parenteral potassium replacement and IV fluids. Serial labs DVT prophylaxis: Lovenox subcu Disposition: Eventual discharge to home. Admission and Anticipated Discharge Date Admission Date: July 19, 2020 Subjective Alert and oriented. He has crampy abdominal pain. Intermittent nausea and vomiting. Of abdomen does not appear to be distended however. There is evidence of enterocolitis with possible partial large bowel obstruction. He recently had a partial small bowel resection due to small bowel infarction. Gastroenterology consultation appreciated. Will seek general surgery consultation with previous surgeon. Continue IV fluids and n.p.o. status. He is on vancomycin for suspected C. difficile enteritis in addition to his other issues. Review of Systems Review of Systems: All systems reviewed & are unremarkable except as noted in HPI & below Physical Exam Physical Exam: General-alert and oriented x3, no fevers, no chills HEENT-head atraumatic and normocephalic, pupils equal and reactive to light, extraocular muscles intact Neck-no lymphadenopathy or thyromegaly, trachea midline Chest-clear to auscultation percussion. No rales wheezing or rhonchi Cardiac-regular rate and rhythm, normal S1 and S2 Abdomen-normal bowel sounds, diffusely tender. No distention. No rebound or guarding Extremities-no cyanosis, clubbing, or edema Neuro-cranial nerves II through XII intact, motor and sensory function within normal limits, strength symmetrical 5/5, no focal deficits Psych-normal affect, normal mood Results & Data Results & Data ([facility]) Vital Signs (Past 12 Hours) Vital Signs Temp Pulse Pulse Resp BP BP Pulse Ox 07/19/20 07:16 36.8 C 103 H 16 142/92 H 94 07/19/20 02:49 36.8 C 105 H 20 121/84 95 07/19/20 01:00 17 136/93 07/19/20 00:30 104 H 20 126/85 93 07/19/20 00:28 98 H 18 124/76 96 Laboratory Results 07/18/20 22:36 07/18/20 22:36 PG Care Time/CCT Total # of Minutes Spent Total Time Spent with Patient: Total time spent is greater than 50% in coordi nation of care (as documented) at patient's floor/unit and/or counseling patient: Coding Level of Care Code 52191 Subseq Hosp Care Lvl 3 Diagnoses C. difficile diarrhea A04.72 Enterocolitis K52.9 Large bowel obstruction K56.609 Anxiety F41.9 S/P right hemicolectomy Z90.49 Tobacco use disorder F17.200 HTN (hypertension) I10 Hypokalemia E87.6
[2020-07-19] MEDS: ENOXAPARIN INJ 40 MG/0.4 ML SYR SQ SCH (13:08)
--- NOTE | 2020-07-19 13:12 | Surgery Consultation ---
Date of Consultation July 19, 2020 Assessment & Plan (1) Large bowel obstruction: This is a 50y M with a PMH of small bowel resection and R hemicolectomy on 06/12 for infarcted small bowel who presents to the [facility] ED on 07/18/20 with complaints of abdominal pain associated with nausea. Of note he was admitted in early june and has since completed treatment for presumed cdiff. In the ER a CT a/p that revealed multiple thickened loops of large and small bowel, this could be due to a nonspecific enterocolitis and favors an inflammatory process such as Crohn's disease. It also showed a fluid-filled and distended stomach, distal small bowel, and colon to the level of the thickened descending colon and sigmoid colon, favoring a partial large bowel obstruction due to the thickened loops of distal large bowel. WBC 16, Cr: 0.8. Today vitals show HR's in the 100's, afebrile, stable BP's. On examination abdomen is currently soft, non tender, and mildly distended. An NGT was attempted yesterday, however patient did not tolerate it. He states he feels mildly better than yesterday, but still with nausea and lower abdominal discomfort. His last BM was yesterday, which he says was small. He is not passing flatus nor had a BM today. Currently we agree with a course of supportive care, NPO with IVF hydration and starting abx. Discussed with patient that if he develops worsening nausea and starts vomiting we may need to re-visit placing and NGT. Stool studies to be obtained if he has a BM. GI following along. No plans for surgical intervention at this time. (2) Enterocolitis: History of Present Illness Attending Physician: Tim Fajardo MD History of Present Illness This is a 50y M with a PMH of small bowel resection and R hemicolectomy on 06/12 for infarcted small bowel who presents to the [facility] ED on 07/18/20 with complaints of abdominal pain associated with nausea. Of note patient was re-admitted after his surgery in early June for concern of cdiff colitis and was treated with a course of abx. At home he states he was doing okay up until the past 2 days when he developed lower abdominal pain/crampiness associated with nausea. He felt like he had to throw up but he couldn't. Patient states he did completed the full course of abx for presumed cdiff and that his bowel movements remained loose, but much less frequent. He reported to the ER yesterday due to ongoing and worsening symptoms. In the ER he underwent a CT a/p that revealed multiple thickened loops of large and small bowel, this could be due to a nonspecific enterocolitis and favors an inflammatory process such as Crohn's disease or an infectious process. It also showed a fluid-filled and distended stomach, distal small bowel, and colon to the level of the thickened descending colon and sigmoid colon, favoring a partial large bowel obstruction due to the thickened loops of distal large bowel. Yesterday WBC 16. Allergies Allergy/AdvReac Type Severity Reaction Status Date / Time Penicillins Allergy Unknown Unknown Verified 07/19/20 01:16 Home Medications Medication Instructions Recorded Confirmed Type esomeprazole magnesium 40 mg 80 mg PO DAILY cap 12/08/19 07/19/20 History capsule,delayed release multivitamin 1 tab PO DAILY 12/08/19 07/19/20 History buspirone 5 mg tablet 10 mg PO QAM tab 01/10/20 07/19/20 History lisinopril 20 mg PO DAILY #30 tab 06/18/20 07/19/20 Rx citalopram 40 mg PO HS #30 tab 06/24/20 07/19/20 Rx colestipol [Colestid] 1 g PO BID@1100,2000 #60 tab 06/24/20 07/19/20 Rx nicotine (polacrilex) 2 mg gum 2 mg BUCCAL Q2H PRN #120 ea 06/28/20 07/19/20 Rx ascorbic acid (vitamin C) [Vitamin 1,000 mg PO DAILY 07/19/20 07/19/20 History C] lactobacillus combination no.8 3,000 mmu cells PO BID 07/19/20 07/19/20 History Patient History Medical History Acute dehydration Acute intestinal ischemia Acute renal failure Peritonitis Severe sepsis Syncope Syncope and collapse Surgical History H/O hand surgery History of surgical removal of intestinal structure 06/19/20 Previous back surgery S/P cholecystectomy S/P eye surgery S/P foot surgery S/P right hemicolectomy Family History Father Heart disease Denies family history of Ovarian cancer Prostate cancer Breast cancer Colorectal cancer Social History Smoking Status: Current some day smoker Tobacco Type: Cigarettes Second Hand Exposure: No; Do You Dip or Chew Tobacco: No; Tobacco Cessation Education Requested by Patient: No Hx Alcohol Use: No Hx Substance Use: Yes Prescribed Medications: Marijuana Last Used Substance: Days (ago) Substance Use Type Other:: medicinal marijuana Preferred Language: Vincentian Communication Ability: Effective Visual Impairment: No Limitations Hearing Ability: Normal Prawn Trawler Hand Required: No Beliefs That Will Affect Care: None marital status: Current Living Situation: Spouse current occupational status: employed 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 Other Information That Helps Us Care for You: No Feels Safe at Home: Yes Safety Concerns: Feels Safe At This Time caffeine: Yes Dental Care, Regularly: No Physical Activity Frequency: Does not Exercise Seatbelt Use: always Sunscreen Use: No Assistive Devices: None Review of Systems Constitutional: + fatigue; no fever and no chills Respiratory: no dyspnea Cardiovascular: no dyspnea on exertion Gastrointestinal: + abdominal pain (crampy lower abdominal pain) and + nausea; no vomiting last BM yesterday, loose Physical Exam Physical Exam: awake/alert Constitutional: + ill appearing Respiratory: normal respiratory effort Gastrointestinal (Abdomen): Inspection/Auscultation: + abdomen distended (mild) and + abdominal surgical scar (well healed) Percussion/Palpation: abdomen soft; abdomen nontender Results & Data ([facility]) Vital Signs (Past 12 Hours) Vital Signs Temp Pulse Resp BP Pulse Ox 07/19/20 07:16 36.8 C 103 H 16 142/92 H 94 07/19/20 02:49 36.8 C 105 H 20 121/[address] WITH IV CONTRAST CT DOSE: 411.17 mGy.cm HISTORY: lower abdominal pain, vomiting, recent surgery TECHNIQUE: Multiaxial CT images of the abdomen and pelvis were performed following the use of intravenous contrast. A dose lowering technique was utilized adhering to the principles of ALARA. COMPARISON STUDY: Abdomen and pelvis CTA 07/12/2020. FINDINGS: The lung bases are clear. No pneumoperitoneum. No pneumatosis. No fractures within the visualized osseous structures. Thoracolumbar spinal rods are again noted. Mild central intrahepatic bile duct dilatation remains unchanged. No hepatic or splenic masses. The gallbladder is surgically absent. The pancreas and kidneys are unremarkable. Normal adrenal glands. No retroperitoneal lymphadenopathy. Normal caliber abdominal aorta. Mildly distended and fluid-filled stomach. The small bowel loops within the right side of the abdomen are also fluid-filled and distended up to 5 cm in diameter to the level of the ileocolonic anastomosis. The residual colon is also mildly distended and fluid-filled with focal areas of narrowing at the thickened portions within the distal descending colon and mid sigmoid colon. There is fluid seen within the thickened descending colon, sigmoid colon, and rectum. The degree of colonic wall thickening is similar to the prior study and likely results in the partial large bowel obstruction. There are a few thickened loops of small bowel seen within the left lower quadrant. Minimal inflammatory change adjacent to the ileocolonic anastomosis has improved. No extraluminal gas identified at this time. The bladder is unremarkable. Prior right hemicolectomy with ileocolonic anastomosis. IMPRESSION: 1. Multiple thickened loops of large and small bowel as described above. This could be due to a nonspecific enterocolitis. This favors an inflammatory process such as Crohn's disease or an infectious process. 2. Fluid-filled and distended stomach, distal small bowel, and colon to the level of the thickened descending colon and sigmoid colon. Therefore, this favors a partial large bowel obstruction due to the thickened loops of distal large bowel. 3. Postoperative changes as described above. ACT 112: Negative or not required by law. Electronically signed by: Chaz Navarro M.D. 07/19/2020 7:43 AM PG Care Time/CCT Total # of Minutes Spent Total Time Spent with Patient: Total time spent is greater than 50% in coordination of care (as documented) at patient's floor/unit and/or counseling patient: Coding Level of Care Code 62454 Inpt Consult Level 3 Diagnoses Large bowel obstruction K56.609 Enterocolitis K52.9
[2020-07-19] MEDS: ONDANSETRON INJ 2 MG/ML 2 ML VIAL IV PRN (13:13)
[2020-07-19] MEDS: CITALOPRAM 40 MG TAB PO SCH (21:37)
[2020-07-19 23:17] LABS: Cdiff Antigen Positive; Cdiff Toxin A+B Negative Cdiff Toxin (Negative)
[2020-07-20] MEDS: VANCOMYCIN HCL 250 MG/5 ML SOLN PO SCH ×4 (00:18→17:18)
[2020-07-20] MEDS: RASPBERRY SYRUP 5 ML UDP PO SCH ×4 (00:18→17:18)
[2020-07-20] MEDS: MoRPHine SULFATE 2 MG/ML CARP IV PRN ×4 (01:25→20:25)
[2020-07-20] MEDS: NSS + 20MEQ KCL 20 MEQ/1,000 ML BAG IV SCH ×3 (04:00→19:47)
[2020-07-20 06:53] LABS: Basophils # (auto) 0.03 K/uL (0-0.2); Basophils % (auto) 0.3 %; Eosinophils # (auto) 0.02 K/uL (0-0.5); Eosinophils % (auto) 0.2 %; Hematocrit (blood only) 38.7 % (42-52); Hemoglobin 13.1 g/dL (14.0-18.0); Immature Granulocytes # (auto) 0.02 K/uL (0.00-0.02); Immature Granulocytes % (auto) 0.2 %; Lymphocytes # (auto) 2.54 K/uL (1.2-3.4); Lymphocytes % (auto) 23.1 %; Mean Corpuscular Hemoglobin 31.6 pg (25-34); Mean Corpuscular Hgb Conc 33.9 g/dL (32-36); Mean Corpuscular Volume 93.3 fL (80-100); Mean Platelet Volume 8.5 fL (7.4-10.4); Monocytes % (auto) 13.6 %; Neutrophils # (auto) 6.88 K/uL (1.4-6.5); Neutrophils % (auto) 62.6 %; Platelet Count 434 K/uL (130-400); Red Blood Count 4.15 M/uL (4.7-6.1); White Blood Count 10.99 K/uL (4.8-10.8)
[2020-07-20 07:16] LABS: BUN Creatinine Ratio 23.8 (10-20); Calcium 8.3 mg/dl (8.5-10.1); Creatinine Clr Calc Pharmacy 126.7 ml/min; Est GFR (African American) 127.4; Est GFR (Non-African American) 109.9; Potassium 3.9 mmol/L (3.5-5.1)
[2020-07-20] MEDS: ENOXAPARIN INJ 40 MG/0.4 ML SYR SQ SCH (08:46)
[2020-07-20] MEDS: busPIRone 5 MG TAB PO SCH (08:47)
[2020-07-20] MEDS: ADVANCED PROBIOTIC 1250 MG CAPSULE PO SCH (08:47)
[2020-07-20] MEDS: ONDANSETRON INJ 2 MG/ML 2 ML VIAL IV PRN (09:11)
--- NOTE | 2020-07-20 09:33 | Surgery Progress Note ---
Date of Service July 20, 2020 Assessment & Plan (1) Enterocolitis: No surgical indications at this time. Suspect infectious enterocolitis. ? C. difficile vs other. Patient on oral vancomycin. GI plan sigmoidoscopy with biopsy which I think may be helpful. We will continue to follow closely. Admission and Anticipated Discharge Date Admission Date: July 19, 2020 Subjective Patient seen. His pain has improved but he continues to be concerned with no bowel function. He also continues to have some nausea and gagging particularly when he tries to take anything oral such as his medications. Physical Exam Physical Exam: Alert. Mild distress secondary to nausea primarily as well as some anxiety. Abdomen is soft. His midline incision is well-healed. Mild distention. Nontender. Results & Data ([facility]) Vital Signs (Past 12 Hours) Vital Signs Temp Pulse Resp BP Pulse Ox 07/20/20 07:19 37 C 92 H 16 133/79 95 07/19/20 22:49 37.2 C 92 H 16 146/73 H 96 PG Care Time/CCT Total # of Minutes Spent Total Time Spent with Patient: Total time spent is greater than 50% in coordination of care (as documented) at patient's floor/unit and/or counseling patient: Coding Level of Care Code 99033 Subseq Hosp Care Lvl 3 Diagnoses Enterocolitis K52.9
--- NOTE | 2020-07-20 10:54 | Hospitalist Progress Note ---
Date of Service July 20, 2020 Assessment & Plan (1) C. difficile diarrhea: Last admission was for presumptive C. difficile colitis, as patient was gene positive but toxin negative at that time. Repeat C. difficile studies still pending Placed on vancomycin to 250 mg p.o. 4 times daily. Continue Colestid 1 g p.o. twice daily symptoms may be resolving with current therapy appreciate surgical input, consideration to colonoscopy early next week depending on progress discussed drug use with patient, denied any recent IVDA. agreeable to HIV testing (2) Enterocolitis: Suspected C. difficile enteritis. Continue vancomycin. Await stool studies (3) Large bowel obstruction: Suggested by CT scan. Consult general surgery. N.p.o. status. Continue IV fluids (4) Anxiety: Continue buspirone and citalopram when able to take p.o. (5) S/P right hemicolectomy: Status post surgery May 2020. The patient underwent partial small bowel resection and right hemicolectomy due to underlying ischemia. (6) Tobacco use disorder: Nicotine patch available if desired (7) HTN (hypertension): BP much improved, continue to hold lisinpril (8) Hypokalemia: Potassium 3.3 upon admission. now 3.9, continue to monitor Continue parenteral potassium replacement and IV fluids as needed. Serial labs DVT prophylaxis: Lovenox subcu Disposition: Eventual discharge to home. Admission and Anticipated Discharge Date Admission Date: July 19, 2020 Subjective Patient seen and examined. Tells me he has no further diarrhea has had in fact had no bowel movements. He says his appetite is poor. He has been afebrile. Physical Exam Constitutional: WD/WN, vitals as above well developed; no acute distress Respiratory: normal respiratory effort, lungs clear to auscultation normal respiratory effort Auscultation: lungs clear to auscultation bilaterally; no crackles, no rales and no wheezes Cardiovascular: RRR, no murmur, no edema Rate/Rhythm: regular rate Heart Sounds: normal S1 and normal S2 Gastrointestinal (Abdomen): Inspection/Auscultation: abdomen normal to inspection and + hypoactive bowel sounds Percussion/Palpation: abdomen soft; abdomen nontender, no guarding and abdomen not rigid Skin: no rashes, warm and dry Neurologic: PERRL, EOMI, accommodation nl, no face palsy, no dysarthria Results & Data Results & Data ([facility]) Vital Signs (Past 12 Hours) Vital Signs Temp Pulse Resp BP Pulse Ox 07/20/20 07:19 37 C 92 H 16 133/79 95 PG Care Time/CCT Total # of Minutes Spent Total Time Spent with Patient: Total time spent is greater than 50% in coordination of care (as documented) at patient's floor/unit and/or counseling patient: Coding Level of Care Code 64667 Subseq Hosp Care Lvl 2 Diagnoses C. difficile diarrhea A04.72 Enterocolitis K52.9 Large bowel obstruction K56.609 Anxiety F41.9 S/P right hemicolectomy Z90.49 Tobacco use disorder F17.200 HTN (hypertension) I10 Hypokalemia E87.6
[2020-07-20] MEDS: COLESTIPOL HCL 1 GM TAB PO SCH ×2 (11:25→19:46)
[2020-07-20] MEDS: PANTOprazole 40 MG in SYRINGE 0 ML IV SCH (11:26)
[2020-07-20] MEDS: CITALOPRAM 40 MG TAB PO SCH (20:45)
[2020-07-21] MEDS: VANCOMYCIN HCL 250 MG/5 ML SOLN PO SCH ×3 (00:25→11:55)
[2020-07-21] MEDS: RASPBERRY SYRUP 5 ML UDP PO SCH ×4 (00:25→17:38)
[2020-07-21] MEDS: NSS + 20MEQ KCL 20 MEQ/1,000 ML BAG IV SCH ×3 (05:19→21:07)
[2020-07-21 06:21] LABS: Basophils # (auto) 0.01 K/uL (0-0.2); Basophils % (auto) 0.2 %; Eosinophils # (auto) 0.06 K/uL (0-0.5); Eosinophils % (auto) 1.1 %; Hematocrit (blood only) 34.5 % (42-52); Hemoglobin 11.7 g/dL (14.0-18.0); Immature Granulocytes # (auto) 0.01 K/uL (0.00-0.02); Immature Granulocytes % (auto) 0.2 %; Lymphocytes # (auto) 2.58 K/uL (1.2-3.4); Lymphocytes % (auto) 45.7 %; Mean Corpuscular Hgb Conc 33.9 g/dL (32-36); Mean Corpuscular Volume 91.5 fL (80-100); Mean Platelet Volume 8.5 fL (7.4-10.4); Monocytes # (auto) 0.65 K/uL (0.11-0.59); Monocytes % (auto) 11.5 %; Neutrophils # (auto) 2.34 K/uL (1.4-6.5); Neutrophils % (auto) 41.3 %; Platelet Count 360 K/uL (130-400); RDW Coefficient of Variation 13.2 % (11.5-14.5); RDW Standard Deviation 44.1 fL (36.4-46.3); Red Blood Count 3.77 M/uL (4.7-6.1); White Blood Count 5.65 K/uL (4.8-10.8)
[2020-07-21 06:43] LABS: BUN Creatinine Ratio 14.6 (10-20); Calcium 8.1 mg/dl (8.5-10.1); Creatinine Clr Calc Pharmacy 171.4 ml/min; Est GFR (African American) 144.2; Est GFR (Non-African American) 124.5; Potassium 3.6 mmol/L (3.5-5.1)
--- NOTE | 2020-07-21 09:17 | Surgery Progress Note ---
Date of Service July 21, 2020 Assessment & Plan (1) Enterocolitis: clinically improving. continue antibiotics will start clears. no surgical intervention indicated. Admission and Anticipated Discharge Date Admission Date: July 19, 2020 Subjective pt seen. feeling much better today. +bm's. pain gone. Physical Exam Physical Exam: alert. nad abd: soft. nt. nd. incision well healed. Results & Data ([facility]) Vital Signs (Past 12 Hours) Vital Signs Temp Pulse Resp BP Pulse Ox 07/21/20 07:23 36.8 C 77 18 150/78 H 96 07/20/20 23:35 37.0 C 91 H 16 135/82 96 PG Care Time/CCT Total # of Minutes Spent Total Time Spent with Patient: Total time spent is greater than 50% in coordination of care (as documented) at patient's floor/unit and/or counseling patient: Coding Level of Care Code 24160 Subseq Hosp Care Lvl 2 Diagnoses Enterocolitis K52.9
[2020-07-21] MEDS: ENOXAPARIN INJ 40 MG/0.4 ML SYR SQ SCH (09:19)
[2020-07-21] MEDS: ADVANCED PROBIOTIC 1250 MG CAPSULE PO SCH (09:20)
[2020-07-21] MEDS: busPIRone 5 MG TAB PO SCH (09:20)
[2020-07-21] MEDS: PANTOprazole 40 MG in SYRINGE 0 ML IV SCH (10:53)
[2020-07-21] MEDS: COLESTIPOL HCL 1 GM TAB PO SCH ×2 (11:55→20:00)
--- NOTE | 2020-07-21 13:47 | Hospitalist Progress Note ---
Date of Service July 21, 2020 Assessment & Plan (1) C. difficile diarrhea: Last admission was for presumptive C. difficile colitis, as patient was gene positive but toxin negative at that time. Repeat C. difficile showed the patient remains gene positive but toxin negative. We will discontinue vancomycin. Continue Colestid 1 g p.o. twice daily Appreciate surgical input. 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 Discontinue vancomycin. Await other stool studies. Agree with general surgery early this week./GI plan for endoscopy (3) Large bowel obstruction: Clinically improved. General surgery following. Continue clear liquids for now. (4) Anxiety: Continue buspirone and citalopram when able to take p.o. (5) S/P right hemicolectomy: Status post surgery May 2020. The patient underwent partial small bowel resection and right hemicolectomy due to underlying ischemia. (6) Tobacco use disorder: Nicotine patch available if desired (7) HTN (hypertension): BP much improved, continue to hold lisinpril (8) Hypokalemia: Potassium 3.3 upon admission. now 3.9, continue to monitor Continue parenteral potassium replacement and IV fluids as needed. Serial labs DVT prophylaxis: Lovenox subcu Disposition: Eventual discharge to home. Admission and Anticipated Discharge Date Admission Date: July 19, 2020 Subjective Patient tells me he looks and feels better. He is still having some loose brown bowel movements. He denies any abdominal pain. He has been tolerating the clear liquid diet without new issues, no nausea or vomiting. He has been afebrile. Physical Exam Constitutional: WD/WN, vitals as above Neck: trachea midline, no thyromegaly Respiratory: normal respiratory effort, lungs clear to auscultation Auscultation: lungs clear to auscultation bilaterally Cardiovascular: RRR, no murmur, no edema Heart Sounds: normal S1 and normal S2 Gastrointestinal (Abdomen): normal bowel sounds, soft, nontender, no hepatosplenomegaly Musculoskeletal: no cyanosis or clubbing, extremities motor strength 5/5 Results & Data Results & Data ([facility]) Vital Signs (Past 12 Hours) Vital Signs Temp Pulse Resp BP Pulse Ox 07/21/20 07:23 36.8 C 77 18 150/78 H 96 PG Care Time/CCT Total # of Minutes Spent Total Time Spent with Patient: Total time spent is greater than 50% in coordination of care (as documented) at patient's floor/unit and/or counseling patient: Coding Level of Care Code 20140 Subseq Hosp Care Lvl 2 Diagnoses C. difficile diarrhea A04.72 Enterocolitis K52.9 Large bowel obstruction K56.609 Anxiety F41.9 S/P right hemicolectomy Z90.49 Tobacco use disorder F17.200 HTN (hypertension) I10 Hypokalemia E87.6
[2020-07-21] MEDS ORDERED: hydrOXYzine HCl 25 MG TAB PO STA (19:38)
[2020-07-21] MEDS: CITALOPRAM 40 MG TAB PO SCH (21:07)
[2020-07-22] MEDS: NSS + 20MEQ KCL 20 MEQ/1,000 ML BAG IV SCH ×2 (04:49→13:33)
[2020-07-22 06:11] LABS: Basophils # (auto) 0.01 K/uL (0-0.2); Basophils % (auto) 0.2 %; Eosinophils # (auto) 0.05 K/uL (0-0.5); Eosinophils % (auto) 1.1 %; Hematocrit (blood only) 36.9 % (42-52); Hemoglobin 12.7 g/dL (14.0-18.0); Immature Granulocytes # (auto) 0.01 K/uL (0.00-0.02); Immature Granulocytes % (auto) 0.2 %; Lymphocytes # (auto) 2.26 K/uL (1.2-3.4); Lymphocytes % (auto) 47.9 %; Mean Corpuscular Hemoglobin 31.2 pg (25-34); Mean Corpuscular Hgb Conc 34.4 g/dL (32-36); Mean Corpuscular Volume 90.7 fL (80-100); Mean Platelet Volume 8.4 fL (7.4-10.4); Monocytes # (auto) 0.63 K/uL (0.11-0.59); Monocytes % (auto) 13.3 %; Neutrophils # (auto) 1.76 K/uL (1.4-6.5); Neutrophils % (auto) 37.3 %; Platelet Count 408 K/uL (130-400); RDW Coefficient of Variation 12.9 % (11.5-14.5); Red Blood Count 4.07 M/uL (4.7-6.1); White Blood Count 4.72 K/uL (4.8-10.8)
[2020-07-22 07:04] LABS: BUN Creatinine Ratio 4.5 (10-20); Calcium 8.5 mg/dl (8.5-10.1); Creatinine Clr Calc Pharmacy 145.7 ml/min; Est GFR (African American) 134.9; Est GFR (Non-African American) 116.4; Potassium 3.9 mmol/L (3.5-5.1)
[2020-07-22] MEDS: busPIRone 5 MG TAB PO SCH (08:13)
[2020-07-22] MEDS: ADVANCED PROBIOTIC 1250 MG CAPSULE PO SCH (08:14)
[2020-07-22] MEDS: ENOXAPARIN INJ 40 MG/0.4 ML SYR SQ SCH (08:14)
--- NOTE | 2020-07-22 10:05 | Gastroenterology Progress Note ---
Date of Service July 22, 2020 Assessment & Plan (1) Enterocolitis: Symptoms of diarrhea & abdominal pain are resolved. -Patient has made some requests surrounding the timing of a colonoscopy; we will discuss amongst the GI team and arrange accordingly. -Supportive care per primary team. (2) Large bowel obstruction: General surgery following Admission and Anticipated Discharge Date Admission Date: July 19, 2020 Supervising Physician Co-Signing Physician Notes Agree with AIDAN Berkowitz as above Abd: Soft, NT, ND, +BS, Midline surgical incisional scar Bowel prep tonight NPO after midnight Colonoscopy in AM Subjective Patient is a 50 yo male with enterocolitis and recent bowel resection due to ischemia. The patient notes that he is feeling significantly better. He denies further diarrhea or abdominal pain. His distended abdomen has improved. He denies rectal bleeding. He is asking when he will be discharged from the hospital. He denies new symptoms at present. Review of Systems Constitutional: no fever and no chills Respiratory: no cough and no dyspnea Cardiovascular: no chest pain Gastrointestinal: no abdominal pain, no diarrhea/loose stools, no blood in stools and no melena Physical Exam Constitutional: well developed Respiratory: normal respiratory effort Cardiovascular: Extremities: no edema Gastrointestinal (Abdomen): normal bowel sounds, soft, nontender, no hepatosplenomegaly Musculoskeletal: Head/Neck/Chest: normocephalic Psychiatric: A+Ox3, euthymic affect Results & Data Results & Data ([facility]) Vital Signs (Past 12 Hours) Vital Signs Temp Pulse Resp BP Pulse Ox 07/22/20 08:09 36.9 C 83 16 154/94 H 96 07/21/20 22:51 37.4 C 87 16 141/79 H 96 CBC w Diff Results Results CBC w Diff: Hgb 12.7 g/dL (14.0-18.0) L 07/22/20 MCV 90.7 fL (80-100) 07/22/20 Plt Count 408 K/uL (130-400) H 07/22/20 Lymphocytes (%) (Auto) 47.9 % 07/22/20 Monocytes # (Auto) 0.63 K/uL (0.11-0.59) H 07/22/20 Eosinophils # (Auto) 0.05 K/uL (0-0.5) 07/22/20 Immature Granulocyte % (Auto) 0.2 % 07/22/20 Neutrophils # (Auto) 1.76 K/uL (1.4-6.5) 07/22/20 Lymphocytes # (Auto) 2.26 K/uL (1.2-3.4) 07/22/20 Monocytes # (Auto) 0.63 K/uL (0.11-0.59) H 07/22/20 Eosinophils # (Auto) 0.05 K/uL (0-0.5) 07/22/20 Basophils # (Auto) 0.01 K/uL (0-0.2) 07/22/20 Immature Granulocyte # (Auto) 0.01 K/uL (0.00-0.02) 07/22/20 PG Care Time/CCT Total # of Minutes Spent Total Time Spent with Patient: Total time spent is greater than 50% in coordination of care (as documented) at patient's floor/unit and/or counseling patient: Coding Level of Care Code 11549 Subseq Hosp Care Lvl 2 Diagnoses Enterocolitis K52.9 Large bowel obstruction K56.609
[2020-07-22] MEDS: PANTOprazole 40 MG in SYRINGE 0 ML IV SCH (11:49)
[2020-07-22] MEDS: COLESTIPOL HCL 1 GM TAB PO SCH ×2 (11:49→19:24)
--- NOTE | 2020-07-22 11:57 | Surgery Progress Note ---
Date of Service July 22, 2020 Assessment & Plan (1) Enterocolitis: doing better. no surgical indications GI planning sigmoidoscopy tomorrow will s/o. f/u in 2-3 weeks. Admission and Anticipated Discharge Date Admission Date: July 19, 2020 Subjective pt continues to feel well. pain resolved. jordan diet. Physical Exam Physical Exam: alert. nad abd: soft. nt. nd. ext: no c/c/e Results & Data ([facility]) Vital Signs (Past 12 Hours) Vital Signs Temp Pulse Resp BP Pulse Ox 07/22/20 08:09 36.9 C 83 16 154/94 H 96 PG Care Time/CCT Total # of Minutes Spent Total Time Spent with Patient: Total time spent is greater than 50% in coordination of care (as documented) at patient's floor/unit and/or counseling patient: Coding Level of Care Code None Diagnoses Enterocolitis K52.9
[2020-07-22] MEDS ORDERED: busPIRone 5 MG TAB PO PRN (12:41)
--- NOTE | 2020-07-22 14:00 | Medical Student Progress Note ---
Date of Service July 22, 2020 Assessment & Plan (1) Enterocolitis: 1. Enterocolitis Mr. Cabrales is a 50-year-old male with a PMHx of anxiety, HTN, and small bowel obstruction who is 6 weeks s/p small bowel resection and right hemicolectomy with anastomosis secondary to acute bowel infarction. Upon presentation to [facility] emergency department on 07/19/20 for abdominal pain and constipation, abdominal CT identified enterocolitis and partial large bowel obstruction. He is being medically managed and awaiting endoscopic evaluation. * GI consult appreciated. Sigmoidoscopy scheduled for 07/23/20. * Clear liquid diet. NPO after midnight in preparation for colonoscopy * Fecal calprotectin pending. HIV testing pending. * Ordered Scl-70 antibody testing for Scleroderma * Check Vitamin B12 level to asscess for malabsorption 2. Diarrhea Patient has had frequent diarrhea following small bowel resection and right hemicolectomy performed on 06/12/20. Following stool testing positive for C. difficile gene but negative for C. difficile toxin, the patient received an tibiotic treatment with vancomycin. Diarrhea persisted after treatment and remains gene positive, toxin negative. Further investigation via colonoscopy will help differentiate between an inflammatory vs infectious vs. post-operative etiology of the patient's bowel changes. * Previous treatment for suspected C. difficile 06/22/20 to 07/02/20 with 10 day course of Vancomycin without significant improvement in gastrointestinal symptoms * Vancomycin initiated at beginning of current admission on 07/19/20. Discontinued 07/21/20 due to decreased concern for infectious etiology * Continue Colestid 1 g PO BID * Hyoscyamine PRN 3. Large Bowel Obstruction * Abdominal CT performed on 07/19/20 showed evidence of a large bowel obstruction. Obstruction has resolved with medical management. 4. Hypokalemia * Patient mildly hypokalemic at time of presentation. Potassium repleted to 3.9 * Discontinued fluid repletion with NSS + potassium now that patient is tolerating clear liquids well 5. Anxiety * Continue home Buspirone and Citalopram Code Status: Full Code FEN: Clear liquid diet. NPO after midnight VTE PPx: Enoxaparin Disposition: Awaiting endoscopic evaluation Admission and Anticipated Discharge Date Admission Date: July 19, 2020 Supervising Attestation Medical Student Supervision Note: I was personally present during medical student patient encounter and independently interviewed and examined the patient and verified the almonte history and physical, reviewed labs and image studies, discussed the case with Ulises Veloz and agree with the findings and care plan. Enterocolitis on CT with diarrhea in the setting of recent bowel resection due to bowel infarction - for colonoscopy in am. ordered scleroderma test. fecal calprotectin pending. Subjective Mr. Cabrales states that his bowel symptoms have improved since yesterday. He endorses 3-4 bowel movements within the past 24 hours and he describes fecal appearance as flakey without blood. He denies abdominal pain, N/V, tenesmus, or rectal urgency. He also does not endorse fever, chills, HIRSCH, lightheadedness, or weakness. He has tolerated clear liquids well. Review of Systems Constitutional: as per Subjective / HPI Respiratory: no dyspnea Cardiovascular: no problem reported Gastrointestinal: as per Subjective / HPI Genitourinary: no dysuria and no difficulty urinating Integumentary: no problem reported Physical Exam Constitutional: WD/WN, vitals as above no acute distress Eyes: PERRL, conjunctivae normal, anicteric sclerae ENMT: external ear and nose normal, oropharynx normal Neck: normal visual inspection Respiratory: normal respiratory effort, lungs clear to auscultation Cardiovascular: RRR, no murmur, no edema Gastrointestinal (Abdomen): normal bowel sounds, soft, nontender, no hepatosplenomegaly Inspection/Auscultation: + abdominal surgical scar (midline); abdomen not distended Percussion/Palpation: abdomen nontender and no guarding Skin: no rashes, warm and dry Psychiatric: A+Ox3, euthymic affect Results & Data ([facility]) Vital Signs (Past 12 Hours) Vital Signs Temp Pulse Resp BP Pulse Ox 07/22/20 08:09 36.9 C 83 16 154/94 H 96 Laboratory Results Hgb 12.7, WBC 4.72, Plt 408 Sodium 137, Potassium 3.0, Calcium 8.5, Glucose 95 BUN 3, Cr 0.6
[2020-07-22] MEDS ORDERED: MELATONIN 3 MG TAB PO PRN (14:21)
[2020-07-22] MEDS ORDERED: ACETAMINOPHEN 1,000 MG/100 ML VIAL IV PRN (14:21)
[2020-07-22] MEDS: LAVAGE SOLUTION 4000ML PO SCH (18:30)
[2020-07-22] MEDS: CITALOPRAM 40 MG TAB PO SCH (21:22)
[2020-07-23] MEDS: LAVAGE SOLUTION 4000ML PO SCH (03:27)
[2020-07-23 06:23] LABS: Hematocrit (blood only) 41.4 % (42-52); Hemoglobin 14.2 g/dL (14.0-18.0); Mean Corpuscular Hemoglobin 30.8 pg (25-34); Mean Corpuscular Hgb Conc 34.3 g/dL (32-36); Mean Corpuscular Volume 89.8 fL (80-100); Mean Platelet Volume 8.6 fL (7.4-10.4); Platelet Count 425 K/uL (130-400); RDW Standard Deviation 42.2 fL (36.4-46.3); Red Blood Count 4.61 M/uL (4.7-6.1); White Blood Count 7.22 K/uL (4.8-10.8)
[2020-07-23] MEDS: ADVANCED PROBIOTIC 1250 MG CAPSULE PO SCH (08:21)
[2020-07-23] MEDS: ENOXAPARIN INJ 40 MG/0.4 ML SYR SQ SCH (08:21)
[2020-07-23] MEDS: busPIRone 5 MG TAB PO SCH (08:21)
--- NOTE | 2020-07-23 09:07 | History & Physical Bridge Note ---
Date of Service July 23, 2020 History & Physical Bridge Note I have examined the patient, reviewed the History & Physical and in the interval since the performance of the History & Physical I have noted the following changes of clinical significance: no changes noted Patient has been NPO since prior to midnight with the exception of bowel preparation. Bowel prep is complete and he is anxious to proceed with colonoscopy this morning. He is frustrated that this has not happened by the time of my visit at 8:40 AM. Keep NPO. Proceed with colonoscopy this morning. Supervising Physician Co-Signing Physician Notes Agree with AIDAN Berkowitz as above Abd: Soft, NT, ND Proceed with colonoscopy this AM.
--- NOTE | 2020-07-23 09:22 | Anesthesiology Consultation ---
Date of Service July 23, 2020 Assessment & Plan Chart Review Chart Review: Acceptable Risk for Surgery Consults Requested none ASA ASA3 Proposed Anesthesia Anesthesia Type: MAC Risk / Benefits Reviewed With: PT / POA / Parent / Guardian, Accepts Plan and Informed Consent Obtained History Surgery Operation Date: 07/23/20 16:30 Proposed Procedures p Colonoscopy Dr. Killian Daily, DO Height/Weight Height: 5 ft 9 in Weight: 71.2 kg Allergies Allergy/AdvReac Type Severity Reaction Status Date / Time Penicillins Allergy Unknown Unknown Verified 07/19/20 01:16 Medications Home Medications Medication Instructions Recorded Confirmed Last Taken esomeprazole magnesium 40 mg 80 mg PO DAILY cap 12/08/19 07/19/20 Unknown capsule,delayed release multivitamin 1 tab PO DAILY 12/08/19 07/19/20 Unknown buspirone 5 mg tablet 10 mg PO QAM tab 01/10/20 07/19/20 Unknown lisinopril 20 mg PO DAILY #30 tab 06/18/20 07/19/20 Unknown citalopram 40 mg PO HS #30 tab 06/24/20 07/19/20 Unknown colestipol [Colestid] 1 g PO BID@1100,2000 #60 tab 06/24/20 07/19/20 Unknown nicotine (polacrilex) 2 mg gum 2 mg BUCCAL Q2H PRN #120 ea 06/28/20 07/19/20 Unknown ascorbic acid (vitamin C) [Vitamin 1,000 mg PO DAILY 07/19/20 07/19/20 Unknown C] lactobacillus combination no.8 3,000 mmu cells PO BID 07/19/20 07/19/20 Unknown Active Medications Generic Name Dose Route Start Last Admin Trade Name Freq PRN Reason Stop Dose Admin Buspirone HCl 10 mg 07/19/20 09:00 07/23/20 08:21 Buspirone 5 Mg Tab PO 08/18/20 08:59 10 mg QAM RAMY Administration Buspirone HCl 5 mg 07/22/20 12:41 07/22/20 13:33 Buspirone 5 Mg Tab PO 08/21/20 13:59 5 mg TID PRN Administration Anxiety Citalopram Hydrobromide 40 mg 07/19/20 21:00 07/22/20 21:22 Citalopram 40 Mg Tab PO 08/18/20 20:59 40 mg HS RAMY Administration Colestipol HCl 1 gm 07/19/20 11:00 07/22/20 19:24 Colestipol Hcl 1 Gm Tab PO 08/18/20 10:59 1 gm BID@1100,2000 RAMY Administration Enoxaparin Sodium 40 mg 07/19/20 12:15 07/23/20 08:21 Enoxaparin Inj 40 Mg/0.4 Ml Syr SQ 08/18/20 12:14 40 mg QAM RAMY Administration Hyoscyamine 0.125 mg 07/19/20 02:48 07/19/20 03:15 Hyoscyamine Sulfate 0.125 Mg Tab SL 08/18/20 02:47 0.125 mg Q4H PRN Administration Cramping Pantoprazole Sodium 40 mg/ 10 mls @ 5 mls/min 07/20/20 11:00 07/22/20 11:49 Syringe IV 08/19/20 10:59 5 mls/min DAILY@1100 RAMY Administration Lactobacillus Acidoph/Casei/Rhamnos 2 cap 07/19/20 09:00 07/23/20 08:21 Advanced Probiotic 1250 Mg Capsule PO 08/18/20 08:59 2 cap DAILY RAMY Administration Morphine Sulfate 2 mg 07/19/20 11:00 07/20/20 20:25 Morphine Sulfate 2 Mg/Ml Carp IV 08/02/20 10:59 2 mg Q3H PRN Administration Pain Ondansetron HCl 4 mg 07/19/20 02:48 07/20/20 09:11 Ondansetron Inj 2 Mg/Ml 2 Ml Vial IV 08/18/20 02:47 4 mg Q6H PRN Administration Nausea NPO Date Last Intake of Fluids: 07/23/20 Date Last Intake of Solids: 07/22/20 Past Medical History Medical History (Updated 07/23/20 @ 09:20 by Renae Lal DO) Acute dehydration Acute intestinal ischemia Acute renal failure Anxiety Bulging lumbar disc C. difficile diarrhea HTN (hypertension) Hypertriglyceridemia Hypokalemia Large bowel obstruction Peritonitis Prediabetes Protrusion of intervertebral disc of lumbosacral region Pulmonary nodules Severe sepsis Spinal stenosis of lumbar region Syncope Syncope and collapse Tobacco use disorder Exercise / Class Metabolic Activity II 4-5 Yardwork/Stairs/Walk up hill Past Family History Family History Father Heart disease Denies family history of Ovarian cancer Prostate cancer Breast cancer Colorectal cancer Past Surgical History Surgical History (Updated 07/23/20 @ 09:20 by Renae Lal DO) H/O hand surgery History of surgical removal of intestinal structure 06/19/20 Previous back surgery S/P cholecystectomy S/P eye surgery S/P foot surgery S/P right hemicolectomy Past Anesthesia History No Hx of Anesthesia Complications and No Family Hx of Anesthesia Complications History of PONV No Hx of PONV and No Hx of Motion Sickness Social History Smoking Status: Current some day smoker tobacco type: cigarettes Do You Dip or Chew Tobacco: No Hx Alcohol Use: No Alcohol type: beer alcohol intake frequency: a few times a month Hx Substance Use: Yes substance use type: marijuana Substance Use Type Other:: medicinal marijuana Last Used Substance: Days (ago) Physical Exam Vital Signs Last Vital Signs Temp 37.3 C 07/23/20 08:48 Pulse 81 07/23/20 08:48 Resp 18 07/23/20 08:48 BP 161/98 H 07/23/20 08:48 Pulse Ox 96 07/23/20 08:48 ENMT Mouth: + poor dentition and + chipped teeth (Upper front 2 left teeth chipped and broken. None loose); no TMJ abnormality Thyromental Distance: > or= 3.5 Finger Breadths Mallampati Class: II Neck normal visual inspection and trachea midline; neck extension not limited Respiratory normal respiratory effort Auscultation: lungs clear to auscultation bilaterally Cardiovascular Rate/Rhythm: regular rate and regular rhythm Heart Sounds: no murmur Musculoskeletal Spine: normal cervical ROM Extremities: full ROM of extremities Neurologic moves all extremities Psychiatric Orientation: alert and oriented x 3 Testing Laboratory Results 07/23/20 05:28 07/22/20 05:46 Urine Color Dark Yellow 07/19/20 Unknown Urine Appearance Clear (Clear) 07/19/20 Unknown Urine pH 5.5 (4.5-7.5) 07/19/20 Unknown Ur Specific [place] > 1.045 (1.000-1.030) H 07/19/20 Unknown Urine Protein Trace (Negative) H 07/19/20 Unknown Urine Glucose (UA) Negative (Negative) 07/19/20 Unknown Urine Ketones 2+ (Negative) H 07/19/20 Unknown Urine Nitrite Negative (Negative) 07/19/20 Unknown Ur Leukocyte Esterase Negative (Negative) 07/19/20 Unknown Urine WBC (Auto) 1-5 /hpf (0-5) 07/19/20 Unknown Urine RBC (Auto) 5-10 /hpf (0-4) H 07/19/20 Unknown U Hyaline Cast (Auto) 5-10 /lpf (0-5) H 07/19/20 Unknown U Epithel Cells (Auto) 5-10 /lpf (0-5) H 07/19/20 Unknown Urine Bacteria (Auto) Negative (Negative) 07/19/20 Unknown 07/19/20 21:41 Gram Stain - Final Stool Escherichia coli Shiga Toxins Test - Preliminary Stool Culture - Preliminary No Salmonella isolated to date, No Shigella isolated to date, No Campylobacter jejuni isolated to date. Electrocardiogram Date: 06/22/20 Findings: + NSR @ (90) LAE, old septal infarct Chest X-Ray Date: 06/22/20 Findings: + NAD [place] 15mm opacity, pulm nodule Echocardiogram Date: 06/14/20 EF: 55-60 LV Function: normal RWMA: + none Other Findings: + LVH (mild) Valvular Disease: + no significant valvular disease
[2020-07-23] MEDS ORDERED: ENDOSCOPIC MARKER 5 ML SYR TOP ONE (09:51)
[2020-07-23] MEDS ORDERED: LIDOCAINE HCL 2% 2 ML VIAL/AMP(20MG/ML) INFIL ONE (09:56)
[2020-07-23] MEDS ORDERED: PROPOFOL IV EMULSION 10 MG/ML 20 ML VIAL IV ONE (09:56)
--- NOTE | 2020-07-23 10:08 | Anesthesiology Progress Note ---
Date of Service July 23, 2020 Anesthesia Post Procedure Vital Signs Vital Signs: Temp Pulse Resp BP BP Pulse Ox 07/23/20 09:58 88 20 132/88 99 07/23/20 09:14 36.9 C 86 16 158/107 H 97 07/23/20 08:48 37.3 C 81 18 161/98 H 96 07/22/20 23:42 36.9 C 80 18 160/90 H 95 07/22/20 16:10 37.2 C 81 16 156/97 H 97 Pain Intensity Abdomen: Pain Intensity: 9 Transfer of Care Handoff Completed per policy Notes Mental Status: alert / awake / arousable Patient Amnestic to Procedure: Yes Nausea / Vomiting: adequately controlled Pain: adequately controlled Airway Patency, RR, SpO2: stable & adequate BP & HR: stable & adequate Hydration State: stable & adequate Anesthetic Complications: no major complications apparent and Pt Satisfied with anesthetic care
--- NOTE | 2020-07-23 10:19 | GI REPORT ---
Patient Name: Junior Cabrales Procedure Date: 07/23/2020 9:31 AM Date of : 1970 Admit Type: Inpatient Age: 50 Gender: Male Attending MD: Mychal Daily DO Procedure: Colonoscopy Providers: Mychal Daily DO Referring MD: Latisha Lerma Indications: Abnormal CT of the GI tract Medicines: Monitored Anesthesia Care Complications: No immediate complications. Estimated Blood Loss: Estimated blood loss: none. Procedure: Pre-Anesthesia Assessment: - Prior to the procedure, a History and Physical was performed, and patient medications and allergies were reviewed. The patient's tolerance of previous anesthesia was also reviewed. The risks and benefits of the procedure and the sedation options and risks were discussed with the patient. All questions were answered, and informed consent was obtained. Prior Anticoagulants: The patient has taken no previous anticoagulant or antiplatelet agents. ASA Grade Assessment: III - A patient with severe systemic disease. After reviewing the risks and benefits, the patient was deemed in satisfactory condition to undergo the procedure. After I obtained informed consent, the scope was passed under direct vision. Throughout the procedure, the patient's blood pressure, pulse, and oxygen saturations were monitored continuously. The Colonoscope was introduced through the anus with the intention of advancing to the ileum. The scope was advanced to the sigmoid colon before the procedure was aborted. Medications were given. The colonoscopy was performed with difficulty due to bowel stenosis. The patient tolerated the procedure well. The quality of the bowel preparation was good. The rectum was photographed. Findings: The perianal and digital rectal examinations were normal. A benign-appearing, intrinsic severe stenosis measuring 5 mm (inner diameter) was found in the sigmoid colon and was non-traversed. Biopsies were taken with a cold forceps for histology. Area was tattooed with an injection of 4 mL of Qi ink. A localized area of moderately ulcerated mucosa was found in the sigmoid colon. Biopsies were taken with a cold forceps for histology. Impression: - Stricture in the sigmoid colon. Biopsied. Tattooed. - Ulcerated mucosa in the sigmoid colon. Biopsied. Recommendation: - Return patient to [facility] for ongoing care. - Advance diet as tolerated. - Use prednisone 40 mg PO once a day for 8 weeks. - The findings and recommendations were discussed with the surgeon. Mychal Daily DO 07/23/2020 10:18:53 AM This report has been signed electronically. Note Initiated On: 07/23/2020 9:31 AM Number of Addenda: 0 I attest to the content of the Intraoperative Record and orders documented therein, exceptions below {[id number]}
[2020-07-23] MEDS ORDERED: predniSONE 20 MG TAB PO STA (10:23)
--- NOTE | 2020-07-23 10:25 | Communication Note ---
Date of Service: July 23, 2020 Based on colonoscopy results from this morning, would advise initiating a Prednisone taper for discharge. Start with Prednisone 40 mg daily x 7 days then subsequently decrease by 5 mg weekly for a total of 8 weeks. Would recommend co- prescription of Calcium & Vitamin D supplementation while on high dose corticosteroids.
--- NOTE | 2020-07-23 12:57 | Med Student Discharge Summary ---
Date of Service July 23, 2020 Admission HPI Per Admitting Provider The patient is a 50-year-old male with past medical history including tobacco use disorder, pulmonary nodules, hypokalemia, hypertension, anxiety, CHF diarrhea, status post right hemicolectomy, hypertriglyceridemia, prediabetes, lumbar degenerative disc disease and spinal stenosis. He was most recently admitted to [facility] from 06/22-06/24/2020 and was treated conservatively. He denies any dietary indiscretions. He has not had a recent travels or sick exposures. Work-up in the emergency department included a CT scan of abdomen pelvis suggestive of diffuse colitis enterocolitis, with inability to rule out infl ammatory bowel disease. Laboratories in the ED: WBC 16.38 with left shift, platelets 05/24/1977, potassium 3.3, glucose 124, albumin 3.3. C. difficile studies were ordered but not collected Discharge Data Consultations 07/19/20 00:30 ED Decision to Admit Stat 07/19/20 01:51 Consult Gastroenterology Routine 07/19/20 12:07 Consult General Surgery Routine Procedures Performed Operation Date: 07/23/20 16:30 Actual Procedures p Colonoscopy Biopsy Cytology - Mychal Arreguin Case, DO Hospital Course (1) Enterocolitis: 1. Enterocolitis Mr. Cabrales is a 50-year-old male with a PMHx of anxiety, HTN, and small bowel obstruction who is 6 weeks s/p small bowel resection and right hemicolectomy with anastomosis secondary to acute bowel infarction. Upon presentation to [facility] emergency department on 07/19/20 for abdominal pain and constipation, abdominal CT identified enterocolitis and partial large bowel obstruction. He is being medically managed and awaiting endoscopic evaluation. * GI consult appreciated. Colonoscopy performed 07/23/20. Colonoscopy revealed ulcerated mucosa and significant stenosis of the sigmoid colon. * Complete 8 week Prednisone taper. 40 mg PO prednisone first 7 days, decrease by 5 mg each week. * Recommend supplemental vitamin D and calcium while on corticosteroids * Fecal calprotectin pending. HIV testing pending. * Ordered Scl-70 antibody testing for Scleroderma * Vitamin B12 level normal. Checked due to concern for malabsorption 2. Diarrhea Patient has had frequent diarrhea following small bowel resection and right hemicolectomy performed on 06/12/20. Following stool testing positive for C. difficile gene but negative for C. difficile toxin, the patient received antibiotic treatment with vancomycin. Diarrhea persisted after treatment and remains gene positive, toxin negative. Further investigation via colonoscopy will help differentiate between an inflammatory vs infectious vs. post-operative etiology of the patient's bowel changes. * Previous treatment for suspected C. difficile 06/22/20 to 07/02/20 with 10 day course of Vancomycin without significant improvement in gastrointestinal symptoms * Vancomycin initiated at beginning of current admission on 07/19/20. Discontinued 07/21/20 due to decreased concern for infectious etiology * Continue Colestid 1 g PO BID * Hyoscyamine PRN 3. Acute Bowel Infarction Patient had an unprovoked acute bowel infarction resulting in small bowel resection and right hemicolectomy with anastomosis between the small bowel and transverse colon on 06/12/20. The patient endorses a family history of acute bowel infarction (mother) but he does not have any known thrombophilia. To further investigate the etiology of the bowel infarction, we would like to investigate for potential arrhythmia. * Recommend 30-day ground water contractor 4. Large Bowel Obstruction * Abdominal CT performed on 07/19/20 showed evidence of a large bowel obstruction. Obstruction has resolved with medical management. 5. Hypokalemia * Patient mildly hypokalemic at time of presentation. Potassium repleted to 3.9 * Discontinued fluid repletion with NSS + potassium now that patient is tolerating clear liquids well 6. Anxiety * Continue home Buspirone and Citalopram Code Status: Full Code FEN: Normal diet following colonoscopy VTE PPx: Disposition: Discharge home 07/23/20 Discharge Plan Discharge Items Patient Disposition: Home - Self-Care Reason For Visit: COLITIS, ENTEROCOLITIS Discharge Diagnosis: Colitis Activity: Resume your previous activity Non-emergency contact: Primary Care Provider and Contract Clerk Call non-emergency contact if: your symptoms worsen and your pain is not controlled Follow-up/Referrals: Emely Torres DO [Primary Care Provider] - Diet: Regular Addtl Attending Provider Instructions: You were hospitalized at [facility] for recurrent abdominal cramping and loose stools. A cat scan of your abdomen showed evidence of inflammation of the small and large intestine. Initially, we thought you may have an infection of Clostridium difficile, or "c.diff," a bacterial overgrowth of the large bowel. However, while you are a carrier for this bacteria, testing did not indicate active infection. For this reason, your antibiotic was discontinued. We order other stool studies - however they did all finalize before your discharge. Please follow up with your family doctor regarding these results. We consulted Gastroenterology specialist while you were in the hospital - they performed a scope, a procedure known as an endoscopy to view your intestines from the inside. They will also be able to take biopsies (or samples) of your intestine which will later be examined under a microscope. They did recommend you take a Prednisone (a steroid) according to the following schedule: Week 1: Start Prednisone 40 mg daily x 7 days. Week 2: Prednisone 35mg daily x 7 days Week 3: Prednisone 30mg daily x 7 days Week 4: Prednisone 25mg daily x 7 days Week 5: Prednisone 20mg daily x 7 days Week 6: Prednisone 15mg daily x 7 days Week 7: Prednisone 10mg daily x 7 days Week 8: Prednisone 5mg daily x 7 days Then Stop You were given enough prednisone for 1 week. You will need to see your Primary Care Doctor within 1 week to get the rest of the taper. We would recommend Calcium & Vitamin D supplementation while on the prednisone. These are available over the counter. You were able to tolerate a liquid diet while under our care - feel free to gradually advance your diet when you leave the hospital. If your abdominal pain returns, you may use Tylenol or Ibuprofen for the pain. In the meantime, please continue to take Colestid, 1g, twice daily. This medication works to slow down your bowel movements (make them less runny/loose). We would also like you to wear a 30-day ground water contractor to capture any potential heart arrhythmias - we are concerned that you may be going into abnormal rhythms. When your heart goes into abnormal rhythms, there is increased propensity to throw blood clots to other areas of the body (which could have been the reason for your ischemic bowel). Pending Studies at Discharge: Yes Stand-Alone Forms: [facility], Smoking Cessation Medications and DC Order Prescriptions: New prednisone 20 mg tablet 20 mg PO DAILY 7 Days Qty: 7 RF: 0 Continued nicotine (polacrilex) 2 mg gum 2 mg buccal Q2H PRN (Reason: nicotine cravings) Qty: 120 RF: 1 esomeprazole magnesium [Nexium] 40 mg capsule,delayed release(DR/EC) 80 mg PO DAILY RF: 0 multivitamin Tablet 1 tab PO DAILY RF: 0 buspirone 5 mg tablet 10 mg PO QAM RF: 0 lisinopril 20 mg tablet 20 mg PO DAILY Qty: 30 RF: 2 citalopram 40 mg Tablet 40 mg PO HS Qty: 30 RF: 3 colestipol [Colestid] 1 gram Tablet 1 g PO BID@1100,2000 Qty: 60 RF: 5 ascorbic acid (vitamin C) [Vitamin C] 500 mg Tablet 1,000 mg PO DAILY RF: 0 lactobacillus combination no.8 3 billion cell Capsule 3,000 mmu cells PO BID RF: 0 Discharge Orders: Discharge Order (Routine); Ordered 07/23/20 Ordered By: Herlinda Stroud/Other Patient Handouts: 5 Steps for Eating Healthier Admission Data Admit Date/Time: 07/19/20 01:48 Attending Provider: Latisha Lerma Admit Provider: Salu Jean Baptiste Primary Care Provider: Emely Torres Other Providers: Saul Jean Baptiste ; Mychal Daily ; Mode Cervantes Thomas E. Other Interventions: Discharge Summary Assessment (RN) Last Done: 07/23/20 11:32
[2020-07-23 13:20] LABS: HIV 1 RNA PCR Copies/ML <20 NOT DETECTED copies/mL (NOT DETECTED); HIV-1 RNA Log Copies/mL <1.30 NOT DETECTED (NOT DETECTED)
== END 2020-07-23 12:21 | disposition home or self-care (01) | DRG 372 ==
LOC: ED 21:58 → SUATTDRO 07-19 01:48 → 3W 07-19 01:48
DX: F41.9 Anxiety disorder, unspecified; K56.609 Unspecified intestinal obstruction, unspecified as to partial versus complete obstruction; I10 Essential (primary) hypertension; E87.6 Hypokalemia; Z88.0 Allergy status to penicillin; F17.210 Nicotine dependence, cigarettes, uncomplicated; A04.72 Enterocolitis due to Clostridium difficile, not specified as recurrent

== ENCOUNTER 2020-08-02 13:42 | Inpatient (IN) ==
[2020-08-02] MEDS ORDERED: SODIUM CHLORIDE 0.9% 1000ML 1,000 ML IV ONE (14:05)
[2020-08-02] MEDS ORDERED: SODIUM CHLORIDE 0.9% 1000ML 500 ML IV ONE (14:05)
[2020-08-02] MEDS ORDERED: SODIUM CHLORIDE 0.9% 1000ML 250 ML IV ONE (14:05)
[2020-08-02] MEDS ORDERED: ONDANSETRON INJ 2 MG/ML 2 ML VIAL IV STA (14:07)
[2020-08-02] MEDS: HYDROmorphone INJ 0.5 MG/0.5 ML SYR IV PRN ×4 (14:17→22:31)
[2020-08-02 14:23] LABS: Basophils # (auto) 0.03 K/uL (0-0.2); Basophils % (auto) 0.1 %; Eosinophils # (auto) 0.01 K/uL (0-0.5); Hematocrit (blood only) 45.8 % (42-52); Hemoglobin 15.7 g/dL (14.0-18.0); Immature Granulocytes % (auto) 0.9 %; Lymphocytes # (auto) 2.03 K/uL (1.2-3.4); Lymphocytes % (auto) 9.1 %; Mean Corpuscular Hemoglobin 31.8 pg (25-34); Mean Corpuscular Hgb Conc 34.3 g/dL (32-36); Mean Corpuscular Volume 92.7 fL (80-100); Mean Platelet Volume 8.7 fL (7.4-10.4); Monocytes # (auto) 0.85 K/uL (0.11-0.59); Monocytes % (auto) 3.8 %; Neutrophils % (auto) 86.1 %; Platelet Count 476 K/uL (130-400); RDW Coefficient of Variation 13.8 % (11.5-14.5); RDW Standard Deviation 46.8 fL (36.4-46.3); Red Blood Count 4.94 M/uL (4.7-6.1); White Blood Count 22.22 K/uL (4.8-10.8)
[2020-08-02 14:40] LABS: Alanine Aminotransferase 34 U/L (12-78); Albumin Level 3.2 gm/dl (3.4-5.0); Aspartate Aminotransferase 9 U/L (15-37); BUN Creatinine Ratio 21.5 (10-20); Blood Urea Nitrogen 31 mg/dl (7-18); Calcium 10.1 mg/dl (8.5-10.1); Carbon Dioxide 25 mmol/L (21-32); Chloride 101 mmol/L (98-107); Creatinine Clr Calc Pharmacy 49.3 ml/min; Est GFR (African American) 64.2 ml/min; Est GFR (Non-African American) 55.4 ml/min; Glucose 126 mg/dl (70-99); Potassium 4.2 mmol/L (3.5-5.1); Sodium 132 mmol/L (136-145)
[2020-08-02 14:45] LABS: Albumin Globulin Ratio 0.7 (0.9-2); Alkaline Phosphatase 107 U/L (45-117); Bilirubin,Total 0.6 mg/dl (0.2-1); C Reactive Protein 1.59 mg/dl (0-0.29); Globulin 4.5 gm/dl (2.5-4.0); Total Protein 7.7 gm/dl (6.4-8.2); Troponin I < 0.015 ng/ml (0-0.045)
--- NOTE | 2020-08-02 14:45 | XRay Report ---
SINGLE VIEW CHEST CLINICAL HISTORY: Sepsis. FINDINGS: An AP, portable, upright chest radiograph is compared to chest x-ray and chest CT dated 06/22. The cardiomediastinal silhouette is unremarkable. The lungs and pleural spaces are clear. No p neumothorax is seen. There is chronic posttraumatic deformity of the right clavicle. Spinal rods are noted at the thoracolumbar junction. IMPRESSION: No active disease in the chest. ACT 112: Negative or not required by law. Electronically signed by: Jaswant Bautista M.D. 08/02/2020 2:44 PM
[2020-08-02 14:56] LABS: Partial Thromboplastin Time 25.9 Seconds (21.0-31.0); Prothrombin Time 9.9 Seconds (9.0-12.0)
[2020-08-02] MEDS ORDERED: OPTIRAY 300 100mL IV ONE (15:08)
--- NOTE | 2020-08-02 15:33 | CT Scan Report ---
CT SCAN OF THE ABDOMEN AND PELVIS WITH IV CONTRAST CLINICAL HISTORY: Generalized abdominal pain. COMPARISON STUDY: Abdominal CT dated 07/18/2020. TECHNIQUE: Following the IV administration of 84 cc of Optiray 300, CT scan of the abdomen and pelvi s is performed from the lung bases to the proximal femora. Images are reviewed in the axial, sagittal , and coronal planes. IV contrast was administered without complication. A dose lowering technique wa s utilized adhering to the principles of ALARA. The examination is degraded by streak artifact from s rosaura rods. CT DOSE: 327.60 mGy.cm FINDINGS: Lung bases: The heart is normal in size and without pericardial effusion. A 3 mm left lower lobe pulm onary nodule is seen on image #29. This is unchanged from recent prior studies. The lung bases are ot herwise clear. Liver: The contrast-enhanced liver is normal in size, contour, and attenuation. There is no intrahepa tic biliary ductal dilatation. The hepatic veins and portal veins are patent. Gallbladder: Surgically absent noting clips in the gallbladder fossa. Spleen: Normal in size and attenuation. Pancreas: Unremarkable. Adrenal glands: Unremarkable. Kidneys: The contrast enhanced kidneys are normal in size and without hydronephrosis. Apparent hetero geneity of the kidneys is likely related to metallic streak artifact from adjacent spinal hardware. Abdominal vasculature: The abdominal aorta is normal in course and caliber noting mild atheroscleroti c calcification. Bowel: There is postoperative change from ileocecal resection with ileocolic anastomosis. There is si gnificant wall thickening with mucosal hyperemia seen involving the left colon. This extends from the proximal descending colon to the rectosigmoid. There is surrounding pericolonic infiltration. Mild w all thickening and hyperemia seen involving the loops of distal small bowel in the right lower quadra nt. The distal small bowel loops and colon are distended. A focal transition point is suggested in th e sigmoid colon on image #310. A low-grade/developing bowel obstruction is not excluded. The degree o f bowel distention has significantly improved as compared to 07/18/2020. Peritoneum: There is no intraperitoneal free air or abdominal ascites. There is a fat-containing umbi lical hernia. A midline surgical scar is noted. Lymphadenopathy: A mildly enlarged left periaortic node on image #180 measures 1.4 cm in short axis. Pelvic viscera: The bladder, prostate, and seminal vesicles are normal as visualized. Skeletal structures: No lytic or blastic lesions are seen. There are chronic compression is of T11, T 12, L1, and L4. Mild lumbosacral spondylosis is observed. Thoracolumbar spinal rods are in place. IMPRESSION: 1. There is postoperative change consistent with right hemicolectomy and ileocolic anastomosis. 2. There is evidence of a nonspecific enterocolitis as detailed above, likely on an infectious or inf lammatory basis. 3. There is evidence of distal colonic obstruction, with a transition point identified in the sigmoid . This could related to mucosal edema or possibly stricture. This is similar to the 07/18/2020 examina tion although the bowel is less dilated than on the prior examination. 4. A mildly enlarged low-attenuation left periaortic node is nonspecific and may be reactive. 5. Additional findings as above. ACT 112: Negative or not required by law. Electronically signed by: Jaswant Bautista M.D. 08/02/2020 3:32 PM
[2020-08-02] MEDS ORDERED: metroNIDAZOLE 500 MG/100 ML BAG IV STA (16:22)
[2020-08-02] MEDS ORDERED: CIPROFLOXACIN / D5W 400 MG/200 ML BAG IV STA (16:22)
--- NOTE | 2020-08-02 16:28 | Surgery Consultation ---
Date of Consultation August 02, 2020 Assessment & Plan (1) Stricture of sigmoid colon: This is a 50y M with a PMH of small bowel resection and R hemicolectomy on 06/12 for infarcted bowel who presents to the [facility] ED on 08/02/20 with complaints of abdominal pain and lack of bowel function over the last 2 days. Workup of patient's enterocolitis on his most recent admission earlier this month with a colonoscopy showed a stricture in the sigmoid colon in addition to ulcerated mucosa. Pathology + for colitis. Plan was set in place for patient to start on an 8 week course of steroids which he has started, along with close follow up with GI. He says he has been taking 20mg of prednisone daily and yesterday dropped down to 15mg. Today, patient came to the ER due to worsening abdominal pain and constipation. A CT a/p was performed that showed post op changes of R hemicolectomy with ileocolic anastomosis, nonspecific enterocolitis, and evidence of a distal colonic obstruction with transition point in the sigmoid, possibly related to mucosal edema or stricture. This is similar appearing to his 07/18/20 examination. WBC 22, Cr: 1.5, Lactate 3. Patient was initially hypotensive in the ER and after 1.5L IVF his vitals have improved. On examination abdomen is soft and tender to palpation in the LLQ. It is likely that patient has an underlying inflammatory bowel disease. For now would recommend ongoing IV fluid resuscitation, start on IV abx, and ongoing supportive care. Would keep NPO for now. Appreciate hospitalists admission with GI consultation. Will need consideration of steroid dosing. We will continue to follow closely and hope to be able to avoid surgery in this patient, unless he does not show signs of improvement with more conservative measures. Plan of care discussed with Dr. Reynoso. Supervising Physician Co-Signing Physician Notes I personally saw and evaluated the patient with Lori Hawkins PA-C and agree with the assessment and plan 50 yo male s/p right hemicolectomy, now with sigmoid stricture -No plans for any surgical intervention at this time -Agree with keeping NPO, GI consult as they have been managing his stricture -ABX for his colitis -Will follow History of Present Illness History of Present Illness This is a 50y M with a PMH of small bowel resection and R hemicolectomy on 06/12 for infarcted bowel who presents to the [facility] ED on 08/02/20 with complaints of abdominal pain and lack of bowel function over the last 2 days. Of note the patient was recently admitted here earlier this month with an enterocolitis picture, managed with abx and supportive care. GI was consulted to help identify etiology of patient's enterocolitis and took patient for a colonoscopy on 07/23 and found a sigmoid stricture that was tattooed and biopsied and ulcerated mucosa in the sigmoid colon that was also biopsied. Pathology returned + for colitis. He was asked to start on prednisone for an 8 week course. Patient says he has been taking 20mg daily and tapered to 15mg starting yesterday. He reports that over the past 2 days he had worsening abdominal pain and has not been passing flatus or BM's. He denies any nausea/vomiting, but states due to symptoms he has not had much an appetite. He denies fevers/chills, chest pain/shortness of breath. Allergies Allergy/AdvReac Type Severity Reaction Status Date / Time Penicillins Allergy Unknown Unknown Verified 08/02/20 15:49 Home Medications Medication Instructions Recorded Confirmed Type esomeprazole magnesium 40 mg 80 mg PO DAILY cap 12/08/19 08/02/20 History capsule,delayed release multivitamin 1 tab PO DAILY 12/08/19 08/02/20 History buspirone 5 mg tablet 10 mg PO QAM tab 01/10/20 08/02/20 History lisinopril 20 mg PO DAILY #30 tab 06/18/20 08/02/20 Rx citalopram 40 mg PO HS #30 tab 06/24/20 08/02/20 Rx nicotine (polacrilex) 2 mg gum 2 mg BUCCAL Q2H PRN #120 ea 06/28/20 08/02/20 Rx ascorbic acid (vitamin C) [Vitamin 1,000 mg PO DAILY 07/19/20 08/02/20 History C] lactobacillus combination no.8 3,000 mmu cells PO BID 07/19/20 08/02/20 History prednisone 10 mg tablet See Rx Instructions .ROUTE 07/29/20 08/02/20 Rx .COMPLEX #21 tab Patient History Medical History Acute dehydration Acute intestinal ischemia Acute renal failure Anxiety Bulging lumbar disc C. difficile diarrhea HTN (hypertension) Hypertriglyceridemia Hypokalemia Peritonitis Prediabetes Protrusion of intervertebral disc of lumbosacral region Pulmonary nodules Severe sepsis Spinal stenosis of lumbar region Syncope Syncope and collapse Tobacco use disorder Surgical History H/O hand surgery History of surgical removal of intestinal structure 06/19/20 Previous back surgery S/P cholecystectomy S/P colonoscopy 07/23/20 Dr. Mychal Daily S/P eye surgery S/P foot surgery S/P right hemicolectomy Family History Father Heart disease Denies family history of Ovarian cancer Prostate cancer Breast cancer Colorectal cancer Social History Smoking Status: Current some day smoker Tobacco Type: Cigarettes Second Hand Exposure: No; Do You Dip or Chew Tobacco: Yes; Tobacco Cessation Education Requested by Patient: No Hx Alcohol Use: No Hx Substance Use: No Preferred Language: Tanzanian Communication Ability: Effective Visual Impairment: No Limitations Hearing Ability: Normal Special Services Agent Required: No Beliefs That Will Affect Care: None marital status: Current Living Situation: Spouse and Family current occupational status: employed 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 Other Information That Helps Us Care for You: No Feels Safe at Home: Yes Safety Concerns: Feels Safe At This Time caffeine: Yes Dental Care, Regularly: No Physical Activity Frequency: Does not Exercise Seatbelt Use: always Sunscreen Use: No Assistive Devices: None Review of Systems Constitutional: no fever and no chills Respiratory: no dyspnea Cardiovascular: no chest pain Gastrointestinal: + abdominal pain and + constipation; no bloating, no nausea and no vomiting Physical Exam Physical Exam: awake/alert Constitutional: no acute distress Respiratory: normal respiratory effort Gastrointestinal (Abdomen): Inspection/Auscultation: + abdominal surgical scar (well healed); abdomen not distended Percussion/Palpation: + abdomen tender (LLQ ttp) and abdomen soft Results & Data ([facility]) Vital Signs (Past 12 Hours) Vital Signs Temp Pulse Resp BP Pulse Ox 08/02/20 15:37 91 H 20 94/74 L 97 08/02/20 14:56 88 21 101/66 97 08/02/20 14:22 93 H 21 99/55 L 98 08/02/20 14:01 100 H 26 H 89/58 L 98 08/02/20 13:52 36.9 C 18 83/[address] SCAN OF THE ABDOMEN AND PELVIS WITH IV CONTRAST CLINICAL HISTORY: Generalized abdominal pain. COMPARISON STUDY: Abdominal CT dated 07/18/2020. TECHNIQUE: Following the IV administration of 84 cc of Optiray 300, CT scan of the abdomen and pelvis is performed from the lung bases to the proximal femora. Images are reviewed in the axial, sagittal, and coronal planes. IV contrast was administered without complication. A dose lowering technique was utilized adhering to the principles of ALARA. The examination is degraded by streak artifact from spinal rods. CT DOSE: 327.60 mGy.cm FINDINGS: Lung bases: The heart is normal in size and without pericardial effusion. A 3 mm left lower lobe pulmonary nodule is seen on image #29. This is unchanged from recent prior studies. The lung bases are otherwise clear. Liver: The contrast-enhanced liver is normal in size, contour, and attenuation. There is no intrahepatic biliary ductal dilatation. The hepatic veins and portal veins are patent. Gallbladder: Surgically absent noting clips in the gallbladder fossa. Spleen: Normal in size and attenuation. Pancreas: Unremarkable. Adrenal glands: Unremarkable. Kidneys: The contrast enhanced kidneys are normal in size and without hydronephrosis. Apparent heterogeneity of the kidneys is likely related to metallic streak artifact from adjacent spinal hardware. Abdominal vasculature: The abdominal aorta is normal in course and caliber noting mild atherosclerotic calcification. Bowel: There is postoperative change from ileocecal resection with ileocolic anastomosis. There is significant wall thickening with mucosal hyperemia seen involving the left colon. This extends from the proximal descending colon to the rectosigmoid. There is surrounding pericolonic infiltration. Mild wall thickening and hyperemia seen involving the loops of distal small bowel in the right lower quadrant. The distal small bowel loops and colon are distended. A focal transition point is suggested in the sigmoid colon on image #310. A low- grade/developing bowel obstruction is not excluded. The degree of bowel distention has significantly improved as compared to 07/18/2020. Peritoneum: There is no intraperitoneal free air or abdominal ascites. There is a fat-containing umbilical hernia. A midline surgical scar is noted. Lymphadenopathy: A mildly enlarged left periaortic node on image #180 measures 1.4 cm in short axis. Pelvic viscera: The bladder, prostate, and seminal vesicles are normal as visualized. Skeletal structures: No lytic or blastic lesions are seen. There are chronic compression is of T11, T12, L1, and L4. Mild lumbosacral spondylosis is observed. Thoracolumbar spinal rods are in place. IMPRESSION: 1. There is postoperative change consistent with right hemicolectomy and ileocolic anastomosis. 2. There is evidence of a nonspecific enterocolitis as detailed above, likely on an infectious or inflammatory basis. 3. There is evidence of distal colonic obstruction, with a transition point identified in the sigmoid. This could related to mucosal edema or possibly stricture. This is similar to the 07/18/2020 examination although the bowel is less dilated than on the prior examination. 4. A mildly enlarged low-attenuation left periaortic node is nonspecific and may be reactive. 5. Additional findings as above. ACT 112: Negative or not required by law. Electronically signed by: Jaswant Bautista M.D. 08/02/2020 3:32 PM PG Care Time/CCT Total # of Minutes Spent Total Time Spent with Patient: Total time spent is greater than 50% in coordination of care (as documented) at patient's floor/unit and/or counseling patient: Coding Level of Care Code 29925 Inpt Consult Level 3 Diagnoses Stricture of sigmoid colon K56.699
--- NOTE | 2020-08-02 17:35 | History & Physical Report ---
Date of Service August 02, 2020 Assessment & Plan (1) Enterocolitis: Concerns for possible inflammatory bowel disease considering ulcerations and presence of stricture. Leukocytosis may be from ongoing steroid use versus demargination from abdominal pain Will admit to a nonmonitored bed. Start IV prednisone 40 mg daily. Cipro and Flagyl IV already been started emergency room, can continue these Slow IV hydration. We will keep patient n.p.o. for now. Low-dose Dilaudid for pain Appreciate general surgery consultation. Will ask GI to evaluate as well (2) Stricture of sigmoid colon: Stricture causing partial large bowel obstruction. Treatment as noted above. N.p.o. for now. 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 Patient is a good historian and accompanied by his significant other. Patient's last hospitalization involved initial antibiotic treatment for presumed C. difficile. However, he was negative for C. difficile toxin. He underwent colonoscopy on 07/23 and was found to have significant ulceration along with stenosis of the sigmoid colon. He was started on p.o. prednisone and discharged later that day. Pathology reports a only acute on chronic colitis without stated etiology. Patient tells me that he did not receive the full dose of prednisone from the pharmacy, was only on 20 mg rather than the recommended 40 mg. He had just decreased to 15 mg as instructed. However, he started to have significant abdominal pain and difficulty moving his bowels. He denies any nausea or vomiting. He has had no fever or chills. Pain is very crampy and mostly in the left side of the abdomen. This is similar to some of the symptoms he is having prior to his discharge. Allergies Allergy/AdvReac Type Severity Reaction Status Date / Time Penicillins Allergy Unknown Unknown Verified 08/02/20 15:49 Home Medications Medication Instructions Recorded Confirmed Type esomeprazole magnesium 40 mg 80 mg PO DAILY cap 12/08/19 08/02/20 History capsule,delayed release multivitamin 1 tab PO DAILY 12/08/19 08/02/20 History buspirone 5 mg tablet 10 mg PO QAM tab 01/10/20 08/02/20 History lisinopril 20 mg PO DAILY #30 tab 06/18/20 08/02/20 Rx citalopram 40 mg PO HS #30 tab 06/24/20 08/02/20 Rx nicotine (polacrilex) 2 mg gum 2 mg BUCCAL Q2H PRN #120 ea 06/28/20 08/02/20 Rx ascorbic acid (vitamin C) [Vitamin 1,000 mg PO DAILY 07/19/20 08/02/20 History C] lactobacillus combination no.8 3,000 mmu cells PO BID 07/19/20 08/02/20 History prednisone 10 mg tablet See Rx Instructions .ROUTE 07/29/20 08/02/20 Rx .COMPLEX #21 tab Past Med/Surg History Medical History Acute dehydration Acute intestinal ischemia Acute renal failure Anxiety Bulging lumbar disc C. difficile diarrhea HTN (hypertension) Hypertriglyceridemia Hypokalemia Peritonitis Prediabetes Protrusion of intervertebral disc of lumbosacral region Pulmonary nodules Severe sepsis Spinal stenosis of lumbar region Syncope Syncope and collapse Tobacco use disorder Surgical History H/O hand surgery History of surgical removal of intestinal structure 06/19/20 Previous back surgery S/P cholecystectomy S/P colonoscopy 07/23/20 Dr. Mychal Daily S/P eye surgery S/P foot surgery S/P right hemicolectomy Family History Father Heart disease Denies family history of Ovarian cancer Prostate cancer Breast cancer Colorectal cancer Social History Smoking Status: Never smoker Tobacco Type: Cigarettes Second Hand Exposure: No; Hx Alcohol Use: No Hx Substance Use: Yes Prescribed Medications: Marijuana Last Used Substance: Days (ago) Substance Use Type Other:: medicinal marijuana Preferred Language: French Communication Ability: Effective Visual Impairment: No Limitations Hearing Ability: Normal Sales Representative [employer] Required: No Beliefs That Will Affect Care: None marital status: Current Living Situation: Spouse current occupational status: employed 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 Feels Safe at Home: Yes caffeine: Yes Dental Care, Regularly: No Physical Activity Frequency: Does not Exercise Seatbelt Use: always Sunscreen Use: No Assistive Devices: None Review of Systems Constitutional: no fever, no chills, no body aches and no weakness Ear, Nose, Mouth, Throat: as per Subjective / HPI Respiratory: no cough, no chest congestion, no dyspnea, no pain on inspiration, no pain with cough, no stopping breathing during sleep and no sputum production Cardiovascular: no chest pain, no chest pain at rest, no radiating jaw, neck or arm pain, no dyspnea on exertion, no palpitations and no edema Gastrointestinal: + abdominal pain, + constipation and + constant urge to pass stools; no nausea, no vomiting, no change in stools, no diarrhea/loose stools, n o fecal incontinence and no blood in stools Genitourinary: no dysuria, no difficulty urinating, no urinary frequency, no urinary hesitancy and no urinary incontinence Musculoskeletal: no back pain and no loss of height Neurologic: as per Subjective / HPI Psychiatric: as per Subjective / HPI Physical Exam Constitutional: cooperative and comfortable; no acute distress Neck: trachea midline, no thyromegaly Respiratory: normal respiratory effort, lungs clear to auscultation Cardiovascular: RRR, no murmur, no edema Gastrointestinal (Abdomen): Inspection/Auscultation: abdomen normal to inspection Percussion/Palpation: + abdomen tender and abdomen soft; no guarding and not tympanic to percussion Musculoskeletal: no cyanosis or clubbing, extremities motor strength 5/5 Skin: no rashes, warm and dry Neurologic: PERRL, EOMI, accommodation nl, no face palsy, no dysarthria Results & Data Results & Data ([facility]) Vital Signs (Past 12 Hours) Vital Signs Temp Pulse Resp BP Pulse Ox 08/02/20 16:32 92 H 20 113/75 98 08/02/20 15:37 91 H 20 94/74 L 97 08/02/20 14:56 88 21 101/66 97 08/02/20 14:22 93 H 21 99/55 L 98 08/02/20 14:01 100 H 26 H 89/58 L 98 08/02/20 13:52 36.9 C 18 83/[address] SCAN OF THE ABDOMEN AND PELVIS WITH IV CONTRAST CLINICAL HISTORY: Generalized abdominal pain. COMPARISON STUDY: Abdominal CT dated 07/18/2020. TECHNIQUE: Following the IV administration of 84 cc of Optiray 300, CT scan of the abdomen and pelvis is performed from the lung bases to the proximal femora. Images are reviewed in the axial, sagittal, and coronal planes. IV contrast was administered without complication. A dose lowering technique was utilized adhering to the principles of ALARA. The examination is degraded by streak artifact from spinal rods. CT DOSE: 327.60 mGy.cm FINDINGS: Lung bases: The heart is normal in size and without pericardial effusion. A 3 mm left lower lobe pulmonary nodule is seen on image #29. This is unchanged from recent prior studies. The lung bases are otherwise clear. Liver: The contrast-enhanced liver is normal in size, contour, and attenuation. There is no intrahepatic biliary ductal dilatation. The hepatic veins and portal veins are patent. Gallbladder: Surgically absent noting clips in the gallbladder fossa. Spleen: Normal in size and attenuation. Pancreas: Unremarkable. Adrenal glands: Unremarkable. Kidneys: The contrast enhanced kidneys are normal in size and without hydronephrosis. Apparent heterogeneity of the kidneys is likely related to metallic streak artifact from adjacent spinal hardware. Abdominal vasculature: The abdominal aorta is normal in course and caliber noting mild atherosclerotic calcification. Bowel: There is postoperative change from ileocecal resection with ileocolic anastomosis. There is significant wall thickening with mucosal hyperemia seen involving the left colon. This extends from the proximal descending colon to the rectosigmoid. There is surrounding pericolonic infiltration. Mild wall thickening and hyperemia seen involving the loops of distal small bowel in the right lower quadrant. The distal small bowel loops and colon are distended. A focal transition point is suggested in the sigmoid colon on image #310. A low- grade/developing bowel obstruction is not excluded. The degree of bowel distention has significantly improved as compared to 07/18/2020. Peritoneum: There is no intraperitoneal free air or abdominal ascites. There is a fat-containing umbilical hernia. A midline surgical scar is noted. Lymphadenopathy: A mildly enlarged left periaortic node on image #180 measures 1.4 cm in short axis. Pelvic viscera: The bladder, prostate, and seminal vesicles are normal as visualized. Skeletal structures: No lytic or blastic lesions are seen. There are chronic compression is of T11, T12, L1, and L4. Mild lumbosacral spondylosis is observed. Thoracolumbar spinal rods are in place. IMPRESSION: 1. There is postoperative change consistent with right hemicolectomy and ileocolic anastomosis. 2. There is evidence of a nonspecific enterocolitis as detailed above, likely on an infectious or inflammatory basis. 3. There is evidence of distal colonic obstruction, with a transition point identified in the sigmoid. This could related to mucosal edema or possibly stricture. This is similar to the 07/18/2020 examination although the bowel is less dilated than on the prior examination. 4. A mildly enlarged low-attenuation left periaortic node is nonspecific and may be reactive. 5. Additional findings as above. PG Care Time/CCT Total # of Minutes Spent Total Time Spent with Patient: Total time spent is greater than 50% in coordination of care (as documented) at patient's floor/unit and/or counseling patient: Coding Level of Care Code 25545 Initial Inpt Care Lvl 3 Diagnoses Enterocolitis K52.9 Stricture of sigmoid colon K56.699
[2020-08-02] MEDS ORDERED: CIPROFLOXACIN / D5W 400 MG/200 ML BAG IV SCH (18:51)
[2020-08-02] MEDS ORDERED: NICOTINE POLACRILEX 2 MG GUM MT PRN (18:51)
[2020-08-02] MEDS: SODIUM CHLORIDE 0.9% 1000ML 1,000 ML IV SCH (19:28)
[2020-08-02] MEDS: CITALOPRAM 40 MG TAB PO SCH (20:20)
[2020-08-02] MEDS: ADVANCED PROBIOTIC 1250 MG CAPSULE PO SCH (20:20)
--- NOTE | 2020-08-02 22:08 | Emergency Department Note ---
Impression & Plan Acute dehydration, Large bowel obstruction, Stricture of sigmoid colon ED Provider Note NAME: STEPHANIE PIMENTEL AGE: 50 SEX: M : 1970 ARRIVES VIA: Walk-In INFORMANT: Patient, ED PROVIDER(S): Jesus Bueno MD CHIEF COMPLAINT: abdominal pain HPI: This 50-year-old male who presents emergency department complaining of abdominal pain that has been ongoing for the past 2 days. The patient reports he has not been able to have a bowel movement. He arrives to the emergency department hypotensive. He reports he was driving himself to the emergency department when he began having issues seeing. He feels generally weak. He reports nothing he has taken has made the pain any better or worse. He denies any nausea or vomiting. He describes the pain as an aching sensation with radiation into the back. ROS: See above HPI for pertinent positives & negatives. A total of 10 systems reviewed and were otherwise negative. PAST MEDICAL HISTORY: See Below PAST SURGICAL HISTORY: See Below FAMILY HISTORY: See Below SOCIAL HISTORY: See Below HOME MEDICATIONS: See Below ALLERGIES: See Below VITALS: See Below PHYSICAL EXAMINATION: VITAL SIGNS - Vital signs and nursing notes were reviewed. GENERAL - 50-year-old male appearing stated age who is in no acute distress. Communicates well with provider and answers questions appropriately. SKIN - Without rashes. HEAD - NC/AT. EYES - PERRL with EOMI bilaterally. Sclera anicteric. Palpebral conjunctiva pink and moist with no injection noted. EARS - No deformities of external structures noted on gross examination bilaterally. NOSE - Midline and without cyanosis. No epistaxis or purulent drainage noted. Septum midline without deviation or septal hematoma noted. MOUTH/OROPHARYNX - Without perioral cyanosis. Buccal mucosa pink and moist and without leukoplakia. Tongue midline with equal elevation of palate bilaterally. No tonsillar hypertrophy, erythema, or exudates noted. NECK - Neck with FROM. Supple to palpation.No nuchal rigidity. LUNGS - Chest wall symmetric without accessory muscle use, intercostals retractions, or central cyanosis. Normal vesicular breath sounds CTA B/L. No wheezes, rales, or rhonchi appreciated. CARDIAC - RRR with S1/S2. No murmur, rubs, or gallops appreciated. ABDOMEN - Abdominal contour without pulsations or visible masses. BS normoactive all four quadrants. No tenderness, palpable masses, hepatosplenomegaly, or ascites noted. EXTREMITIES - No clubbing or peripheral cyanosis. No pretibial edema present. +3/5 radial, posterior tibial, and dorsalis pedis pulses palpated throughout. +5/5 strength noted in UE/LE bilaterally. NEUROLOGIC - Cranial nerves II through XII grossly intact. Sensory intact to light touch throughout. Patellar reflexes +2/4. PSYCH - A&Ox3 and cooperates fully with examiner. Pt is very pleasant and interacts well with examiner. MEDICAL DECISION MAKING: Patient was seen and evaluated as above in room A11. Review was performed of nursing notes and vital signs. I did review pertinent previous visits and patient history. After obtaining a thorough history and physical examination the above work up was performed. This is a 50-year-old male who presents to the emergency department complaining of hypotension and abdominal pain. The patient was sent for CAT scan of the abdomen pelvis this is concerning for large bowel obstruction caused by a stricture of the sigmoid colon. In addition the patient is also hypotensive he was given numerous saline boluses here in the emergency department started on IV Flagyl and Cipro. Due to the findings of the CAT scan the abdomen pelvis I did discuss the case with the surgical team. Patient does have an elevation in his white blood cell count however is on prednisone. His lactate is also elevated. He was given Dilaudid for his pain here. I also discussed the case with gastroenterology as well as the medicine team who did agree to admit the patient. An order was placed for continuous cardiac monitoring. The monitor shows a rate of 80 with Normal SInus rhythm. The patient was evaluated during a period of high volume and high acuity during the global COVID-19 pandemic, and that diagnosis was suspected/considered upon their initial presentation. Their evaluation, treatment and testing was consistent with current guidelines for patients who present with complaints or symptoms that may be related to COVID-19. Patient was seen while provider was wearing PPE. Triage Nursing notes reviewed. Prior medical records reviewed Vital Signs: reviewed and remarkable for no significant abnormalities Differential diagnosis: Appendicitis, testicular torsion, infections, diverticulitis, UTI, obstruction, mesenteric ischemia, aortic pathology, inflammatory bowel disease, renal colic, PUD, pancreatitis, biliary pathology, hernia, volvulus, constipation, as well as other pathologies. ER treatment provided: See below Diagnostics interpreted by me: ECG: EKG shows normal sinus rhythm rightward axis prolonged QT no ST elevation or depression EKG is compared to 06/22/[address] elevation or depression QTC is 500 ventricular rate is 98 Laboratory studies: As stated above and show below. Imaging studies: See below Consultation(s): Gen Surgery, Gastro, Internal Medicine Critical Care: I have personally spent greater than 30 minutes of critical care time in the direct management of this patient. This includes bedside care, interpretation of diagnostic studies, and testing, discussion with consultants, patient, and family members, and other required patient management activities. This 30 minutes is in excess of all separately billable procedures. Past Med/Surg History Medical History (Updated 08/02/20 @ 22:25 by Jesus Bueno MD) Acute dehydration Acute intestinal ischemia Acute renal failure Anxiety Bulging lumbar disc C. difficile diarrhea HTN (hypertension) Hypertriglyceridemia Hypokalemia Peritonitis Prediabetes Protrusion of intervertebral disc of lumbosacral region Pulmonary nodules Severe sepsis Spinal stenosis of lumbar region Syncope Syncope and collapse Tobacco use disorder Surgical History H/O hand surgery History of surgical removal of intestinal structure 06/19/20 Previous back surgery S/P cholecystectomy S/P colonoscopy 07/23/20 Dr. Mychal Daily S/P eye surgery S/P foot surgery S/P right hemicolectomy Family History Father Heart disease Denies family history of Ovarian cancer Prostate cancer Breast cancer Colorectal cancer Social History Smoking Status: Current some day smoker Tobacco Type: Cigarettes Second Hand Exposure: No; Do You Dip or Chew Tobacco: Yes; Tobacco Cessation Education Requested by Patient: No Hx Alcohol Use: No Hx Substance Use: No Preferred Language: Croatian Communication Ability: Effective Visual Impairment: No Limitations Hearing Ability: Normal Broommaker Required: No Beliefs That Will Affect Care: None marital status: Current Living Situation: Spouse and Family current occupational status: employed 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 Other Information That Helps Us Care for You: No Feels Safe at Home: Yes Safety Concerns: Feels Safe At This Time caffeine: Yes Dental Care, Regularly: No Physical Activity Frequency: Does not Exercise Seatbelt Use: always Sunscreen Use: No Assistive Devices: None Allergies Allergies Allergy/AdvReac Type Severity Reaction Status Date / Time Penicillins Allergy Unknown Unknown Verified 08/02/20 15:49 Home Meds Home Medications Medication Instructions Recorded Confirmed esomeprazole magnesium 40 mg 80 mg PO DAILY cap 12/08/19 08/02/20 capsule,delayed release multivitamin 1 tab PO DAILY 12/08/19 08/02/20 buspirone 5 mg tablet 10 mg PO QAM tab 01/10/20 08/02/20 ascorbic acid (vitamin C) [Vitamin 1,000 mg PO DAILY 07/19/20 08/02/20 C] lactobacillus combination no.8 3,000 mmu cells PO BID 07/19/20 08/02/20 Previous Rx's Medication Instructions Recorded lisinopril 20 mg PO DAILY #30 tab 06/18/20 citalopram 40 mg PO HS #30 tab 06/24/20 nicotine (polacrilex) 2 mg gum 2 mg BUCCAL Q2H PRN #120 ea 06/28/20 prednisone 10 mg tablet See Rx Instructions .ROUTE 07/29/20 .COMPLEX #21 tab Results & Data (ED) Vital Signs Vital Signs - 24 hr 08/02/20 13:52 08/02/20 14:01 08/02/20 14:22 Temperature 36.9 C Temperature Source Temporal Artery Scan Pulse Rate 100 H 93 H Pulse Rate from SpO2 Sensor Respiratory Rate 18 26 H 21 Respiratory Effort / Characteristics Non-Labored Spontaneous Respiratory Depth Normal Respiratory Pattern Regular Blood Pressure 83/54 L 89/58 L 99/55 L Blood Pressure Mean 63 68 69 Blood Pressure Position Sitting Pulse Oximetry 96 98 98 Oxygen Delivery Method Room Air Sepsis Recent Fever Within 48 Hours No Sepsis New/Unexplained Change in Mental Status N/A Sepsis Action Taken by Nursing No Action Required 08/02/20 14:56 08/02/20 15:37 08/02/20 16:32 Temperature Temperature Source Pulse Rate 88 91 H 97 H Pulse Rate from SpO2 Sensor 88 91 H Respiratory Rate 21 20 17 Respiratory Effort / Characteristics Respiratory Depth Respiratory Pattern Blood Pressure 101/66 94/74 L 113/75 Blood Pressure Mean 77 80 87 Blood Pressure Position Pulse Oximetry 97 97 98 Oxygen Delivery Method Sepsis Recent Fever Within 48 Hours Sepsis New/Unexplained Change in Mental Status Sepsis Action Taken by Nursing 08/02/20 17:00 08/02/20 17:30 Temperature Temperature Source Pulse Rate 86 83 Pulse Rate from SpO2 Sensor Respiratory Rate 18 17 Respiratory Effort / Characteristics Respiratory Depth Respiratory Pattern Blood Pressure 111/69 98/70 L Blood Pressure Mean 83 79 Blood Pressure Position Pulse Oximetry Oxygen Delivery Method Sepsis Recent Fever Within 48 Hours Sepsis New/Unexplained Change in Mental Status Sepsis Action Taken by Nursing Laboratory Data Result diagrams: 08/02/20 14:08 08/02/20 14:08 Lab Results 08/02/20 08/02/20 08/02/20 Range/Units 14:08 14:08 14:08 WBC 22.22 H (4.8-10.8) K/uL RBC 4.94 (4.7-6.1) M/uL Hgb 15.7 (14.0-18.0) g/dL Hct 45.8 (42-52) % MCV 92.7 (80-100) fL MCH 31.8 (25-34) pg MCHC 34.3 (32-36) g/dL RDW Std Deviation 46.8 H (36.4-46.3) fL RDW Coeff of Yoselin 13.8 (11.5-14.5) % Plt Count 476 H (130-400) K/uL MPV 8.7 (7.4-10.4) fL Immature Gran % (Auto) 0.9 % Neut % (Auto) 86.1 % Lymph % (Auto) 9.1 % [place] % (Auto) 3.8 % Eos % (Auto) 0.0 % Baso % (Auto) 0.1 % Neut # (Auto) 19.10 H (1.4-6.5) K/uL Lymph # (Auto) 2.03 (1.2-3.4) K/uL [place] # (Auto) 0.85 H (0.11-0.59) K/uL Eos # (Auto) 0.01 (0-0.5) K/uL Baso # (Auto) 0.03 (0-0.2) K/uL Immature Gran # (Auto) 0.20 H (0.00-0.02) K/uL ESR (0-20) mm/hr PT (9.0-12.0) Seconds INR (0.9-1.1) APTT (21.0-31.0) Seconds PTT Ratio Sodium 132 L (136-145) mmol/L Potassium 4.2 (3.5-5.1) mmol/L Chloride 101 (98-107) mmol/L Carbon Dioxide 25 (21-32) mmol/L Anion Gap 6.0 (3-11) BUN 31 H (7-18) mg/dl Creatinine 1.45 H (0.6-1.4) mg/dl Est Cr Clr Drug Dosing 49.3 ml/min Est GFR ( Amer) 64.2 ml/min Est GFR (Non-Af Amer) 55.4 ml/min BUN/Creatinine Ratio 21.5 H (10-20) Glucose 126 H (70-99) mg/dl POC Lactic Acid Juan (0.90-1.70) mmol/L Lactate (0.4-2.0) mmol/L Calcium 10.1 (8.5-10.1) mg/dl Magnesium 2.0 (1.8-2.4) mg/dl Total Bilirubin 0.6 (0.2-1) mg/dl AST 9 L (15-37) U/L ALT 34 (12-78) U/L Alkaline Phosphatase 107 (45-117) U/L Troponin I < 0.015 (0-0.045) ng/ml C-Reactive Protein 1.59 H (0-0.29) mg/dl Total Protein 7.7 (6.4-8.2) gm/dl Albumin 3.2 L (3.4-5.0) gm/dl Globulin 4.5 H (2.5-4.0) gm/dl Albumin/Globulin Ratio 0.7 L (0.9-2) Procalcitonin 0.27 (0-0.5) ng/ml COVID-19 Eval Order SARS-CoV-2 (PCR) (Negative) 08/02/20 08/02/20 08/02/20 Range/Units 14:08 14:11 14:32 WBC (4.8-10.8) K/uL RBC (4.7-6.1) M/uL Hgb (14.0-18.0) g/dL Hct (42-52) % MCV (80-100) fL MCH (25-34) pg MCHC (32-36) g/dL RDW Std Deviation (36.4-46.3) fL RDW Coeff of Yoselin (11.5-14.5) % Plt Count (130-400) K/uL MPV (7.4-10.4) fL Immature Gran % (Auto) % Neut % (Auto) % Lymph % (Auto) % [place] % (Auto) % Eos % (Auto) % Baso % (Auto) % Neut # (Auto) (1.4-6.5) K/uL Lymph # (Auto) (1.2-3.4) K/uL [place] # (Auto) (0.11-0.59) K/uL Eos # (Auto) (0-0.5) K/uL Baso # (Auto) (0-0.2) K/uL Immature Gran # (Auto) (0.00-0.02) K/uL ESR 55 H (0-20) mm/hr PT (9.0-12.0) Seconds INR (0.9-1.1) APTT (21.0-31.0) Seconds PTT Ratio Sodium (136-145) mmol/L Potassium (3.5-5.1) mmol/L Chloride (98-107) mmol/L Carbon Dioxide (21-32) mmol/L Anion Gap (3-11) BUN (7-18) mg/dl Creatinine (0.6-1.4) mg/dl Est Cr Clr Drug Dosing ml/min Est GFR ( Amer) ml/min Est GFR (Non-Af Amer) ml/min BUN/Creatinine Ratio (10-20) Glucose (70-99) mg/dl POC Lactic Acid Juan 3.05 H (0.90-1.70) mmol/L Lactate (0.4-2.0) mmol/L Calcium (8.5-10.1) mg/dl Magnesium (1.8-2.4) mg/dl Total Bilirubin (0.2-1) mg/dl AST (15-37) U/L ALT (12-78) U/L Alkaline Phosphatase (45-117) U/L Troponin I (0-0.045) ng/ml C-Reactive Protein (0-0.29) mg/dl Total Protein (6.4-8.2) gm/dl Albumin (3.4-5.0) gm/dl Globulin (2.5-4.0) gm/dl Albumin/Globulin Ratio (0.9-2) Procalcitonin (0-0.5) ng/ml COVID-19 Eval Order Covid19 at [facility] SARS-CoV-2 (PCR) (Negative) 08/02/20 08/02/20 08/02/20 Range/Units 14:32 14:33 14:33 WBC (4.8-10.8) K/uL RBC (4.7-6.1) M/uL Hgb (14.0-18.0) g/dL Hct (42-52) % MCV (80-100) fL MCH (25-34) pg MCHC (32-36) g/dL RDW Std Deviation (36.4-46.3) fL RDW Coeff of Yoselin (11.5-14.5) % Plt Count (130-400) K/uL MPV (7.4-10.4) fL Immature Gran % (Auto) % Neut % (Auto) % Lymph % (Auto) % [place] % (Auto) % Eos % (Auto) % Baso % (Auto) % Neut # (Auto) (1.4-6.5) K/uL Lymph # (Auto) (1.2-3.4) K/uL [place] # (Auto) (0.11-0.59) K/uL Eos # (Auto) (0-0.5) K/uL Baso # (Auto) (0-0.2) K/uL Immature Gran # (Auto) (0.00-0.02) K/uL ESR (0-20) mm/hr PT 9.9 (9.0-12.0) Seconds INR 1.0 (0.9-1.1) APTT 25.9 (21.0-31.0) Seconds PTT Ratio 1.0 Sodium (136-145) mmol/L Potassium (3.5-5.1) mmol/L Chloride (98-107) mmol/L Carbon Dioxide (21-32) mmol/L Anion Gap (3-11) BUN (7-18) mg/dl Creatinine (0.6-1.4) mg/dl Est Cr Clr Drug Dosing ml/min Est GFR ( Amer) ml/min Est GFR (Non-Af Amer) ml/min BUN/Creatinine Ratio (10-20) Glucose (70-99) mg/dl POC Lactic Acid Juan (0.90-1.70) mmol/L Lactate 3.0 H* (0.4-2.0) mmol/L Calcium (8.5-10.1) mg/dl Magnesium (1.8-2.4) mg/dl Total Bilirubin (0.2-1) mg/dl AST (15-37) U/L ALT (12-78) U/L Alkaline Phosphatase (45-117) U/L Troponin I (0-0.045) ng/ml C-Reactive Protein (0-0.29) mg/dl Total Protein (6.4-8.2) gm/dl Albumin (3.4-5.0) gm/dl Globulin (2.5-4.0) gm/dl Albumin/Globulin Ratio (0.9-2) Procalcitonin (0-0.5) ng/ml COVID-19 Eval Order SARS-CoV-2 (PCR) NEGATIVE (Negative) 08/02/20 Range/Units 16:23 WBC (4.8-10.8) K/uL RBC (4.7-6.1) M/uL Hgb (14.0-18.0) g/dL Hct (42-52) % MCV (80-100) fL MCH (25-34) pg MCHC (32-36) g/dL RDW Std Deviation (36.4-46.3) fL RDW Coeff of Yoselin (11.5-14.5) % Plt Count (130-400) K/uL MPV (7.4-10.4) fL Immature Gran % (Auto) % Neut % (Auto) % Lymph % (Auto) % [place] % (Auto) % Eos % (Auto) % Baso % (Auto) % Neut # (Auto) (1.4-6.5) K/uL Lymph # (Auto) (1.2-3.4) K/uL [place] # (Auto) (0.11-0.59) K/uL Eos # (Auto) (0-0.5) K/uL Baso # (Auto) (0-0.2) K/uL Immature Gran # (Auto) (0.00-0.02) K/uL ESR (0-20) mm/hr PT (9.0-12.0) Seconds INR (0.9-1.1) APTT (21.0-31.0) Seconds PTT Ratio Sodium (136-145) mmol/L Potassium (3.5-5.1) mmol/L Chloride (98-107) mmol/L Carbon Dioxide (21-32) mmol/L Anion Gap (3-11) BUN (7-18) mg/dl Creatinine (0.6-1.4) mg/dl Est Cr Clr Drug Dosing ml/min Est GFR ( Amer) ml/min Est GFR (Non-Af Amer) ml/min BUN/Creatinine Ratio (10-20) Glucose (70-99) mg/dl POC Lactic Acid Juan (0.90-1.70) mmol/L Lactate 1.4 (0.4-2.0) mmol/L Calcium (8.5-10.1) mg/dl Magnesium (1.8-2.4) mg/dl Total Bilirubin (0.2-1) mg/dl AST (15-37) U/L ALT (12-78) U/L Alkaline Phosphatase (45-117) U/L Troponin I (0-0.045) ng/ml C-Reactive Protein (0-0.29) mg/dl Total Protein (6.4-8.2) gm/dl Albumin (3.4-5.0) gm/dl Globulin (2.5-4.0) gm/dl Albumin/Globulin Ratio (0.9-2) Procalcitonin (0-0.5) ng/ml COVID-19 Eval Order SARS-CoV-2 (PCR) (Negative) Administered Medications Citalopram Hydrobromide (Citalopram 40 Mg Tab) 40 mg PO HS RAMY Stop: 09/01/20 20:59 Last Admin: 08/02/20 20:20 Dose: 40 mg Documented by: [id number] Hydromorphone HCl (Hydromorphone Inj 0.5 Mg/0.5 Ml Syr) 0.5 mg IV Q15M PRN PRN Reason: Pain Stop: 08/16/20 14:06 Last Admin: 08/02/20 19:00 Dose: 0.5 mg Documented by: [id number] Admin: 08/02/20 16:31 Dose: 0.5 mg Documented by: [id number] Admin: 08/02/20 14:17 Dose: 0.5 mg Documented by: [id number] Sodium Chloride (Nss 1000ml) 1,000 mls @ 100 mls/hr IV .Q10H RAMY Stop: 09/01/20 18:50 Last Admin: 08/02/20 19:28 Dose: 100 mls/hr Documented by: [id number] Lactobacillus Acidoph/Casei/Rhamnos (Advanced Probiotic 1250 Mg Capsule) 2 cap PO BID RAMY Stop: 09/01/20 20:59 Last Admin: 08/02/20 20:20 Dose: 2 cap Documented by: [id number] Discontinued Medications Sodium Chloride (Nss 1000ml) 1,000 mls @ 999 mls/hr IV .Q1H1M ONE Stop: 08/02/20 15:05 Last Infusion: 08/02/20 15:17 Dose: 0 mls/hr Documented by: [id number] Admin: 08/02/20 14:16 Dose: 999 mls/hr Documented by: [id number] Sodium Chloride (Nss 1000ml) 250 mls @ 999 mls/hr IV .Q16M ONE Stop: 08/02/20 14:20 Last Infusion: 08/02/20 15:32 Dose: 0 mls/hr Documented by: [id number] Admin: 08/02/20 15:16 Dose: 999 mls/hr Documented by: [id number] Sodium Chloride (Nss 1000ml) 500 mls @ 999 mls/hr IV .Q31M ONE Stop: 08/02/20 14:35 Last Infusion: 08/02/20 15:01 Dose: 0 mls/hr Documented by: [id number] Admin: 08/02/20 14:30 Dose: 999 mls/hr Documented by: [id number] Ciprofloxacin (Cipro / D5w) 400 mg in 200 mls @ 100 mls/hr IV NOW STA Stop: 08/02/20 18:21 Last Infusion: 08/02/20 18:53 Dose: 0 mls/hr Documented by: [id number] Admin: 08/02/20 16:31 Dose: 100 mls/hr Documented by: [id number] Metronidazole (Flagyl) 500 mg in 100 mls @ 100 mls/hr IV NOW STA Stop: 05/14/21 17:21 Last Infusion: 08/02/20 19:09 Dose: 0 mls/hr Documented by: [id number] Admin: 08/02/20 17:59 Dose: 100 mls/hr Documented by: [id number] Ioversol (Optiray 300 100ml) 84 ml IV ONCE ONE Stop: 08/02/20 15:09 Last Admin: 08/02/20 15:09 Dose: 84 ml Documented by: [id number] Methylprednisolone (Methylprednisolone 40 Mg/Ml Vial) 40 mg IV DAILY STA Stop: 08/02/20 17:38 Last Admin: 08/02/20 17:59 Dose: 40 mg Documented by: [id number] Ondansetron HCl (Ondansetron Inj 2 Mg/Ml 2 Ml Vial) 4 mg IV NOW STA Stop: 08/02/20 14:08 Last Admin: 08/02/20 14:17 Dose: 4 mg Documented by: [id number] Imaging Data Radiologist's Impression: Abdomen/Pelvis CT 08/02/20 14:05 CT SCAN OF THE ABDOMEN AND PELVIS WITH IV CONTRAST CLINICAL HISTORY: Generalized abdominal pain. COMPARISON STUDY: Abdominal CT dated 07/18/2020. TECHNIQUE: Following the IV administration of 84 cc of Optiray 300, CT scan of the abdomen and pelvis is performed from the lung bases to the proximal femora. Images are reviewed in the axial, sagittal, and coronal planes. IV contrast was administered without complication. A dose lowering technique was utilized adhering to the principles of ALARA. The examination is degraded by streak artifact from spinal rods. CT DOSE: 327.60 mGy.cm FINDINGS: Lung bases: The heart is normal in size and without pericardial effusion. A 3 mm left lower lobe pulmonary nodule is seen on image #29. This is unchanged from recent prior studies. The lung bases are otherwise clear. Liver: The contrast-enhanced liver is normal in size, contour, and attenuation. There is no intrahepatic biliary ductal dilatation. The hepatic veins and portal veins are patent. Gallbladder: Surgically absent noting clips in the gallbladder fossa. Spleen: Normal in size and attenuation. Pancreas: Unremarkable. Adrenal glands: Unremarkable. Kidneys: The contrast enhanced kidneys are normal in size and without hydronephrosis. Apparent heterogeneity of the kidneys is likely related to metallic streak artifact from adjacent spinal hardware. Abdominal vasculature: The abdominal aorta is normal in course and caliber noting mild atherosclerotic calcification. Bowel: There is postoperative change from ileocecal resection with ileocolic anastomosis. There is significant wall thickening with mucosal hyperemia seen involving the left colon. This extends from the proximal descending colon to the rectosigmoid. There is surrounding pericolonic infiltration. Mild wall thickening and hyperemia seen involving the loops of distal small bowel in the right lower quadrant. The distal small bowel loops and colon are distended. A focal transition point is suggested in the sigmoid colon on image #310. A low- grade/developing bowel obstruction is not excluded. The degree of bowel distention has significantly improved as compared to 07/18/2020. Peritoneum: There is no intraperitoneal free air or abdominal ascites. There is a fat-containing umbilical hernia. A midline surgical scar is noted. Lymphadenopathy: A mildly enlarged left periaortic node on image #180 measures 1.4 cm in short axis. Pelvic viscera: The bladder, prostate, and seminal vesicles are normal as visualized. Skeletal structures: No lytic or blastic lesions are seen. There are chronic compression is of T11, T12, L1, and L4. Mild lumbosacral spondylosis is observed. Thoracolumbar spinal rods are in place. IMPRESSION: 1. There is postoperative change consistent with right hemicolectomy and ileocolic anastomosis. 2. There is evidence of a nonspecific enterocolitis as detailed above, likely on an infectious or inflammatory basis. 3. There is evidence of distal colonic obstruction, with a transition point identified in the sigmoid. This could related to mucosal edema or possibly stricture. This is similar to the 07/18/2020 examination although the bowel is less dilated than on the prior examination. 4. A mildly enlarged low-attenuation left periaortic node is nonspecific and may be reactive. 5. Additional findings as above. ACT 112: Negative or not required by law. Electronically signed by: Jaswant Bautista M.D. 08/02/2020 3:32 PM Chest X-Ray 08/02/20 14:05 SINGLE VIEW CHEST CLINICAL HISTORY: Sepsis. FINDINGS: An AP, portable, upright chest radiograph is compared to chest x-ray and chest CT dated 06/22/2020. The cardiomediastinal silhouette is unremarkable. The lungs and pleural spaces are clear. No pneumothorax is seen. There is chronic posttraumatic deformity of the right clavicle. Spinal rods are noted at the thoracolumbar junction. IMPRESSION: No active disease in the chest. ACT 112: Negative or not required by law. Electronically signed by: Jaswant Bautista M.D. 08/02/2020 2:44 PM Discharge Plan Visit Data Chief Complaint: Illness Stated Complaint: ABDOMINAL PAIN/BLURRY VISION ED Provider: Jesus Bueno Discharge Problem: Acute dehydration, Large bowel obstruction, Stricture of sigmoid colon Patient Disposition: Admitted As Inpatient Discharge Instructions Interventions: ED Discharge Assessment Last Done: 08/02/20 18:14
[2020-08-03] MEDS: metroNIDAZOLE 500 MG/100 ML BAG IV SCH ×3 (01:58→18:01)
[2020-08-03] MEDS: CIPROFLOXACIN / D5W 400 MG/200 ML BAG IV SCH ×2 (04:04→16:19)
[2020-08-03] MEDS: HYDROmorphone INJ 0.5 MG/0.5 ML SYR IV PRN ×6 (04:04→23:56)
[2020-08-03] MEDS: SODIUM CHLORIDE 0.9% 1000ML 1,000 ML IV SCH ×3 (05:06→21:47)
--- NOTE | 2020-08-03 05:47 | Surgery Progress Note ---
Date of Service August 03, 2020 Assessment & Plan (1) Enterocolitis: Patient has been admitted by the hospitalist: Continue analgesics Continue antiemetics He has been initiated on antibiotics which should continue. He is receiving Cipro and Flagyl Continue hydration with IV fluids (2) Stricture of sigmoid colon: There is a stricture noted on CT scan. Stricture may be related to mucosal edema. It is noteworthy to mention that the colon is less dilated than was noted on previous exams. -Currently awaiting GI evaluation to determine if patient needs ongoing steroids. -We will keep patient n.p.o. for the present time and consider advancing diet once his bowels start moving Consideration should be given to adding subcutaneous heparin or Lovenox for DVT prevention but will defer this to the medical service Admission and Anticipated Discharge Date Admission Date: August 02, 2020 Supervising Physician Co-Signing Physician Notes I personally saw and evaluated the patient with Oskar Azevedo PA-C and agree with the assessment and plan 50 yo male s/p right hemicolectomy, now with sigmoid stricture -No plans for any surgical intervention at this time -Will trial clears as he has no pain this AM and had a BM -ABX for his colitis -Will follow Subjective Patient is resting comfortably in bed. He notes that since admission his abdominal pain has improved and is currently tolerable. He says he has passed a small amount of flatus but is not had a bowel movement. He denies any nausea or vomiting since admission. He denies any fevers, shakes, chills. He denies any shortness of breath. Physical Exam Gastrointestinal (Abdomen): Abdomen is soft and nondistended. Bowel sounds are present. Palpation this morning did not elicit any pain. Results & Data ([facility]) Vital Signs (Past 12 Hours) Vital Signs Temp Pulse Pulse Resp BP BP Pulse Ox 08/02/20 23:19 36.7 C 81 16 97/62 L 94 08/02/20 19:40 36.6 C 80 20 110/70 98 08/02/20 18:14 80 20 104/59 L 98 PG Care Time/CCT Total # of Minutes Spent Total Time Spent with Patient: Total time spent is greater than 50% in coordination of care (as documented) at patient's floor/unit and/or counseling patient: Coding Level of Care Code 33870 Subseq Hosp Care Lvl 1 Diagnoses Enterocolitis K52.9 Stricture of sigmoid colon K56.696
[2020-08-03 06:13] LABS: Basophils # (auto) 0.02 K/uL (0-0.2); Basophils % (auto) 0.1 %; Eosinophils # (auto) 0.01 K/uL (0-0.5); Eosinophils % (auto) 0.1 %; Hematocrit (blood only) 39.3 % (42-52); Hemoglobin 13.3 g/dL (14.0-18.0); Immature Granulocytes # (auto) 0.11 K/uL (0.00-0.02); Immature Granulocytes % (auto) 0.7 %; Lymphocytes # (auto) 4.21 K/uL (1.2-3.4); Lymphocytes % (auto) 25.4 %; Mean Corpuscular Hemoglobin 31.1 pg (25-34); Mean Corpuscular Hgb Conc 33.8 g/dL (32-36); Mean Corpuscular Volume 91.8 fL (80-100); Mean Platelet Volume 8.5 fL (7.4-10.4); Monocytes # (auto) 1.16 K/uL (0.11-0.59); Neutrophils # (auto) 11.09 K/uL (1.4-6.5); Neutrophils % (auto) 66.7 %; Platelet Count 401 K/uL (130-400); RDW Coefficient of Variation 13.8 % (11.5-14.5); RDW Standard Deviation 45.7 fL (36.4-46.3); Red Blood Count 4.28 M/uL (4.7-6.1)
--- NOTE | 2020-08-03 06:35 | Electrocardiogram Report ---
Test Reason : Blood Pressure : / mmHG Vent. Rate : 098 BPM Atrial Rate : 098 BPM P-R Int : 152 ms QRS Dur : 084 ms QT Int : 344 ms P-R-T Axes : 089 092 085 degrees QTc Int : 440 ms Normal sinus rhythm Rightward axis Abnormal ECG When compared with ECG of 22-JUN-2020 01:01, Criteria for Septal infarct are no longer Present Nonspecific T wave abnormality now evident in Lateral leads Confirmed by Jamey Cox ([id number]) on 08/03/2020 6:34:48 AM Referred By: Calin Felton Confirmed By:Jamey Cox
[2020-08-03 06:47] LABS: BUN Creatinine Ratio 27.9 (10-20); Calcium 9.7 mg/dl (8.5-10.1); Creatinine Clr Calc Pharmacy 92.8 ml/min; Est GFR (African American) 121.8 ml/min; Est GFR (Non-African American) 105.1 ml/min; Magnesium 1.9 mg/dl (1.8-2.4); Potassium 4.3 mmol/L (3.5-5.1)
--- NOTE | 2020-08-03 09:29 | Gastrointestinal Consultation ---
Date of Consultation August 03, 2020 Assessment & Plan (1) Large bowel obstruction: (2) Abnormal CT scan, colon: (3) Abdominal pain, LLQ: (4) Stricture of sigmoid colon: Recommend IV Solumedrol 40 mg daily Upon Discharge will need to start Prednisone taper at 40 mg by mouth daily and taper over 8 week course, decreasing by 5 mg weekly. Could consider colonoscopy with dilation of stricture following course of steroids, if needed Continue IV Abx as per primary team Continue supportive care Advance to clear liquid diet if OK with surgery History of Present Illness Reason for Consultation: Abdominal pain, Abnormal CT scan, Colon Stricture Attending Physician: Dimitrios Singer MD History of Present Illness Stephanie Pimentel is a 50 yo CM with an extensive PMHx including recurrent bowel obstruction, including hospitalization secondary to bowel obstruction s/p small bowel resection and right hemicolectomy in late May. The pathology from his bowel resection at that time showed findings consistent with enteritis and colitis with ischemic type necrosis. He subsequently returned to the ER in early July, and was noted to have a stricture in the sigmoid colon on CT imaging, as well as direct visualization with colonoscopy. At that time the stricture was biopsied with findings consistent with a focal active chronic colitis. The stricture site was tattooed. He was discharged to home on a Prednisone taper to start at 40 mg by mouth daily and taper over 8 weeks. He returned to the ER yesterday with significant LLQ abdominal pain and inability to have a BM for "a few days." CT imaging again showed findings consistent with a Sigmoid colon stricture. He claims that he was given the wrong dose of steroids by his pharmacy, and had only been taking 20 mg by mouth daily initially, rather than the 40 mg that was recommended. He was admitted, placed on IVF hydration, IV antibiotics and analgesia. At the time I saw him, he was extremely frustrated with his continued medical problems. He states that he has lost approximately 40 lbs in the past 3 months, and has been unable to work due to his health issues. He is very agitated during my exam. He states his LLQ abdominal pain has slightly improved during the night. He describes the pain as a chronic ache, 6/10 in intensity, non-radiating with no alleviating or exacerbating factors. He states he would like to eat, but is afraid to because of his ongoing issues. He denies any melena, hematochezia, nausea, vomiting, or diarrhea at this time. He has no further complaints. Allergies Allergy/AdvReac Type Severity Reaction Status Date / Time Penicillins Allergy Unknown Unknown Verified 08/02/20 15:49 Home Medications Medication Instructions Recorded Confirmed Type esomeprazole magnesium 40 mg 80 mg PO DAILY cap 12/08/19 08/02/20 History capsule,delayed release multivitamin 1 tab PO DAILY 12/08/19 08/02/20 History buspirone 5 mg tablet 10 mg PO QAM tab 01/10/20 08/02/20 History lisinopril 20 mg PO DAILY #30 tab 06/18/20 08/02/20 Rx citalopram 40 mg PO HS #30 tab 06/24/20 08/02/20 Rx nicotine (polacrilex) 2 mg gum 2 mg BUCCAL Q2H PRN #120 ea 06/28/20 08/02/20 Rx ascorbic acid (vitamin C) [Vitamin 1,000 mg PO DAILY 07/19/20 08/02/20 History C] lactobacillus combination no.8 3,000 mmu cells PO BID 07/19/20 08/02/20 History prednisone 10 mg tablet See Rx Instructions .ROUTE 07/29/20 08/02/20 Rx .COMPLEX #21 tab Patient History Medical History Acute dehydration Acute intestinal ischemia Acute renal failure Anxiety Bulging lumbar disc C. difficile diarrhea HTN (hypertension) Hypertriglyceridemia Hypokalemia Peritonitis Prediabetes Protrusion of intervertebral disc of lumbosacral region Pulmonary nodules Severe sepsis Spinal stenosis of lumbar region Syncope Syncope and collapse Tobacco use disorder Surgical History H/O hand surgery History of surgical removal of intestinal structure 06/19/20 Previous back surgery S/P cholecystectomy S/P colonoscopy 07/23/20 Dr. Mychal Daily S/P eye surgery S/P foot surgery S/P right hemicolectomy Family History Father Heart disease Denies family history of Ovarian cancer Prostate cancer Breast cancer Colorectal cancer Social History Smoking Status: Current some day smoker Tobacco Type: Cigarettes Second Hand Exposure: No; Do You Dip or Chew Tobacco: Yes; Tobacco Cessation Education Requested by Patient: No Hx Alcohol Use: No Hx Substance Use: No Preferred Language: Albanian Communication Ability: Effective Visual Impairment: No Limitations Hearing Ability: Normal Beam Dyer Recessed Vat Required: No Beliefs That Will Affect Care: None marital status: Current Living Situation: Spouse and Family current occupational status: employed 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 Other Information That Helps Us Care for You: No Feels Safe at Home: Yes Safety Concerns: Feels Safe At This Time caffeine: Yes Dental Care, Regularly: No Physical Activity Frequency: Does not Exercise Seatbelt Use: always Sunscreen Use: No Assistive Devices: None Review of Systems Review of Systems: All systems reviewed & are unremarkable except as noted in HPI & below Physical Exam Constitutional: + ill appearing; + not well nourished and no acute distress Chronic ill-appearing Eyes: + anicteric sclerae ENMT: Ears: no hearing impairment Neck: normal visual inspection Respiratory: normal respiratory effort, lungs clear to auscultation Cardiovascular: RRR, no murmur, no edema Gastrointestinal (Abdomen): Inspection/Auscultation: normal bowel sounds; abdomen not distended Percussion/Palpation: + abdomen tender (LLQ) and abdomen soft; no hepatosplenomegaly Skin: no rashes, warm and dry Psychiatric: A+Ox3, euthymic affect Results & Data ([facility]) Vital Signs (Past 12 Hours) Vital Signs Temp Pulse Resp BP Pulse Ox 08/03/20 07:41 36.7 C 91 H 18 105/61 96 08/02/20 23:19 36.7 C 81 16 97/62 L 94 Diagnostic Findings [facility] Patient: STEPHANIE PIMENTEL (Male) : 68 Status: ER Date: 07/18/20 23:49 Room #: History: DIFFUSE PAIN IN ABD, BOWEL SURGERY ABOUT ONE MONTH AGO Slices: [id number] Priors: Tech: Zach Noble @ [phone] Exams: CT ABDOMEN & PELVIS With Contrast Contrast: IV Amt: 84 ML OPTIRAY 300 Accession Numbers: [id number] Preliminary Findings Only See Final Report For Complete Findings CT ABDOMEN & PELVIS With Contrast: Comparison: 06/22/2020. Clear lung bases. Normal cardiac size. Status post cholecystectomy with mild central biliary distention, nonspecific in the context of long-standing cholecystectomy. Otherwise normal abdominal viscera including adrenal glands and kidneys. Distended stomach otherwise unremarkable. Distention of the colon diffusely as well as distal small bowel with fluid within the lumen. Thickening of the wall more severe through the descending colon, sigmoid and some of the left-sided small bowel loops combination of findings suggestive of colitis/enterocolitis. Cannot exclude inflammatory bowel disease. Clinical correlation with history of Crohn's disease recommended. Questionable right-sided colectomy with anastomotic sutures at the hepatic flexure. Focal area with area of thickening of the wall and narrowing of the lumen at the level of the sigmoid on image 67, series 2 may represent inflammatory process with nonspecific peristalsis versus stricture. Mild amount of free fluid in the pelvis. Extensive postoperative changes through the lumbar spine with posterior fusion. Radiologist: Claudia Robert MD Study ready at 23:58 and initial results transmitted at 00:12 *This report constitutes a preliminary interpretation only. Non-acute findings felt to be unrelated to the clinical presentation may not be discussed in this report. The study will be interpreted and a final report will be generated by the local Radiologist the following shift. To reach the hospital radiology department call [phone]. If a discrepancy is found between the preliminary and final interpretations of this study, please notify us via our Client Portal at [email or web address], under QA Exams.You can also fax this report with a description of the discrepancy, or include the final report, to our daytime fax number [phone].If faxing, please indicate the severity of discrepancy using one of the following categories: [ ] 1 - Agree/Informational [ ] 2 - Unlikely to Affect Management [ ] 3 - Possible Eventual Change of Management [ ] 4 - Probable Immediate Change of Management For all other patient related information, please fax us at [phone]. [id number] PG Care Time/CCT Total # of Minutes Spent Total Time Spent with Patient: Total time spent is greater than 50% in coordination of care (as documented) at patient's floor/unit and/or counseling patient: Coding Level of Care Code 33832 Inpt Consult Level 4 Diagnoses Large bowel obstruction K56.[address] scan, colon R93.3 Abdominal pain, LLQ R10.32 Stricture of sigmoid colon K56.557
[2020-08-03] MEDS: busPIRone 5 MG TAB PO SCH (09:35)
[2020-08-03] MEDS: ADVANCED PROBIOTIC 1250 MG CAPSULE PO SCH ×2 (09:35→19:58)
[2020-08-03] MEDS: ASCORBIC ACID 500 MG TAB PO SCH (09:35)
[2020-08-03] MEDS: lisinopril 20 MG TAB PO SCH (09:36)
[2020-08-03] MEDS: PANTOprazole 40 MG TAB PO SCH (09:36)
[2020-08-03] MEDS: MULTIVITAMIN TAB PO SCH (09:36)
[2020-08-03] MEDS: methylPREDNISolone 40 MG in SYRINGE 0 ML IV SCH (09:58)
[2020-08-03 13:09] LABS: Appearance Urine Clear (Clear); Bacteria Urine Automated Negative (Negative); Bilirubin Urine Negative (Negative); Blood Urine Negative (Negative); Color Urine Yellow; Glucose Urine UA Negative (Negative); Ketones Urine Negative (Negative); Leukocyte Esterase Urine Trace (Negative); Nitrite Urine Negative (Negative); Protein Urine Negative (Negative); RBC Urine Automated 0-4 /hpf (0-4); Specific Gravity Urine 1.025 (1.000-1.030); Urobilinogen Urine Negative (Negative)
--- NOTE | 2020-08-03 13:30 | Hospitalist Progress Note ---
Date of Service August 03, 2020 Assessment & Plan (1) Enterocolitis: Concerns for possible inflammatory bowel disease considering ulcerations and presence of stricture. Leukocytosis may be from ongoing steroid use versus demargination from abdominal pain. - Appreciate GI and surgical consult: - Continue SoluMedrol IV daily - Continue Cipro and Flagyl IV - Advanced diet to full liquids as he is very concerned about weight loss. - Continue pain and nausea control (2) Stricture of sigmoid colon: Stricture causing partial large bowel obstruction. - Treatment as noted above. (3) HTN (hypertension): BP today is 105/60. - Continue lisinopril 20 mg PO daily (4) Anxiety: - Continue buspirone & citalopram (5) Tobacco use disorder: - Nicotine patch as desired (6) DVT prophylaxis: Lovenox 40 mg SQ daily Admission and Anticipated Discharge Date Admission Date: August 02, 2020 Subjective Pain still present, but improving. Had a BM today that was normal in his prior consistency (reports it as "oatmeal" consistency). No blood or black stool. No nausea or vomiting. Appetite is improving. As with GI, expresses significant frustration about lost weight and not getting better faster. Reports no fevers/chills, chest pain, shortness of breath. Physical Exam Constitutional: WD/WN, vitals as above Eyes: EOM intact bilaterally; no conjunctival abnormality ENMT: external ear and nose normal, oropharynx normal Neck: trachea midline, no thyromegaly normal visual inspection Respiratory: normal respiratory effort, lungs clear to auscultation no re spiratory distress Cardiovascular: RRR, no murmur, no edema Gastrointestinal (Abdomen): Inspection/Auscultation: normal bowel sounds and + abdominal surgical scar; abdomen not distended Percussion/Palpation: abdomen soft; abdomen nontender, no guarding and abdomen not rigid Musculoskeletal: no cyanosis or clubbing, extremities motor strength 5/5 Skin: no rashes, warm and dry Neurologic: moves all extremities and awake Psychiatric: Orientation: alert, oriented to person and cooperative Results & Data Results & Data ([facility]) Vital Signs (Past 12 Hours) Vital Signs Temp Pulse Resp BP Pulse Ox 08/03/20 07:41 36.7 C 91 H 18 105/61 96 PG Care Time/CCT Total # of Minutes Spent Total Time Spent with Patient: Total time spent is greater than 50% in coordination of care (as documented) at patient's floor/unit and/or counseling patient: Coding Level of Care Code 29711 Subseq Hosp Care Lvl 3 Diagnoses Enterocolitis K52.9 Stricture of sigmoid colon K56.699 HTN (hypertension) I10 Anxiety F41.9 Tobacco use disorder F17.200 DVT prophylaxis Z29.9
[2020-08-03] MEDS: CITALOPRAM 40 MG TAB PO SCH (19:58)
[2020-08-04] MEDS: metroNIDAZOLE 500 MG/100 ML BAG IV SCH ×3 (01:55→17:22)
[2020-08-04] MEDS: CIPROFLOXACIN / D5W 400 MG/200 ML BAG IV SCH ×2 (04:47→15:54)
--- NOTE | 2020-08-04 05:19 | Surgery Progress Note ---
Date of Service August 04, 2020 Assessment & Plan (1) Enterocolitis: Patient has been admitted by the hospitalist: Since admission patient's white blood cell count and creatinine have both improved Continue analgesics Continue antiemetics Continue antibiotics in the form of Cipro and Flagyl GI recommendations noted. Patient has been initiated on steroids. Continue hydration with IV fluids (2) Stricture of sigmoid colon: Stricture noted on CT scan potentially related to mucosal edema As noted above GI has initiated the patient on steroids Consideration could be given to performing a colonoscopy with dilation of stricture Lovenox is in place for DVT prevention Admission and Anticipated Discharge Date Admission Date: August 02, 2020 Supervising Physician Co-Signing Physician Notes I personally saw and evaluated the patient with Oskar Azevedo PA-C and agree with the assessment and plan 50 yo male s/p right hemicolectomy, now with sigmoid stricture -No plans for any surgical intervention at this time -Appreciate GI input -ABX for his colitis -Advance diet as tolerated as he has no abdominal pain and return of bowel function -Will follow Subjective Patient is resting comfortably in bed. He notes that since admission his a bdominal pain continues to improve. He reports having a bowel movement in the past 24 hours as well as passing flatus. He denies any nausea vomiting. His diet is advanced to full liquids which she is tolerating well. Denies any fevers, shakes, chills. He denies shortness of breath. Physical Exam Gastrointestinal (Abdomen): Abdomen is soft and nondistended. Bowel sounds are present. There is no pain with palpation this morning. Results & Data ([facility]) Vital Signs (Past 12 Hours) Vital Signs Temp Pulse Resp BP Pulse Ox 08/03/20 22:59 36.8 C 82 16 120/82 98 PG Care Time/CCT Total # of Minutes Spent Total Time Spent with Patient: Total time spent is greater than 50% in coordination of care (as documented) at patient's floor/unit and/or counseling patient: Coding Level of Care Code 89584 Subseq Hosp Care Lvl 1 Diagnoses Enterocolitis K52.9 Stricture of sigmoid colon K56.699
[2020-08-04] MEDS: HYDROmorphone INJ 0.5 MG/0.5 ML SYR IV PRN ×5 (05:47→20:12)
[2020-08-04 05:56] LABS: Hematocrit (blood only) 36.3 % (42-52); Hemoglobin 12.1 g/dL (14.0-18.0); Mean Corpuscular Hemoglobin 31.2 pg (25-34); Mean Corpuscular Hgb Conc 33.3 g/dL (32-36); Mean Corpuscular Volume 93.6 fL (80-100); Mean Platelet Volume 8.5 fL (7.4-10.4); Platelet Count 336 K/uL (130-400); RDW Coefficient of Variation 13.6 % (11.5-14.5); Red Blood Count 3.88 M/uL (4.7-6.1); White Blood Count 8.32 K/uL (4.8-10.8)
[2020-08-04 06:31] LABS: BUN Creatinine Ratio 20.4 (10-20); Calcium 8.9 mg/dl (8.5-10.1); Creatinine Clr Calc Pharmacy 105.1 ml/min; Est GFR (African American) 128.2 ml/min; Est GFR (Non-African American) 110.6 ml/min; Magnesium 1.7 mg/dl (1.8-2.4); Phosphorus 1.6 mg/dl (2.5-4.9); Potassium 3.6 mmol/L (3.5-5.1)
[2020-08-04] MEDS ORDERED: POTASSIUM PHOS 3 MMOL/1 ML INFUSION IV STA (07:51)
--- NOTE | 2020-08-04 07:54 | Gastroenterology Progress Note ---
Date of Service August 04, 2020 Assessment & Plan (1) Stricture of sigmoid colon: (2) Abdominal pain, LLQ: (3) Abnormal CT scan, colon: Recommend 8 week steroid taper of Prednisone starting at 40 mg daily and decreasing by 5 mg each week. Can advance diet to regular if OK with surgery Continue supportive care Followup in our office in 2-3 weeks. Admission and Anticipated Discharge Date Admission Date: August 02, 2020 Subjective Feeling much better today. Had multiple soft BM's yesterday/last night. Tolerating PO intake. He states that his LLQ abdominal pain is 1-2/10 in intensity, but much improved. He denies any fevers, chills, nausea, vomiting, diarrhea, hematemesis, melena or hematochezia. He has no further complaints. Review of Systems Review of Systems: All systems reviewed & are unremarkable except as noted in HPI & below Physical Exam Constitutional: WD/WN, vitals as above Respiratory: normal respiratory effort, lungs clear to auscultation Cardiovascular: RRR, no murmur, no edema Gastrointestinal (Abdomen): Inspection/Auscultation: abdomen normal to inspection and normal bowel sounds; abdomen not distended Percussion/Palpation: + abdomen tender (Minimal in LLQ) and abdomen soft Psychiatric: A+Ox3, euthymic affect Results & Data Results & Data ([facility]) Vital Signs (Past 12 Hours) Vital Signs Temp Pulse Resp BP Pulse Ox 08/04/20 07:36 36.7 C 75 18 148/78 H 98 08/03/20 22:59 36.8 C 82 16 120/82 98 PG Care Time/CCT Total # of Minutes Spent Total Time Spent with Patient: Total time spent is greater than 50% in coordination of care (as documented) at patient's floor/unit and/or counseling patient: Coding Level of Care Code 76123 Subseq Hosp Care Lvl 3 Diagnoses Stricture of sigmoid colon K56.699 Abdominal pain, LLQ R10.[address] scan, colon R93.3
[2020-08-04] MEDS ORDERED: POTASSIUM PHOSPHATE 30 MMOL in SODIUM CHLORIDE 0.9% 500 ML IV ONE (08:15)
[2020-08-04] MEDS: MAGNESIUM SULFATE / D5W 1 GM/100 ML BAG IV SCH ×3 (08:55→13:03)
[2020-08-04] MEDS: ADVANCED PROBIOTIC 1250 MG CAPSULE PO SCH ×2 (09:00→20:13)
[2020-08-04] MEDS: ASCORBIC ACID 500 MG TAB PO SCH (09:01)
[2020-08-04] MEDS: MULTIVITAMIN TAB PO SCH (09:01)
[2020-08-04] MEDS: busPIRone 5 MG TAB PO SCH (09:01)
[2020-08-04] MEDS: lisinopril 20 MG TAB PO SCH (09:02)
[2020-08-04] MEDS: PANTOprazole 40 MG TAB PO SCH (09:02)
[2020-08-04] MEDS: methylPREDNISolone 40 MG in SYRINGE 0 ML IV SCH (09:02)
[2020-08-04] MEDS: ENOXAPARIN INJ 40 MG/0.4 ML SYR SQ SCH (09:03)
[2020-08-04] MEDS: SODIUM CHLORIDE 0.9% 1000ML 1,000 ML IV SCH (10:49)
--- NOTE | 2020-08-04 15:27 | Hospitalist Progress Note ---
Date of Service August 04, 2020 Assessment & Plan (1) Enterocolitis: Concerns for possible inflammatory bowel disease considering ulcerations and presence of stricture. Leukocytosis may be from ongoing steroid use versus demargination from abdominal pain. - Appreciate GI and surgical consult: - Continue SoluMedrol IV daily - Continue Cipro and Flagyl IV - Advanced diet to full liquids as he is very concerned about weight loss. Added Boost supplement as well. - Continue pain and nausea control -> Improving. - Consider moving to PO steroids tomorrow. (2) Stricture of sigmoid colon: Stricture causing partial large bowel obstruction. - Treatment as noted above. (3) HTN (hypertension): BP today is 135/70. - Continue lisinopril 20 mg PO daily (4) Anxiety: - Continue buspirone & citalopram (5) Tobacco use disorder: - Nicotine patch as desired (6) DVT prophylaxis: Lovenox 40 mg SQ daily Admission and Anticipated Discharge Date Admission Date: August 02, 2020 Subjective Doing better today. Started to have BMs that are relatively normal for him. Still with some mild abdominal pain, but overall doing well. Reports no fevers/chills, chest pain, shortness of breath, abdominal pain, nausea, or vomiting. Physical Exam Constitutional: WD/WN, vitals as above Eyes: EOM intact bilaterally; no conjunctival abnormality ENMT: external ear and nose normal, oropharynx normal Neck: trachea midline, no thyromegaly normal visual inspection Respiratory: normal respiratory effort, lungs clear to auscultation no respiratory distress Cardiovascular: RRR, no murmur, no edema Gastrointestinal (Abdomen): Inspection/Auscultation: normal bowel sounds and + abdominal surgical scar; abdomen not distended Percussion/Palpation: abdomen soft; abdomen nontender, no guarding and abdomen not rigid Musculoskeletal: no cyanosis or clubbing, extremities motor strength 5/5 Skin: no rashes, warm and dry Neurologic: moves all extremities and awake Psychiatric: Orientation: alert, oriented to person and cooperative Results & Data Results & Data ([facility]) Vital Signs (Past 12 Hours) Vital Signs Temp Pulse Resp BP Pulse Ox 08/04/20 15:06 36.7 C 76 18 132/71 96 08/04/20 07:36 36.7 C 75 18 148/78 H 98 PG Care Time/CCT Total # of Minutes Spent Total Time Spent with Patient: Total time spent is greater than 50% in coordination of care (as documented) at patient's floor/unit and/or counseling patient: Coding Level of Care Code 04965 Subseq Hosp Care Lvl 2 Diagnoses Enterocolitis K52.9 Stricture of sigmoid colon K56.699 HTN (hypertension) I10 Anxiety F41.9 Tobacco use disorder F17.200 DVT prophylaxis Z29.9
[2020-08-04] MEDS: hydrOXYzine HCl 25 MG TAB PO PRN ×2 (17:22→20:35)
[2020-08-04] MEDS: CITALOPRAM 40 MG TAB PO SCH (20:13)
[2020-08-04 22:00] LABS: Cdiff Antigen Positive; Cdiff Toxin A+B Negative Cdiff Toxin (Negative)
[2020-08-05] MEDS: HYDROmorphone INJ 0.5 MG/0.5 ML SYR IV PRN ×6 (00:10→20:52)
[2020-08-05] MEDS: metroNIDAZOLE 500 MG/100 ML BAG IV SCH ×3 (02:12→17:39)
[2020-08-05] MEDS: CIPROFLOXACIN / D5W 400 MG/200 ML BAG IV SCH ×2 (03:53→17:39)
[2020-08-05 05:50] LABS: Mean Corpuscular Hemoglobin 31.3 pg (25-34); Mean Corpuscular Hgb Conc 33.3 g/dL (32-36); Mean Platelet Volume 8.5 fL (7.4-10.4); Platelet Count 354 K/uL (130-400); RDW Coefficient of Variation 13.2 % (11.5-14.5); RDW Standard Deviation 45.5 fL (36.4-46.3); Red Blood Count 3.83 M/uL (4.7-6.1)
[2020-08-05 06:22] LABS: BUN Creatinine Ratio 10.6 (10-20); Calcium 8.3 mg/dl (8.5-10.1); Creatinine Clr Calc Pharmacy 103.5 ml/min; Est GFR (African American) 127.4 ml/min; Est GFR (Non-African American) 109.9 ml/min; Magnesium 2.2 mg/dl (1.8-2.4); Phosphorus 2.2 mg/dl (2.5-4.9); Potassium 3.6 mmol/L (3.5-5.1)
[2020-08-05] MEDS: MULTIVITAMIN TAB PO SCH (08:24)
[2020-08-05] MEDS: ADVANCED PROBIOTIC 1250 MG CAPSULE PO SCH ×2 (08:25→20:50)
[2020-08-05] MEDS: lisinopril 20 MG TAB PO SCH (08:25)
[2020-08-05] MEDS: ASCORBIC ACID 500 MG TAB PO SCH (08:25)
[2020-08-05] MEDS: busPIRone 5 MG TAB PO SCH (08:26)
[2020-08-05] MEDS: ENOXAPARIN INJ 40 MG/0.4 ML SYR SQ SCH (08:27)
[2020-08-05] MEDS: PANTOprazole 40 MG TAB PO SCH (08:27)
[2020-08-05] MEDS: methylPREDNISolone 40 MG in SYRINGE 0 ML IV SCH (08:27)
--- NOTE | 2020-08-05 13:01 | Hospitalist Progress Note ---
Date of Service August 05, 2020 Assessment & Plan (1) Enterocolitis: Concerns for possible inflammatory bowel disease considering ulcerations and presence of stricture. Leukocytosis may be from ongoing steroid use versus demargination from abdominal pain. Ddx includes vasculitis, atypical IBD, or even cocaine use. - Appreciate GI and surgical consult: - Continue Cipro and Flagyl IV - Continue pain and nausea control -> Improving. - Moving to PO steroids tomorrow. Regular diet started today. (2) Stricture of sigmoid colon: Stricture causing partial large bowel obstruction. - Treatment as noted above. (3) HTN (hypertension): BP today is 150/100. - Continue lisinopril 20 mg PO daily (4) Anxiety: - Continue buspirone & citalopram (5) Tobacco use disorder: - Nicotine patch as desired (6) DVT prophylaxis: Lovenox 40 mg SQ daily Admission and Anticipated Discharge Date Admission Date: August 02, 2020 Subjective Feels he is wasting away. Pain is stable/improving with pain meds. Reports no fevers/chills, chest pain, shortness of breath, nausea, or vomiting. Physical Exam Constitutional: WD/WN, vitals as above Eyes: EOM intact bilaterally; no conjunctival abnormality ENMT: external ear and nose normal, oropharynx normal Neck: trachea midline, no thyromegaly normal visual inspection Respiratory: normal respiratory effort, lungs clear to auscultation no respiratory distress Cardiovascular: RRR, no murmur, no edema Gastrointestinal (Abdomen): Inspection/Auscultation: normal bowel sounds and + abdominal surgical scar; abdomen not distended Percussion/Palpation: abdomen soft; abdomen nontender, no guarding and abdomen not rigid Musculoskeletal: no cyanosis or clubbing, extremities motor strength 5/5 Skin: no rashes, warm and dry Neurologic: moves all extremities and awake Psychiatric: Orientation: alert, oriented to person and cooperative Results & Data Results & Data ([facility]) Vital Signs (Past 12 Hours) Vital Signs Temp Pulse Resp BP Pulse Ox 08/05/20 07:51 36.7 C 78 14 148/101 H 99 PG Care Time/CCT Total # of Minutes Spent Total Time Spent with Patient: Total time spent is greater than 50% in coordination of care (as documented) at patient's floor/unit and/or counseling patient: Coding Level of Care Code 87620 Subseq Hosp Care Lvl 2 Diagnoses Enterocolitis K52.9 Stricture of sigmoid colon K56.699 HTN (hypertension) I10 Anxiety F41.9 Tobacco use disorder F17.200 DVT prophylaxis Z29.9
--- NOTE | 2020-08-05 13:55 | Surgery Progress Note ---
Date of Service August 05, 2020 Assessment & Plan (1) Stricture of sigmoid colon: Events noted from over the weekend Patient has been started on IV steroids, he is now passing BM's/flatus. Pain is still present, but improved Has tolerated liquid diet without n/v. Okay to advance to regular today Planning on converting to oral steroids tomorrow No plans for surgical intervention this admission Will need GI follow up as outpatient as above. no acute indication for resection. will continue to follow along. d/c planning Admission and Anticipated Discharge Date Admission Date: August 02, 2020 Subjective Patient concerned and not happy with the liquid diet. Feels as though he is wasting away by not eating regular food. Otherwise he says his pain is improved since admission, but still requiring prn pain medication. He is having + flatus/BMs. No nausea/vomiting. Physical Exam Physical Exam: awake/alert, sitting up in chair. Frustrated appearing Constitutional: no acute distress Respiratory: normal respiratory effort Gastrointestinal (Abdomen): Inspection/Auscultation: abdomen not distended Percussion/Palpation: + abdomen tender (some ttp in llq) and abdomen soft Results & Data ([facility]) Vital Signs (Past 12 Hours) Vital Signs Temp Pulse Resp BP Pulse Ox 08/05/20 07:51 36.7 C 78 14 148/101 H 99 PG Care Time/CCT Total # of Minutes Spent Total Time Spent with Patient: Total time spent is greater than 50% in coordination of care (as documented) at patient's floor/unit and/or counseling patient: Coding Level of Care Code 63203 Subseq Hosp Care Lvl 3 Diagnoses Stricture of sigmoid colon K56.699
[2020-08-05] MEDS: hydrOXYzine HCl 25 MG TAB PO PRN ×2 (15:17→23:08)
[2020-08-05] MEDS: CITALOPRAM 40 MG TAB PO SCH (20:50)
[2020-08-06] MEDS: oxyCODONE HCL IR 5 MG TAB (IMMEDIATE RELEASE) PO PRN ×2 (01:19→04:57)
[2020-08-06] MEDS: metroNIDAZOLE 500 MG/100 ML BAG IV SCH ×2 (03:27→10:35)
[2020-08-06] MEDS: CIPROFLOXACIN / D5W 400 MG/200 ML BAG IV SCH (04:46)
[2020-08-06 06:05] LABS: Hemoglobin 13.3 g/dL (14.0-18.0); Mean Corpuscular Hemoglobin 31.2 pg (25-34); Mean Corpuscular Hgb Conc 34.1 g/dL (32-36); Mean Corpuscular Volume 91.5 fL (80-100); Mean Platelet Volume 8.6 fL (7.4-10.4); Platelet Count 345 K/uL (130-400); RDW Coefficient of Variation 13.1 % (11.5-14.5); RDW Standard Deviation 43.6 fL (36.4-46.3); Red Blood Count 4.26 M/uL (4.7-6.1); White Blood Count 10.73 K/uL (4.8-10.8)
[2020-08-06 06:43] LABS: BUN Creatinine Ratio 15.1 (10-20); Calcium 8.7 mg/dl (8.5-10.1); Creatinine Clr Calc Pharmacy 103.5 ml/min; Est GFR (African American) 127.4 ml/min; Est GFR (Non-African American) 109.9 ml/min; Phosphorus 2.5 mg/dl (2.5-4.9); Potassium 3.7 mmol/L (3.5-5.1)
--- NOTE | 2020-08-06 08:52 | Surgery Progress Note ---
Date of Service August 06, 2020 Assessment & Plan (1) Stricture of sigmoid colon: Patient improving Tolerating a regular diet, + bowel function Continue plan for outpatient steroids per GI Likely doesn't need further abx from our standpoint, but will leave this up to GI/hospitalists Patient is stable for discharge to home from our standpoint w/ plans for outpatient GI followup as above. states this is the best he has felt in quite some time. jordan diet. ok from my standpoint for d/c. will s/o. please call if any questions/concerns. surgery would be last resort in this case. Admission and Anticipated Discharge Date Admission Date: August 02, 2020 Subjective Patient says he is feeling much better this AM. He is tolerating a regular diet. Having + BM's/Flatus. No nausea/vomiting. Physical Exam Physical Exam: awake/alert Constitutional: no acute distress Gastrointestinal (Abdomen): Inspection/Auscultation: abdomen not distended Percussion/Palpation: abdomen soft Results & Data ([facility]) Vital Signs (Past 12 Hours) Vital Signs Temp Pulse Resp BP Pulse Ox 08/06/20 07:52 36.9 C 91 H 18 139/96 96 08/05/20 23:00 36.8 C 87 16 128/76 95 PG Care Time/CCT Total # of Minutes Spent Total Time Spent with Patient: Total time spent is greater than 50% in coordination of care (as documented) at patient's floor/unit and/or counseling patient: Coding Level of Care Code 85560 Subseq Hosp Care Lvl 3 Diagnoses Stricture of sigmoid colon K56.699
[2020-08-06] MEDS ORDERED: predniSONE 20 MG TAB PO SCH (09:00)
[2020-08-06] MEDS: busPIRone 5 MG TAB PO SCH (09:30)
[2020-08-06] MEDS: lisinopril 20 MG TAB PO SCH (09:30)
[2020-08-06] MEDS: PANTOprazole 40 MG TAB PO SCH (09:30)
[2020-08-06] MEDS: MULTIVITAMIN TAB PO SCH (09:30)
[2020-08-06] MEDS: ADVANCED PROBIOTIC 1250 MG CAPSULE PO SCH (09:30)
[2020-08-06] MEDS: ASCORBIC ACID 500 MG TAB PO SCH (09:30)
[2020-08-06] MEDS: ENOXAPARIN INJ 40 MG/0.4 ML SYR SQ SCH (09:31)
--- NOTE | 2020-08-06 17:09 | Discharge Summary ---
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 Patient is a good historian and accompanied by his significant other. Patient's last hospitalization involved initial antibiotic treatment for presumed C. difficile. However, he was negative for C. difficile toxin. He underwent colonoscopy on 07/23 and was found to have significant ulceration along with stenosis of the sigmoid colon. He was started on p.o. prednisone and di scharged later that day. Pathology reports a only acute on chronic colitis without stated etiology. Patient tells me that he did not receive the full dose of prednisone from the pharmacy, was only on 20 mg rather than the recommended 40 mg. He had just decreased to 15 mg as instructed. However, he started to have significant abdominal pain and difficulty moving his bowels. He denies any nausea or vomiting. He has had no fever or chills. Pain is very crampy and mostly in the left side of the abdomen. This is similar to some of the symptoms he is having prior to his discharge. Principal Diagnosis Colonic stricture Colitis NOS Discharge Exam Constitutional WD/WN, vitals as above Eyes EOM intact bilaterally; no conjunctival abnormality ENMT external ear and nose normal, oropharynx normal Neck trachea midline, no thyromegaly normal visual inspection Respiratory normal respiratory effort, lungs clear to auscultation no respiratory distress Cardiovascular RRR, no murmur, no edema Gastrointestinal (Abdomen) Inspection/Auscultation: normal bowel sounds and + abdominal surgical scar; abdomen not distended Percussion/Palpation: abdomen soft; abdomen nontender, no guarding and abdomen not rigid Musculoskeletal no cyanosis or clubbing, extremities motor strength 5/5 Skin no rashes, warm and dry Neurologic moves all extremities and awake Psychiatric Orientation: alert, oriented to person and cooperative Discharge Data Allergies Allergy/AdvReac Type Severity Reaction Status Date / Time Penicillins Allergy Unknown Unknown Verified 08/02/20 15:49 Consultations 08/02/20 16:25 ED Decision to Admit Stat 08/02/20 18:51 Consult Gastroenterology Routine Ordered Studies 08/02/20 14:05 CT abd pelvis IV con only Stat Hospital Course (1) Enterocolitis: Concerns for possible inflammatory bowel disease considering ulcerations and presence of stricture. Leukocytosis may be from ongoing steroid use versus demargination from abdominal pain. Ddx includes vasculitis, atypical IBD, or even cocaine use. - Appreciate GI and surgical consult: - Continue Cipro and Flagyl IV -> Discussed with GI and surgery. No need for further abx on discharge. - Move to PO steroids. He felt quite well and requested discharge. He will restart his long steroid taper with me confirming to the pharmacy that the prescription arrived and was correct. - Follow up with GI in 2-3 weeks. (2) Stricture of sigmoid colon: Stricture causing partial large bowel obstruction. - Treatment as noted above. (3) HTN (hypertension): BP today is 140/90. - Continue lisinopril 20 mg PO daily (4) Anxiety: - Continue buspirone & citalopram (5) Tobacco use disorder: - Nicotine patch as desired (6) DVT prophylaxis: Lovenox 40 mg SQ daily Total Time Total Time Spent Total Time Spent (In Minutes): 35 Discharge Plan Discharge Items Patient Disposition: Home - Self-Care Reason For Visit: BOWEL STRICTURE Discharge Diagnosis: Bowel stricture, inflammation Activity: Resume your previous activity Non-emergency contact: Primary Care Provider and Phone Operator Call non-emergency contact if: your symptoms worsen and your pain is worsening Follow-up/Referrals: Mychal Daily DO [Physician] - 08/16/20 3:00 pm (Please see Dr. Daily in 2 weeks for follow-up.) Emely Torres DO [Primary Care Provider] - 08/13/20 9:30 am Diet: Regular Addtl Attending Provider Instructions: Mr. Cabrales, Please take the steroids as following: Prednisone 40 mg (8 tablets) every day for 1 week, Prednisone 35 mg (7 tablets) every day for 1 week (starting on August 14), Prednisone 30 mg (6 tablets) every day for 1 week (starting on August 21), Prednisone 25 mg (5 tablets) every day for 1 week (starting on August 28), Prednisone 20 mg (4 tablets) every day for 1 week (starting on September 04), Prednisone 15 mg (3 tablets) every day for 1 week (starting on September 11), Prednisone 10 mg (2 tablets) every day for 1 week (starting on September 18), Prednisone 5 mg (1 tablet) every day for 1 week (starting on September 25), then stop. Please use the pain medication and anxiety medication as little as possible. Please see Dr. Daily in 2 weeks. Pending Studies at Discharge: No Stand-Alone Forms: [facility], Opioid Pain Management, Smoking Cessation Medications and DC Order Prescriptions: New hydroxyzine HCl 25 mg Tablet 25 mg PO BID PRN (Reason: anxiety) Qty: 30 RF: 0 prednisone 5 mg tablet 40 mg PO DAILY Qty: 252 RF: 0 oxycodone 10 mg tablet 10 mg PO TID PRN (Reason: pain) Qty: 30 RF: 0 Continued nicotine (polacrilex) 2 mg gum 2 mg buccal Q2H PRN (Reason: nicotine cravings) Qty: 120 RF: 1 esomeprazole magnesium [Nexium] 40 mg capsule,delayed release(DR/EC) 80 mg PO DAILY RF: 0 multivitamin Tablet 1 tab PO DAILY RF: 0 buspirone 5 mg tablet 10 mg PO QAM RF: 0 lisinopril 20 mg tablet 20 mg PO DAILY Qty: 30 RF: 2 citalopram 40 mg Tablet 40 mg PO HS Qty: 30 RF: 3 ascorbic acid (vitamin C) [Vitamin C] 500 mg Tablet 1,000 mg PO DAILY RF: 0 lactobacillus combination no.8 3 billion cell Capsule 3,000 mmu cells PO BID RF: 0 Discontinued prednisone 10 mg tablet See Rx Instructions .ROUTE .COMPLEX Qty: 21 RF: 0 Discharge Orders: Discharge Order (Routine); Ordered 08/06/20 Ordered By: Dimitrios Singer Admission Data Admit Date/Time: 08/02/20 17:37 Attending Provider: Dimitrios Singer Admit Provider: Michael Khanna Primary Care Provider: Emely Torres Other Providers: Mychal Daily Other Interventions: Discharge Summary Assessment (RN) Last Done: 08/06/20 10:47 Coding Level of Care Code D/C Day Management >30 mins Diagnoses Enterocolitis K52.9 Stricture of sigmoid colon K56.699 HTN (hypertension) I10 Anxiety F41.9 Tobacco use disorder F17.200 DVT prophylaxis Z29.9
--- NOTE | 2020-08-14 12:33 | Coding Query ---
BMI To promote full compliance with coding requirements relating to patient care, physician participation is requested in all cases of big data admin uncertainty. Please assist us with the question(s) below: Please place an X within the parenthesis (x). If other, please document: BMI 18.8 was documented in this record for this patient. If the BMI is significant, please check the box that provides a more specific associated diagnosis: ( ) Overweight/Obese ( ) Obesity ( ) Morbid obesity ( ) Obesity Hypoventilation Syndrome (OHS) (x ) Heathy weight, not significant ( ) Underweight/Thin ( ) Other, please specify Thank you Elsie GAMBLE
--- NOTE | 2020-08-14 12:45 | Coding Query ---
CODING QUERY To promote full compliance with coding requirements relating to patient care, provider participation is requested in all cases of wholesale manager uncertainty. Please assist us with the question(s) below: Coding Question(s): Colitis and Enterocolitis are documented with documentation on Discharge Summary in the Principal Diagnosis area Colitis NOS and further down under Hospital Course there is documentation of , " Enterocolitis: Concerns for possible inflammatory bowel disease considering ulcerations and presence of stricture. Leukocytosis may be from ongoing steroid use versus demargination from abdominal pain. Ddx includes vasculitis, atypical IBD, or even cocaine use". Please specify below, in your clinical opinion, regarding Colitis/Enterocolitis. ( ) Colitis/Enterocolitis - most likely Ulcerative ( ) Colitis/Enterocolitis - most likely Ischemic. Please specify further below: ( ) acute ( ) chronic ( ) unspecified ( ) Colitis/Enterocolitis - most likely drug-induced from cocaine use ( ) Colitis/Enterocolitis - most likely other: Please Specify ( x ) Colitis/Enterocolitis - Unspecified Physician's Response(s): Thank you Elsie Wilkerson Principal Diagnosis: "that condition established after study, to be chiefly responsible for occasioning the admission of the patient to the hospital for care." Co-Existing Principal Diagnosis: "when two or more diagnoses equally meet the criteria for principal diagnosis as determined by the circumstances of admission, diagnostic work up, and/or therapy provided, and the Alphabetic Index, Tabular List, or another coding guideline does not provide sequencing direction, any one of the diagnoses may be sequenced first." "When the physician has documented what appears to be a current diagnosis in the body of the record, but has not included the diagnosis in the final diagnostic statement, the physician should be asked whether the diagnosis should be added." (Source Coding [facility] 2 QTR90. p3-4) [facility]
== END 2020-08-06 12:12 | disposition home or self-care (01) ==
LOC: ED 13:42 → 3W 17:37 → SUATTDRO 17:37 → 3W 18:14

== ENCOUNTER 2020-08-15 04:45 | Observation (INO) ==
[2020-08-15] MEDS ORDERED: SODIUM CHLORIDE 0.9% 500 ML IV ONE (05:06)
[2020-08-15] MEDS ORDERED: ONDANSETRON INJ 2 MG/ML 2 ML VIAL IV STA (05:06)
[2020-08-15] MEDS ORDERED: HYDROmorphone INJ 0.5 MG/0.5 ML SYR IV STA ×3 (05:06→08:54)
--- NOTE | 2020-08-15 05:12 | Emergency Department Note ---
Impression & Plan Colonic obstruction, Mesenteric vein thrombosis ED Provider Note NAME: STEPHANIE PIMENTEL AGE: 50 SEX: M ARRIVES VIA: Family Vehicle INFORMANT: Patient ED PROVIDER(S): Kay Loyd DO CHIEF COMPLAINT: Severe abdominal pain PLAN: [facility] MEDICAL DECISION MAKING: This is a 50-year-old male patient presents to the emergency department with severe abdominal pain. The patient has a history of previous colonic obstruction or stricture in this has similar presentation. Patient received multiple doses of IV Dilaudid for pain and Zofran for nausea. He was on IV normal saline drip. CT scan shows evidence of a sigmoid stricture/obstruction as well as a mesenteric venous thrombosis. The patient and his describe very similar presentations in the past of severe pain associated with colonic obstruction. He has been evaluated in the past here at [facility] by surgery and GI. I discussed the case with the [facility] hospitalist and they will evaluate for further management. Triage Nursing notes reviewed and agree with them. Additional history obtained from the patient's is at the bedside Prior medical records reviewed Vital Signs: reviewed and remarkable for hypertension and tachycardia Differential diagnosis: Colonic obstruction, colonic stricture, small bowel obstruction ER treatment provided: IV normal saline bolus IV Zofran IV Dilaudid Diagnostics interpreted by me: Cardiac Monitoring: Sinus tachycardia at 102 Laboratory studies: See below Imaging studies: As per stat rad CT abdomen pelvis with contrast: Comparison 08/02/2020. Solid organs are unremarkable. Cholecystectomy as before. Mild intrahepatic and extrahepatic biliary dilatation which could be related to postcholecystectomy state. Right hemicolectomy with ileocolic anastomosis as before. Increasing diffuse small bowel dilatation with multiple air-fluid levels as well as increasing colonic dilatation with air-fluid levels, consistent with worsening large bowel obstruction. Persistent transition point in the sigmoid colon, presumably the site of obstruction. Persistent thickening of the descending and sigmoid colon which may represent a superimposed colitis. Mildly thickened small bowel which may be nonspecific enteritis. No pneumatosis or portal venous gas. New nonocclusive thrombus within the upper superior mesenteric vein. Trace ascites. No abscess. Persistent mild retroperitoneal lymphadenopathy. Mild enlarged prostate gland. Thoracolumbar spinal rods as before. No acute osseous abnormality. HPI: 50/M arrives for evaluation of severe abdominal pain. Patient describes increasing abdominal pain over the past 5 to 7 days. The patient tried using Colace, MiraLAX and a suppository with no significant results. The patient has a history of an episode of ischemic bowel on June 12 which required surgical removal of part of his colon and small bowel. Following the surgery, the patient has had subsequent sigmoid obstructions. ROS: See above HPI for pertinent positives & negatives. A total of 10 systems reviewed and were otherwise negative. PAST MEDICAL HISTORY:See Below PAST SURGICAL HISTORY:See Below FAMILY HISTORY:See Below SOCIAL HISTORY:See Below HOME MEDICATIONS:See list ALLERGIES:See list VITALS:See Below PHYSICAL EXAMINATION: HEENT: Head - normocephalic and atraumatic Pupils are equal, round, and reactive to light. Extraocular eye muscles are intact, and sclera are anicteric. Nose - moist nasal mucosa without discharge. Mouth - moist buccal mucosa. Oropharynx is nonerythematous and there is no tonsillar exudate or edema noted. Neck: Supple; no cervical lymphadenopathy Heart: Regular rate and rhythm. There is a normal S1 and S2 with no murmurs, clicks, or gallops appreciated. Lungs: Clear to auscultation bilaterally with no wheezes, rales, or rhonchi. Abdomen: Soft, exquisitely tender to palpation around the umbilicus. The abdomen is moderately distended. The abdomen is tympanic to percussion. There were tinkling bowel sounds. Extremities: No evidence of cyanosis, clubbing, or edema. There are easily palpable peripheral pulses. Skin: warm and dry with good turgor and no rashes. ED COURSE: Times/Reassessments: 0455: Patient was evaluated in room C1. A complete history and physical was performed. Previous electronic medical records were reviewed. An order was placed for continuous cardiac monitoring. Patient was in a sinus tachycardia at 102. Patient was given a dose of IV Dilaudid and IV Zofran for the pain and nausea. Patient was given IV normal saline solution and will go for CT scan of the abdo men pelvis to better evaluate his abdominal discomfort. Upon returning from radiology, the patient had recurrent abdominal pain and was given an additional dose of IV Dilaudid. I reviewed the results of the CT scan with the patient and his . I discussed the case with the [facility] hospitalist and they will evaluate for further management. Kay Loyd DO Past Med/Surg History Medical History Acute dehydration Acute intestinal ischemia Acute renal failure Anxiety Bulging lumbar disc C. difficile diarrhea HTN (hypertension) Hypertriglyceridemia Hypokalemia Peritonitis Prediabetes Protrusion of intervertebral disc of lumbosacral region Pulmonary nodules Severe sepsis Spinal stenosis of lumbar region Syncope Syncope and collapse Tobacco use disorder Surgical History H/O hand surgery History of surgical removal of intestinal structure 06/19/20 Previous back surgery S/P cholecystectomy S/P colonoscopy 07/23/20 Dr. Mychal Daily S/P eye surgery S/P foot surgery S/P right hemicolectomy Family History Father Heart disease Denies family history of Ovarian cancer Prostate cancer Breast cancer Colorectal cancer Social History Smoking Status: Never smoker Tobacco Type: Cigarettes Second Hand Exposure: No; Hx Alcohol Use: No Hx Substance Use: No Preferred Language: Divehi Communication Ability: Effective Visual Impairment: No Limitations Hearing Ability: Normal Vocational Rehabilitation Teacher Required: No Beliefs That Will Affect Care: None marital status: Current Living Situation: Spouse current occupational status: employed 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 Feels Safe at Home: Yes caffeine: Yes Dental Care, Regularly: No Physical Activity Frequency: Does not Exercise Seatbelt Use: always Sunscreen Use: No Assistive Devices: None Allergies Allergies Allergy/AdvReac Type Severity Reaction Status Date / Time Penicillins Allergy Unknown Unknown Verified 08/15/20 07:39 Home Meds Home Medications Medication Instructions Recorded Confirmed esomeprazole magnesium 40 mg 80 mg PO DAILY cap 12/08/19 08/15/20 capsule,delayed release multivitamin 1 tab PO DAILY 12/08/19 08/15/20 buspirone 5 mg tablet 10 mg PO QAM tab 01/10/20 08/15/20 ascorbic acid (vitamin C) [Vitamin 1,000 mg PO DAILY 07/19/20 08/15/20 C] Previous Rx's Medication Instructions Recorded lisinopril 20 mg PO DAILY #30 tab 06/18/20 citalopram 40 mg PO HS #30 tab 06/24/20 prednisone 40 mg PO DAILY #252 tab 08/06/20 hydroxyzine HCl 25 mg tablet 25 mg PO TID PRN #60 tab 08/14/20 Results & Data (ED) Vital Signs Vital Signs - 24 hr 08/15/20 08:00 Pulse Rate 88 Respiratory Rate 20 Blood Pressure 141/88 H Blood Pressure Mean 105 Laboratory Data Result diagrams: 08/15/20 05:21 08/15/20 05:21 Lab Results 08/15/20 08/15/20 08/15/20 Range/Units 05: 05: 07:20 WBC 15.71 H (4.8-10.8) K/uL RBC 4.47 L (4.7-6.1) M/uL Hgb 14.3 (14.0-18.0) g/dL Hct 41.9 L (42-52) % MCV 93.7 (80-100) fL MCH 32.0 (25-34) pg MCHC 34.1 (32-36) g/dL RDW Std Deviation 50.1 H (36.4-46.3) fL RDW Coeff of Yoselin 14.7 H (11.5-14.5) % Plt Count 440 H (130-400) K/uL MPV 8.7 (7.4-10.4) fL Immature Gran % (Auto) 0.5 % Neut % (Auto) 69.5 % Lymph % (Auto) 22.4 % [place] % (Auto) 7.2 % Eos % (Auto) 0.3 % Baso % (Auto) 0.1 % Neut # (Auto) 10.92 H (1.4-6.5) K/uL Lymph # (Auto) 3.52 H (1.2-3.4) K/uL [place] # (Auto) 1.13 H (0.11-0.59) K/uL Eos # (Auto) 0.04 (0-0.5) K/uL Baso # (Auto) 0.02 (0-0.2) K/uL Immature Gran # (Auto) 0.08 H (0.00-0.02) K/uL Sodium 137 (136-145) mmol/L Potassium 3.7 (3.5-5.1) mmol/L Chloride 105 (98-107) mmol/L Carbon Dioxide 28 (21-32) mmol/L Anion Gap 4.0 (3-11) BUN 15 (7-18) mg/dl Creatinine 0.60 (0.6-1.4) mg/dl Est Cr Clr Drug Dosing 144.8 ml/min Est GFR ( Amer) 134.9 ml/min Est GFR (Non-Af Amer) 116.4 ml/min BUN/Creatinine Ratio 25.3 H (10-20) Glucose 101 H (70-99) mg/dl Calcium 9.4 (8.5-10.1) mg/dl Total Bilirubin 0.7 (0.2-1) mg/dl AST 168 H (15-37) U/L ALT 204 H (12-78) U/L Alkaline Phosphatase 332 H (45-117) U/L Total Protein 6.8 (6.4-8.2) gm/dl Albumin 2.8 L (3.4-5.0) gm/dl Globulin 4.0 (2.5-4.0) gm/dl Albumin/Globulin Ratio 0.7 L (0.9-2) Lipase 74 (73-393) U/L COVID-19 Eval Order Covid19 at [facility] SARS-CoV-2 (PCR) (Negative) 08/15/20 Range/Units 07:20 WBC (4.8-10.8) K/uL RBC (4.7-6.1) M/uL Hgb (14.0-18.0) g/dL Hct (42-52) % MCV (80-100) fL MCH (25-34) pg MCHC (32-36) g/dL RDW Std Deviation (36.4-46.3) fL RDW Coeff of Yoselin (11.5-14.5) % Plt Count (130-400) K/uL MPV (7.4-10.4) fL Immature Gran % (Auto) % Neut % (Auto) % Lymph % (Auto) % [place] % (Auto) % Eos % (Auto) % Baso % (Auto) % Neut # (Auto) (1.4-6.5) K/uL Lymph # (Auto) (1.2-3.4) K/uL [place] # (Auto) (0.11-0.59) K/uL Eos # (Auto) (0-0.5) K/uL Baso # (Auto) (0-0.2) K/uL Immature Gran # (Auto) (0.00-0.02) K/uL Sodium (136-145) mmol/L Potassium (3.5-5.1) mmol/L Chloride (98-107) mmol/L Carbon Dioxide (21-32) mmol/L Anion Gap (3-11) BUN (7-18) mg/dl Creatinine (0.6-1.4) mg/dl Est Cr Clr Drug Dosing ml/min Est GFR ( Amer) ml/min Est GFR (Non-Af Amer) ml/min BUN/Creatinine Ratio (10-20) Glucose (70-99) mg/dl Calcium (8.5-10.1) mg/dl Total Bilirubin (0.2-1) mg/dl AST (15-37) U/L ALT (12-78) U/L Alkaline Phosphatase (45-117) U/L Total Protein (6.4-8.2) gm/dl Albumin (3.4-5.0) gm/dl Globulin (2.5-4.0) gm/dl Albumin/Globulin Ratio (0.9-2) Lipase (73-393) U/L COVID-19 Eval Order SARS-CoV-2 (PCR) NEGATIVE (Negative) Administered Medications Discontinued Medications Buspirone HCl (Buspirone 5 Mg Tab) [address] [facility] Stop: 09/14/20 10:10 Last Admin: 08/15/20 12:45 Dose: Not Given Documented by: [id number] Hydromorphone HCl (Hydromorphone Inj 0.5 Mg/0.5 Ml Syr) 0.5 mg IV NOW Stop: 08/15/20 05:07 Last Admin: 08/15/20 05:15 Dose: 0.5 mg Documented by: [id number] Hydromorphone HCl (Hydromorphone Inj 0.5 Mg/0.5 Ml Syr) 0.5 mg IV NOW Stop: 08/15/20 06:47 Last Admin: 08/15/20 06:52 Dose: 0.5 mg Documented by: [id number] Hydromorphone HCl (Hydromorphone Inj 0.5 Mg/0.5 Ml Syr) 0.5 mg IV NOW Stop: 08/15/20 08:55 Last Admin: 08/15/20 09:21 Dose: Not Given Documented by: [id number] Hydromorphone HCl (Hydromorphone Inj 0.5 Mg/0.5 Ml Syr) Confirm Administered Dose 0.5 mg .ROUTE .STK-MED ONE Stop: 08/15/20 08:59 Last Admin: 08/15/20 08:59 Dose: 0.5 mg Documented by: [id number] Hydromorphone HCl (Hydromorphone Inj 0.5 Mg/0.5 Ml Syr) 0.5 mg IV Q3H PRN PRN Reason: Pain Stop: 08/29/20 10:10 Last Admin: 08/15/20 10:18 Dose: 0.5 mg Documented by: [id number] Hydromorphone HCl (Hydromorphone Inj 0.5 Mg/0.5 Ml Syr) 1 mg IV Q3H PRN PRN Reason: Pain Stop: 08/29/20 10:10 Last Admin: 08/15/20 15:32 Dose: 1 mg Documented by: [id number] Admin: 08/15/20 12:35 Dose: 1 mg Documented by: [id number] Hydromorphone HCl (Hydromorphone Inj 0.5 Mg/0.5 Ml Syr) 0.5 mg IV Q2H PRN PRN Reason: Pain Stop: 08/29/20 11:35 Last Admin: 08/15/20 19:30 Dose: 0.5 mg Documented by: [id number] Admin: 08/15/20 17:46 Dose: 0.5 mg Documented by: [id number] Sodium Chloride (Nss) 500 mls @ 999 mls/hr IV .Q31M ONE Stop: 08/15/20 05:36 Last Infusion: 08/15/20 05:51 Dose: 0 mls/hr Documented by: [id number] Admin: 08/15/20 05:20 Dose: 999 mls/hr Documented by: [id number] Sodium Chloride (Nss) 500 mls @ 125 mls/hr IV .Q4H RAMY Stop: 09/14/20 07:14 Last Admin: 08/15/20 18:31 Dose: 125 mls/hr Documented by: [id number] Infusion: 08/15/20 18:00 Dose: 125 mls/hr Documented by: [id number] Admin: 08/15/20 11:30 Dose: 125 mls/hr Documented by: [id number] Infusion: 08/15/20 11:30 Dose: 125 mls/hr Documented by: [id number] Admin: 08/15/20 07:42 Dose: 125 mls/hr Documented by: [id number] Ciprofloxacin (Cipro / D5w) 400 mg in 200 mls @ 100 mls/hr IV Q12H RAMY Stop: 08/25/20 10:10 Last Infusion: 08/15/20 14:00 Dose: 0 mls/hr Documented by: [id number] Admin: 08/15/20 11:28 Dose: 100 mls/hr Documented by: [id number] Metronidazole (Flagyl) 500 mg in 100 mls @ 100 mls/hr IV Q8H RAMY Stop: 08/25/20 10:29 Last Infusion: 08/15/20 12:30 Dose: 0 mls/hr Documented by: [id number] Admin: 08/15/20 11:29 Dose: 100 mls/hr Documented by: [id number] Heparin Sodium/Dextrose (Heparin Sodium/Dextrose) 25,000 units in 500 mls @ 17 mls/hr IV .Q24H RAMY; Protocol Stop: 09/14/20 10:10 Last Admin: 08/15/20 12:30 Dose: 850 units/hr, 17 mls/hr Documented by: [id number] Cosigned by: [id number] Methylprednisolone 40 mg/ (Syringe) 0.64 mls @ 1.5 mls/min IV Q12 RAMY Stop: 09/14/20 10:29 Last Admin: 08/15/20 11:29 Dose: 1.5 mls/min Documented by: [id number] Pantoprazole Sodium 40 mg/ (Syringe) 10 mls @ 5 mls/min IV BID RAMY Stop: 09/14/20 10:29 Last Admin: 08/15/20 11:30 Dose: 5 mls/min Documented by: [id number] Promethazine HCl 12.5 mg/ (Sodium Chloride) 50.5 mls @ 202 mls/hr IV NOW STA Stop: 08/15/20 16:13 Last Infusion: 08/15/20 16:45 Dose: 0 mls/hr Documented by: [id number] Admin: 08/15/20 16:17 Dose: 202 mls/hr Documented by: [id number] Ioversol (Optiray 320 100ml) 100 ml IV ONCE ONE Stop: 08/15/20 06:11 Last Admin: 08/15/20 06:10 Dose: 87 ml Documented by: [id number] Ondansetron HCl (Ondansetron Inj 2 Mg/Ml 2 Ml Vial) 4 mg IV NOW STA Stop: 08/15/20 05:07 Last Admin: 08/15/20 05:15 Dose: 4 mg Documented by: [id number] Ondansetron HCl (Ondansetron Inj 2 Mg/Ml 2 Ml Vial) 4 mg IV Q6H PRN PRN Reason: Nausea Stop: 09/14/20 10:10 Last Admin: 08/15/20 12:40 Dose: 4 mg Documented by: [id number] Discharge Plan Visit Data Chief Complaint: Constipation Stated Complaint: CONSTIPATED ED Provider: Kay Loyd Discharge Problem: Colonic obstruction, Mesenteric vein thrombosis Patient Disposition: Admitted As Inpatient Condition: Serious Discharge Instructions Interventions: ED Discharge Assessment Last Done: 08/15/20 09:45
[2020-08-15 05:47] LABS: Basophils # (auto) 0.02 K/uL (0-0.2); Basophils % (auto) 0.1 %; Eosinophils # (auto) 0.04 K/uL (0-0.5); Eosinophils % (auto) 0.3 %; Hematocrit (blood only) 41.9 % (42-52); Hemoglobin 14.3 g/dL (14.0-18.0); Immature Granulocytes # (auto) 0.08 K/uL (0.00-0.02); Immature Granulocytes % (auto) 0.5 %; Lymphocytes # (auto) 3.52 K/uL (1.2-3.4); Lymphocytes % (auto) 22.4 %; Mean Corpuscular Hgb Conc 34.1 g/dL (32-36); Mean Corpuscular Volume 93.7 fL (80-100); Mean Platelet Volume 8.7 fL (7.4-10.4); Monocytes # (auto) 1.13 K/uL (0.11-0.59); Monocytes % (auto) 7.2 %; Neutrophils # (auto) 10.92 K/uL (1.4-6.5); Neutrophils % (auto) 69.5 %; Platelet Count 440 K/uL (130-400); RDW Coefficient of Variation 14.7 % (11.5-14.5); RDW Standard Deviation 50.1 fL (36.4-46.3); Red Blood Count 4.47 M/uL (4.7-6.1); White Blood Count 15.71 K/uL (4.8-10.8)
[2020-08-15 05:50] LABS: Albumin Level 2.8 gm/dl (3.4-5.0); BUN Creatinine Ratio 25.3 (10-20); Calcium 9.4 mg/dl (8.5-10.1); Creatinine Clr Calc Pharmacy 144.8 ml/min; Est GFR (African American) 134.9 ml/min; Est GFR (Non-African American) 116.4 ml/min; Potassium 3.7 mmol/L (3.5-5.1)
[2020-08-15 05:52] LABS: Albumin Globulin Ratio 0.7 (0.9-2); Bilirubin,Total 0.7 mg/dl (0.2-1); Total Protein 6.8 gm/dl (6.4-8.2)
[2020-08-15] MEDS ORDERED: OPTIRAY 320 100ml IV ONE (06:10)
--- NOTE | 2020-08-15 07:37 | CT Scan Report ---
CT SCAN OF THE ABDOMEN AND PELVIS WITH IV CONTRAST CLINICAL HISTORY: Generalized abdominal pain. COMPARISON STUDY: Abdominal CT dated 08/02/2020. TECHNIQUE: Following the IV administration of 87 cc of Optiray 320, CT scan of the abdomen and pelvi s is performed from the lung bases to the proximal femora. Images are reviewed in the axial, sagittal , and coronal planes. IV contrast was administered without complication. A dose lowering technique wa s utilized adhering to the principles of ALARA. The examination is degraded by streak artifact from s rosaura rods. CT DOSE: 380.01 mGy.cm FINDINGS: Lung bases: The heart is normal in size and without pericardial effusion. A 4 mm left lower lobe pulm onary nodule is seen on image #30, and a 4 mm right middle lobe pulmonary nodule is seen on image #15 . These are unchanged from recent prior studies. The lung bases are otherwise clear noting dependent atelectasis. Liver: The contrast-enhanced liver is normal in size, contour, and attenuation. There is mild intrahe patic biliary ductal dilatation. The hepatic veins and portal veins are patent. 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 This is new from previous. Gallbladder: Surgically absent noting clips in the gallbladder fossa. Spleen: Normal in size and attenuation. Pancreas: Unremarkable. Adrenal glands: Unremarkable. Kidneys: The contrast enhanced kidneys are normal in size and without hydronephrosis. The kidneys enh ance symmetrically. Abdominal vasculature: The abdominal aorta is normal in course and caliber noting mild atheroscleroti c calcification. Bowel: There is postoperative change from ileocecal resection with ileocolic anastomosis. There is si gnificant wall thickening with mucosal hyperemia seen involving the left colon. This extends from the descending colon to the rectosigmoid. There is surrounding pericolonic infiltration. Mild wall thick ening and hyperemia seen involving the loops of distal small bowel in the right lower quadrant. The s mall bowel loops and colon are distended. A focal transition point is again seen in the sigmoid colon on image #341. Appearances consistent with colonic obstruction. The degree of small bowel distention has continued to increase from 08/02/2020. Small bowel loops now measure up to 4.7 cm in diameter. Th ere is trace interloop fluid. No pneumatosis intestinalis or portal venous gas is identified. Peritoneum: No intraperitoneal free air is identified. There is a small volume of pelvic ascites. The re is a fat-containing umbilical hernia. A midline surgical scar is noted. Lymphadenopathy: A mildly enlarged left periaortic node on image #209 is unchanged and measures 1.4 c m in short axis. Pelvic viscera: The bladder, prostate, and seminal vesicles are normal as visualized. Skeletal structures: No lytic or blastic lesions are seen. There are chronic compression is of T11, T 12, L1, and L4. Mild lumbosacral spondylosis is observed. Thoracolumbar spinal rods are in place. IMPRESSION: 1. There is postoperative change from with right hemicolectomy and ileocolic anastomosis. 2. Again seen is a distal colonic obstruction. There is increasing distention of the small bowel loop s as compared to 08/02/2020. Obstruction could be related to stricture or mass lesion. 3. 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 This is new from 08/02/2020. 4. There is interloop fluid and a small volume of pelvic ascites. This is new from previous. 5. Again seen are findings of a nonspecific enterocolitis. 5. A mildly enlarged low-attenuation left periaortic node is nonspecific and unchanged. 6. There is mild intrahepatic biliary ductal dilatation, which is new from previous and possibly rela stephie related to bowel obstruction. Correlate with serum bilirubin levels. 7. Additional findings as above. ACT 112: Negative or not required by law. Electronically signed by: Jaswant Bautista M.D. 08/15/2020 7:35 AM
[2020-08-15] MEDS: SODIUM CHLORIDE 0.9% 500 ML IV SCH ×3 (07:42→18:31)
[2020-08-15] MEDS ORDERED: HYDROmorphone INJ 0.5 MG/0.5 ML SYR ONE (08:58)
[2020-08-15] MEDS ORDERED: ONDANSETRON INJ 2 MG/ML 2 ML VIAL IV PRN (10:11)
[2020-08-15] MEDS ORDERED: HEPARIN SODIUM/DEXTROSE 25,000 UNITS/500 ML BAG IV SCH (10:11)
[2020-08-15] MEDS ORDERED: HYDROmorphone INJ 0.5 MG/0.5 ML SYR IV PRN (10:11)
[2020-08-15] MEDS ORDERED: CIPROFLOXACIN / D5W 400 MG/200 ML BAG IV SCH (10:11)
[2020-08-15] MEDS ORDERED: hydrOXYzine HCl 25 MG TAB PO PRN (10:11)
[2020-08-15] MEDS ORDERED: Heparin IV Adult Wt-Based Low-Dose *NO* Bolus Protocol IV SCH (10:22)
--- NOTE | 2020-08-15 10:29 | History & Physical Report ---
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 He was seen by GI and surgery on last admission, diagnosis was colitis, he was treated with Cipro and Flagyl IV, steroids and bowel rest. By the time he was discharged he was feeling well and tolerating diet. However, his pain returned two days ago. His last BM was two days ago and it was loose. He has no appetite and has been nauseated but has not vomited. No fever or chills, no diaphoresis, no chest pain, no dyspnea but he does feel weak and fatigued. Recent history goes back to June 12 2020 when he presented with severe sepsis, lactic acidosis and was found to have an acute abdomen. He was admitted to the ICU and then later that night take emergently to the OR for ex lap. He was found to have evidence of ischemia in the distal ileum and the ischemia extended to the cecum and right colon. He had a right hemicolectomy and 5 feet of his distal ileum removed and a primary anastomosis performed by Dr. Felton. He did well post-operatively. His sepsis resolved, renal function recovered and he was discharged to home on June 18. He returned on July 19 with colitis of the left colon and sigmoid colon. He had pain and CT showed partial sigmoid obstruction/stricture? He was treated with IV Solu Medrol and IV antibiotics, colonoscopy done on 07/23 that showed the colonic stricture in the sigmoid and colitis. Biopsy done, showed focal active chonic colitis with ulceration and granulation. Negative for granulomas, dysplasia and malignancy. CMV was negative. C diff gene has been positive but the toxin was never positive. He was discharged to home on 07/23 on Prednisone 40mg with plan to taper every week by 5mg. He returned on 08/02 with another partial obstruction and pain but got better in four days with steroids and IV Cipro/Flagyl. He now returns this morning with CT that shows complete obstruction in sigmoid colon, clear transition point. He has worsening dilation of small bowel. He has a new finding of SMV thrombosis. Allergies Allergy/AdvReac Type Severity Reaction Status Date / Time Penicillins Allergy Unknown Unknown Verified 08/15/20 07:39 Home Medications Medication Instructions Recorded Confirmed Type esomeprazole magnesium 40 mg 80 mg PO DAILY cap 12/08/19 08/15/20 History capsule,delayed release multivitamin 1 tab PO DAILY 12/08/19 08/15/20 History buspirone 5 mg tablet 10 mg PO QAM tab 01/10/20 08/15/20 History lisinopril 20 mg PO DAILY #30 tab 06/18/20 08/15/20 Rx citalopram 40 mg PO HS #30 tab 06/24/20 08/15/20 Rx ascorbic acid (vitamin C) [Vitamin 1,000 mg PO DAILY 07/19/20 08/15/20 History C] prednisone 40 mg PO DAILY #252 tab 08/06/20 08/15/20 Rx hydroxyzine HCl 25 mg tablet 25 mg PO TID PRN #60 tab 08/14/20 08/15/20 Rx Past Med/Surg History Medical History Acute dehydration Acute intestinal ischemia Acute renal failure Anxiety Bulging lumbar disc C. difficile diarrhea HTN (hypertension) Hypertriglyceridemia Hypokalemia Peritonitis Prediabetes Protrusion of intervertebral disc of lumbosacral region Pulmonary nodules Severe sepsis Spinal stenosis of lumbar region Syncope Syncope and collapse Tobacco use disorder Surgical History H/O hand surgery History of surgical removal of intestinal structure 06/19/20 Previous back surgery S/P cholecystectomy S/P colonoscopy 07/23/20 Dr. Mychal Daily S/P eye surgery S/P foot surgery S/P right hemicolectomy Family History Father Heart disease Denies family history of Ovarian cancer Prostate cancer Breast cancer Colorectal cancer Social History Smoking Status: Never smoker Tobacco Type: Cigarettes Second Hand Exposure: No; Do You Dip or Chew Tobacco: No; Tobacco Cessation Education Requested by Patient: No Hx Alcohol Use: No Hx Substance Use: No Preferred Language: Belgian Communication Ability: Effective Visual Impairment: No Limitations Hearing Ability: Normal Poultry Processor Required: No Beliefs That Will Affect Care: None marital status: Current Living Situation: Spouse current occupational status: employed 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 Other Information That Helps Us Care for You: No Feels Safe at Home: Yes caffeine: Yes Dental Care, Regularly: No Physical Activity Frequency: Does not Exercise Seatbelt Use: always Sunscreen Use: No Assistive Devices: None Review of Systems Review of Systems: All systems reviewed & are unremarkable except as noted in HPI & below Constitutional: + fatigue and + weakness; no fever, no chills and no sweats Respiratory: no cough, no dyspnea and no wheezing Cardiovascular: no chest pain and no edema Gastrointestinal: + abdominal pain (LLQ, severe), + nausea, + vomiting, + constipation (last BM was 08/13, was liquid) and + diarrhea/loose stools (stools were loose before he obstructed); no fecal incontinence, no blood in stools and no melena Physical Exam Constitutional: well developed, + acute distress, + ill appearing and + frail appearing Eyes: PERRL, conjunctivae normal, anicteric sclerae ENMT: external ear and nose normal, oropharynx normal Neck: trachea midline, no thyromegaly Respiratory: normal respiratory effort, lungs clear to auscultation Cardiovascular: RRR, no murmur, no edema Gastrointestinal (Abdomen): Inspection/Auscultation: + hypoactive bowel sounds; abdomen not distended Percussion/Palpation: + abdomen tender (LLQ), abdomen soft and + tympanic to percussion; no guarding and abdomen not rigid Musculoskeletal: no cyanosis or clubbing, extremities motor strength 5/5 Skin: no rashes, warm and dry Neurologic: patellar DTR's 2+ bilat, sensation intact and PERRL, EOMI, accommodation nl, no face palsy, no dysarthria Psychiatric: A+Ox3, euthymic affect Lymphatic: no cervical or axillary lymphadenopathy Results & Data Results & Data ([facility]) Vital Signs (Past 12 Hours) Vital Signs Temp Pulse Resp BP Pulse Ox 08/15/20 09:30 86 17 146/85 H 97 08/15/20 09:00 86 20 132/84 93 08/15/20 08:31 85 19 137/85 90 08/15/20 08:00 88 20 141/88 H 08/15/20 07:30 93 H 17 138/85 08/15/20 07:00 86 22 153/92 H 96 08/15/20 05:06 80 18 97 08/15/20 04:48 36.9 C 100 H 20 152/94 H 99 Laboratory Results Laboratory Results - last 24 hr 08/15/20 08/15/20 08/15/20 05:21 05:21 07:20 WBC 15.71 H RBC 4.47 L Hgb 14.3 Hct 41.9 L MCV 93.7 MCH 32.0 MCHC 34.1 RDW Std Deviation 50.1 H RDW Coeff of Yoselin 14.7 H Plt Count 440 H MPV 8.7 Immature Gran % (Auto) 0.5 Neut % (Auto) 69.5 Lymph % (Auto) 22.4 [place] % (Auto) 7.2 Eos % (Auto) 0.3 Baso % (Auto) 0.1 Neut # (Auto) 10.92 H Lymph # (Auto) 3.52 H [place] # (Auto) 1.13 H Eos # (Auto) 0.04 Baso # (Auto) 0.02 Immature Gran # (Auto) 0.08 H APTT PTT Ratio Sodium 137 Potassium 3.7 Chloride 105 Carbon Dioxide 28 Anion Gap 4.0 BUN 15 Creatinine 0.60 Est Cr Clr Drug Dosing 144.8 Est GFR ( Amer) 134.9 Est GFR (Non-Af Amer) 116.4 BUN/Creatinine Ratio 25.3 H Glucose 101 H Calcium 9.4 Total Bilirubin 0.7 AST 168 H ALT 204 H Alkaline Phosphatase 332 H Total Protein 6.8 Albumin 2.8 L Globulin 4.0 Albumin/Globulin Ratio 0.7 L Lipase 74 COVID-19 Eval Order Covid19 at [facility] SARS-CoV-2 (PCR) 08/15/20 08/15/20 07:20 11:29 WBC RBC Hgb Hct MCV MCH MCHC RDW Std Deviation RDW Coeff of Yoselin Plt Count MPV Immature Gran % (Auto) Neut % (Auto) Lymph % (Auto) [place] % (Auto) Eos % (Auto) Baso % (Auto) Neut # (Auto) Lymph # (Auto) [place] # (Auto) Eos # (Auto) Baso # (Auto) Immature Gran # (Auto) APTT 23.4 PTT Ratio 0.9 Sodium Potassium Chloride Carbon Dioxide Anion Gap BUN Creatinine Est Cr Clr Drug Dosing Est GFR ( Amer) Est GFR (Non-Af Amer) BUN/Creatinine Ratio Glucose Calcium Total Bilirubin AST ALT Alkaline Phosphatase Total Protein Albumin Globulin Albumin/Globulin Ratio Lipase COVID-19 Eval Order SARS-CoV-2 (PCR) NEGATIVE Diagnostic Findings CT abdomen/pelvis IMPRESSION: 1. There is postoperative change from with right hemicolectomy and ileocolic anastomosis. 2. Again seen is a distal colonic obstruction. There is increasing distention of the small bowel loops as compared to 08/02/2020. Obstruction could be related to stricture or mass lesion. 3. 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 This is new from 08/02/2020. 4. There is interloop fluid and a small volume of pelvic ascites. This is new from previous. 5. Again seen are findings of a nonspecific enterocolitis. 5. A mildly enlarged low-attenuation left periaortic node is nonspecific and unchanged. 6. There is mild intrahepatic biliary ductal dilatation, which is new from previous and possibly related related to bowel obstruction. Correlate with serum bilirubin levels. Code Status & VTE Plan VTE Prophylaxis Plan VTE Prophylaxis will be ordered: Yes PG Care Time/CCT Total # of Minutes Spent Total Time Spent with Patient: Total time spent is greater than 50% in coordination of care (as documented) at patient's floor/unit and/or counseling patient: Coding Level of Care Code 15024 Initial Inpt Care Lvl 3 Diagnoses Stricture of sigmoid colon K56.699 Superior mesenteric vein thrombosis K55.069 Abdominal pain, LLQ R10.32 Colonic obstruction K56.609 Colitis K52.9 Prediabetes R73.03 Anxiety F41.9 HTN (hypertension) I10 Tobacco use disorder F17.200
[2020-08-15] MEDS ORDERED: metroNIDAZOLE 500 MG/100 ML BAG IV SCH (10:30)
[2020-08-15] MEDS ORDERED: methylPREDNISolone 40 MG in SYRINGE 0 ML IV SCH (10:30)
[2020-08-15] MEDS ORDERED: PANTOprazole 40 MG in SYRINGE 0 ML IV SCH (10:30)
--- NOTE | 2020-08-15 11:14 | Gastrointestinal Consultation ---
Date of Consultation August 15, 2020 Assessment & Plan (1) Superior mesenteric vein thrombosis: (2) Colitis: (3) Abdominal pain, LLQ: (4) Abnormal CT scan, colon: (5) Stricture of sigmoid colon: (6) Colonic obstruction: (7) Elevated liver enzymes: Patient is a 50. y.o. male status post right hemicolectomy for ischemic colitis and now with active sigmoid colitis/stenosis with recurrent colonic obstruction, abdominal pain, and elevated liver panel/biliary ductal dilation. Strong concern for IBD given coagulopathy and elevated liver panel (?related to obstruction vs possible PSC). Discussed the patient's care plan with Dr. Daily (known to the patient), Dr. Tse and Dr. Vann. 1. Keep patient NPO. 2. Start Solu-Medrol 40 mg IV q 12 hours. 3. Heparin per primary team to treat SMV thrombosis. 4. Await input from Dr. Felton in regard to bowel obstruction. 5. If not felt surgical candidate, would recommend tertiary transfer with IBD and colorectal services. 6. Continue supportive care. Thank you for allowing us to participate in the care of this mutual patient. If you have any questions or concerns, please do not hesitate to contact us. History of Present Illness Reason for Consultation: Large bowel obstruction, stricture and colitis Requesting Physician: Dr. Vann Attending Physician: Godfrey Vann DO History of Present Illness Junior Cabrales is a 50 y.o. male with a history of prior right hemicolectomy which was performed due to ischemic colitis. He was admitted in early July with abdominal pain and findings of a sigmoid stricture and associated active colitis by Dr. Daily during colonoscopy. He was discharged home on oral corticosteroids but was readmitted approximately 2 weeks ago with a colonic obstruction at the site of known stenosis. He was managed conservatively and discharged home again on steroids but readmitted today with severe abdominal pain in the lower abdomen 10/10 in intensity and imaging consistent with recurrence of large bowel obstruction. He was incidentally noted to have a nonocclusive SMV thrombosis as well as biliary ductal dilation and hepatic transaminitis. He has a mild leukocytosis of 15.71, no anemia but elevated liver panel as follows: TB 0.7, AST 168, ALT 204 and ALP 332. Allergies Allergy/AdvReac Type Severity Reaction Status Date / Time Penicillins Allergy Unknown Unknown Verified 08/15/20 07:39 Home Medications Medication Instructions Recorded Confirmed Type esomeprazole magnesium 40 mg 80 mg PO DAILY cap 12/08/19 08/15/20 History capsule,delayed release multivitamin 1 tab PO DAILY 12/08/19 08/15/20 History buspirone 5 mg tablet 10 mg PO QAM tab 01/10/20 08/15/20 History lisinopril 20 mg PO DAILY #30 tab 06/18/20 08/15/20 Rx citalopram 40 mg PO HS #30 tab 06/24/20 08/15/20 Rx ascorbic acid (vitamin C) [Vitamin 1,000 mg PO DAILY 07/19/20 08/15/20 History C] prednisone 40 mg PO DAILY #252 tab 08/06/20 08/15/20 Rx hydroxyzine HCl 25 mg tablet 25 mg PO TID PRN #60 tab 08/14/20 08/15/20 Rx Patient History Medical History Acute dehydration Acute intestinal ischemia Acute renal failure Anxiety Bulging lumbar disc C. difficile diarrhea HTN (hypertension) Hypertriglyceridemia Hypokalemia Peritonitis Prediabetes Protrusion of intervertebral disc of lumbosacral region Pulmonary nodules Severe sepsis Spinal stenosis of lumbar region Syncope Syncope and collapse Tobacco use disorder Surgical History H/O hand surgery History of surgical removal of intestinal structure 06/19/20 Previous back surgery S/P cholecystectomy S/P colonoscopy 07/23/20 Dr. Mychal Daily S/P eye surgery S/P foot surgery S/P right hemicolectomy Family History Father Heart disease Denies family history of Ovarian cancer Prostate cancer Breast cancer Colorectal cancer Social History Smoking Status: Never smoker Tobacco Type: Cigarettes Second Hand Exposure: No; Do You Dip or Chew Tobacco: No; Tobacco Cessation Education Requested by Patient: No Hx Alcohol Use: No Hx Substance Use: No Preferred Language: Qatari Communication Ability: Effective Visual Impairment: No Limitations Hearing Ability: Normal Assisted Living Assistant Required: No Beliefs That Will Affect Care: None marital status: Current Living Situation: Spouse current occupational status: employed 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 Other Information That Helps Us Care for You: No Feels Safe at Home: Yes caffeine: Yes Dental Care, Regularly: No Physical Activity Frequency: Does not Exercise Seatbelt Use: always Sunscreen Use: No Assistive Devices: None Review of Systems Constitutional: + fatigue; no fever and no chills Eyes: no problem reported Ear, Nose, Mouth, Throat: no problem reported Respiratory: no cough and no dyspnea Cardiovascular: no chest pain and no palpitations Gastrointestinal: as per Subjective / HPI Genitourinary: no problem reported Musculoskeletal: no joint pain and no swelling Integumentary: no rash Psychiatric: no problem reported Physical Exam Constitutional: WD/WN, vitals as above well developed and well nourished Eyes: EOM intact bilaterally Neck: normal visual inspection Respiratory: normal respiratory effort, lungs clear to auscultation normal respiratory effort Cardiovascular: Rate/Rhythm: regular rate and regular rhythm Heart Sounds: no murmur Gastrointestinal (Abdomen): Inspection/Auscultation: + abdomen distended, + visible herniation and + hypoactive bowel sounds Percussion/Palpation: + abdomen tender and abdomen soft; no guarding and abdomen not rigid Musculoskeletal: Extremities: extremities normal to inspection Skin: no rashes, warm and dry Psychiatric: A+Ox3, euthymic affect Results & Data ([facility]) Vital Signs (Past 12 Hours) Vital Signs Temp Pulse Resp BP BP Pulse Ox 08/15/20 10:00 36.6 C 16 133/87 97 08/15/20 09:30 86 17 146/85 H 97 08/15/20 09:00 86 20 132/84 93 08/15/20 08:31 85 19 137/85 90 08/15/20 08:00 88 20 141/88 H 08/15/20 07:30 93 H 17 138/85 08/15/20 07:00 86 22 153/92 H 96 08/15/20 05:06 80 18 97 08/15/20 04:48 36.9 C 100 H 20 152/94 H 99 Laboratory Results Abnormal lab results 08/15/20 08/15/20 Range/Units 05: 05:21 WBC 15.71 H (4.8-10.8) K/uL RBC 4.47 L (4.7-6.1) M/uL Hct 41.9 L (42-52) % RDW Std Deviation 50.1 H (36.4-46.3) fL RDW Coeff of Yoselin 14.7 H (11.5-14.5) % Plt Count 440 H (130-400) K/uL Neut # (Auto) 10.92 H (1.4-6.5) K/uL Lymph # (Auto) 3.52 H (1.2-3.4) K/uL [place] # (Auto) 1.13 H (0.11-0.59) K/uL Immature Gran # (Auto) 0.08 H (0.00-0.02) K/uL BUN/Creatinine Ratio 25.3 H (10-20) Glucose 101 H (70-99) mg/dl AST 168 H (15-37) U/L ALT 204 H (12-78) U/L Alkaline Phosphatase 332 H (45-117) U/L Albumin 2.8 L (3.4-5.0) gm/dl Albumin/Globulin Ratio 0.7 L (0.9-2) PG Care Time/CCT Total # of Minutes Spent Total Time Spent with Patient: Total time spent is greater than 50% in coordination of care (as documented) at patient's floor/unit and/or counseling patient: Coding Diagnoses Superior mesenteric vein thrombosis K55.069 Colitis K52.9 Abdominal pain, LLQ R10.[address] scan, colon R93.3 Stricture of sigmoid colon K56.699 Colonic obstruction K56.609 Elevated liver enzymes R74.8
--- NOTE | 2020-08-15 11:19 | Surgery Consultation ---
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 Of note patient has a known sigmoid stricture diagnosed via colonoscopy earlier this month. 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 WBC 15. Patient af ebrile with stable vital signs. On examination patient's abdomen is distended with pain to palpation in the LLQ. Patient has been started on IV cipro/flagyl, BID IV steroids, in addition to a heparin gtt for his new finding of SMV thrombus. GI has also been consulted for further evaluation. We will discuss with GI if he is maximized on his management for presumed IBD and discuss timing of surgical resection of this area that is causing his obstruction. In regards to his SMV thrombus, he would benefit from a hematology consultation as we are uncertain at this time what caused his prior small bowel infarction requiring surgical intervention in may. as above. pt with unusual presentation/history. infarcted small bowel at his initial surgery without an obvious etiology. 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 I had a discussion with Dr. Daily of GI. While certainly I could resect his strictured area, the issue is what is his underlying pathology. He feels as though the patient should be transferred to a tertiary center for multidisciplinary work-up. I agree with this. I be happy to see him in the future on an as-needed basis. 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 Of note patient was found to have a sigmoid stricture via colonoscopy earlier this year and he was prescribed an 8 week course of steroids. He was recently admitted from 08/02-08/06 with a distal colonic obstruction and he was only taking 20mg of Prednisone at this time. He was managed with bowel rest, a course of abx, and an increased dose of steroids and recovered and was discharged to home with plans for outpatient follow up with GI. Today the patient returns to the hospital with similar symptoms as his previous admission including abdominal pain, bloating, and lack of bowel function over the last 2 days. He denies any nausea/vomiting or fevers/chills. He reports he has been taking his steroids consistently. Patient currently repo rts his pain is a 9/10 in severity. 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 Expected post op changes from his prior R hemicolectomy noted. Surgery was consulted for further evaluation. Allergies Allergy/AdvReac Type Severity Reaction Status Date / Time Penicillins Allergy Unknown Unknown Verified 08/15/20 07:39 Home Medications Medication Instructions Recorded Confirmed Type esomeprazole magnesium 40 mg 80 mg PO DAILY cap 12/08/19 08/15/20 History capsule,delayed release multivitamin 1 tab PO DAILY 12/08/19 08/15/20 History buspirone 5 mg tablet 10 mg PO QAM tab 01/10/20 08/15/20 History lisinopril 20 mg PO DAILY #30 tab 06/18/20 08/15/20 Rx citalopram 40 mg PO HS #30 tab 06/24/20 08/15/20 Rx ascorbic acid (vitamin C) [Vitamin 1,000 mg PO DAILY 07/19/20 08/15/20 History C] prednisone 40 mg PO DAILY #252 tab 08/06/20 08/15/20 Rx hydroxyzine HCl 25 mg tablet 25 mg PO TID PRN #60 tab 08/14/20 08/15/20 Rx Patient History Medical History Acute dehydration Acute intestinal ischemia Acute renal failure Anxiety Bulging lumbar disc C. difficile diarrhea HTN (hypertension) Hypertriglyceridemia Hypokalemia Peritonitis Prediabetes Protrusion of intervertebral disc of lumbosacral region Pulmonary nodules Severe sepsis Spinal stenosis of lumbar region Syncope Syncope and collapse Tobacco use disorder Surgical History H/O hand surgery History of surgical removal of intestinal structure 06/19/20 Previous back surgery S/P cholecystectomy S/P colonoscopy 07/23/20 Dr. Mychal Daily S/P eye surgery S/P foot surgery S/P right hemicolectomy Family History Father Heart disease Denies family history of Ovarian cancer Prostate cancer Breast cancer Colorectal cancer Social History Smoking Status: Never smoker Tobacco Type: Cigarettes Second Hand Exposure: No; Hx Alcohol Use: No Hx Substance Use: No Preferred Language: Lebanese Communication Ability: Effective Visual Impairment: No Limitations Hearing Ability: Normal Customer Strategy Manager Required: No Beliefs That Will Affect Care: None marital status: Current Living Situation: Spouse current occupational status: employed 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 Feels Safe at Home: Yes caffeine: Yes Dental Care, Regularly: No Physical Activity Frequency: Does not Exercise Seatbelt Use: always Sunscreen Use: No Assistive Devices: None Review of Systems Constitutional: no fever and no chills Respiratory: no dyspnea Cardiovascular: no chest pain Gastrointestinal: + abdominal pain, + bloating and + constipation; no nausea and no vomiting Physical Exam Physical Exam: awake/alert Constitutional: uncomfortable, complaining of pain Respiratory: normal respiratory effort Gastrointestinal (Abdomen): Inspection/Auscultation: + abdomen distended and + abdominal surgical scar Percussion/Palpation: + abdomen tender (ttp in llq) Results & Data ([facility]) Vital Signs (Past 12 Hours) Vital Signs Temp Pulse Resp BP BP Pulse Ox 08/15/20 10:00 36.6 C 89 16 133/87 97 08/15/20 09:30 86 17 146/85 H 97 08/15/20 09:00 86 20 132/84 93 08/15/20 08:31 85 19 137/85 90 08/15/20 08:00 88 20 141/88 H 08/15/20 07:30 93 H 17 138/85 08/15/20 07:00 86 22 153/92 H 96 08/15/20 05:06 80 18 97 08/15/20 04:48 36.9 C 100 H 20 152/[address] SCAN OF THE ABDOMEN AND PELVIS WITH IV CONTRAST CLINICAL HISTORY: Generalized abdominal pain. COMPARISON STUDY: Abdominal CT dated 08/02/2020. TECHNIQUE: Following the IV administration of 87 cc of Optiray 320, CT scan of the abdomen and pelvis is performed from the lung bases to the proximal femora. Images are reviewed in the axial, sagittal, and coronal planes. IV contrast was administered without complication. A dose lowering technique was utilized adhering to the principles of ALARA. The examination is degraded by streak artifact from spinal rods. CT DOSE: 380.01 mGy.cm FINDINGS: Lung bases: The heart is normal in size and without pericardial effusion. A 4 mm left lower lobe pulmonary nodule is seen on image #30, and a 4 mm right middle lobe pulmonary nodule is seen on image #15. These are unchanged from recent prior studies. The lung bases are otherwise clear noting dependent atelectasis. Liver: The contrast-enhanced liver is normal in size, contour, and attenuation. There is mild intrahepatic biliary ductal dilatation. The hepatic veins and portal veins are patent. 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 This is new from previous. Gallbladder: Surgically absent noting clips in the gallbladder fossa. Spleen: Normal in size and attenuation. Pancreas: Unremarkable. Adrenal glands: Unremarkable. Kidneys: The contrast enhanced kidneys are normal in size and without hydroneph rosis. The kidneys enhance symmetrically. Abdominal vasculature: The abdominal aorta is normal in course and caliber noting mild atherosclerotic calcification. Bowel: There is postoperative change from ileocecal resection with ileocolic anastomosis. There is significant wall thickening with mucosal hyperemia seen involving the left colon. This extends from the descending colon to the rectosigmoid. There is surrounding pericolonic infiltration. Mild wall thickening and hyperemia seen involving the loops of distal small bowel in the right lower quadrant. The small bowel loops and colon are distended. A focal transition point is again seen in the sigmoid colon on image #341. Appearances consistent with colonic obstruction. The degree of small bowel distention has continued to increase from 08/02/2020. Small bowel loops now measure up to 4.7 cm in diameter. There is trace interloop fluid. No pneumatosis intestinalis or portal venous gas is identified. Peritoneum: No intraperitoneal free air is identified. There is a small volume of pelvic ascites. There is a fat-containing umbilical hernia. A midline surgical scar is noted. Lymphadenopathy: A mildly enlarged left periaortic node on image #209 is unchanged and measures 1.4 cm in short axis. Pelvic viscera: The bladder, prostate, and seminal vesicles are normal as visualized. Skeletal structures: No lytic or blastic lesions are seen. There are chronic compression is of T11, T12, L1, and L4. Mild lumbosacral spondylosis is observed. Thoracolumbar spinal rods are in place. IMPRESSION: 1. There is postoperative change from with right hemicolectomy and ileocolic anastomosis. 2. Again seen is a distal colonic obstruction. There is increasing distention of the small bowel loops as compared to 08/02/2020. Obstruction could be related to stricture or mass lesion. 3. 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 This is new from 08/02/2020. 4. There is interloop fluid and a small volume of pelvic ascites. This is new from previous. 5. Again seen are findings of a nonspecific enterocolitis. 5. A mildly enlarged low-attenuation left periaortic node is nonspecific and unchanged. 6. There is mild intrahepatic biliary ductal dilatation, which is new from previous and possibly related related to bowel obstruction. Correlate with serum bilirubin levels. 7. Additional findings as above. ACT 112: Negative or not required by law. Electronically signed by: Jaswant Bautista M.D. 08/15/2020 7:35 AM PG Care Time/CCT Total # of Minutes Spent Total Time Spent with Patient: Total time spent is greater than 50% in coordination of care (as documented) at patient's floor/unit and/or counseling patient: Coding Level of Care Code 43518 Inpt Consult Level 4 Diagnoses Stricture of sigmoid colon K56.699
[2020-08-15 11:52] LABS: Partial Thromboplastin Ratio 0.9; Partial Thromboplastin Time 23.4 Seconds (21.0-31.0)
[2020-08-15] MEDS: busPIRone 5 MG TAB PO SCH ×2 (12:31→12:45)
[2020-08-15] MEDS: HYDROmorphone INJ 0.5 MG/0.5 ML SYR IV PRN ×4 (12:35→19:30)
[2020-08-15] MEDS ORDERED: PROMETHAZINE HCL 12.5 MG in SODIUM CHLORIDE 0.9% 50 ML IV STA (15:59)
--- NOTE | 2020-08-15 17:17 | Discharge Summary ---
Date of Service August 15, 2020 Admission HPI Per Admitting Provider 50 yo male with recent history of right hemicolectomy and anastomosis in May 2020 and then subsequent admission 10 days ago for sigmoid stricture and colitis. He was seen by GI and surgery on last admission, diagnosis was colitis, he was treated with Cipro and Flagyl IV, steroids and bowel rest. By the time he was discharged he was feeling well and tolerating diet. However, his pain returned two days ago. His last BM was two days ago and it was loose. He has no appetite and has been nauseated but has not vomited. No fever or chills, no diaphoresis, no chest pain, no dyspnea but he does feel weak and fatigued. Recent history goes back to June 12 2020 when he presented with severe sepsis, lactic acidosis and was found to have an acute abdomen. He was admitted to the ICU and then later that night take emergently to the OR for ex lap. He was found to have evidence of ischemia in the distal ileum and the ischemia extended to the cecum and right colon. He had a right hemicolectomy and 5 feet of his distal ileum removed and a primary anastomosis performed by Dr. Felton. He did well post-operatively. His sepsis resolved, renal function recovered and he was discharged to home on June 18. He returned on July 19 with colitis of the left colon and sigmoid colon. He had pain and CT showed partial sigmoid obstruction/stricture? He was treated with IV Solu Medrol and IV antibiotics, colonoscopy done on 07/23 that showed the colonic stricture in the sigmoid and colitis. Biopsy done, showed focal active chonic colitis with ulceration and granulation. Negative for granulomas, dysplasia and malignancy. CMV was negative. C diff gene has been positive but the toxin was never positive. He was discharged to home on 07/23 on Prednisone 40mg with plan to taper every week by 5mg. He returned on 08/02 with another partial obstruction and pain but got better in four days with steroids and IV Cipro/Flagyl. He now returns this morning with CT that shows complete obstruction in sigmoid colon, clear transition point. He has worsening dilation of small bowel. He has a new finding of SMV thrombosis. Principal Diagnosis Sigmoid colon obstruction due to stricture, suspected IBD Discharge Exam Constitutional well developed, + acute distress, + ill appearing and + frail appearing Eyes PERRL, conjunctivae normal, anicteric sclerae ENMT external ear and nose normal, oropharynx normal Neck trachea midline, no thyromegaly Respiratory normal respiratory effort, lungs clear to auscultation Cardiovascular RRR, no murmur, no edema Gastrointestinal (Abdomen) Inspection/Auscultation: + hypoactive bowel sounds; abdomen not distended Percussion/Palpation: + abdomen tender (LLQ), abdomen soft and + tympanic to percussion; no guarding and abdomen not rigid Musculoskeletal no cyanosis or clubbing, extremities motor strength 5/5 Skin no rashes, warm and dry Neurologic patellar DTR's 2+ bilat, sensation intact and PERRL, EOMI, accommodation nl, no face palsy, no dysarthria Psychiatric A+Ox3, euthymic affect Lymphatic no cervical or axillary lymphadenopathy Discharge Data Allergies Allergy/AdvReac Type Severity Reaction Status Date / Time Penicillins Allergy Unknown Unknown Verified 08/15/20 07:39 Consultations 08/15/20 07:18 ED Decision to Admit Stat 08/15/20 10:11 Consult Gastroenterology Routine Consult General Surgery Routine 08/15/20 17:02 Burn CD for patient Stat Ordered Studies 08/15/20 05:06 CT abd pelvis IV con only Urgent Hospital Course (1) Stricture of sigmoid colon: see HPI for history CT today shows obstruction, transition point at sigmoid has known stricture seen on colonoscopy on 07/23/20 NPO, place NGT to LIS NSS at 125cc/hr Solu Medrol 40mg IV q12 Cipro/Flagyl IV discussed with colorectal and GI at [facility], they agree to transfer (2) Superior mesenteric vein thrombosis: low dose heparin drip, no bolus this is a new finding compared to prior CT scan makes IBD seem more likely (3) Colitis: unclear etiology, has not responded to steroids now with SMV thrombosis, colitis on CT, intra-hepatic biliary duct dilation with alk phos 300's needs to be seen by GI service at tertiary care, transfer to [facility] for further work up biopsy on 07/23 A. Colon, colitis, biopsy: - Focal active chronic colitis with ulceration and granulation tissue - Moderate architectural disarray - Negative for granulomas, dysplasia and malignancy - CMV negative B. Colon, stricture, biopsy: - Prominent active colitis with ulceration and granulation tissue - Negative for granulomas, dysplasia and malignancy - CMV negative (4) Abdominal pain, LLQ: (5) Colonic obstruction: (6) Prediabetes: (7) Anxiety: (8) HTN (hypertension): (9) Tobacco use disorder: Total Time Total Time Spent Total Time Spent (In Minutes): 60 Total Time Includes: Examination of the Patient, Discharge Planning, Medication Reconciliation and Communication With Other Providers Discharge Plan Discharge Items Patient Disposition: Transfer Acute Care Hospital Reason For Visit: SIGMOID STRICTURE,COLONIC OBSTRUCTION Discharge Diagnosis: Sigmoid structure Suspected inflammatory bowel disease SMV thrombosis Condition on Discharge: Serious Activity: Resume your previous activity Non-emergency contact: Surgeon Call non-emergency contact if: you have any medication questions and your symptoms worsen Follow-up/Referrals: Emely Torres, [Primary Care Provider] - Diet: Nothing by Mouth Addtl Attending Provider Instructions: transfer to Dr. Masha Altamirano, colorectal surgery Pending Studies at Discharge: No Stand-Alone Forms: My [facility] Skilled Items Patient informed of condition?: Yes DNR: No Discharge Level of Care: Other Communicable Disease: No Discharge Prognosis: Deteriorating Lines: Peripheral IV Urinary Catheter: No Medications and DC Order Prescriptions: Continued esomeprazole magnesium [Nexium] 40 mg capsule,delayed release(DR/EC) 80 mg PO DAILY RF: 0 multivitamin Tablet 1 tab PO DAILY RF: 0 buspirone 5 mg tablet 10 mg PO QAM RF: 0 hydroxyzine HCl 25 mg tablet 25 mg PO TID PRN (Reason: anxiety) Qty: 60 RF: 0 lisinopril 20 mg tablet 20 mg PO DAILY Qty: 30 RF: 2 citalopram 40 mg Tablet 40 mg PO HS Qty: 30 RF: 3 ascorbic acid (vitamin C) [Vitamin C] 500 mg Tablet 1,000 mg PO DAILY RF: 0 prednisone 5 mg tablet 40 mg PO DAILY Qty: 252 RF: 0 Discharge Orders: Discharge Order (Routine); Ordered 08/15/20 Ordered By: Godfrey Vann Admission Data Admit Date/Time: 08/15/20 08:01 Attending Provider: Godfrey Vann Admit Provider: Godfrey Vann Primary Care Provider: Emely Torres Other Providers: Godfrey Vann ; Irving Tse ; Willem Reynoso Coding Level of Care Code Admit/DC Same Day >8hr Level 3 Diagnoses Stricture of sigmoid colon K56.699 Superior mesenteric vein thrombosis K55.069 Colitis K52.9 Abdominal pain, LLQ R10.32 Colonic obstruction K56.609 Prediabetes R73.03 Anxiety F41.9 HTN (hypertension) I10 Tobacco use disorder F17.200
[2020-08-15] MEDS ORDERED: CITALOPRAM 40 MG TAB PO SCH (21:00)
== END 2020-08-15 19:45 | disposition short-term general hospital (02) ==
LOC: ED 04:45 → 2N 08:01 → INTOOBSV 08:01 → 2N 09:45